=== PATIENT | female | born 1950 | race Caucasian/White ===

== ENCOUNTER 2022-10-11 20:13 | Inpatient (IN) | payer MEDICARE, OTHER ==
[~2022-10-11] VITALS: Ht 165.1 cm; Wt 58.7 kg
[~2022-10-11 20:13] MED LIST: AMLODIPINE PO
[2022-10-11] MEDS ORDERED: MELATONIN 3 MG TABLET PO PRN (20:15)
[2022-10-11] MEDS ORDERED: diphenhydrAMINE 25 MG TABLET PO PRN (20:15)
[2022-10-11] MEDS ORDERED: BISACODYL 10 MG SUPPOSITORY PR PRN (20:15)
[2022-10-11] MEDS ORDERED: diphenhydrAMINE INJ 50 MG/ML VIAL IVP PRN (20:15)
[2022-10-11] MEDS ORDERED: polyethylene glycoL POWDER 17 GM (MIRALAX) PACK PO PRN (20:15)
[2022-10-11] MEDS ORDERED: CALCIUM CARBONATE 500 MG CHEW TABLET PO PRN (20:15)
[2022-10-11] MEDS ORDERED: ANTACID SUSPENSION 30 ML UDC PO PRN ×2 (20:15→20:30)
[2022-10-11] MEDS ORDERED: oxyCODONE IMMEDIATE RELEASE 5 MG TABLET PO PRN (20:15)
[2022-10-11] MEDS ORDERED: morphine INJ 4 MG/ML 1 ML (VIAL/SYRINGE) IV PRN (20:15)
[2022-10-11] MEDS ORDERED: ONDANSETRON 4 MG (ZOFRAN) ORAL DISSOLVE TAB PO PRN (20:15)
[2022-10-11] MEDS ORDERED: NS IV SCH (20:15)
[2022-10-11] MEDS ORDERED: NICARDIPINE IV SCH (20:15)
[2022-10-11] MEDS ORDERED: MILK OF MAGNESIA 400 MG/5 ML 30 ML UDC PO PRN (20:15)
[2022-10-11] MEDS ORDERED: LACTULOSE SYRUP 10GM/15ML 30ML UDC PO PRN (20:15)
[2022-10-11] MEDS ORDERED: ACETAMINOPHEN 325 MG TABLET PO PRN (20:15)
[2022-10-11] MEDS ORDERED: ONDANSETRON 4 MG/2 ML (SDV) Z0FRAN IV PRN ×2 (20:15→20:30)
[2022-10-11] MEDS ORDERED: NS IV 500 ML 500 ML IV PRN ×2 (20:15→22:00)
[2022-10-11] MEDS ORDERED: D5 1/2 NS 1,000 ML IV 1,000 ML IV PRN (20:30)
[2022-10-11] MEDS ORDERED: ONDANSETRON 4 MG (ZOFRAN) ORAL DISSOLVE TAB SL PRN (20:30)
[2022-10-11] MEDS ORDERED: LORazepam 1 MG TABLET PO PRN (20:30)
[2022-10-11] MEDS ORDERED: SENNA W/DOCUSATE (SENOKOT S) TABLET PO PRN (20:30)
[2022-10-11] MEDS ORDERED: 1/2 NS IV SOLUTION 1000 ML 1,000 ML IV PRN (20:30)
--- NOTE | 2022-10-11 20:40 | History & Physical ---
History of Present Illness HPI/Chief Complaint CC: Catastrophic CVA with right sided weakness HPI: This is a 72yoWF with no PCP who has a h/o current smoking, alcohol excessive use and HTN on no home meds who presented to the [facility] ICU from [facility] ER after she was transported from [facility] after her daughter called due to unable to ambulate out of a chair. Her last well time was 24+ hours ago and patient has expressive aphasia and dysarthria and unable to communicate along with fl accidity of her right side. had accepted the patient since CT angiogram cannot be performed at [facility] critical access hospital but no flights were available and EMS could not transport out of the [facility] so she was transported to [facility] on my service for stat CT angiogram with perfusion. If a large thrombus is identified we will attempt to secure a flight out of [place] since no one near the region could fly during this time due to weather. Cardene drip will be initiated and goal of SBP is 200 due to initial SBP was 278. stroke center did provide recs. If she can swallow we will initiate ASA and Plavix. I assessed the patient in [facility] ER and placed admit orders for [facility] and updated nursing supervisor grinding. Source: family Exam Limitations: clinical condition Date Seen 10/11/22 Time Seen by a Provider: 20:00 Attending Physician PCP Admitting Physician: Ariana Rubin DO Attending Physician: Ariana Rubin DO Referring Physician Date of Admission Home Medications & Allergies Home Medications Reviewed patient Home Medication Reconciliation performed by pharmacy medication reconciliations blow mold technician and/or nursing. Patients Allergies have been reviewed. Allergies Allergies Coded Allergies No Known Drug Allergies (Unverified09/27/11) Past Vvyyiks-Dztxgh-Efosha Hx Past Med/Social Hx: Reviewed Nursing Past Med/Soc Hx, Reviewed and Corrections made Patient Social History Marrital Status: single Employed/Student: retired Alcohol Use: Regular Use Smoking Status: Current Everyday Smoker Past Medical History Cardiac: Hypertension Review of Systems Constitutional: see HPI Psychiatric/Neurological: Weakness (right sided) Physical Exam Physical Exam Vital Signs Capillary Refill : Height, Weight, BMI Height: '" Weight: lbs. oz. kg; BMI Method: General Appearance: Anxious, Chronically ill, Mild Distress (tearful), Thin Respiratory: Lungs Clear, Normal Breath Sounds, No Accessory Muscle Use, No Respiratory Distress Cardiovascular: Regular Rate, Rhythm, No Edema, No Gallop, No JVD, No Murmur, Normal Peripheral Pulses Neurologic/Psychiatric: Alert, Aphasia, Disoriented, Facial Droop (right sided), Motor Weakness (right sided flaccidity) Results Results/Procedures Labs Patient resulted labs reviewed. Assessment/Plan Admission Diagnosis Assessment: Catastrophic CVA with right sided flaccidity Dysarthria and expressive aphasia HTN emergency placed on Cardene drip Smoker Alcohol excess user placed on CIWA Plan: CT angiogram with perfusion of brain and CT angiogram of neck in case there is a large thrombus then will attempt to secure a med flight to who had accepted her since [facility] did not have CT angiogram of the brain capabilities Carotid USG PT OT ST for expressive aphasia Swallow test for aspiration CIWA Vitamin supplementation to prevent Wernicke's encephalopathy and Karsokoff's psychosis Lovenox for DVT PPx ECHO Cardiology consult ASA and Plavix Admission Status: Inpatient Order (span 2 midnights) Reason for Inpatient Admission: CVA ARIANA RUBIN DO Oct 11, 2022 20:40
--- NOTE | 2022-10-11 21:48 | Tele-ICU Consult ---
Progress Note 72 yo F admitted from OSH for acute CVA, awaiting transfer to [facility] delayed due to weather. Brought in by daughter for aphasia, R hemiparesis. LKW > 24 hrs, no TNK rec'd PMH Alcohol dependence, HTN Awake, alert on video, on RA not in distress Nicardipine gtt with goal BP already in place per primary MD (150-180) Also seizure ppx, CIWA HR 122, SpO2 96 on RA Awaiting imaging, CT Angio to evaluate need for emergent thrombectomy (ordered per Dr. Rubin) Diagnosis: Acute CVA A total of _12 _ minutes of critical care time was devoted to this patient, including reviewing this patient's available data, including medical history, events of note and test results. This was required to treat and/or prevent further deterioration of critical care conditions ( as above ). Service provided to a patient admitted to ICU bed via interactive E-CARE system with real-time audio and video telecommunications from [facility]- ICU hub located in [place], [place] MARGI PABON MD Oct 11, 2022 21:48
[2022-10-11] MEDS: NS IV 1000 ML 1,000 ML IV SCH (22:03)
[2022-10-11] MEDS: DOCUSATE SODIUM 100 MG CAPSULE PO SCH (22:14)
[2022-10-11] MEDS: SENNOSIDES 8.6 MG (SENOKOT) TAB PO SCH (22:14)
[2022-10-11 22:26] LABS: CHOLESTEROL 230 MG/DL (< 200); HDL CHOLESTEROL 75 MG/DL (40-60); TRIGLYCERIDES 111 MG/DL (<150); VLDL CHOLESTEROL 22 MG/DL (5-40)
[2022-10-11 22:41] LABS: CREATININE SERUM 0.73 MG/DL (0.60-1.30)
[2022-10-11 23:09] VITALS: BP 178/83
[2022-10-11] MEDS ORDERED: RT-Ipratropium/Albuterol NEB 3 ML VIAL INH PRN (23:30)
[2022-10-12] MEDS: ENOXAPARIN 40 MG/0.4 ML SYRINGE SC SCH ×2 (02:06→21:03)
[2022-10-12 04:35] LABS: BASOPHILS % (AUTO) 0 % (0-10); EOSINOPHILS % (AUTO) 0 % (0-10); HEMATOCRIT 40 % (35-52); HEMOGLOBIN 14.1 g/dL (11.5-16.0); LYMPHOCYTES # (AUTO) 2.2 10^3/uL (1.0-4.0); LYMPHOCYTES % (AUTO) 22 % (12-44); MEAN CORPUSCULAR HEMOGLOBIN 31 pg (25-34); MEAN CORPUSCULAR HGB CONC 35 g/dL (32-36); MEAN CORPUSCULAR VOLUME 88 fL (80-99); MEAN PLATELET VOLUME 9.7 fL (9.0-12.2); MONOCYTES # (AUTO) 0.7 10^3/uL (0.0-1.0); MONOCYTES % (AUTO) 7 % (0-12); NEUTROPHILS # (AUTO) 7.1 10^3/uL (1.8-7.8); NEUTROPHILS % (AUTO) 70 % (42-75); PLATELET COUNT 332 10^3/uL (130-400); WHITE BLOOD COUNT 10.1 10^3/uL (4.3-11.0)
[2022-10-12 05:21] LABS: ALBUMIN 4.1 GM/DL (3.2-4.5); POTASSIUM 3.3 MMOL/L (3.6-5.0)
[2022-10-12 05:22] LABS: CALCIUM 9.2 MG/DL (8.5-10.1)
[2022-10-12 05:24] LABS: TOTAL PROTEIN 6.9 GM/DL (6.4-8.2)
[2022-10-12 05:27] LABS: CREATININE SERUM 0.7 MG/DL (0.60-1.30); PHOSPHORUS 2.9 MG/DL (2.3-4.7)
[2022-10-12 05:30] LABS: MAGNESIUM 1.9 MG/DL (1.6-2.4)
[2022-10-12] MEDS ORDERED: POTASSIUM CL 10MEQ/50ML IVPB 50 ML IV SCH (06:00)
[2022-10-12] MEDS ORDERED: POTASSIUM CHLORIDE 20 MEQ TABLET PO SCH (06:00)
[2022-10-12] MEDS ORDERED: MAGNESIUM 1 GM/100 ML IVPB 100 ML IV SCH (06:00)
[2022-10-12] MEDS: POTASSIUM CL 10MEQ/50ML IVPB 50 ML IV SCH (06:20)
[2022-10-12] MEDS: MAGNESIUM 1 GM/100 ML IVPB 100 ML IV SCH (06:20)
[2022-10-12] MEDS: POTASSIUM CHLORIDE 20 MEQ TABLET PO SCH (06:20)
--- NOTE | 2022-10-12 06:37 | Progress Note ---
Subjective Date Seen by a Provider: Oct 12, 2022 Time Seen by a Provider: 11:00 Subjective/Events-last exam Patient remained stable through the night CT angiogram did not show any thrombus that could be extracted at [facility] CT angiogram of the neck and carotid ultrasound confirmed complete occlusion of the left internal and external carotid artery causing a catastrophic stroke in the left parietal region from MCA Expressive aphasia continues No dysphagia reported so she is stable to take her aspirin and Plavix Echo ordered Cardiology consult Updated patient and family in depth regarding all the results Spoke with [facility] vascular surgeon Dr. Thompson Who agreed there was no option for carotid endarterectomy since that could cause a hemorrhagic transition of the stroke Moved around pretty well with PT and stood up Review of Systems General: Fatigue, Malaise Neurological: Weakness, Incoordination Objective Exam Last Set of Vital Signs Vital Signs Date Time Temp Pulse Resp B/P (MAP) Pulse Ox O2 Delivery O2 Flow Rate FiO2 10/12/22 06:00 93 15 170/81 (110) 96 Room Air 10/12/22 01:55 36.9 10/11/22 23:09 21 Capillary Refill : I&O Intake and Output 10/12/22 00:00 Intake Total 0 ml Output Total 550 ml Balance -550 ml Intake Oral 0 ml Output Urine Total 550 ml Daily Weight Change Unsure General: Alert, Oriented X3, Cooperative, No Acute Distress Lungs: Clear to Auscultation, Normal Air Movement Heart: Regular Rate, Normal S1, Normal S2, No Murmurs Neuro: Other (right sided weakness) Psych/Mental Status: Mental Status NL Results Lab Laboratory Tests 10/11/22 21:23: Glucometer 128H 10/11/22 21:49: Blood Urea Nitrogen 8, Creatinine 0.73, Estimat Glomerular Filtration Rate 88, BUN/Creatinine Ratio 11, Triglycerides Level 111, Cholesterol Level 230H, LDL Cholesterol Direct 141H, VLDL Cholesterol 22, HDL Cholesterol 75H 10/12/22 04:12: Blood Urea Nitrogen 7, Creatinine 0.70, Estimat Glomerular Filtration Rate 92, BUN/Creatinine Ratio 10, White Blood Count 10.1, Red Blood Count 4.57, Hemoglobin 14.1, Hematocrit 40, Mean Corpuscular Volume 88, Mean Corpuscular Hemoglobin 31, Mean Corpuscular Hemoglobin Concent 35, Red Cell Distribution Width 12.4, Platelet Count 332, Mean Platelet Volume 9.7, Immature Granulocyte % (Auto) 0, Neutrophils (%) (Auto) 70, Lymphocytes (%) (Auto) 22, Monocytes (%) (Auto) 7, Eosinophils (%) (Auto) 0, Basophils (%) (Auto) 0, Neutrophils # (Auto) 7.1, Lymphocytes # (Auto) 2.2, Monocytes # (Auto) 0.7, Eosinophils # (Auto) 0.0, Basophils # (Auto) 0.0, Immature Granulocyte # (Auto) 0.0, Sodium Level 137, Potassium Level 3.3L, Chloride Level 105, Carbon Dioxide Level 19L, Anion Gap 13, Glucose Level 116H, Calcium Level 9.2, Corrected Calcium 9.1, Phosphorus Level 2.9, Magnesium Level 1.9, Total Bilirubin 1.0, Aspartate Amino Transf (AST/SGOT) 19, Alanine Aminotransferase (ALT/SGPT) 18, Alkaline Phosphatase 62, Total Protein 6.9, Albumin 4.1 Assessment/Plan Assessment/Plan Assess & Plan/Chief Complaint Assessment: Catastrophic CVA with right sided flaccidity-CT angiogram matches carotid ultrasound revealing left carotid internal and external complete occlusion causing catastrophic ischemic infarct of the left parietal and MCA region no surgical option available per vascular surgery at [facility] Dysarthria and expressive aphasia HTN emergency placed on Cardene drip Smoker Alcohol excess user placed on CIWA Plan: ARU Friday PT OT ST for expressive aphasia Swallow test for aspiration looked ok CIWA Vitamin supplementation to prevent Wernicke's encephalopathy and Karsokoff's psychosis Lovenox for DVT PPx ECHO Cardiology consult ASA and Plavix JM CALLEJAS DO Oct 12, 2022 06:37
--- NOTE | 2022-10-12 07:49 | Diagnostic Imaging Report ---
PROCEDURE: CT head without r/o stroke. TECHNIQUE: Multiple contiguous axial images were obtained through the brain without the use of intravenous contrast. Auto Exposure Controls were utilized during the CT exam to meet ALARA standards for radiation dose reduction. INDICATION: Stroke. COMPARISON: Imaging from this same date. FINDINGS: Mild atrophy. No intracranial hemorrhage. Focal hypodensity is noted within the left basal ganglia, consistent with chronic lacunar infarction; however, focal hypodensity is noted within the left parietal lobe which involves the cortex and underlying white matter. There is associated enlargement and edema noted at this location. No significant midline shift, obstructive hydrocephalus, or extra-axial fluid collection. The bilateral ocular lenses are absent. Otherwise, the orbits are unremarkable. The paranasal sinuses are clear. The calvarium and extracalvarial soft tissues are unremarkable IMPRESSION: Findings consistent with an acute to subacute infarction within the distribution of the left middle cerebral artery, particularly involving the left parietal lobe. Agree with preliminary interpretation. Dictated by: Dictated on workstation # [id number]
--- NOTE | 2022-10-12 07:51 | Diagnostic Imaging Report ---
PROCEDURE: CT angiography of the head and CT angiography of the neck with and without contrast. TECHNIQUE: Contiguous noncontrast images were obtained from the skull base through the vertex. After intravenous contrast administration, helical CT angiography of the neck was performed. Source data was reformatted into 3D MIP projections. Delayed post contrast acquisition was also obtained. Auto Exposure Controls were utilized during the CT exam to meet ALARA standards for radiation dose reduction. INDICATION: CVA. FINDINGS: There is prominence of the ventricles and sulci. There is mild chronic microvascular ischemic disease. There is no hydrocephalus. There is no midline shift. There is no mass, hemorrhage, or extra-axial fluid collection. The distal internal carotid arteries and basilar artery are patent. There is some atherosclerotic calcification of the proximal intracranial ICAs. There are no proximal intracranial branch occlusions, vascular malformations, or aneurysms. The calvarium is intact. The sinuses and mastoid air cells are clear. The right common carotid artery is unremarkable. There is no occlusions, stenosis, or dissection. The right internal carotid artery is also unremarkable. The extracranial segment is patent with no occlusion, stenosis, or dissection. The right external carotid artery is widely patent. The right vertebral artery is unremarkable without occlusion, stenosis, or dissection. There is occlusion of the left common carotid artery proximally. There is significant atherosclerosis about the left carotid bifurcation. There is reconstitution of the left internal carotid artery just distal to the bifurcation and significant calcifications. The nasopharyngeal, oropharyngeal, and hypopharyngeal tissues are symmetric without mass effect. The parotid and submandibular glands are normal in appearance. There are several low-density lesions in the thyroid. There is no pathologically enlarged adenopathy or mass in the neck. The prevertebral soft tissues are within normal limits. There are moderate degenerative changes in the cervical spine. IMPRESSION: Unremarkable CTA head. There are no proximal intracranial branch occlusions, vascular malformation, or aneurysms. Occlusion of the left common carotid artery which appears to be secondary to marked atherosclerotic calcification of the bifurcation. There is reconstitution of the proximal left internal carotid artery via collaterals from the external carotid artery. Otherwise, unremarkable CTA neck. Dictated by: Dictated on workstation # [id number]
--- NOTE | 2022-10-12 07:55 | Diagnostic Imaging Report ---
INDICATION: Stroke. COMPARISON: Imaging from this same date. TECHNIQUE: CT perfusion examination was performed before and after the administration of intravenous contrast dated 10/12/2022. FINDINGS: The examination is incomplete. The patient experienced coughing and emesis during the examination and was terminated early. Additionally, the cerebral blood flow and cerebral blood volume color overlays were unable to be calculated by the software. Acute to subacute infarction within the left parietal lobe is again noted. IMPRESSION: Incomplete examination; therefore, I am unable to evaluate for penumbra. Acute to subacute infarction within the left parietal lobe is again noted though better demonstrated on concurrent CTs from this same date. See the separately dictated CT and CTA of the head and neck for further findings. Dictated by: Dictated on workstation # [id number]
[2022-10-12] MEDS ORDERED: POTASSIUM CHLORIDE 20 MEQ TABLET PO ONE ×2 (08:00→11:00)
--- NOTE | 2022-10-12 08:38 | Tele-ICU Progress Note ---
Subjective Date Seen by a Provider: Oct 12, 2022 Time Seen by a Provider: 08:38 Subjective/Events-last exam (Tele-ICU Physician , Progress Note ) Service provided via interactive audio and video telecommunications E-CARE s alfonso to a patient admitted to ICU bed in [facility]. Patient is seen today due to persistent need of ICU care Available chart/ vitals / labs / Images reviewed Video assessment done using teleICU camera, rest of exam as per RN She is a 72-year-old female with a history of current smoking alcohol abuse hypertension on no home meds presented to a [facility] ICU from [facility] ER due to acute stroke. In the ER she was found to have a expressive aphasia, dysarthria and a flaccidity of her right side. CT angiogram of the head and neck revealed no acute abnormalities in the head but on the left side she has a common carotid occlusion with reconstitution of the proximal left internal carotid artery via collaterals from external carotid artery. The [facility] was consulted and accepted for transfer. But due to bad weather she could not be transferred. Today ultrasonogram of the carotids were done and showed complete occlusion of common carotid artery on the left side. Apparently vascular surgeon felt there is no need for acute intervention. She has a.'s of hypertension initially she was on a Cardene drip and now off the Cardene drip. Her systolic blood pressure on and off for about the 190s. I feel that her permissible systolic hypertension at this time probably around 8180 mmHg. Impression 1. Acute left CVA with right hemiparesis and aphasia. 2. Left common carotid artery complete occlusion 3. Tobacco abuse 4. Alcohol abuse history 5. Uncontrolled hypertension due to noncompliance. Recommendations 1. We will keep her systolic blood pressure less than 180 2. Aspirin. 3. Physical therapy, Occupational Therapy and speech therapy. 4. Tobacco cessation strongly advised 5. Alcohol abuse disorder. It will be counseled once she is somewhat improved. 6. We will give thiamine and folic acid. 7. Subcutaneous Lovenox for DVT prophylaxis starting from 10/13/2022. 8. Keep LDL less than 70 9. Hemoglobin A1c goal less than 6.0. Coordination of care with primary care physician and bedside consultants. I am remotely monitoring this patient from Tele icu station in [place]. I am unable to do the bedside exam, and history/physical and pertinent information is taken from other notes in the computer and bedside staff. Certain portions of this document may have been dictated utilizing voice recognition technology such as [employer]ivid[employer]ortex[employer]. Inherent to this technology, typographical and grammatical errors may exist. As much as I am diligent to identify and correct to these mistakes, some errors may remain in the document. Critical care time devoted to this patient today is approximately is--25 minutes Sepsis Event Evaluation Height, Weight, BMI Height: '" Weight: lbs. oz. kg; 20.76 BMI Method: Exam Exam Patient acknowledged, consented, and participated in this virtual visit which was conducted using real time audio/video Vital Signs Date Time Temp Pulse Resp B/P (MAP) Pulse Ox O2 Delivery O2 Flow Rate FiO2 10/12/22 08:20 94 Room Air 10/12/22 08:00 36.2 10/12/22 07:00 98 10/12/22 06:00 93 15 170/81 (110) 96 Room Air 10/12/22 05:00 87 18 142/88 (106) 93 Room Air 10/12/22 04:00 97 15 125/65 (85) 94 Room Air 10/12/22 03:46 Room Air 10/12/22 03:00 98 23 129/64 (85) 91 Room Air 10/12/22 02:00 103 18 148/63 (91) 91 Room Air 10/12/22 01:55 36.9 10/12/22 01:00 105 10/12/22 01:00 107 18 157/65 (95) 91 Room Air 10/12/22 00:00 110 20 151/66 (94) 94 Room Air 10/11/22 23:47 Room Air 10/11/22 23:46 Room Air 10/11/22 23:09 113 93 21 10/11/22 23:00 111 14 156/69 (98) 93 Room Air 10/11/22 22:44 93 Room Air 10/11/22 22:30 112 19 144/68 (93) 93 Room Air 10/11/22 22:09 109 178/83 10/11/22 22:00 109 14 178/83 (114) 95 Room Air 10/11/22 21:45 109 19 181/95 (123) 95 Room Air 10/11/22 21:34 113 10/11/22 21:30 117 27 201/95 (130) 95 Room Air 10/11/22 21:15 117 27 196/103 (134) 95 Room Air 10/11/22 21:00 Room Air I & O 10/12/22 07:00 Intake Total 30 ml Output Total 1750 ml Balance -1720 ml Height & Weight Height: '" Weight: lbs. oz. kg; 20.76 BMI Method: General Appearance: Anxious, Chronically ill, Mild Distress (tearful), Thin Respiratory: Lungs Clear, Normal Breath Sounds, No Accessory Muscle Use, No Respiratory Distress Cardiovascular: Regular Rate, Rhythm, No Edema, No Gallop, No JVD, No Murmur, Normal Peripheral Pulses Neurologic/Psychiatric: Alert, Aphasia, Disoriented, Facial Droop (right sided), Motor Weakness (right sided flaccidity) Results Lab Laboratory Tests 10/11/22 21:49 10/12/22 04:12 Assessment/Plan Assessment/Plan as above Critical Care: Critically Ill Patient Time spent with patient (mins): 25 KYLAH MONTOYA MD Oct 12, 2022 08:38
[2022-10-12] MEDS: ASPIRIN 325 MG TABLET PO SCH (08:51)
[2022-10-12] MEDS: CLOPIDOGREL 75 MG TABLET PO SCH (08:51)
[2022-10-12] MEDS ORDERED: ASPIRIN 300 MG SUPPOSITORY PR SCH (09:00)
[2022-10-12] MEDS: DOCUSATE SODIUM 100 MG CAPSULE PO SCH ×2 (09:04→21:01)
[2022-10-12] MEDS: SENNOSIDES 8.6 MG (SENOKOT) TAB PO SCH ×2 (09:04→21:01)
--- NOTE | 2022-10-12 09:32 | Diagnostic Imaging Report ---
INDICATION: Dyspnea. COMPARISON: None. DISCUSSION: Single portable upright view of the chest was obtained. Lungs are hyperinflated. Normal heart size. No consolidation, pleural fluid, or pneumothorax. No osseous abnormality. IMPRESSION: 1. Negative chest. Dictated by: Dictated on workstation # [id number]
--- NOTE | 2022-10-12 09:33 | Diagnostic Imaging Report ---
INDICATION: Right hip pain. COMPARISON: None. DISCUSSION: Two views of the right hip were obtained. No fracture or dislocation. No significant degenerative disease. Atherosclerotic plaques noted throughout the adjacent vessels. The bladder is decompressed by a Orozco catheter. Contrast is noted within the bladder. IMPRESSION: Negative right hip. Dictated by: Dictated on workstation # [id number]
--- NOTE | 2022-10-12 09:34 | Diagnostic Imaging Report ---
INDICATION: Right knee pain. COMPARISON: None. DISCUSSION: Two views of the right knee were obtained. Mild anterior soft tissue swelling. No effusion. No fracture or dislocation. No significant degenerative disease. Alignment is anatomic. IMPRESSION: Mild anterior right knee soft tissue swelling. No fracture. Dictated by: Dictated on workstation # [id number]
[2022-10-12] MEDS: THIAMINE INJECTION 100 MG, FOLIC ACID INJECTION 1 MG, MAGNESIUM SULFATE 2 GM, MULTIVITA... IV SCH ×5 (09:38)
--- NOTE | 2022-10-12 10:32 | Diagnostic Imaging Report ---
PROCEDURE: US carotid duplex bilateral. TECHNIQUE: Multiple Real-time grayscale images were obtained over the carotid arteries in various projections, bilaterally. Additional spectral analysis and color Doppler duplex images were also obtained. INDICATION: CVA. FINDINGS: Parameters based on the consensus panel [employer] and Doppler ultrasound criteria published January 2003, Radiology, Volume 229. There are no focally elevated velocities in the right common or internal carotid artery. The ICA/CCA ratio is 1.19. There is antegrade flow in both vertebral arteries. The left common carotid artery, internal carotid artery, and external carotid artery are occluded. IMPRESSION: Complete occlusion of the left carotid system including both the internal and external carotid arteries. Mild plaque in the right carotid system; however, spectral analysis shows no evidence of a hemodynamically significant stenosis. There is antegrade flow in both vertebral arteries. DOPPLER (peak systolic velocity M/S Right Left CCA 1.09 OCCLUDED ICA Proximal 1.30 OCCLUDED ICA Mid 1.17 OCCLUDED ICA Distal 1.18 OCCLUDED RATIO 1.19 OCCLUDED ECA 3.24 OCCLUDED VERT .98 .60 Dictated by: Dictated on workstation # [id number]
[2022-10-12] MEDS: NS IV 1000 ML 1,000 ML IV SCH (10:41)
--- NOTE | 2022-10-12 11:27 | Physical Therapy Evaluation ---
PT Evaluation-General Medical Diagnosis Admission Date Oct 11, 2022 at 21:08 Medical Diagnosis: CVA Onset Date: Oct 11, 2022 Therapy Diagnosis Therapy Diagnosis: decreased mobility, R hemiparesis Precautions Precautions/Isolations: Aspiration, Seizure, Fall Prevention, Standard Precautions, Pressure Ulcer Referral Physician: Caryn Reason for Referral: Evaluation/Treatment Medical History Pertinent Medical History: HTN Additional Medical History current smoker, excessive alcohol use Current History Presented to [facility] [place] [facility] with [place], family reports patient found at home post fall. Reviewed History: Yes Social History Home: Single Level Current Living Status: Alone Prior Prior Level of Function SCALE: Activities may be completed with or without assistive devices. 3-Majmyqhkyt-fylgogz completes the activity by him/herself with no assistance from a helper. 5-Set-up or Clean-up Assistance-helper sets up or cleans up; patient completes activity. [place] assists only prior to or following the activity. 4-Supervision or Touching Assistance-helper provides verbal cues and/or touching/steadying and/or contact guard assistance as patient completes activity. Assistance may be provided throughout the activity or intermittently. 3-Partial/Moderate Assistance-helper does LESS THAN HALF the effort. [place] lifts, holds or supports trunk or limbs, but provides less than half the effort. 2-Substantial/Maximal Assistance-helper does MORE THAN HALF the effort. [place] lifts or holds trunk or limbs and provides more than half the effort. 9-Capgbjhuv-wvpyua does ALL the effort. Patient does none of the effort to complete the activity. Or, the assistance of 2 or more helpers is required for the patient to complete the activity. If activity was not attempted, code reason: 7-Patient Refused. 9-Not Applicable-not attempted and the patient did not perform the activity before the current illness, exacerbation or injury. 10-Not Attempted due to Environmental Limitations-(lack of equipment, weather restraints, etc.). 88-Not Attempted due to Medical Conditions or Safety Concerns. Bed Mobility: 6 Transfers (B,C,W/C): 6 Gait: 6 Stairs: 6 Indoor Mobility (Ambulation): Independent PT Evaluation-Current Subjective Pt. in bed, denies pain. Agrees to stand at edge of bed but declines sitting up in a chair. Objective Patient Orientation: Person ROM/Strength ROM Upper Extremities L UE WNL, decreased R UE ROM Lower Extremities (B) LE is WNL Strength Upper Extremities L UE is WNL, n/a R UE Strength Lower Extremities L LE is 5/5, R LE grossly 3+/5 Integumentary/Posture Integumentary bruising noted at R knee Bowel Incontinence: No Bladder Incontinence: Orozco Cath Posture upright Neuromuscular (Tone, Coordination, Reflexes) diminished Sensory Vision: Functional Hearing: Functional Sensation Right Upper Extremit: Impaired Sensation Left Upper Extremity: Intact Sensation Right Lower Extremit: Impaired Sensation Left Lower Extremity: Intact Transfers Sit to Lying (QC): 4 Lying to Sitting/Side of Bed(Q: 3 Sit to Stand (QC): 4 Gait Does the Patient Walk?: Yes Anticipated Mode of Locomotion: Walk Balance Sitting Static: Good Sitting Dynamic: Fair Standing Static: Poor Standing Dynamic: Poor Assessment/Needs Pt. is a 72 y.o. female with CVA and R hemiparesis who presents with decreased strength and mobility. Pt. was min-mod A with all transfers but had poor standing balance and quickly fatigued which increased her lean to the R. Pt. would benefit from skilled PT to improve mobility and strength for possible return home. Pt. would likely be a good candidate for ARU. 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 Assisted Goals PT Assisted Goals Time Frame: Oct 23, 2022 Sit to Lying (QC): 6 Lying-Sitting on Side/Bed(QC): 6 Sit to Stand (QC): 6 Chair/Una-um-Rpkua Xfer(QC): 4 Does the Patient Walk: Yes Walk 10 feet (QC): 4 Walk 50ft with 2 Turns (QC): 4 PT Plan Problem List Problem List: Activity Tolerance, Functional Strength, Safety, Balance, Gait, Transfer, Bed Mobility, ROM Treatment/Plan Treatment Plan: Continue Plan of Care Treatment Plan: Bed Mobility, Concurrent Therapy, Education, Functional Activity Shira, Functional Strength, Gait, Safety, Therapeutic Exercise, Transfers Treatment Duration: Oct 23, 2022 Frequency: 6 times per week Estimated Hrs Per Day: .25 hour per day Patient and/or Family Agrees t: Yes Time Time In: 1030 Time Out: 1042 DATE: Oct 12, 2022 Total Billed Treatment Time: 12 Total Billed Treatment 1, BRISSA BROWN PT Oct 12, 2022 11:26
[2022-10-12] MEDS: hydrALAZINE INJECTION 20 MG/ML VIAL IV PRN ×2 (16:04→21:10)
--- NOTE | 2022-10-12 17:30 | Consultation-Cardiology ---
HPI-Cardiology Cardiology Consultation: Date of Consultation 10/12/22 Date of Admission Attending Physician Melvi,Local Physician Admitting Physician Admitting Physician: Ariana Rubin DO Attending Physician: Ariana Rubin DO Consulting Physician Sang RILEY MD HPI: Time Seen by a Provider: 15:00 Chief Complaint: Acute stroke This is a 72-year-old lady who presented with acute stroke. She could not be transferred to due to bad weather. Still having residual deficits. On aspirin and Plavix. Review of Systems-Cardiology Review of Systems Respiratory: no symptoms reported Cardiovascular: no symptoms reported Psychiatric/Neurological: weakness OPX-Nayhvr-Fmiqri Hx Patient Social History Marrital Status: single Employed/Student: retired Smoking Status: Current Everyday Smoker Alcohol Use?: Yes Tobacco type used: Cigarettes Past Medical History PMH As described under Assessment. Allergies and Home Medications Allergies Coded Allergies: No Known Drug Allergies (Unverified , 09/27/11) Patient Home Medication List Home Medication List Reviewed: Yes [Amlodipine] , 1 TAB PO DAILY, (Reported) Entered as Reported by: MONTANA SHEPHERD on 09/27/11 0840 Exam Vital Signs Vital Signs Date Time Temp Pulse Resp B/P (MAP) Pulse Ox O2 Delivery O2 Flow Rate FiO2 10/12/22 15:56 36.8 10/12/22 15:56 93 Room Air 10/12/22 15:00 92 16 180/94 (122) 10/11/22 23:09 21 Physical Exam Constitutional: No respiratory distress. Chest: Clear to auscultation bilaterally. CVS: Regular rate and rhythm. Neurology: Residual deficits. Labs Laboratory Tests Test 10/11/22 21:23 10/11/22 21:49 10/12/22 04:12 Range/Units Glucometer 128 H 70-110 MG/DL Blood Urea Nitrogen 8 7 7-18 MG/DL Creatinine 0.73 0.70 0.60-1.30 MG/DL Estimat Glomerular Filtration Rate 88 92 BUN/Creatinine Ratio 11 10 Triglycerides Level 111 <150 MG/DL Cholesterol Level 230 H < 200 MG/DL LDL Cholesterol Direct 141 H 1-129 MG/DL VLDL Cholesterol 22 5-40 MG/DL HDL Cholesterol 75 H 40-60 MG/DL White Blood Count 10.1 4.3-11.0 10^3/uL Red Blood Count 4.57 3.80-5.11 10^6/uL Hemoglobin 14.1 11.5-16.0 g/dL Hematocrit 40 35-52 % Mean Corpuscular Volume 88 80-99 fL Mean Corpuscular Hemoglobin 31 25-34 pg Mean Corpuscular Hemoglobin Concent 35 32-36 g/dL Red Cell Distribution Width 12.4 10.0-14.5 % Platelet Count 332 130-400 10^3/uL Mean Platelet Volume 9.7 9.0-12.2 fL Immature Granulocyte % (Auto) 0 % Neutrophils (%) (Auto) 70 42-75 % Lymphocytes (%) (Auto) 22 12-44 % Monocytes (%) (Auto) 7 0-12 % Eosinophils (%) (Auto) 0 0-10 % Basophils (%) (Auto) 0 0-10 % Neutrophils # (Auto) 7.1 1.8-7.8 10^3/uL Lymphocytes # (Auto) 2.2 1.0-4.0 10^3/uL Monocytes # (Auto) 0.7 0.0-1.0 10^3/uL Eosinophils # (Auto) 0.0 0.0-0.3 10^3/uL Basophils # (Auto) 0.0 0.0-0.1 10^3/uL Immature Granulocyte # (Auto) 0.0 0.0-0.1 10^3/uL Sodium Level 137 135-145 MMOL/L Potassium Level 3.3 L 3.6-5.0 MMOL/L Chloride Level 105 98-107 MMOL/L Carbon Dioxide Level 19 L 21-32 MMOL/L Anion Gap 13 5-14 MMOL/L Glucose Level 116 H 70-105 MG/DL Calcium Level 9.2 8.5-10.1 MG/DL Corrected Calcium 9.1 8.5-10.1 MG/DL Phosphorus Level 2.9 2.3-4.7 MG/DL Magnesium Level 1.9 1.6-2.4 MG/DL Total Bilirubin 1.0 0.1-1.0 MG/DL Aspartate Amino Transf (AST/SGOT) 19 5-34 U/L Alanine Aminotransferase (ALT/SGPT) 18 0-55 U/L Alkaline Phosphatase 62 40-136 U/L Total Protein 6.9 6.4-8.2 GM/DL Albumin 4.1 3.2-4.5 GM/DL ECG Impression ECG Initial ECG Rhythm: Normal Sinus A/P-Cardiology Assessment/Admission Diagnosis Acute stroke due to carotid occlusion Hypertension, Active Plan Defer treatment of acute stroke to the primary team. Patient is already on aspirin and Plavix. Echocardiogram showed normal LV function with no intracardiac shunting. Very unlikely that there is a cardiac etiology for the acute stroke. Sang RILEY MD Oct 12, 2022 17:30
[2022-10-13] MEDS: NS IV 1000 ML 1,000 ML IV SCH (03:20)
[2022-10-13] MEDS: hydrALAZINE INJECTION 20 MG/ML VIAL IV PRN ×3 (04:56→19:45)
[2022-10-13 05:05] LABS: BASOPHILS % (AUTO) 0 % (0-10); EOSINOPHILS % (AUTO) 0 % (0-10); HEMATOCRIT 39 % (35-52); HEMOGLOBIN 13.4 g/dL (11.5-16.0); LYMPHOCYTES # (AUTO) 3.3 10^3/uL (1.0-4.0); LYMPHOCYTES % (AUTO) 33 % (12-44); MEAN CORPUSCULAR HEMOGLOBIN 31 pg (25-34); MEAN CORPUSCULAR HGB CONC 35 g/dL (32-36); MEAN CORPUSCULAR VOLUME 89 fL (80-99); MEAN PLATELET VOLUME 9.6 fL (9.0-12.2); MONOCYTES # (AUTO) 0.7 10^3/uL (0.0-1.0); MONOCYTES % (AUTO) 7 % (0-12); NEUTROPHILS % (AUTO) 60 % (42-75); PLATELET COUNT 292 10^3/uL (130-400); WHITE BLOOD COUNT 10.1 10^3/uL (4.3-11.0)
[2022-10-13 05:14] LABS: ALBUMIN 3.8 GM/DL (3.2-4.5)
[2022-10-13 05:16] LABS: CALCIUM 8.9 MG/DL (8.5-10.1)
[2022-10-13 05:17] LABS: TOTAL PROTEIN 6.6 GM/DL (6.4-8.2)
[2022-10-13 05:19] LABS: BILIRUBIN,TOTAL 1.1 MG/DL (0.1-1.0)
[2022-10-13 05:20] LABS: PHOSPHORUS 2.9 MG/DL (2.3-4.7)
[2022-10-13 05:21] LABS: CREATININE SERUM 0.72 MG/DL (0.60-1.30)
[2022-10-13 05:24] LABS: MAGNESIUM 2.3 MG/DL (1.6-2.4)
[2022-10-13] MEDS: POTASSIUM CL 10MEQ/50ML IVPB 50 ML IV SCH (05:25)
[2022-10-13] MEDS: MAGNESIUM 1 GM/100 ML IVPB 100 ML IV SCH (05:25)
[2022-10-13] MEDS: POTASSIUM CHLORIDE 20 MEQ TABLET PO SCH (05:26)
--- NOTE | 2022-10-13 07:21 | Diagnostic Imaging Report ---
INDICATION: Dyspnea, hospitalized patient. TECHNIQUE: Single view chest at 5:04 AM. CORRELATION STUDY: 10/12/2022. FINDINGS: Heart size is stable with prominence of the mediastinum and a tortuous course of the thoracic aorta. Aortic arch has mild calcification. Vasculature is mildly prominent. Mildly prominent interstitial markings suggesting mild edema. No infiltrate. IMPRESSION: Mild edema. No infiltrate. Dictated by: Dictated on workstation # [id number]
--- NOTE | 2022-10-13 07:58 | Progress Note ---
Subjective Date Seen by a Provider: Oct 13, 2022 Time Seen by a Provider: 11:00 Subjective/Events-last exam Patient doing well Blood pressure is labile Tolerating Plavix and aspirin family at bedside Inpt rehab Review of Systems General: Fatigue, Malaise Objective Exam Last Set of Vital Signs Vital Signs Date Time Temp Pulse Resp B/P (MAP) Pulse Ox O2 Delivery O2 Flow Rate FiO2 10/13/22 07:00 99 10/13/22 07:00 19 155/69 (93) 97 Room Air 10/13/22 04:05 37.2 10/11/22 23:09 21 Capillary Refill : I&O Intake and Output 10/12/22 23:59 Intake Total 2145.2 ml Output Total 2150 ml Balance -4.8 ml Intake Oral 1130 ml IV Total 1015.2 ml Output Urine Total 2150 ml General: Alert, Oriented X3, Cooperative, No Acute Distress Lungs: Clear to Auscultation, Normal Air Movement Heart: Regular Rate, Normal S1, Normal S2, No Murmurs Neuro: Other (Right-sided placidity) Psych/Mental Status: Mental Status NL, Mood NL Results Lab Laboratory Tests 10/13/22 04:48: White Blood Count 10.1, Red Blood Count 4.35, Hemoglobin 13.4, Hematocrit 39, Mean Corpuscular Volume 89, Mean Corpuscular Hemoglobin 31, Mean Corpuscular Hemoglobin Concent 35, Red Cell Distribution Width 12.9, Platelet Count 292, Mean Platelet Volume 9.6, Immature Granulocyte % (Auto) 0, Neutrophils (%) (Auto) 60, Lymphocytes (%) (Auto) 33, Monocytes (%) (Auto) 7, Eosinophils (%) (Auto) 0, Basophils (%) (Auto) 0, Neutrophils # (Auto) 6.0, Lymphocytes # (Auto) 3.3, Monocytes # (Auto) 0.7, Eosinophils # (Auto) 0.0, Basophils # (Auto) 0.0, Immature Granulocyte # (Auto) 0.0, Sodium Level 134L, Potassium Level 4.0, Chloride Level 105, Carbon Dioxide Level 19L, Anion Gap 10, Blood Urea Nitrogen 10, Creatinine 0.72, Estimat Glomerular Filtration Rate 89, BUN/Creatinine Ratio 14, Glucose Level 114H, Calcium Level 8.9, Corrected Calcium 9.1, Phosphorus Level 2.9, Magnesium Level 2.3, Total Bilirubin 1.1H, Aspartate Amino Transf (AST/SGOT) 19, Alanine Aminotransferase (ALT/SGPT) 15, Alkaline Phosphatase 60, Total Protein 6.6, Albumin 3.8 Assessment/Plan Assessment/Plan Assess & Plan/Chief Complaint Assessment: Catastrophic CVA with right sided flaccidity-CT angiogram matches carotid ultrasound revealing left carotid internal and external complete occlusion causing catastrophic ischemic infarct of the left parietal and MCA region no surgical option available per vascular surgery at [place] Dysarthria and expressive aphasia HTN emergency placed on Cardene drip now on Hydralazine IV Smoker Alcohol excess user placed on CIWA Plan: ARU Friday PT OT ST for expressive aphasia Swallow test for aspiration looked ok CIWA Vitamin supplementation to prevent Wernicke's encephalopathy and Karsokoff's psychosis Lovenox for DVT PPx ECHO Cardiology consult ASA and Plavix JM CALLEJAS DO Oct 13, 2022 07:58
[2022-10-13] MEDS: CLOPIDOGREL 75 MG TABLET PO SCH (08:15)
[2022-10-13] MEDS: SENNOSIDES 8.6 MG (SENOKOT) TAB PO SCH ×2 (08:15→19:57)
[2022-10-13] MEDS: DOCUSATE SODIUM 100 MG CAPSULE PO SCH ×2 (08:15→19:57)
[2022-10-13] MEDS: ASPIRIN 325 MG TABLET PO SCH (08:15)
--- NOTE | 2022-10-13 08:21 | Tele-ICU Progress Note ---
Progress Note video rounds completed 72 y/o female with a hx of tobacco and ETOH abuse and uncontrolled HTN admitted with a left CVA manifested wth dysarthria, expressive aphasia and right sided weakness. W/U revealed left carotid occlusion with intracranial reconsitution via collaterals Was origibally supposed to be transferred to [facility] to weather conditions. Now has stabilized BP controlled on cardene drip. PE: sitting up in chair , comfortable, Pulse: 106 NSR BP: 135/47 Pulse Ox 96% IMP: right CVA with eft carotid occlusion HTN, on cardene drip PLAN: stroke rehab BP control Time spent in review: 15 minutes I am remotely monitoring this patient from Tele icu station in [place]. I am unable to do the bedside exam, and history/physical and pertinent information is taken from other notes in the computer and bedside staff. Focused Exam Height, Weight, BMI Height: '" Weight: lbs. oz. kg; 20.65 BMI Method: Labs Laboratory Tests 10/13/22 04:48 Results Results/Procedures Lab Laboratory Tests 10/11/22 21:49 10/12/22 04:12 10/13/22 04:48 Results Labs Labs Laboratory Tests 10/13/22 04:48: White Blood Count 10.1, Red Blood Count 4.35, Hemoglobin 13.4, Hematocrit 39, Mean Corpuscular Volume 89, Mean Corpuscular Hemoglobin 31, Mean Corpuscular Hemoglobin Concent 35, Red Cell Distribution Width 12.9, Platelet Count 292, Mean Platelet Volume 9.6, Immature Granulocyte % (Auto) 0, Neutrophils (%) (Auto) 60, Lymphocytes (%) (Auto) 33, Monocytes (%) (Auto) 7, Eosinophils (%) (Auto) 0, Basophils (%) (Auto) 0, Neutrophils # (Auto) 6.0, Lymphocytes # (Auto) 3.3, Monocytes # (Auto) 0.7, Eosinophils # (Auto) 0.0, Basophils # (Auto) 0.0, I mmature Granulocyte # (Auto) 0.0, Sodium Level 134L, Potassium Level 4.0, Chlor stuart Level 105, Carbon Dioxide Level 19L, Anion Gap 10, Blood Urea Nitrogen 10, Creatinine 0.72, Estimat Glomerular Filtration Rate 89, BUN/Creatinine Ratio 14, Glucose Level 114H, Calcium Level 8.9, Corrected Calcium 9.1, Phosphorus Level 2.9, Magnesium Level 2.3, Total Bilirubin 1.1H, Aspartate Amino Transf (AST/SGOT) 19, Alanine Aminotransferase (ALT/SGPT) 15, Alkaline Phosphatase 60, Total Protein 6.6, Albumin 3.8 ABHAY WADDELL MD Oct 13, 2022 08:21
[2022-10-13] MEDS: THIAMINE INJECTION 100 MG, FOLIC ACID INJECTION 1 MG, MAGNESIUM SULFATE 2 GM, MULTIVITA... IV SCH ×5 (09:31)
--- NOTE | 2022-10-13 14:23 | Cardiology Progress Note ---
Cardiology SOAP Progress Note Subjective: No significant cardiac complaints. Objective: I&O/Vital Signs 10/13/22 10/13/22 10/13/22 10/13/22 03:00 04:00 04:00 04:05 Temp 37.2 Pulse 76 97 B/P (MAP) 137/63 (87) 173/85 (114) Pulse Ox 95 96 95 O2 Delivery Room Air Room Air Room Air 10/13/22 10/13/22 10/13/22 10/13/22 05:00 06:00 06:00 07:00 Pulse 84 82 82 92 Resp 19 B/P (MAP) 163/74 (103) 146/67 (88) 146/67 (93) 155/69 (93) Pulse Ox 96 95 95 97 O2 Delivery Room Air Room Air Room Air 10/13/22 10/13/22 10/13/22 10/13/22 07:00 08:00 08:14 08:47 Temp 35.9 Pulse 99 104 Resp B/P (MAP) 135/47 (80) Pulse Ox 95 96 O2 Delivery Room Air Room Air 10/13/22 10/13/22 10/13/22 10/13/22 09:00 10:00 11:00 11:20 Pulse 100 89 108 Resp 21 27 B/P (MAP) 182/84 (99) 190/94 (138) 173/80 (115) Pulse Ox 96 94 92 96 O2 Delivery Room Air Room Air Room Air Room Air 10/13/22 10/13/22 10/13/22 12:00 12:29 13:43 Temp 37.2 Pulse 98 105 96 Resp 18 B/P (MAP) 183/118 (141) 165/74 (104) Pulse Ox 94 96 O2 Delivery Room Air Room Air 10/13/22 00:00 Intake Total 1665.2 ml Output Total 650 ml Balance 1015.2 ml Constitutional: AAO x 3 Respiratory: lungs clear to auscultation Cardiovascular: regular rate-rhythm, S1 and S2; No diastolic murmur, No systolic murmur Gastrointestional: soft Extremities: No pedal edema Neurologic/Psychiatric: alert, normal mood/affect, oriented x 3, facial droop, motor weakness Skin: normal color Results/Procedures: Labs Laboratory Tests 10/13/22 04:48: White Blood Count 10.1, Red Blood Count 4.35, Hemoglobin 13.4, Hematocrit 39, Mean Corpuscular Volume 89, Mean Corpuscular Hemoglobin 31, Mean Corpuscular Hemoglobin Concent 35, Red Cell Distribution Width 12.9, Platelet Count 292, Mean Platelet Volume 9.6, Immature Granulocyte % (Auto) 0, Neutrophils (%) (Auto) 60, Lymphocytes (%) (Auto) 33, Monocytes (%) (Auto) 7, Eosinophils (%) (Auto) 0, Basophils (%) (Auto) 0, Neutrophils # (Auto) 6.0, Lymphocytes # (Auto) 3.3, Monocytes # (Auto) 0.7, Eosinophils # (Auto) 0.0, Basophils # (Auto) 0.0, Immature Granulocyte # (Auto) 0.0, Sodium Level 134L, Potassium Level 4.0, Chloride Level 105, Carbon Dioxide Level 19L, Anion Gap 10, Blood Urea Nitrogen 10, Creatinine 0.72, Estimat Glomerular Filtration Rate 89, BUN/Creatinine Ratio 14, Glucose Level 114H, Calcium Level 8.9, Corrected Calcium 9.1, Phosphorus Level 2.9, Magnesium Level 2.3, Total Bilirubin 1.1H, Aspartate Amino Transf (AST/SGOT) 19, Alanine Aminotransferase (ALT/SGPT) 15, Alkaline Phosphatase 60, Total Protein 6.6, Albumin 3.8 Microbiology 10/12/22 MRSA Screen - Final, Complete MRSA not isolated A/P: Assessment/Dx: Acute stroke due to carotid occlusion Hypertension, Active Plan: Defer treatment of acute stroke to the primary team. Patient is already on aspirin and Plavix. Echocardiogram showed normal LV function with no intracardiac shunting. Very unlikely that there is a cardiac etiology for the acute stroke. Acute inpatient rehab with Dr. Rubin. Sang RILEY MD Oct 13, 2022 14:23
[2022-10-13] MEDS: ENOXAPARIN 40 MG/0.4 ML SYRINGE SC SCH (19:45)
[2022-10-13 20:00] VITALS: BP 215/95
[2022-10-13 20:44] VITALS: BP 150/67
[2022-10-13 20:50] VITALS: BP 150/67
[2022-10-13 23:16] VITALS: BP 186/79
[2022-10-14 03:14] VITALS: BP 191/93
[2022-10-14] MEDS: hydrALAZINE INJECTION 20 MG/ML VIAL IV PRN (03:24)
[2022-10-14 03:59] VITALS: BP 153/69
[2022-10-14 04:57] LABS: BASOPHILS % (AUTO) 0 % (0-10); EOSINOPHILS # (AUTO) 0.1 10^3/uL (0.0-0.3); EOSINOPHILS % (AUTO) 1 % (0-10); HEMATOCRIT 38 % (35-52); HEMOGLOBIN 13.4 g/dL (11.5-16.0); LYMPHOCYTES # (AUTO) 2.5 10^3/uL (1.0-4.0); LYMPHOCYTES % (AUTO) 29 % (12-44); MEAN CORPUSCULAR HEMOGLOBIN 31 pg (25-34); MEAN CORPUSCULAR HGB CONC 35 g/dL (32-36); MEAN CORPUSCULAR VOLUME 88 fL (80-99); MEAN PLATELET VOLUME 9.5 fL (9.0-12.2); MONOCYTES # (AUTO) 0.7 10^3/uL (0.0-1.0); MONOCYTES % (AUTO) 8 % (0-12); NEUTROPHILS # (AUTO) 5.3 10^3/uL (1.8-7.8); NEUTROPHILS % (AUTO) 61 % (42-75); PLATELET COUNT 286 10^3/uL (130-400); WHITE BLOOD COUNT 8.6 10^3/uL (4.3-11.0)
[2022-10-14 05:09] LABS: ALBUMIN 3.7 GM/DL (3.2-4.5)
[2022-10-14 05:10] LABS: POTASSIUM 3.6 MMOL/L (3.6-5.0)
[2022-10-14 05:11] LABS: CALCIUM 8.8 MG/DL (8.5-10.1)
[2022-10-14 05:12] LABS: TOTAL PROTEIN 6.5 GM/DL (6.4-8.2)
[2022-10-14 05:14] LABS: BILIRUBIN,TOTAL 1.2 MG/DL (0.1-1.0)
[2022-10-14 05:16] LABS: CREATININE SERUM 0.67 MG/DL (0.60-1.30)
[2022-10-14 05:18] LABS: MAGNESIUM 1.9 MG/DL (1.6-2.4)
[2022-10-14] MEDS ORDERED: THERAPEUTIC MULTIVITAMIN W/MINERALS TABLET PO SCH (07:00)
[2022-10-14] MEDS ORDERED: THIAMINE 100 MG (VITAMIN B-1) TAB PO SCH (07:00)
[2022-10-14 07:30] VITALS: BP 165/72
[2022-10-14] MEDS ORDERED: FOLIC ACID 1 MG TAB PO SCH (09:00)
[2022-10-14] MEDS: ASPIRIN 325 MG TABLET PO SCH (09:01)
[2022-10-14] MEDS: DOCUSATE SODIUM 100 MG CAPSULE PO SCH (09:04)
[2022-10-14] MEDS: CLOPIDOGREL 75 MG TABLET PO SCH (09:04)
[2022-10-14] MEDS: SENNOSIDES 8.6 MG (SENOKOT) TAB PO SCH (09:04)
--- NOTE | 2022-10-14 09:27 | Cardiology Progress Note ---
Subjective Date Seen by Provider: Oct 14, 2022 Time Seen by Provider: 08:15 Subjective/Events-last exam Patient sitting up in bed, continues to have right sided weakness and some dysphagia Objective-Cardiology Exam Last Set of Vital Signs Vital Signs 10/11/22 10/14/22 23:09 07:30 Temp 36.8 Pulse 95 Resp 18 B/P (MAP) 165/72 (103) Pulse Ox 95 O2 Delivery Room Air FiO2 21 I&O Intake and Output 10/14/22 00:00 Intake Total 2710 ml Output Total 1980 ml Balance 730 ml Intake Oral 1060 ml IV Total 1650 ml Output Urine Total 1980 ml General: Alert, Oriented X3, Cooperative, No Acute Distress Neck: Other (Right carotid bruit) Lungs: Clear to Auscultation, Normal Air Movement Heart: Regular Rate, Normal S1, Normal S2, No Murmurs Abdomen: Normal Bowel Sounds, No Tenderness, No Hepatosplenomegaly Skin: No Rashes, No Breakdown Neuro: Other (Right-sided placidity) Psych/Mental Status: Mental Status NL, Mood NL Results Lab Laboratory Tests 10/14/22 04:47 A/P-Cardiology Admission Diagnosis Acute CVA Left ICA occlusion HTN HLP Assessment/Plan Acute stroke due to left carotid occlusion, right sided weakness and aphasia. Maintained on ASA and Plavix. Planning for inpatient rehab Carotid artery stenosis, carotid duplex done 10/12/22 showing complete occlusion of the left carotid system including both the internal and external carotid arteries. The right carotid artery appeared to have some plaques with mild disease, nonobstructive disease. Hypertension, continue to monitor blood pressure. Hyperlipidemia, started on Lipitor 80 mg daily Continue to monitor Supervisory-Addendum Brief Supervisory Addendum Participated in pt care: history, MDM, physical Personally performed: exam, history, MDM Care discussed with: FELICE Results interpretation: Verified all documentation Notes: Patient was seen and evaluated with John, examination performed, management plan was discussed, agree with the current scribed note, I made few changes to the note using Italic font Patient was seen at bedside, sitting comfortably Having slurred speech and right hemiplegia Conservative management, aspirin and Plavix, Lipitor 80 Starting rehab. Continue to monitor JOHN OATES Oct 14, 2022 09:27 JOSE ANGEL CLEMONS MD Oct 14, 2022 10:44
--- NOTE | 2022-10-14 09:33 | Occupational Therapy Eval ---
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 Presents this date w/ dysarthia and expressive asphasia. Decreased sensation distal to proximal LUE/LLE, impaired proprioception, no AROM to hand, elbow. Trace movement to R shoulder Reviewed History: Yes Social History Home: Single Level Current Living Status: Alone Entry Into Home: Stairs Without Railing Steps Into Home: 3 Steps Inside Home: 0 ADL-Prior Level of Function SCALE: Activities may be completed with or without assistive devices. 9-Zidwumaces-mnizzhc completes the activity by him/herself with no assistance from a helper. 5-Set-up or Clean-up Assistance-helper sets up or cleans up; patient completes activity. [place] assists only prior to or following the activity. 4-Supervision or Touching Assistance-helper provides verbal cues and/or touching/steadying and/or contact guard assistance as patient completes activity. Assistance may be provided throughout the activity or intermittently. 3-Partial/Moderate Assistance-helper does LESS THAN HALF the effort. [place] lifts, holds or supports trunk or limbs, but provides less than half the effort. 2-Substantial/Maximal Assistance-helper does MORE THAN HALF the effort. [place] lifts or holds trunk or limbs and provides more than half the effort. 0-Jyjcqsxom-zqyyso does ALL the effort. Patient does none of the effort to comp lete the activity. Or, the assistance of 2 or more helpers is required for the patient to complete the activity. If activity was not attempted, code reason: 7-Patient Refused. 9-Not Applicable-not attempted and the patient did not perform the activity before the current illness, exacerbation or injury. 10-Not Attempted due to Environmental Limitations-(lack of equipment, weather restraints, etc.). 88-Not Attempted due to Medical Conditions or Safety Concerns. ADL PLOF Comments Performed Independent ADLS at home, completes medical management and finances w/o assistance. Self Care: Independent Functional Cognition: Independent DME/Equipment: Shower Hose Enrollment Management Vice President, Tub/Shower Drive Self: Yes OT Current Status Subjective Anxious and tearful, agreeable to OT, daughter is present. Pain Numeric Pain Scale: 0-No Pain Mental Status/Objective Patient Orientation: Person, Place ([facility]), Time (diffficulty w/ expression and points to white board), Situation Current Glasses/Contacts: Yes Hearing Aids: No Dentures/Partials: No Hand Dominance: Right Upper Extremity ROM Flaccid RUE, LUE WNL Upper Extremity Coordination LUE WNL, Upper Extremity Sensation Distal sensation deficits progressing from proximal to distal. Upper Extremity Strength LUE WFL, Trace Right shoulder Edema: Right hand, w/ odor ADL-Treatment Eating (QC): 5 Oral Hygiene (QC): 4 Shower/Bathe Self (QC): 88 Upper Body Dressing (QC): 3 Lower Body Dressing (QC): 1 (2 person assit, one for stand and one to manage clothing) On/Off Footwear (QC): 4 Toileting Hygiene (QC): 1 BSC placed in room, performs transfer from bed to recliner one person max assist w/ gait belt. Pillow placed under RUE for positioning. Education for RUE limb alert, hygiene and sensation Education OT Patient Education: Correct positioning, Home exercise program, Instructions to caregiver, Modified ADL techniques, Progress toward Goal/Update tx plan, Purpose of tx/functional activities, Reviewed precautions, Rehab process, Safety issues, Transfer techniques, Use of adapted equipment Teaching Recipient: Patient, Family Teaching Methods: Demonstration, Discussion Response to Teaching: Verbalize Understanding, Return Demonstration, Reinforcement Needed OT Manager Business Information Goals Manager Business Information Goals Eating (QC): 6 Oral Hygiene (QC): 6 Toileting Hygiene (QC): 3 Shower/Bathe Self (QC): 3 Upper Body Dressing (QC): 5 Lower Body Dressing (QC): 3 On/Off Footwear (QC): 6 1=Demonstrate adherence to instructed precautions during ADL tasks. 2=Patient will verbalize/demonstrate understanding of assistive devices/modifications for ADL. 3=Patient will improve strength/tolerance for activity to enable patient to perform ADL's. OT Education/Plan Problem List/Assessment Assessment: Decreased Activ Tolerance, Decreased UE Strength, Dependent Transfers, Impaired Coordination, Impaired Funct Balance, Impaired Self-Care Skills, Restricted Funct UE ROM Discharge Recommendations Plan/Recommendations: Continue POC Therapy Discharge Recommendati: Post Acute OT Treatment Plan/Plan of Care Treatment,Training & Education: Yes Patient would benefit from OT for education, treatment and training to promote independence in ADL's, mobility, safety and/or upper extremity function for ADL's. Plan of Care: ADL Retraining, Concurrent Therapy, Functional Mobility, Group Exercise/Act as Ind, UE Funct Exercise/Act, UE Neuromus Re-Ed/Coord Treatment Duration: Oct 18, 2022 Frequency: 3 times per week (3-5 times per week) Rehab Potential: Good Time Start Time: 09:00 Stop Time: 09:38 DATE: Oct 14, 2022 Total Time Billed (hr/min): 38 Billed Treatment Time EVH, ADL 2 38 min YOUNG JIN OT Oct 14, 2022 09:33
--- NOTE | 2022-10-14 10:03 | Diagnostic Imaging Report ---
INDICATION: Dyspnea. Comparison is made with prior exam of 10/13/2022. FINDINGS: The heart size, mediastinal configuration, and pulmonary vascularity are within normal limits. There is no pleural effusion, pneumothorax, or pneumonia. The osseous structures are unremarkable. IMPRESSION: No acute cardiopulmonary abnormality. Dictated by: Dictated on workstation # [id number]
[2022-10-14] MEDS ORDERED: CLOP75TA28 PO (11:05)
[2022-10-14] MEDS ORDERED: FOLI1TAB33 PO (11:05)
[2022-10-14] MEDS ORDERED: ASPI-1238 PO (11:05)
[2022-10-14] MEDS ORDERED: ATOR80TA76 PO (11:05)
[2022-10-14] MEDS ORDERED: MULT-1137 PO (11:05)
[2022-10-14] MEDS ORDERED: ENOX40DI8 SC (11:05)
[2022-10-14] MEDS ORDERED: THIA100T80 PO (11:05)
--- NOTE | 2022-10-14 11:06 | Discharge Summary ---
Diagnosis/Chief Complaint Date of Admission Oct 11, 2022 at 21:08 Date of Discharge Discharge Date: Oct 14, 2022 Discharge Diagnosis Assessment: Catastrophic CVA with right sided flaccidity-CT angiogram matches carotid ultrasound revealing left carotid internal and external complete occlusion causing catastrophic ischemic infarct of the left parietal and MCA region no surgical option available per vascular surgery at [place] Dysarthria and expressive aphasia HTN emergency placed on Cardene drip now on Hydralazine IV Smoker Alcohol excess user placed on CIWA Plan: ARU Friday PT OT ST for expressive aphasia Swallow test for aspiration looked ok CIWA Vitamin supplementation to prevent Wernicke's encephalopathy and Karsokoff's psychosis Lovenox for DVT PPx ECHO Cardiology consult ASA and Plavix Discharge Summary Discharge Physical Examination Allergies: Coded Allergies: No Known Drug Allergies (Unverified , 10/14/22) Vitals & I&Os Vital Signs Date Time Temp Pulse Resp B/P (MAP) Pulse Ox O2 Delivery O2 Flow Rate FiO2 10/14/22 12:40 99 10/14/22 11:20 37.1 18 180/79 (112) 95 Room Air 10/11/22 23:09 21 General Appearance: Alert, Oriented X3 Respiratory: Clear to Auscultation Psych/Mental Status: Mental Status NL Hospital Course Was the Problem List Reviewed?: Yes 72-year-old female with no PCP and has a history of current smoking, alcohol excessive use and HTN on no home meds presented to [facility] from [facility] after being transported from [facility] [place] after daughter called due to patient was unable to ambulate out of a chair. Her last known well time was 36 hours[address] patient for [address] angiogram but was unable to be transported, so patient was sent to [facility] for stat CT angiogram with perfusion. Patient had expressive aphasia & dysarthria and was unable to communicate along with flaccidity of her right side. SBP was found to be 278 and a cardene drip was initiated with a goal of SBP 200. CT did not show any evidence of a thrombus that could be extracted at . CT angiogram of the neck & carotid ultrasound confirmed occlusion of the left internal & external carotid artery causing a catastrophic stroke in the left parietal region from MCA. [place] vascular surgery concluded that carotid endarterectomy was not an option. Patient was admitted 10/11/22 with catastrophic CVA with right sided flaccidity. During her hospital stay, HTN emergency was treated with cardene drip and then switched to IV hydralazine. Patient was treated with ASA & Plavix, vitamin supplementation to prevent Wernickes-Korsakoff syndrome, lovenox for DVT prophylaxis, and atorvastatin for hyperlipidemia. Patient recovered well and SBP was under goal of 200; however, patient was still having weakness, dysarthria, and expressive aphasia and will be discharged on 10/14/22 to acute rehabilitation unit for PT, OT, and ST. Labs (last 24 hrs) Laboratory Tests 10/11/22 21:23: Glucometer 128H 10/11/22 21:49: Blood Urea Nitrogen 8, Creatinine 0.73, Estimat Glomerular Filtration Rate 88, BUN/Creatinine Ratio 11, Triglycerides Level 111, Cholesterol Level 230H, LDL Cholesterol Direct 141H, VLDL Cholesterol 22, HDL Cholesterol 75H 10/12/22 04:12: Blood Urea Nitrogen 7, Creatinine 0.70, Estimat Glomerular Filtration Rate 92, BUN/Creatinine Ratio 10, White Blood Count 10.1, Red Blood Count 4.57, Hemoglobin 14.1, Hematocrit 40, Mean Corpuscular Volume 88, Mean Corpuscular Hemoglobin 31, Mean Corpuscular Hemoglobin Concent 35, Red Cell Distribution Width 12.4, Platelet Count 332, Mean Platelet Volume 9.7, Immature Granulocyte % (Auto) 0, Neutrophils (%) (Auto) 70, Lymphocytes (%) (Auto) 22, Monocytes (%) (Auto) 7, Eosinophils (%) (Auto) 0, Basophils (%) (Auto) 0, Neutrophils # (Auto) 7.1, Lymphocytes # (Auto) 2.2, Monocytes # (Auto) 0.7, Eosinophils # (Auto) 0.0, Basophils # (Auto) 0.0, Immature Granulocyte # (Auto) 0.0, Sodium Level 137, Potassium Level 3.3L, Chloride Level 105, Carbon Dioxide Level 19L, Anion Gap 13, Glucose Level 116H, Calcium Level 9.2, Corrected Calcium 9.1, Phosphorus Level 2.9, Magnesium Level 1.9, Total Bilirubin 1.0, Aspartate Amino Transf (AST/SGOT) 19, Alanine Aminotransferase (ALT/SGPT) 18, Alkaline Phosphatase 62, Total Protein 6.9, Albumin 4.1 10/13/22 04:48: Blood Urea Nitrogen 10, Creatinine 0.72, Estimat Glomerular Filtration Rate 89, BUN/Creatinine Ratio 14, White Blood Count 10.1, Red Blood Count 4.35, Hemoglobin 13.4, Hematocrit 39, Mean Corpuscular Volume 89, Mean Corpuscular Hemoglobin 31, Mean Corpuscular Hemoglobin Concent 35, Red Cell Distribution Width 12.9, Platelet Count 292, Mean Platelet Volume 9.6, Immature Granulocyte % (Auto) 0, Neutrophils (%) (Auto) 60, Lymphocytes (%) (Auto) 33, Monocytes (%) (Auto) 7, Eosinophils (%) (Auto) 0, Basophils (%) (Auto) 0, Neutrophils # (Auto) 6.0, Lymphocytes # (Auto) 3.3, Monocytes # (Auto) 0.7, Eosinophils # (Auto) 0.0, Basophils # (Auto) 0.0, Immature Granulocyte # (Auto) 0.0, Sodium Level 134L, Potassium Level 4.0, Chloride Level 105, Carbon Dioxide Level 19L, Anion Gap 10, Glucose Level 114H, Calcium Level 8.9, Corrected Calcium 9.1, Phosphorus Level 2.9, Magnesium Level 2.3, Total Bilirubin 1.1H, Aspartate Amino Transf (AST/SGOT) 19, Alanine Aminotransferase (ALT/SGPT) 15, Alkaline Phosphatase 60, Total Protein 6.6, Albumin 3.8 10/14/22 04:47: White Blood Count 8.6, Red Blood Count 4.31, Hemoglobin 13.4, Hematocrit 38, Mean Corpuscular Volume 88, Mean Corpuscular Hemoglobin 31, Mean Corpuscular Hemoglobin Concent 35, Red Cell Distribution Width 12.7, Platelet Count 286, Mean Platelet Volume 9.5, Immature Granulocyte % (Auto) 0, Neutrophils (%) (Auto) 61, Lymphocytes (%) (Auto) 29, Monocytes (%) (Auto) 8, Eosinophils (%) (Auto) 1, Basophils (%) (Auto) 0, Neutrophils # (Auto) 5.3, Lymphocytes # (Auto) 2.5, Monocytes # (Auto) 0.7, Eosinophils # (Auto) 0.1, Basophils # (Auto) 0.0, Immature Granulocyte # (Auto) 0.0, Sodium Level 132L, Potassium Level 3.6, Chloride Level 103, Carbon Dioxide Level 18L, Anion Gap 11, Blood Urea Nitrogen 11, Creatinine 0.67, Estimat Glomerular Filtration Rate 93, BUN/Creatinine Ratio 16, Glucose Level 106H, Calcium Level 8.8, Corrected Calcium 9.0, Magnesium Level 1.9, Total Bilirubin 1.2H, Aspartate Amino Transf (AST/SGOT) 21, Alanine Aminotransferase (ALT/SGPT) 16, Alkaline Phosphatase 59, Total Protein 6.5, Albumin 3.7 Microbiology 10/12/22 MRSA Screen - Final, Complete MRSA not isolated Pending Labs Microbiology Date/Time Source Procedure Growth Status 10/12/22 00:15 Nasal MRSA Screen - Final MRSA not isolated Complete Laboratory Tests 10/11/22 21:23: Glucometer 128 10/11/22 21:49: Blood Urea Nitrogen 8, Creatinine 0.73, Estimat Glomerular Filtration Rate 88, BUN/Creatinine Ratio 11, Triglycerides Level 111, Cholesterol Level 230, LDL Cholesterol Direct 141, VLDL Cholesterol 22, HDL Cholesterol 75 10/12/22 04:12: Blood Urea Nitrogen 7, Creatinine 0.70, Estimat Glomerular Filtration Rate 92, BUN/Creatinine Ratio 10, White Blood Count 10.1, Red Blood Count 4.57, Hemoglobin 14.1, Hematocrit 40, Mean Corpuscular Volume 88, Mean Corpuscular Hemoglobin 31, Mean Corpuscular Hemoglobin Concent 35, Red Cell Distribution Width 12.4, Platelet Count 332, Mean Platelet Volume 9.7, Immature Granulocyte % (Auto) 0, Neutrophils (%) (Auto) 70, Lymphocytes (%) (Auto) 22, Monocytes (%) (Auto) 7, Eosinophils (%) (Auto) 0, Basophils (%) (Auto) 0, Neutrophils # (Auto) 7.1, Lymphocytes # (Auto) 2.2, Monocytes # (Auto) 0.7, Eosinophils # (Auto) 0.0, Basophils # (Auto) 0.0, Immature Granulocyte # (Auto) 0.0, Sodium Level 137, Potassium Level 3.3, Chloride Level 105, Carbon Dioxide Level 19, Anion Gap 13, Glucose Level 116, Calcium Level 9.2, Corrected Calcium 9.1, Phosphorus Level 2.9, Magnesium Level 1.9, Total Bilirubin 1.0, Aspartate Amino Transf (AST/SGOT) 19, Alanine Aminotransferase (ALT/SGPT) 18, Alkaline Phosphatase 62, Total Protein 6.9, Albumin 4.1 10/13/22 04:48: Blood Urea Nitrogen 10, Creatinine 0.72, Estimat Glomerular Filtration Rate 89, BUN/Creatinine Ratio 14, White Blood Count 10.1, Red Blood Count 4.35, Hemoglobin 13.4, Hematocrit 39, Mean Corpuscular Volume 89, Mean Corpuscular Hemoglobin 31, Mean Corpuscular Hemoglobin Concent 35, Red Cell Distribution Width 12.9, Platelet Count 292, Mean Platelet Volume 9.6, Immature Granulocyte % (Auto) 0, Neutrophils (%) (Auto) 60, Lymphocytes (%) (Auto) 33, Monocytes (%) (Auto) 7, Eosinophils (%) (Auto) 0, Basophils (%) (Auto) 0, Neutrophils # (Auto) 6.0, Lymphocytes # (Auto) 3.3, Monocytes # (Auto) 0.7, Eosinophils # (Auto) 0.0, Basophils # (Auto) 0.0, Immature Granulocyte # (Auto) 0.0, Sodium Level 134, Potassium Level 4.0, Chloride Level 105, Carbon Dioxide Level 19, Anion Gap 10, Glucose Level 114, Calcium Level 8.9, Corrected Calcium 9.1, Phosphorus Level 2.9, Magnesium Level 2.3, Total Bilirubin 1.1, Aspartate Amino Transf (AST/SGOT) 19, Alanine Aminotransferase (ALT/SGPT) 15, Alkaline Phosphatase 60, Total Protein 6.6, Albumin 3.8 10/14/22 04:47: White Blood Count 8.6, Red Blood Count 4.31, Hemoglobin 13.4, Hematocrit 38, Mean Corpuscular Volume 88, Mean Corpuscular Hemoglobin 31, Mean Corpuscular Hemoglobin Concent 35, Red Cell Distribution Width 12.7, Platelet Count 286, Mean Platelet Volume 9.5, Immature Granulocyte % (Auto) 0, Neutrophils (%) (Auto) 61, Lymphocytes (%) (Auto) 29, Monocytes (%) (Auto) 8, Eosinophils (%) (Auto) 1, Basophils (%) (Auto) 0, Neutrophils # (Auto) 5.3, Lymphocytes # (Auto) 2.5, Monocytes # (Auto) 0.7, Eosinophils # (Auto) 0.1, Basophils # (Auto) 0.0, Immature Granulocyte # (Auto) 0.0, Sodium Level 132, Potassium Level 3.6, Chloride Level 103, Carbon Dioxide Level 18, Anion Gap 11, Blood Urea Nitrogen 11, Creatinine 0.67, Estimat Glomerular Filtration Rate 93, BUN/Creatinine Ratio 16, Glucose Level 106, Calcium Level 8.8, Corrected Calcium 9.0, Magnesium Level 1.9, Total Bilirubin 1.2, Aspartate Amino Transf (AST/SGOT) 21, Alanine Aminotransferase (ALT/SGPT) 16, Alkaline Phosphatase 59, Total Protein 6.5, Albumin 3.7 Discharge Home Medications: Active Scripts Active Aspirin EC (Aspirin) 81 Mg Tablet.dr 81 Mg PO DAILY Tab-A-Gilles Multivit with Iron (Multivitamin/Iron/Folic Acid) 18 Mg Iron-400 Mcg Tablet 1 Ea PO DAILY@0700 Vitamin B-1 (Thiamine HCl) 100 Mg Tablet 100 Mg PO DAILY@0700 Folic Acid 1 Mg Tablet 1 Mg PO DAILY Atorvastatin Calcium 80 Mg Tablet 80 Mg PO DAILY Clopidogrel (Clopidogrel Bisulfate) 75 Mg Tablet 75 Mg PO DAILY Enoxaparin Sodium 40 Mg/0.4 Ml Syringe 40 Mg SC Q24H Instructions to patient/family Please see electronic discharge instructions given to patient. JM CALLEJAS DO Oct 14, 2022 11:06
[2022-10-14 11:20] VITALS: BP 180/79
--- NOTE | 2022-10-14 11:31 | Progress Note ---
FEDERICA CLEMENT 10/14/22 1131: Progress Note 72-year-old female with no PCP and has a history of current smoking, alcohol excessive use and HTN on no home meds presented to [facility] from [facility] after being transported from [facility] after daughter called due to patient was unable to ambulate out of a chair. Her last known well time was 36 hours[address] accepted patient for [address] angiogram but was unable to be transported, so patient was sent to [facility] for stat CT angiogram with perfusion. Patient had expressive aphasia & dysarthria and was unable to communicate along with flaccidity of her right side. SBP was found to be 278 and a cardene drip was initiated with a goal of SBP 200. CT did not show any evidence of a thrombus that could be extracted at . CT angiogram of the neck & carotid ultrasound confirmed occlusion of the left internal & external carotid artery causing a catastrophic stroke in the left parietal region from MCA. [place] vascular surgery concluded that carotid endarterectomy was not an option. Patient was admitted 10/11/22 with catastrophic CVA with right sided flaccidity. During her hospital stay, HTN emergency was treated with cardene drip and then switched to IV hydralazine. Patient was treated with ASA & Plavix, vitamin supplementation to prevent Wernickes-Korsakoff syndrome, lovenox for DVT prophylaxis, and atorvastatin for hyperlipidemia. Patient recovered well and SBP was under goal of 200; however, patient was still having weakness, dysarthria, and expressive aphasia and will be discharged on 10/14/22 to acute rehabilitation unit for PT, OT, and ST. ARIANA RUBIN DO 10/14/224: Supervisory-Addendum Brief Verification & Attestation Participated in pt care: history, MDM, physical Personally performed: exam, history, MDM, supervision of care Care discussed with: Medical Student Procedures: n/a Results interpretation: Verified all documentation Verification and Attestation of Medical Student E/M Service A medical student performed and documented this service in my presence. I reviewed and verified all information documented by the medical student and made modifications to such information, when appropriate. I personally performed the physical exam and medical decision making. Ariana Rubin, Oct 14, 2022,21:14 FEDERICA CLEMENT Oct 14, 2022 11:31 ARIANA RUBIN DO Oct 14, 2022 21:14
--- NOTE | 2022-10-14 11:50 | ST Cognitive Linguistic Eval ---
Speech Evaluation-General Medical Diagnosis CVA Onset Date: Oct 11, 2022 Therapy Diagnosis Therapy Diagnosis: Expressive Aphasia, Apraxia of Speech, Dysarthria Precautions Precautions: Fall, Pressure Ulcer, Aspiration Precautions/Isolations: Aspiration, Fall Prevention, Standard Precautions, Pressure Ulcer Referral Referring Physician: Dr. Rubin Reason for Referral: Evaluation/Treatment Medical History Pertinent Medical History: HTN Current History Head CT: 10/12/22: IMPRESSION: Findings consistent with an acute to subacute infarction within the distribution of the left middle cerebral artery, particularly involving the left parietal lobe. Reviewed History: Yes Social History Current Living Status: Alone Speech PLF-Current Status Prior Level of Function Prior to the patient's stroke, the patient was living at home, alone, independently in [place], [place]. The patient reported she completed all ADL's independently (cleaning, meal preparation, larundry) and was driving. The patient's house has three to four stairs to enter, without a railing. The patient has two adult daughters were live in the area and are able to provide support. Subjective The patient was seated upright in her recliner, awake and alert, upon entrance to her room by the clinician. The patient has two adult daughters present at bedside, who remain for the evaluation. The patient greeted the clinician appropriately and was agreeable to participation in the cognitive linguistic assessment. Language Eval: Auditory Comprehends Simple Yes/No Ques: Functional Indent/Objects Multiple Ricardo: Functional Ident/Pics in Multiple Ricardo: Functional Follows 1-Step Commands: Functional Follows General Conversations: Functional Language Eval: Verbal Language Completes Spontaneous Greeting: Functional Produces Auto, Serial Info: Functional Imitates Simple Words/Phrases: Moderate Word Finding: Moderate Requests Basic Needs: Mild (Through verbal and nonverbal communication.) States Basic Personal Info: Mild Expresses Complex Ideas: Moderate Language Evaluation: Reading Comprehends Single Nouns: Functional Comprehends Multiple Sentences: Functional Cognitive Patient Orientation The patient is independently oriented to situation, location, month and year. Objective Cognitive Domain Attention: WNL The clinician will focus on improvement of speech and language skills. Following improvement, a complete evaluation of cognition will occur with increased accuracy. Objective Oral Motor/Speech Production The patient presents with a right facial droop. Reduced right labial retraction, protrusion and strength are noted. Lingual protrusion deviates slightly to the r ight. Minimal loss of secretions from the anterior right labial side noted, with the patient independently wiping secretions from the mid-chin region. The patient displayed reduced articulatory precision, a decreased rate of speech and slight hyponasality consistent with dysarthria (mild to moderate). Additionally, apraxia of speech was appreciated as the patient displayed oral g roping for specific phonemes. Impression The patient presents with expressive aphasia (moderate), dysarthria (mild to moderate) and apraxia of speech (moderate). Perseveration and paraphasia were present throughout the patient's expressive communication attempts. The patient is able to communicate her wants and needs to staff efficiently through short phrases and nonverbal communication. The patient's dominant hand was impacted with the stroke and therefore politely deferred writing tasks. The patient stated she feels her vision changed "a little" and remained able to read short phrases and sentences aloud. The patient would benefit from skilled speech pathology services in attempts to improve expressive communication and return to increased independence and function in the least restrictive environment. Speech Short Term Goals Short Term Goals Short Term Goals 1. The patient will display 90% accuracy with oral motor exercises, independen tly. 2. The patient will display 80% accuracy with word finding exercises with mild clinician verbal and visual cueing. Time Frame-STG: Two Weeks. Speech Fluorescent Lighting Model Maker Goals Jail Goals 1. The patient will display an improvement in function speech and language skills for safe discharge to the least restrictive environment. Time Frame: Four Weeks. Speech-Plan Treatment Plan Speech Therapy Treatment Plan: Continue Plan of Care Treatment Duration: Oct 25, 2022 Frequency: 5 times per week Estimated Hrs Per Day: .5 hour per day Rehab Potential: Fair Pt/Family Agrees to Plan: Yes Safety Risks/Education Teaching Recipient: Patient, Family (Two adult daughters present at bedside.) Teaching Methods: Demonstration, Handout, Discussion Response to Teaching: Verbalize Understanding, Return Demonstration Education Topics Provided: Results, Recommendations, Plan of Care, Home Exercises, Education re: Speech and Language, S/s of Suspected Aspiration. Time Speech Therapy Time In: 09:09 Speech Therapy Time Out: 09:58 DATE: Oct 14, 2022 Total Billed Time: 49 Billed Treatment Time 1, NICO SPARKS [facility] Oct 14, 2022 11:50
== END 2022-10-14 14:01 | DRG 65 ==
LOC: ICU 21:08 → 4TH 10-13 13:25
PROVIDERS: ADMIT Internal Medicine; ATTEND Internal Medicine
DX: I63.232 Cerebral infarction due to unspecified occlusion or stenosis of left carotid arteries (principal); G81.01 Flaccid hemiplegia affecting right dominant side; I16.1 Hypertensive emergency; R47.01 Aphasia; R47.1 Dysarthria and anarthria; E78.5 Hyperlipidemia, unspecified; I10 Essential (primary) hypertension; F17.210 Nicotine dependence, cigarettes, uncomplicated; F10.20 Alcohol dependence, uncomplicated; R29.709 NIHSS score 9; R29.715 NIHSS score 15
CPT/HCPCS: 0042T; 36415; 70450; 70496; 70498; 71045; 73502; 73560; 80053; 80061; 82565; 82947; 83735; 84100; 84520; 85025; 87081; 93306; 93880; 94664; 94760

== ENCOUNTER 2022-10-14 12:22 | Inpatient (IN) | payer MEDICARE, OTHER ==
[~2022-10-14] VITALS: Ht 162.6 cm; Wt 55.3 kg
[~2022-10-14 12:22] MED LIST changes: +ASPI-1238 PO; +ATOR80TA76 PO; +CLOP75TA28 PO; +ENOX40DI8 SC; +FOLI1TAB33 PO; +MULT-1137 PO; +THIA100T80 PO
[2022-10-14 13:30] VITALS: BP 140/63
--- NOTE | 2022-10-14 13:48 | PM&R Post Admission Assessment ---
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 Her last known well time was [address] patient for [address] angiogram but was unable to be transported, so patient was sent to [facility] for stat CT angiogram with perfusion. Patient had expressive aphasia & dysarthria and was unable to communicate along with flaccidity of her right side. SBP was found to be 278 and a cardene drip was initiated with a goal of SBP 200. CT did not show any evidence of a thrombus that could be extracted at . CT angiogram of the neck & carotid ultrasound confirmed occlusion of the left internal & external carotid artery causing a catastrophic stroke in the le ft parietal region from MCA. [facility] concluded that carotid endarterectomy was not an option. Patient was admitted 10/11/22 with catastrophic CVA with right sided flaccidity. During her hospital stay, HTN emergency was treated with cardene drip and then switched to IV hydralazine. Patient was treated with ASA & Plavix, vitamin supplementation to prevent Wernickes-Korsakoff syndrome, lovenox for DVT prophylaxis, and atorvastatin for hyperlipidemia. Patient recovered well and SBP was under goal of 200; however, patient was still having weakness, dysarthria, and expressive aphasia and will be discharged on 10/14/22 to acute rehabilitation unit for PT, OT, and ST. Past Uulixoq-Bgwywt-Hvpwal Hx Past Med/Social Hx: Reviewed Nursing Past Med/Soc Hx, Reviewed and Corrections made Patient Social History Marrital Status: single Employed/Student: retired Alcohol Use: Regular Use Smoking Status: Current Everyday Smoker Past Medical History Cardiac: Hypertension Neurological: Stroke PM&R Allergy/Meds/Data Review Allergies Coded Allergies: No Known Drug Allergies (Unverified , 10/14/22) Home Medications Scheduled Aspirin (Aspirin EC), 81 MG PO DAILY Atorvastatin Calcium (Atorvastatin Calcium), 80 MG PO DAILY Clopidogrel Bisulfate (Clopidogrel), 75 MG PO DAILY Enoxaparin Sodium (Enoxaparin Sodium), 40 MG SC Q24H Folic Acid (Folic Acid), 1 MG PO DAILY Multivitamin/Iron/Folic Acid (Tab-A-Gilles Multivit with Iron), 1 EA PO DAILY@0700 Thiamine HCl (Vitamin B-1), 100 MG PO DAILY@0700 Current Medications Current Medications Reviewed Review of Systems Constitutional: see HPI, malaise, weakness EENTM: no symptoms reported Respiratory: no symptoms reported Cardiovascular: no symptoms reported Gastrointestinal: no symptoms reported Genitourinary: other (retention) Musculoskeletal: back pain, joint pain Skin: no symptoms reported Psychiatric/Neurological: Anxiety, Depressed, Numbness, Weakness (right side) All Other Systems Reviewed Negative Unless Noted: Yes Physical Exam Physical Exam Vital Signs Capillary Refill : Height, Weight, BMI Height: '" Weight: lbs. oz. kg; 21.53 BMI Method: General Appearance: No Apparent Distress, WD/WN, Anxious, Chronically ill, Thin Eyes: Bilateral Eye Normal Inspection, Bilateral Eye PERRL HEENT: PERRL/EOMI, Normal ENT Inspection, Pharynx Normal Neck: Full Range of Motion, Normal Inspection, Non Tender, Supple, Carotid Bruit Respiratory: Chest Non Tender, Lungs Clear, Normal Breath Sounds, No Accessory Muscle Use, No Respiratory Distress Cardiovascular: Regular Rate, Rhythm, No Edema, No Gallop, No JVD, No Murmur, Normal Peripheral Pulses Gastrointestinal: Normal Bowel Sounds, No Organomegaly, No Pulsatile Mass, Non Tender, Soft Back: Normal Inspection, No CVA Tenderness, No Vertebral Tenderness Extremity: Normal Capillary Refill, Normal Inspection, Normal Range of Motion, Non Tender, No Calf Tenderness, No Pedal Edema Neurologic/Psychiatric: Alert, Oriented x3, Abnormal grape crusher II-XII, Abnormal Gait, Aphasia, Depressed Affect, Facial Droop (right), Motor Weakness (right sided 0/5) Skin: Normal Color, Warm/Dry Lymphatic: No Adenopathy PM&R Medical Assessment & Plan REHAB/MEDICAL ASSESSMENT AND PLAN: REHAB IMPAIRMENT GROUP: CVA ETIOLOGIC DIAGNOSIS: Infarct left parietal from complete occlusion left ECA/ICA The comorbidities that impact the patients function and/or functional outcome by: right sided flaccidity, alcohol withdrawal risk, smoker, HTN REHAB PLAN: The patient is being admitted to our comprehensive inpatient rehabilitation facility and can tolerate the intensity of service consisting of at least: 180 minutes of therapy a day, 5 out of 7 days a week Rehab treatment will consist of: PT OT will focus on regaining ability to ambulate and regain independence in ADL's in order to return home to live independently The patient/family has a good understanding of our discharge process and will benefit from an interdisciplinary inpatient rehabilitation program. The patient has potential to make improvement and is in need of at least two of the following multidisciplinary therapies including but not limited to physical, occupational, speech, and prosthetics and orthotics. Additionally the patient will need services from respiratory, nutritional services, wound care, psychology, etc. (Customize this to each patient). Given the patients complex condition and risk of further medical complications, rehabilitation services cannot be safely or effectively provided at a lower level of care such as a custodial facility. BARRIERS TO DISCHARGE: Severe disability due to right sided flaccidity ESTIMATED LOS: 21 days DISPOSITION: Home RELEVANT CHANGES SINCE PREADMISSION SCREENING: I have compared the patients medical and functional status at the time of the preadmission screening and there are: no changes PROGNOSIS: Fair REHABILITATION GOALS: 1. PT OT will focus on regaining ability to ambulate and regain independence in ADL's in order to return home to live independently All the above goals were reviewed with the patient and he/she is in agreement. By signing this document, I acknowledge that I have personally performed a full physical examination on this patient within 24 hours of admission to this inpatient rehabilitation facility and have determined the patient to be able to tolerate the above course of treatment at an intensive level for a reasonable period of time. I will be completing a detailed individualized Plan of Care for this patient by day #4 of the patients stay based upon the Preadmission Screen, the Post-Admission Evaluation, and the therapy evaluations. Admission Dx/Comorbidities: (1) CVA (cerebral vascular accident) ICD Codes: I63.9 - Cerebral infarction, unspecified Assessment/Plan Assessment and Plan Assess & Plan/Chief Complaint Assessment: Catastrophic CVA with right sided flaccidity-CT angiogram matches carotid ultrasound revealing left carotid internal and external complete occlusion causing catastrophic ischemic infarct of the left parietal and MCA region no surgical option available per vascular surgery at [place] Dysarthria and expressive aphasia HTN emergency placed on Cardene drip now on Hydralazine IV Smoker Alcohol excess user placed on CIWA Urinary retention requiring replacement of valencia catheter 10/14/22 Plan: PT OT ST for expressive aphasia CIWA Vitamin supplementation to prevent Wernicke's encephalopathy and Karsokoff's psychosis Lovenox for DVT PPx Cardiology consult ASA and Plavix JM CALLEJAS DO Oct 14, 2022 13:48
[2022-10-14] MEDS ORDERED: diphenhydrAMINE 25 MG TABLET PO PRN ×2 (14:00→18:30)
[2022-10-14] MEDS ORDERED: ONDANSETRON 4 MG ORAL DISSOLVE TABLET PO PRN ×2 (14:00→18:30)
[2022-10-14] MEDS ORDERED: ALPRAZolam 0.25 MG TABLET PO PRN (14:00)
[2022-10-14] MEDS ORDERED: Sodium Phosphate/Sodium Biphosphate ADULT enema PR PRN (14:00)
[2022-10-14] MEDS ORDERED: LOPERAMIDE 2 MG CAPSULE PO PRN (14:00)
[2022-10-14] MEDS ORDERED: BISACODYL 10 MG SUPPOSITORY PR PRN ×2 (14:00→18:30)
[2022-10-14] MEDS ORDERED: MELATONIN 3 MG TABLET PO PRN ×2 (14:00→18:30)
[2022-10-14] MEDS ORDERED: CALCIUM CARBONATE 500 MG CHEW TABLET PO PRN ×2 (14:00→18:30)
[2022-10-14] MEDS ORDERED: DOCUSATE SODIUM 100 MG CAPSULE PO PRN (14:00)
[2022-10-14] MEDS ORDERED: guaiFENesin/CODEINE 10ML UDC PO PRN (14:00)
[2022-10-14] MEDS ORDERED: LACTULOSE SYRUP 10GM/15ML 30ML UDC PO PRN ×2 (14:00→18:30)
--- NOTE | 2022-10-14 14:37 | Speech Therapy Progress Note ---
Therapy Progress Note The clinician was contacted by ARU at 1422 regarding clarification of diet orders for the patient. This clinician has not completed a clinical bedside swallowing evaluation as the acute care RN completed the RN Dysphagia Screening and "passed" the patient at the time of admission for a regular consistency diet with thin liquids. The clinician completed a speech and language evaluation with the patient on this date during her acute stay. Throughout the acute evaluation, the patient and the patient's family members (two adult daughters) denied the presence of s/s of suspected aspiration with P.O. intake. Additionally, the patient's current RN (acute) reported the patient consumed all medication without difficulty. As the patient "passed" the RN Dysphagia Screen and difficulties were not reported to this clinician, a formal evaluation was not warranted. The ARU RN reports anterior loss of secretions from the right labial side and asked if an evaluation will be completed by speech language pathology. If concerns are present regarding the oropharyngeal swallow and patient safety, a formal clinical bedside swallowing evaluation is appropriate and will be completed on the subsequent treatment date. The RN stated she will monitor the patient for concerns and difficulties. If s/s of suspected aspiration are observed, the patient should be made N.P.O. pending full evaluation by speech pathology. Additionally, an order for a swallowing evaluation should be in place. MARITZA MELVIN Oct 14, 2022 14:37
--- NOTE | 2022-10-14 15:34 | Occupational Therapy Eval ---
OT Evaluation-General/PLF Medical Diagnosis Admission Date Oct 14, 2022 at 13:30 Medical Diagnosis: CVA with right sided weakness Onset Date: Oct 11, 2022 Therapy Diagnosis Therapy Diagnosis: Decreased ADL skills Precautions Precautions/Isolations: Fall Prevention, Standard Precautions Referral Physician: Dr. Rubin Referral Reason: Activity Tolerance, Self Care, Evaluation/Treatment, Strengthening/ROM Medical History Pertinent Medical History: HTN Reviewed History: Yes Social History Home: Single Level Current Living Status: Alone Entry Into Home: Level Entry ADL-Prior Level of Function SCALE: Activities may be completed with or without assistive devices. 6-Ssqbpjpbqp-trpnqqt completes the activity by him/herself with no assistance from a helper. 5-Set-up or Clean-up Assistance-helper sets up or cleans up; patient completes activity. Kodak assists only prior to or following the activity. 4-Supervision or Touching Assistance-helper provides verbal cues and/or touching/steadying and/or contact guard assistance as patient completes activity. Assistance may be provided throughout the activity or intermittently. 3-Partial/Moderate Assistance-helper does LESS THAN HALF the effort. Kodak lifts, holds or supports trunk or limbs, but provides less than half the effort. 2-Substantial/Maximal Assistance-helper does MORE THAN HALF the effort. Kodak lifts or holds trunk or limbs and provides more than half the effort. 9-Sgesjdsuk-akvpba does ALL the effort. Patient does none of the effort to complete the activity. Or, the assistance of 2 or more helpers is required for the patient to complete the activity. If activity was not attempted, code reason: 7-Patient Refused. 9-Not Applicable-not attempted and the patient did not perform the activity before the current illness, exacerbation or injury. 10-Not Attempted due to Environmental Limitations-(lack of equipment, weather restraints, etc.). 88-Not Attempted due to Medical Conditions or Safety Concerns. ADL PLOF Comments Per chart pt was independent prior to this CVA. Self Care: Independent Functional Cognition: Independent DME/Equipment Comments Pt. is unable to indicate what equipment or set up she has at home. Drive Self: Yes (Pt. states, "yeah" and nods.) OT Current Status Subjective Pt. does not report pain. She demonstrates expressive and receptive aphasia. She has difficulty following cues and understanding what OT is asking of her. Mental Status/Objective Patient Orientation: Unable to Assess Current Hand Dominance: Right Upper Extremity ROM No active movement in right UE. Upper Extremity Sensation Pt.is unable to state, but seems to demonstrate diminished sensation in right UE. Pt. demonstrates no active movement in right UE. She is flaccid. Unable to indicate what sensory she has in right UE. Unable to follow cues to indicate fully to OT. ADL-Treatment Eating (QC): 3 (Cues and assist for motor planning. Swallow intact.) Oral Hygiene (QC): 3 Shower/Bathe Self (QC): 1 (Pt. requires assistance to balance EOB with CGA during sponge bath. She is able to wash chest and top of right arm. She requires full assist to wash left arm, under each UE, and esme area with one person to cleanse and one person to assist pt. in stance.) Upper Body Dressing (QC): 3 (Mod assist to doff/don UE clothing.) Lower Body Dressing (QC): 1 (Mod assist to thread bilateral LE into brief legs, and max assist of one person to stand and another to don brief over hips.) On/Off Footwear (QC): 2 (Min tactile cues to assist pt. with balance on EOB. Pt. is able to doff slipper socks with cues to stay upright. Max assist to don them while seated EOB.) Toileting Hygiene (QC): 1 (Max assist to stand while another person doffs/dons brief over hips and cleanses esme area.) Other Treatments Pt. is seen for co-treatment with PT due to pt's fatigue and need for skilled level of care. Pt. demonstrates global aphasia and has difficulty understanding what is being asked of her and difficulty conveying what she needs. PT focused on mobility, transfers, and LE strengthening tasks while OT assesses ADL skills and UE mobility. Pt. is able to move right LE but does require both verbal and tactile cues. No active movement is noted in right UE. OT does educate pt. on importance of keeping UE positioned. Pt. will state, "yeah" a lot, but it is not fully known if she understands. OT placed 4 items in front of her and pt. was unable to point to the one OT would ask her to point to. When handed a hairbrush she did brush her hair, and when handed a crayon and paper she did scribble. Pt. attempts transfers both stand pivot, (max assist), and with walker (max x 2). She stands in parallel bars with mod/max assist and max cues to not lean to right side. Took several steps with PT assisting with weight shift, and OT moving right UE and assisting with right LE when taking small steps. Pt. demonstrates right sided neglect and has to be cued to that side. OT does encourage crossing midline tasks as well as bilateral UE coordination activities. Completed balloon bat activity with hands threaded and max assist as well as reaching across self with left UE in multiple planes to grasp at cones. At end of session, pt. transfers back to bed with stand pivot and max assist. Max x 2 for sit-supine and bed mobility. All needs met in room. Education OT Patient Education: Correct positioning, Modified ADL techniques, Progress toward Goal/Update tx plan, Purpose of tx/functional activities, Reviewed precautions, Rehab process, Transfer techniques Teaching Recipient: Patient Teaching Methods: Demonstration, Discussion Response to Teaching: Reinforcement Needed BIMS CAM BIMS Expression of Ideas and Wants: Difficulty Understanding Verbal Content: Rarely/Never Understands (Severly aphasic) Brief Interview/Mental Status: Yes IRF TANA BIMS: IRF TANA BIMS Response (Comments) Value Repitition of Three Words None 0 Recalls Socks No, Could Not Recall 0 Recalls Blue No, Could Not Recall 0 Recalls Bed No, Could Not Recall 0 Year Missed by 5 Yrs/No Answer 0 Month Missed by 1 Mo/No Answer 0 Day Incorrect or No Answer 0 Total 0 Patient Normally Able to Recal: None of the above Should Staff Asses. Mental St.: No Notes: Pt. demonstrates global aphasia, making communication and understanding very difficult. Pt. would benefit from speech therapy. Memory/Recall Ability: None of Above Recalled CAM Mental Status Change/Baseline: 1 Inattention: 2 Disorganized thinkin Altered level of consciousness: 0 OT Short Term Goals Short Term Goals Time Frame: Oct 28, 2022 Eatin Oral hygiene: 4 Toileting hygiene: 3 Shower/bathe self: 3 Upper body dressin Lower body dressin Putting on/taking off footwear: 3 OT Senior Copywriter Goals Senior Copywriter Goals Time Frame: Nov 11, 2022 Eating (QC): 5 (Set up) Oral Hygiene (QC): 5 (Set up) Toileting Hygiene (QC): 4 (CGA/supervision) Shower/Bathe Self (QC): 4 (CGA/supervision) Upper Body Dressing (QC): 5 (Set up) Lower Body Dressing (QC): 4 (CGA/supervision) On/Off Footwear (QC): 4 (CGA/supervision) Additional Goals: 1-Demonstrate ADL Tasks, 2-Verbalize Understanding, 3-ImproveStrength/Shira 1=Demonstrate adherence to instructed precautions during ADL tasks. 2=Patient will verbalize/demonstrate understanding of assistive devices/modifications for ADL. 3=Patient will improve strength/tolerance for activity to enable patient to perform ADL's. OT Education/Plan Problem List/Assessment Assessment: Decreased Activ Tolerance, Decreased UE Strength, Dependent Transfers, Impaired Bed Mobility, Impaired Cognition, Impaired Coordination, Impaired Funct Balance, Impaired I ADL's, Impaired Self-Care Skills, Restricted Funct UE ROM, Visual-Perceptual Deficit Discharge Recommendations Plan/Recommendations: Continue POC Therapy Discharge Recommendati: Post Acute OT Treatment Plan/Plan of Care Treatment,Training & Education: Yes Patient would benefit from OT for education, treatment and training to promote independence in ADL's, mobility, safety and/or upper extremity function for ADL's. Plan of Care: ADL Retraining, Caregiver Training, Functional Mobility, Group Exercise/Act as Ind, UE Funct Exercise/Act Treatment Duration: Nov 11, 2022 Frequency: At least 5 of 7 days/Wk (IRF) Estimated Hrs Per Day: 1.5 hours per day Agreement: Yes Rehab Potential: Fair Time Start Time: 13:45 Stop Time: 15:25 DATE: Oct 14, 2022 Total Time Billed (hr/min): 90 Billed Treatment Time 4525-8567 OT eval 1, EVH x 10minutes [id number] PT eval, no charge [id number] ADL x 35minutes, FA x 45minutes- Co-treatment with PT. Please see above note for designated roles. EDDIE GARCIA OT Oct 14, 2022 15:34
--- NOTE | 2022-10-14 16:06 | Physical Therapy Evaluation ---
PT Evaluation-General Medical Diagnosis Admission Date Oct 14, 2022 at 13:30 Medical Diagnosis: CVA Onset Date: Oct 11, 2022 Therapy Diagnosis Therapy Diagnosis: R sided weakness, decreased functional mobility, decreased balance Precautions Precautions/Isolations: Fall Prevention, Standard Precautions Weight Bear Status Right Lower Extremity: Right Full Weight Bearing Left Lower Extremity: Left Full Weight Bearing Referral Physician: Caryn Reason for Referral: Evaluation/Treatment Medical History Pertinent Medical History: HTN Additional Medical History HTN, current smoker, excessive alcohol use Current History 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 4-Drqhjsfoqr-pauzjih completes the activity by him/herself with no assistance from a helper. 5-Set-up or Clean-up Assistance-helper sets up or cleans up; patient completes activity. [place] assists only prior to or following the activity. 4-Supervision or Touching Assistance-helper provides verbal cues and/or touching/steadying and/or contact guard assistance as patient completes activity. Assistance may be provided throughout the activity or intermittently. 3-Partial/Moderate Assistance-helper does LESS THAN HALF the effort. [place] lifts, holds or supports trunk or limbs, but provides less than half the effort. 2-Substantial/Maximal Assistance-helper does MORE THAN HALF the effort. [place] lifts or holds trunk or limbs and provides more than half the effort. 3-Eazzcuxlf-acmoww does ALL the effort. Patient does none of the effort to complete the activity. Or, the assistance of 2 or more helpers is required for the patient to complete the activity. If activity was not attempted, code reason: 7-Patient Refused. 9-Not Applicable-not attempted and the patient did not perform the activity before the current illness, exacerbation or injury. 10-Not Attempted due to Environmental Limitations-(lack of equipment, weather restraints, etc.). 88-Not Attempted due to Medical Conditions or Safety Concerns. Bed Mobility: 6 Transfers (B,C,W/C): 6 Gait: 6 Stairs: 6 Wheelchair Mobility: 9 Indoor Mobility (Ambulation): Independent Stairs: Independent Prior Devices Use: None Per chart, pt was Ind with no AD prior to CVA PT Evaluation-Current Subjective Pt is agreeable to PT Pain Location: No Pain Reported Section J - Health Conditions 1. Rarely or not at all 2. Occasionally 3. Frequently 4. Almost constantly 8. Unable to answer Pain Effect on Sleep: 1 Pain Interference with Therapy: 1 Pain Interference w/Day-to-Day: 1 Pt/Family Goals Improve as much as possible Objective Patient Orientation: [place] Attachments: IV ROM/Strength ROM Upper Extremities See OT eval ROM Lower Extremities WFL Strength Upper Extremities See OT eval Strength Lower Extremities L LE MMT = 3+/5 grossly R LE MMT = 3-/5 grossly (as much as could be tested with pts inability to follow directions) Integumentary/Posture Integumentary See nurses note Bowel Incontinence: Yes Bladder Incontinence: Yes Sensory Vision: Wears Glasses Hearing: Functional Hand Dominance: Right Sensation Right Upper Extremit: Intact Sensation Left Upper Extremity: Intact Sensation Right Lower Extremit: Intact Sensation Left Lower Extremity: Intact Transfers Roll Left & Right (QC): 3 (Mod A) Sit to Lying (QC): 3 (Mod A) Lying to Sitting/Side of Bed(Q: 3 (Mod A) Sit to Stand (QC): 2 (Mod/Max A ) Chair/Mmx-se-Vusbp Xfer(QC): 2 (Mod/Max A ) Toilet Transfer (QC): 88 (balance ) Car Transfer (QC): 88 (balance ) Gait Does the Patient Walk?: Yes Mode of Locomotion: Both Anticipated Mode of Locomotion: Both Walk 10 feet (QC): 88 (balance (pt did take a few steps in the // bars with Mod A/Max A x 2 ) Walk 50 ft with 2 Turns(QC): 88 (balance (pt did take a few steps in the // bars with Mod A/Max A x 2 ) Walk 150 ft (QC): 88 (balance (pt did take a few steps in the // bars with Mod A/Max A x 2 ) Walking 10ft/uneven surface-QC: 88 (balance (pt did take a few steps in the // bars with Mod A/Max A x 2 ) Gait Assistive Device: Parallel Bars Wheelchair Training Does the Pt Use a Wheelchair?: Yes Wheel 50 ft with 2 turns (QC): 1 (Pt unable to comprehend using the w/c ) Wheel 150 ft (QC): 1 (Pt unable to comprehend using the w/c ) Type of Wheelchair: Manual Stairs 1 Step (curb) (QC): 88 (balance ) 4 Steps (QC): 88 (balance ) 12 Steps (QC): 88 (balance ) Balance Sitting Static: Fair Sitting Dynamic: Poor Standing Static: Poor Standing Dynamic: Poor Picking up an Object (QC): 88 (balance ) Special Test Comments KU standing balance scale = 1/5 (goal = 2/5) Treatment Co-tx with OT ([id number]), skills of 2 clinicians required to decrease fall risk, increase mobility and safety awareness and work on functional mobility. PT focusing on bed mobility, transfers, standing, ambulation, and safety a wareness with positioning body while OT focusing on ADLs, R UE placement during mobility and safety awareness. Pt completed bed mobility with Min/Mod A. Pt sat EOB with CGA/Min A for ~ 10 min to take a sponge bath. Pt transferred from bed to [facility] with Mod/Max A. Pt completed several seated tasks to work on UE/LE movement and coordination. Pt completed a sit to stand transfer in the // bars with Mod A. Pt stood in the // bars for ~ 5 min with Min A x 2. Pt was able to take 3 steps in the // bars with Min/Mod A x 2. Pt transferred back to bed from [facility] with Mod/Max A. Pt dependent for scooting up in bed. Pt left lying in bed with call light in reach, all needs met, and family present. Assessment/Needs Pt gave good effort, but has severe deficits in R UE/LE, as well as comprehension Rehab Potential: Fair Post Rehab Potential-Barriers: R sided weakness; cognition Equipment Needs TBD PT Manager Servicing Goals Nursing Home Goals PT Manager Servicing Goals Time Frame: Nov 04, 2022 Roll Left to Right (QC): 4 (SBA for bed mobility ) Sit to Lying (QC): 4 (SBA for bed mobility ) Lying-Sitting on Side/Bed(QC): 4 (SBA for bed mobility ) Sit to Stand (QC): 3 (Min A for transfers ) Chair/Lxt-rv-Ymteb Xfer(QC): 3 (Min A for transfers ) Toilet/Commode Transfer (QC): 3 (Min A for transfers ) Car Transfer (QC): 3 (Min A for transfers ) Does the Patient Walk: Yes Walk 10 feet (QC): 3 (Min A for short distances ) Walk 10ft-Uneven Surface(QC): 88 (Balance ) Walk 50ft with 2 Turns (QC): 88 (Balance ) Walk 150 ft (QC): 88 (Balance ) Does the Pt use WC or Scooter?: Yes Wheel 50 feet with 2 turns (QC: 3 (Min A for w/c mobility ) Type: Manual Wheel 150 feet: 3 (Min A for w/c mobility ) Type: Manual 1 Step (curb) (QC): 88 (Balance ) 4 Steps (QC): 88 (Balance ) 12 Steps (QC): 88 (Balance ) Picking up an Object (QC): 88 (Balance ) KU standing balance goal = 2/5 PT Plan Problem List Problem List: Activity Tolerance, Functional Strength, Safety, Balance, Gait, Transfer, Bed Mobility, ROM Treatment/Plan Treatment Plan: Continue Plan of Care Treatment Plan: Bed Mobility, Concurrent Therapy, Education, Functional Activity Shira, Functional Strength, Group Therapy, Gait, Safety, Therapeutic Exercise, Transfers Treatment Duration: Nov 04, 2022 Frequency: At least 5 of 7 days/Wk (IRF) Estimated Hrs Per Day: 2 hours per day Patient and/or Family Agrees t: Yes Safety Risks/Education Patient Education: Gait Training, Transfer Techniques, Correct Positioning, W/C Management, Safety Issues Teaching Recipient: Patient Teaching Methods: Demonstration, Discussion Response to Teaching: Unable to Return Demonstration, Unable to Comprehend, Reinforcement Needed Discharge Recommendations Therapy Discharge Recommendati: 24 Hour Supervision, Home & Family Discharge Status/Home Program Cont per POC Barriers to Progress R sided weakness, cognition Target Placement Home vs SNF Time Time In: 1355 Time Out: 1525 DATE: Oct 14, 2022 Total Billed Treatment Time: 90 Total Billed Treatment 90 min total from [id number]; PT eval from [id number] for 10 min; co-tx for 80 min from [id number] EVH (10 min) 1 visit co-tx (80 min) FA x 5 KANDI PRADO PT Oct 14, 2022 16:06
[2022-10-14 17:25] VITALS: BP 186/89
[2022-10-14] MEDS ORDERED: MILK OF MAGNESIA 400 MG/5 ML 30 ML UDC PO PRN (18:30)
[2022-10-14] MEDS ORDERED: ACETAMINOPHEN 325 MG TABLET PO PRN (18:30)
[2022-10-14] MEDS ORDERED: oxyCODONE IMMEDIATE RELEASE 5 MG TABLET PO PRN (18:30)
[2022-10-14] MEDS ORDERED: diphenhydrAMINE INJ 50 MG/ML VIAL IVP PRN (18:30)
[2022-10-14] MEDS ORDERED: ONDANSETRON INJECTION 4 MG/2 ML (SDV) IV PRN (18:30)
[2022-10-14] MEDS ORDERED: morphine INJ 4 MG/ML 1 ML (VIAL/SYRINGE) IV PRN (18:30)
[2022-10-14] MEDS ORDERED: ANTACID SUSPENSION 30 ML UDC PO PRN (18:30)
[2022-10-14] MEDS ORDERED: 1/2 NS IV SOLUTION 1000 ML 1,000 ML IV PRN (18:30)
[2022-10-14] MEDS ORDERED: SENNA W/DOCUSATE TABLET PO PRN (18:30)
[2022-10-14] MEDS ORDERED: RT-Ipratropium/Albuterol NEB 3 ML VIAL INH PRN (18:30)
[2022-10-14] MEDS ORDERED: D5 1/2 NS 1,000 ML IV 1,000 ML IV PRN (18:30)
[2022-10-14 20:02] VITALS: BP 194/74
[2022-10-14] MEDS: hydrALAZINE INJECTION 20 MG/ML VIAL IV PRN (20:40)
[2022-10-14] MEDS: ENOXAPARIN 40 MG/0.4 ML SYRINGE SC SCH (20:40)
[2022-10-14] MEDS ORDERED: SENNA W/DOCUSATE TABLET PO SCH (21:00)
[2022-10-14] MEDS ORDERED: DOCUSATE SODIUM 100 MG CAPSULE PO SCH (21:00)
[2022-10-14] MEDS: DOCUSATE SODIUM 100 MG CAPSULE PO SCH (21:40)
[2022-10-14] MEDS: SENNOSIDES 8.6 MG TABLET PO SCH (21:40)
[2022-10-15 00:33] VITALS: BP 149/74
[2022-10-15 05:20] LABS: BASOPHILS % (AUTO) 0 % (0-10); EOSINOPHILS % (AUTO) 1 % (0-10); HEMATOCRIT 35 % (35-52); HEMOGLOBIN 12.4 g/dL (11.5-16.0); LYMPHOCYTES # (AUTO) 2.4 10^3/uL (1.0-4.0); LYMPHOCYTES % (AUTO) 30 % (12-44); MEAN CORPUSCULAR HEMOGLOBIN 31 pg (25-34); MEAN CORPUSCULAR HGB CONC 35 g/dL (32-36); MEAN CORPUSCULAR VOLUME 88 fL (80-99); MEAN PLATELET VOLUME 9.5 fL (9.0-12.2); MONOCYTES # (AUTO) 0.6 10^3/uL (0.0-1.0); MONOCYTES % (AUTO) 8 % (0-12); NEUTROPHILS # (AUTO) 4.8 10^3/uL (1.8-7.8); NEUTROPHILS % (AUTO) 61 % (42-75); PLATELET COUNT 278 10^3/uL (130-400); WHITE BLOOD COUNT 7.8 10^3/uL (4.3-11.0)
[2022-10-15 05:29] LABS: ALBUMIN 3.6 GM/DL (3.2-4.5); POTASSIUM 3.4 MMOL/L (3.6-5.0)
[2022-10-15 05:30] LABS: CALCIUM 8.8 MG/DL (8.5-10.1)
[2022-10-15 05:32] LABS: TOTAL PROTEIN 6.2 GM/DL (6.4-8.2)
[2022-10-15 05:33] LABS: BILIRUBIN,TOTAL 0.9 MG/DL (0.1-1.0)
[2022-10-15 05:35] LABS: CREATININE SERUM 0.7 MG/DL (0.60-1.30)
[2022-10-15] MEDS: THERAPEUTIC MULTIVITAMIN W/MINERALS TABLET PO SCH (06:43)
[2022-10-15] MEDS: THIAMINE 100 MG (VITAMIN B-1) TAB PO SCH (06:43)
[2022-10-15 07:04] VITALS: BP 137/63
--- NOTE | 2022-10-15 07:30 | Occupational Ther Daily Note ---
OT Current Status-Daily Note Subjective Pt alert, lying in bed. Pt is aphasic and has difficulty with making wants and needs known. Utilizing multiple ways of answering questions to make sure pt is understood. Pt agrees to therapy. OT/PT co-treat ([id number]), skills of 2 clinicians required to decrease fall risk, increase mobility/transfers and placement of B UE/LE during all mobility. PT focusing on transfers, standing, sitting balance and ambulation while OT focusing on ADLs, functional mobility, sitting balance and positioning R UE during all mobility tasks. OT able to see pt 45 min more over the 60 min in treatment plan during session Mental Status/Objective Patient Orientation: Person, Place, Time, Situation Attachments: [place] Catheter, IV ADL-Treatment Mod A for supine to EOB. Mod A for sitting EOB. Max A for SPT toward R side. Pt is following verbal directions 80% of the time during session, ~5-10 sec processing time to complete requested task. Pt uses fingers to bring food to mouth after set up (cutting food into bite size pieces, opening packages/containers). Assist to thread B feet into pant legs then assist x2 in standing to hike pants over hips. Max A for UBD. Set up and SBA for oral care sitting at sink. Therapy Code Descriptions/Definitions Functional [place] Measure: 0=Not Assessed/NA 4=Minimal Assistance 1=Total Assistance 5=Supervision or Setup 2=Maximal Assistance 6=Modified [place] 3=Moderate Assistance 7=Complete IndependenceSCALE: Activities may be completed with or without assistive devices. 3-Ceiuttrmet-qtsouop completes the activity by him/herself with no assistance from a helper. 5-Set-up or Clean-up Assistance-helper sets up or cleans up; patient completes activity. [place] assists only prior to or following the activity. 4-Supervision or Touching Assistance-helper provides verbal cues and/or touching/steadying and/or contact guard assistance as patient completes activity. Assistance may be provided throughout the activity or intermittently. 3-Partial/Moderate Assistance-helper does LESS THAN HALF the effort. [place] lifts, holds or supports trunk or limbs, but provides less than half the effort. 2-Substantial/Maximal Assistance-helper does MORE THAN HALF the effort. [place] lifts or holds trunk or limbs and provides more than half the effort. 3-Jlutrpboc-jrdiky does ALL the effort. Patient does none of the effort to complete the activity. Or, the assistance of 2 or more helpers is required for the patient to complete the activity. If activity was not attempted, code reason: 7-Patient Refused. 9-Not Applicable-not attempted and the patient did not perform the activity before the current illness, exacerbation or injury. 10-Not Attempted due to Environmental Limitations-(lack of equipment, weather restraints, etc.). 88-Not Attempted due to Medical Conditions or Safety Concerns. Eating (QC): 4 Oral Hygiene (QC): 4 Upper Body Dressing (QC): 2 Lower Body Dressing (QC): 1 Other Treatment Pt transported via w/c to therapy gym. Max A for SPT w/c<-->therapy mat. COLLAZO positions R UE for wt bearing during dynamic balance in sitting tasks to increase core strength and body awareness. Pt stood in //bars multiple times ~ 2 min each with assistance for R knee and hip positioning for optimal stance then assist from OTAS for R UE placement on //bar for wt bearing. See PT notes for pt progress on standing and ambulation. After therapy, pt sitting in recliner with call light/phone in reach. All needs met in room. Family present in room. OT Short Term Goals Short Term Goals Time Frame: Oct 28, 2022 Eatin Oral hygiene: 4 Toileting hygiene: 3 Shower/bathe self: 3 Upper body dressin Lower body dressin Putting on/taking off footwear: 3 OT Decision Analyst Goals Decision Analyst Goals Time Frame: Nov 11, 2022 Disorganized thinkin Altered level of consciousness: 0 Eating (QC): 5 (Set up) Oral Hygiene (QC): 5 (Set up) Toileting Hygiene (QC): 4 (CGA/supervision) Shower/Bathe Self (QC): 4 (CGA/supervision) Upper Body Dressing (QC): 5 (Set up) Lower Body Dressing (QC): 4 (CGA/supervision) On/Off Footwear (QC): 4 (CGA/supervision) Additional Goals: 1-Demonstrate ADL Tasks, 2-Verbalize Understanding, 3- ImproveStrength/Shira 1=Demonstrate adherence to instructed precautions during ADL tasks. 2=Patient will verbalize/demonstrate understanding of assistive devices/modifications for ADL. 3=Patient will improve strength/tolerance for activity to enable patient to perform ADL's. OT Education/Plan Problem List/Assessment Assessment: Decreased Activ Tolerance, Decreased Safety Aware, Decreased UE Strength, Dependent Transfers, Impaired Bed Mobility, Impaired Cognition, Impaired Coordination, Impaired Funct Balance, Impaired I ADL's, Impaired Self- Care Skills, Restricted Funct UE ROM Discharge Recommendations Plan/Recommendations: Continue POC Treatment Plan/Plan of Care Patient would benefit from OT for education, treatment and training to promote independence in ADL's, mobility, safety and/or upper extremity function for ADL's. Plan of Care: ADL Retraining, Caregiver Training, Functional Mobility, Group Exercise/Act as Ind, UE Funct Exercise/Act Treatment Duration: Nov 11, 2022 Frequency: At least 5 of 7 days/Wk (IRF) Estimated Hrs Per Day: 1.5 hours per day Agreement: Yes Rehab Potential: Fair Time Start Time: 07:15 Stop Time: 09:00 DATE: Oct 15, 2022 Total Time Billed (hr/min): 105 Billed Treatment Time 1 visit-ADL 5 (75 min) NM 2 (30 min) co-treat with PT ([id number]), individual [id number] ERICA RICE Oct 15, 2022 07:30
[2022-10-15] MEDS: SENNOSIDES 8.6 MG TABLET PO SCH ×2 (07:58→19:57)
[2022-10-15] MEDS: CLOPIDOGREL 75 MG TABLET PO SCH (07:58)
[2022-10-15] MEDS: DOCUSATE SODIUM 100 MG CAPSULE PO SCH ×2 (07:58→19:56)
[2022-10-15] MEDS: ASPIRIN 325 MG TABLET PO SCH (07:59)
[2022-10-15] MEDS: FOLIC ACID 1 MG TAB PO SCH (07:59)
--- NOTE | 2022-10-15 08:13 | Cardiology Progress Note ---
Subjective Date Seen by Provider: Oct 15, 2022 Time Seen by Provider: 08:10 Subjective/Events-last exam Patient is sitting up in wheelchair, denies any chest pain Objective-Cardiology Exam Last Set of Vital Signs Vital Signs 10/15/22 10/15/22 10/15/22 10/15/22 07:04 07:06 07:31 09:31 Temp 36.6 Pulse 95 Resp 16 B/P (MAP) 137/63 (87) Pulse Ox 96 O2 Delivery Room Air I&O Intake and Output 10/15/22 00:00 Intake Total 200 ml Balance 200 ml Intake Oral 200 ml Bladder Scan Volume Amount 245 ml 218 ml Daily Weight Change No General: Alert, Oriented X3, Cooperative HEENT: Atraumatic, PERRLA Lungs: Clear to Auscultation, Normal Air Movement Heart: Regular Rate Abdomen: Normal Bowel Sounds, Soft Extremities: No Edema Skin: No Rashes, No Significant Lesion Neuro: Other (right sided weakness, expressive aphasia) Psych/Mental Status: Mental Status NL, Mood NL Results Lab Laboratory Tests 10/15/22 05:10 A/P-Cardiology Admission Diagnosis CVA Carotid artery stenosis HTN HLP Assessment/Plan Acute stroke due to left carotid occlusion, right sided weakness and aphasia. Maintained on ASA and Plavix. Continue with PT/OT Carotid artery stenosis, carotid duplex done 10/12/22 showing complete occlusion of the left carotid system including both the internal and external carotid arteries. The right carotid artery appeared to have some plaques with mild disease, nono bstructive disease. Hypertension, continue to monitor blood pressure. Hyperlipidemia, started on Lipitor 80 mg daily Continue to monitor Supervisory-Addendum Brief Supervisory Addendum Participated in pt care: history, MDM, physical Personally performed: exam, history, MDM Care discussed with: FELICE Results interpretation: Verified all documentation Notes: Patient was seen and evaluated with John, examination performed, management plan was discussed, agree with the current scribed note, I made few changes to the note using Italic font Patient was seen at bedside sitting in a wheelchair Still having aphasia and right hemiplegia Continue to monitor blood pressure, continue on Lipitor 80 mg No changes are recommended JOHN OATES Oct 15, 2022 08:13 JOSE ANGEL CLEMONS MD Oct 15, 2022 11:51
--- NOTE | 2022-10-15 09:18 | Physical Therapy Daily Note ---
PT Daily Note-Current Subjective Pt is agreeable to PT. No c/o pain. Co-tx with OT ([id number]), skills of 2 clinicians required to decrease fall risk, increase mobility and safety awareness and work on functional mobility. PT focusing on transfers, standing, ambulation, B LE placement, balance, and safety awareness with positioning body while OT focusing on ADLs, R UE placement during mobility, seated balance/core strength, and safety awareness. Pain Numeric Pain Scale: 0-No Pain Location: No Pain Reported Section J - Health Conditions 1. Rarely or not at all 2. Occasionally 3. Frequently 4. Almost constantly 8. Unable to answer Pain Effect on Sleep: 1 Pain Interference with Therapy: 1 Pain Interference w/Day-to-Day: 1 Mental Status Attachments: [place] Catheter, IV Transfers SCALE: Activities may be completed with or without assistive devices. 7-Bzsqwgmvjm-wbjqcgn completes the activity by him/herself with no assistance from a helper. 5-Set-up or Clean-up Assistance-helper sets up or cleans up; patient completes activity. [place] assists only prior to or following the activity. 4-Supervision or Touching Assistance-helper provides verbal cues and/or touching/steadying and/or contact guard assistance as patient completes activity. Assistance may be provided throughout the activity or intermittently. 3-Partial/Moderate Assistance-helper does LESS THAN HALF the effort. [place] lifts, holds or supports trunk or limbs, but provides less than half the effort. 2-Substantial/Maximal Assistance-helper does MORE THAN HALF the effort. [place] lifts or holds trunk or limbs and provides more than half the effort. 5-Msysejdgr-lwdflr does ALL the effort. Patient does none of the effort to complete the activity. Or, the assistance of 2 or more helpers is required for the patient to complete the activity. If activity was not attempted, code reason: 7-Patient Refused. 9-Not Applicable-not attempted and the patient did not perform the activity before the current illness, exacerbation or injury. 10-Not Attempted due to Environmental Limitations-(lack of equipment, weather restraints, etc.). 88-Not Attempted due to Medical Conditions or Safety Concerns. Sit to Stand (QC): 1 Chair/Kvx-oo-Uwval Xfer(QC): 1 Weight Bearing Right Lower Extremity: Right Full Weight Bearing Left Lower Extremity: Left Full Weight Bearing Gait Training Does the Patient Walk?: Yes Distance: 3 steps Walk 10 feet (QC): 88 Gait Assistive Device: Parallel Bars Wheelchair Training Does the Pt Use a Wheelchair?: Yes Wheel 50 ft with 2 turns (QC): 1 Wheel 150 ft (QC): 1 Type of Wheelchair: Manual Treatments Co-tx with OT ([id number]), skills of 2 clinicians required to decrease fall risk, increase mobility and safety awareness and work on functional mobility. PT focusing on transfers, standing, ambulation, B LE placement, balance, and safety awareness with positioning body while OT focusing on ADLs, R UE placement during mobility, seated balance/core strength, and safety awareness. Pt complete d stand pivot and sit to stand transfers with Mod A x 2 for improved safety (dependence). Pt wheeled to the rehab gym. Stand pivot transfer from w/c to mat table with Max A x 1 and Min A x 1 for safety. Pt completed seated dynamic balance activities with L UE and LE with [place] support from the back, as well as R UE support and proper positioning. Pt transferred back to w/c with Max A x 1 and Min A x 1 for safety. Pt stood 3x in the // bars with Min/Mod A x 2. Pt stood for ~ 2-3 min with each stand with Min A x 2-3. PT working on R TKE, hips and posture. WESLY working on proper alignment and safety, and WESLY student working on WB through R UE. Pt transferred back to recliner with Max A x 1 and Min A x 1 for safety. Pt sitting in the recliner at the end of treatment session with call light in reach, all needs met, and family present. Assessment Current Status: Fair Progress Pt tolerated PT well with good effort PT [facility] Goals Fermenter Operator Goals PT [facility] Goals Time Frame: Nov 04, 2022 Roll Left & Right (QC): 4 (SBA for bed mobility ) Sit to Lying (QC): 4 (SBA for bed mobility ) Lying-Sitting on Side/Bed(QC): 4 (SBA for bed mobility ) Sit to Stand (QC): 3 (Min A for transfers ) Chair/Wdl-sq-Ohgux Xfer(QC): 3 (Min A for transfers ) Toilet Transfer (QC): 3 (Min A for transfers ) Car Transfer (QC): 3 (Min A for transfers ) Does the Patient Walk: Yes Walk 10 feet (QC): 3 (Min A for short distances ) Walk 50ft with 2 Turns (QC): 88 (Balance ) Walk 150 ft (QC): 88 (Balance ) Walking 10ft on Uneven Surface: 88 (Balance ) 1 Step (curb) (QC): 88 (Balance ) 4 Steps (QC): 88 (Balance ) 12 Steps (QC): 88 (Balance ) Picking up an Object (QC): 88 (Balance ) Does the Pt use WC or Scooter?: Yes Wheel 50 feet with 2 turns (QC: 3 (Min A for w/c mobility ) Type: Manual Wheel 150 feet: 3 (Min A for w/c mobility ) Type: Manual PT Plan Problem List Problem List: Activity Tolerance, Functional Strength, Safety, Balance, Gait, Transfer, Bed Mobility, ROM Treatment/Plan Treatment Plan: Continue Plan of Care Treatment Plan: Bed Mobility, Concurrent Therapy, Education, Functional Activity Shira, Functional Strength, Group Therapy, Gait, Safety, Therapeutic Exercise, Transfers Treatment Duration: Nov 04, 2022 Frequency: At least 5 of 7 days/Wk (IRF) Estimated Hrs Per Day: 2 hours per day Patient and/or Family Agrees t: Yes Safety Risks/Education Patient Education: Gait Training, Transfer Techniques, Correct Positioning, W/C Management, Safety Issues Teaching Recipient: Patient Teaching Methods: Demonstration, Discussion Response to Teaching: Reinforcement Needed Discharge Recommendations Therapy Discharge Recommendati: 24 Hour Supervision, Home & Family Discharge Status/Home Program Cont per POC Barriers to Progress R sided weakness; cognition Target Placement Home vs SNF Time Time In: 800 Time Out: 900 DATE: Oct 15, 2022 Total Billed Treatment Time: 60 Total Billed Treatment 60 min total from 1671-2735; co-tx for 60 min from 9551-0174 1 visit FA x 4 KANDI PRADO PT Oct 15, 2022 09:18
--- NOTE | 2022-10-15 11:17 | Speech Therapy Progress Note ---
Therapy Progress Note Speech language pathology completed the speech, language, and cognitive (ARU) assessment on this date (929 to 0). The same clinician completed the speech, language and cognitive assessment (908 to 957) the day prior while the patient was admitted on the acute unit. The patient displays large declines in her language abilities on this date in comparison to 24 hours prior. The clinician felt the decline may be secondary to fatigue as the patient recently completed 1+ hour of skilled physical and occupational therapy. Unfortunately, the patient's family stated the patient's language decline occurred the day prior, following the clinician's acute evaluation and before admission to the ARU. Per patient's daughter, "She just stopped talking." Throughout the acute evaluation, the patient participated in conversation with the clinician, stating personal information including family members' names (children, grandchildren), location of grandchildren, specifics regarding her home, hobbies (casino), etc. The patient accurately completed confrontational naming of familiar items with paraphasia and perseveration present. The patient completed simple yes and no questions with 100% accuracy and followed simple commands with 100% accuracy, independently. On this date, the patient displays unreliable yes and no responses which are nonverbal (if provided). The patient responds to "no questions" with brow furrowing and facial expressions. The patient frequently responds inaccurately to simple yes and no questions. Simple commands are completed with direct modeling, only. The patient is unable to state her name, independently. Yesterday, the patient presented with moderate expressive aphasia, dysarthria, and apraxia of speech. On this date, the patient presents with SEVERE expressive aphasia, a new onset of moderate RECEPTIVE aphasia, continued dysarthria, and declining apraxia of speech. The decline in language ability was concerning for the clinician and the treating RN was immediately notified. Please refer to this clinician's assessment for additional details and final report. MARITZA MELVIN Oct 15, 2022 11:17
--- NOTE | 2022-10-15 11:28 | ST Cognitive Linguistic Eval ---
Speech Evaluation-General Medical Diagnosis CVA Onset Date: Oct 11, 2022 Therapy Diagnosis Therapy Diagnosis: Expressive/Receptive Aphasia, Apraxia of Speech, Dysarthria Precautions Precautions: Fall, Pressure Ulcer, Aspiration Precautions/Isolations: Aspiration, Fall Prevention, Standard Precautions, Pressure Ulcer Referral Referring Physician: Dr. Rubin Reason for Referral: Evaluation/Treatment Medical History Pertinent Medical History: HTN Reviewed History: Yes Social History Current Living Status: Alone Speech PLF-Current Status Prior Level of Function Prior to the patient's stroke, the patient lived independently in [place], [place]. The patient's home has three to four steps and she has two adult daughters who are present in the area. Please refer to the clinician's progress note on this date to outline level of function during acute evaluation 24 hours prior to today's ARU evaluation. Subjective The patient was seated upright in her recliner, awake and alert, upon entrance to her room by the clinician. The patient made eye contact with the clinician following a verbal greeting by the clinician, however, no verbalizations were elicited by the patient. The patient has five family members present in her room (which included her two daughters). The patient was agreeable to participation in the cognitive linguistic evaluation. The patient's daughters shared concerns with the clinician regarding the patient's language decline over the previous 24 hours. The clinician shared all concerns with the treating RN at the initiation of the evaluation, throughout the evaluation, and following the evaluation. Please refer to the clinician's progress note on this date for information regarding decline and concerns. Language Eval: Auditory Comprehends Simple Yes/No Ques: Severe Indent/Objects Multiple Ricardo: Moderate Follows 1-Step Commands: Moderate Follows General Conversations: Severe Language Eval: Verbal Language Completes Spontaneous Greeting: Severe Produces Auto, Serial Info: Severe Imitates Simple Words/Phrases: Severe Word Finding: Severe Requests Basic Needs: Severe States Basic Personal Info: Severe Expresses Complex Ideas: Severe Cognitive Patient Orientation The patient was able to identify her name through simple yes and no responses and with maximum clinician verbal and visual cueing. At the close of the treatment session, the patient could verbally state her name when requested. Objective Cognitive Domain Cognitive evaluation is not appropriate at this time due to the large language impairments present which may negatively impact the patient's cognitive results. The clinician will complete a full cognitive evaluation following improvement of the patient's language skills. Objective Oral Motor/Speech Production The patient displays a right facial droop, with decreased right labial retraction, protrusion, and strength. Lingual protrusion deviates slightly to the right. Laryngeal elevation was visually present upon the swallow. Intermittent anterior loss of secretions were present from the right labial side (increased in comparison to the day prior). The patient demonstrated imprecise articulation, reduced rate of speech, and hypernasality consistent with dysarthria. Additionally, oral groping was present during attempts to produce specific phonemes which leads the clinician to suspect the presence of apraxia of speech. Impression The patient displays SEVERE expressive aphasia, MODERATE receptive aphasia (new on this date), MODERATE dysarthria, and MODERATE apraxia of speech. The patient would benefit from skilled speech pathology services to target the above areas of impairment. The patient has "passed" two RN Dysphagia Screenings at this time (one one the acute floor and one on the ARU floor). The patient, the patient's family, and the treating RN do not report specific swallowing difficulties. The clinician provided the patient thin liquid via straw throughout the cognitive linguistic evaluation and s/s of suspected aspiration were not displayed. S/s of suspected aspiration were discussed with the patient and the patient's family members. If s/s of suspected aspiration occur, the patient, patient's family members and RN were encouraged to contact for formal clinical bedside swallowing evaluation. Speech Short Term Goals Short Term Goals Short Term Goals 1. The patient will complete oral motor exercises with 75% accuracy and moderate clinician verbal and visual cueing. 2. The patient will communicate yes and no response (simple) with 50% accuracy and moderate clinician verbal and visual cueing. Time Frame-STG: Ten Days. Speech Chcf Goals Chcf Goals 1. The patient will demonstrate improved functional communication for increased safety with discharge to the least restrictive environment. Time Frame: Four Weeks. Speech-Plan Treatment Plan Speech Therapy Treatment Plan: Continue Plan of Care Treatment Duration: Nov 01, 2022 Frequency: Modified Program (IRF) Estimated Hrs Per Day: .5 hour per day Rehab Potential: Fair Pt/Family Agrees to Plan: Yes Safety Risks/Education Teaching Recipient: Patient, Family (Multiple family members present.) Teaching Methods: Discussion Response to Teaching: Verbalize Understanding Education Topics Provided: Results, Recommendations, Plan of Care Time Speech Therapy Time In: 09:30 Speech Therapy Time Out: 10:30 DATE: Oct 15, 2022 Total Billed Time: 60 Billed Treatment Time 1, SPSNDARIANNA, MARITZA FORBES Oct 15, 2022 11:28
[2022-10-15] MEDS ORDERED: POTASSIUM CHLORIDE 10 MEQ TABLET PO NR (12:30)
[2022-10-15] MEDS: LORazepam 1 MG TABLET PO PRN (18:46)
[2022-10-15 19:49] VITALS: BP 128/75
--- NOTE | 2022-10-15 20:02 | PM&R Progress Note ---
Subjective HPI/CC On Admission Date Seen by Provider: Oct 15, 2022 Time Seen by Provider: 11:00 Subjective/Events-last exam 10/15/2022: Patient having more difficulty speaking and now almost completely aphasic Maintained on Plavix and aspirin Appreciate cardiology Tried to encourage and reassure the patient Patient becomes tearful Review of Systems General: Fatigue, Malaise Neurological: Weakness, Incoordination, Change in speech Objective Exam Vital Signs Vital Signs Date Time Temp Pulse Resp B/P (MAP) Pulse Ox O2 Delivery O2 Flow Rate FiO2 10/16/22 01:00 83 10/15/22 20:10 Room Air 10/15/22 19:49 36.4 16 128/75 (92) 90 Capillary Refill : General Appearance: No Apparent Distress, WD/WN, Anxious, Chronically ill, Thin HEENT: PERRL/EOMI, Normal ENT Inspection, Pharynx Normal Neck: Full Range of Motion, Normal Inspection, Non Tender, Supple, Carotid Bruit Respiratory: Chest Non Tender, Lungs Clear, Normal Breath Sounds, No Accessory Muscle Use, No Respiratory Distress Cardiovascular: Regular Rate, Rhythm, No Edema, No Gallop, No JVD, No Murmur, Normal Peripheral Pulses Gastrointestinal: Normal Bowel Sounds, No Organomegaly, No Pulsatile Mass, Non Tender, Soft Back: Normal Inspection, No CVA Tenderness, No Vertebral Tenderness Extremity: Normal Capillary Refill, Normal Inspection, Normal Range of Motion, Non Tender, No Calf Tenderness, No Pedal Edema Neurologic/Psychiatric: Alert, Oriented x3, Abnormal sensor technician II-XII, Abnormal Gait, Aphasia, Depressed Affect, Facial Droop (right), Motor Weakness (right sided 0/5) Skin: Normal Color, Warm/Dry Lymphatic: No Adenopathy Results/Procedures Lab Patient resulted labs reviewed. FIM Transfers Therapy Code Descriptions/Definitions Functional [place] Measure: 0=Not Assessed/NA 4=Minimal Assistance 1=Total Assistance 5=Supervision or Setup 2=Maximal Assistance 6=Modified [place] 3=Moderate Assistance 7=Complete IndependenceSCALE: Activities may be completed with or without assistive devices. 0-Qjdrlgcxrs-tulfiua completes the activity by him/herself with no assistance from a helper. 5-Set-up or Clean-up Assistance-helper sets up or cleans up; patient completes activity. Jackson assists only prior to or following the activity. 4-Supervision or Touching Assistance-helper provides verbal cues and/or touching/steadying and/or contact guard assistance as patient completes activity. Assistance may be provided throughout the activity or intermittently. 3-Partial/Moderate Assistance-helper does LESS THAN HALF the effort. Jackson lifts, holds or supports trunk or limbs, but provides less than half the effort. 2-Substantial/Maximal Assistance-helper does MORE THAN HALF the effort. Jackson lifts or holds trunk or limbs and provides more than half the effort. 4-Eoacdxlqz-vnkuen does ALL the effort. Patient does none of the effort to compl ete the activity. Or, the assistance of 2 or more helpers is required for the patient to complete the activity. If activity was not attempted, code reason: 7-Patient Refused. 9-Not Applicable-not attempted and the patient did not perform the activity before the current illness, exacerbation or injury. 10-Not Attempted due to Environmental Limitations-(lack of equipment, weather restraints, etc.). 88-Not Attempted due to Medical Conditions or Safety Concerns. Roll Left to Right (QC): 3 (Mod A) Sit to Lying (QC): 3 (Mod A) Sit to Stand (QC): 1 Chair/Zam-xu-Ehlhu Xfer(QC): 1 Car Transfer (QC): 88 (balance ) Gait Training Does the Patient Walk?: Yes Distance: 3 steps Walk 10 feet (QC): 88 Walk 50 ft with 2 Turns(QC): 88 (balance (pt did take a few steps in the // bars with Mod A/Max A x 2 ) Walk 150 ft (QC): 88 (balance (pt did take a few steps in the // bars with Mod A/Max A x 2 ) Walking 10ft/uneven surface-QC: 88 (balance (pt did take a few steps in the // bars with Mod A/Max A x 2 ) Gait Assistive Device: Parallel Bars Wheelchair Training Does the Pt Use a Wheelchair?: Yes Wheel 50 ft with 2 turns (QC): 1 Wheel 150 ft (QC): 1 Type of Wheelchair: Manual Stair Training 1 Step (curb) (QC): 88 (balance ) 4 Steps (QC): 88 (balance ) 12 Steps (QC): 88 (balance ) Balance Picking up an Object (QC): 88 (balance ) ADL-Treatment Eating (QC): 4 Oral Hygiene (QC): 4 Shower/Bathe Self (QC): 1 (Pt. requires assistance to balance EOB with CGA during sponge bath. She is able to wash chest and top of right arm. She requires full assist to wash left arm, under each UE, and esme area with one pe rson to cleanse and one person to assist pt. in stance.) Upper Body Dressing (QC): 2 Lower Body Dressing (QC): 1 On/Off Footwear (QC): 2 (Min tactile cues to assist pt. with balance on EOB. Pt. is able to doff slipper socks with cues to stay upright. Max assist to don them while seated EOB.) Toileting Hygiene (QC): 1 (Max assist to stand while another person doffs/dons brief over hips and cleanses esme area.) Assessment/Plan Assessment and Plan Assess & Plan/Chief Complaint Assessment: Catastrophic CVA with right sided flaccidity-CT angiogram matches carotid ultrasound revealing left carotid internal and external complete occlusion causing catastrophic ischemic infarct of the left parietal and MCA region no surgical option available per vascular surgery at [facility] Dysarthria and expressive aphasia HTN emergency placed on Cardene drip now on Hydralazine IV Smoker Alcohol excess user placed on CIWA Urinary retention requiring replacement of valencia catheter 10/14/22 Plan: PT OT ST for expressive aphasia CIWA Vitamin supplementation to prevent Wernicke's encephalopathy and Karsokoff's psychosis Lovenox for DVT PPx Cardiology consult ASA and Plavix 10/15/2022: Continue supportive care (1) CVA (cerebral vascular accident) JM CALLEJAS DO Oct 15, 2022 20:01
--- NOTE | 2022-10-15 20:02 | Individualized Plan of Care ---
Individualized Plan of Care Rehab Nursing IPOC Order Admission Date Oct 14, 2022 at 13:30 Current Orders Orders Admission Arrival Bed Request (10/14/22 13:33) Admission Order(Inpt,Obs,Sdc) (10/14/22 13:46) Vital Signs: Per Unit Policy ( 08,16,00 (10/14/22 13:46) Martín Novak 09,21 (10/14/22 13:46) Sequential Compression Device [id number] (10/14/22 13:46) Automobile Dealer-Inpt Rehab Con (10/14/22 13:46) Rehab Nursing Orders-Ipoc (10/14/22 13:46) Physical Therapy Rehab Orders (10/14/22 13:46) Occupational Therapy Rehab Ord (10/14/22 13:46) Speech Therapy Rehab Orders (10/14/22 13:46) Cbc With Automated Diff (10/15/22 06:00) Comprehensive Metabolic Panel (10/15/22 06:00) Precautions (Aru) (10/14/22 13:46) Weekly Weight WEEK (10/14/22 13:46) Rehab-Intensity Of Therapy (10/14/22 13:46) Initiate Admission Nursing Pro .admission (10/14/22 13:46) Alprazolam Tablet (Alprazolam Tablet) (10/14/22 14:00) Calcium Carbonate Chew Tablet (Calcium C (10/14/22 14:00) Diphenhydramine Tablet (Diphenhydramine (10/14/22 14:00) Docusate Sodium Capsule (Docusate Sodium (10/14/22 21:00) Docusate Sodium Capsule (Docusate Sodium (10/14/22 14:00) Bisacodyl Suppository (Bisacodyl Supposi (10/14/22 14:00) Lactulose Oral Solution (Enulose Oral So (10/14/22 14:00) Na Phos/Na Biphos Adult Enema (Na Phos/N (10/14/22 14:00) Guaifenesin/Codeine Syrup (Guaifenesin/C (10/14/22 14:00) Loperamide Capsule (Loperamide Capsule) (10/14/22 14:00) Melatonin Tablet (Melatonin Tablet) (10/14/22 14:00) Polyethylene Glycol Powder Pkt (Miralax (10/14/22 21:00) Ondansetron Oral Dissolve Tab (Zofran (10/14/22 14:00) Senna S Tablet (Senokot S Tablet) (10/14/22 21:00) Acetaminophen Tablet (Acetaminophen Ta (10/14/22 14:00) Initiate Admission Nursing Pro .admission (10/14/22 13:46) Patient Visit (10/14/22 ) Pt Eval High Complexity (10/14/22 ) Patient Visit (10/14/22 ) Functional Activities, Ea 15 (10/14/22 ) General/Regular (10/14/22 Dinner) Code/Resuscitation (10/14/22 18:17) Accucheck Prn (10/14/22 18:17) Alcohol Fhvbnjckek-Kuax-Wx Dinesh Q1H (10/14/22 18:17) Initiate Admission Nursing Pro .admission (10/14/22 18:17) Nursing Communication (Order) (10/14/22 18:17) Martín Novak (10/14/22 18:17) Telemetry (10/14/22 18:17) 1/2 Ns Iv Solution 1000 Ml (1/2 Ns Iv So (10/14/22 18:30) Aspirin Tablet (Aspirin Tablet) (10/15/22 09:00) Lorazepam Tablet (Lorazepam Tablet) (10/14/22 18:30) Atorvastatin Tablet (Atorvastatin Tablet (10/15/22 09:00) Diphenhydramine Injection (Diphenhydram (10/14/22 18:30) Diphenhydramine Tablet (Diphenhydramine (10/14/22 18:30) Docusate Sodium Capsule (Docusate Sodium (10/14/22 21:00) D5 1/2 Ns 1,000 Ml Iv (Dextrose 5%/0.45% (10/14/22 18:30) Bisacodyl Suppository (Bisacodyl Supposi (10/14/22 18:30) Lactulose Oral Solution (Enulose Oral So (10/14/22 18:30) Folic Acid Tablet (Folic Acid Tablet) (10/15/22 09:00) Ipratropium/Albuterol Inh Soln (Ipratrop (10/14/22 18:30) Lorazepam Injection (Lorazepam Injection (10/14/22 18:30) Enoxaparin Injection (Enoxaparin Injecti (10/14/22 20:00) Antacid Suspension (Mylanta Suspension (10/14/22 18:30) Melatonin Tablet (Melatonin Tablet) (10/14/22 18:30) Magnesium Hydroxide Oral Susp (Mom Oral (10/14/22 18:30) Polyethylene Glycol Powder Pkt (Miralax (10/14/22 18:30) Morphine Injection (Morphine Injection (10/14/22 18:30) Clopidogrel Tablet (Clopidogrel Tablet) (10/15/22 09:00) Sennosides Tablet (Senokot Tablet) (10/14/22 21:00) Senna S Tablet (Senokot S Tablet) (10/14/22 18:30) Therapeutic Multivitamin Tab (Vitamins, (10/15/22 07:00) Thiamine Tablet (Vitamin B-1 Tablet) (10/15/22 07:00) Calcium Carbonate Chew Tablet (Calcium C (10/14/22 18:30) Acetaminophen Tablet (Acetaminophen Ta (10/14/22 18:30) Ondansetron Injection (Zofran Injectio (10/14/22 18:30) Ondansetron Oral Dissolve Tab (Zofran (10/14/22 18:30) Hydralazine Injection (Hydralazine Injec (10/14/22 18:30) Oxycodone Immediate Rel Tablet (Oxycodon (10/14/22 18:30) Incentive Spirometry Initial (10/14/22 18:17) Mat Initiate Protocol (10/14/22 18:17) Telemetry Nursing Assessment ( (10/14/22 18:17) Svn Small Volume Nebulizer (10/14/22 18:17) Incentive Spirometry (Nursing) Q2H (10/14/22 18:17) Catheter(Urinary) Insert & Ass 03,15 (10/14/22 19:49) Patient Visit (10/15/22 ) Functional Activities, Ea 15 (10/15/22 ) Patient Visit (10/15/22 ) Speech Sound Lang Comp (10/15/22 ) Treat. Speech/Lang/Voice (8/15/23 ) Consult Cardiology (10/15/22 12:06) Potassium Chloride (Tablet) (Potassium C (10/15/22 12:30) Potassium Chloride (Tablet) (Potassium C (10/16/22 07:00) Rehab Nursing Orders: Ongoing Assess. of Cognitive Status, Ongoing Assess. of Function Status, Bladder Management, Bladder Scan, Bladder Training, Bowel Management, Bowel Training, Disease Management & Educaiton, DVT Prophylaxis, Fall Prevention, Fluid/Electrolyte/Nutrition Mgmt, Infection Prevention, Medication Management & Education, Management of Risks & Complications, Management of Skin Intergrity, Nutrition Management, Pain Management, Patient/Family Support, Safety Management Intensity of Therapy to be met Patient to be seen: Min.3h per day/5 of 7d PT IPOC Problem List: Activity Tolerance, Functional Strength, Safety, Balance, Gait, Transfer, Bed Mobility, ROM Treatment Plan: Continue Plan of Care Bed Mobility, Concurrent Therapy, Education, Functional Activity Shira, Functio nal Strength, Group Therapy, Gait, Safety, Therapeutic Exercise, Transfers Treatment Duration: Nov 04, 2022 Frequency: At least 5 of 7 days/Wk (IRF) Estimated Hrs Per Day: 2 hours per day OT IPOC Problems: Decreased Activ Tolerance, Decreased Safety Aware, Decreased UE Strength, Dependent Transfers, Impaired Bed Mobility, Impaired Cognition, Impaired Coordination, Impaired Funct Balance, Impaired I ADL's, Impaired Self- Care Skills, Restricted Funct UE ROM OT Treatment, Training and Edu: Yes Plan of Care: ADL Retraining, Caregiver Training, Functional Mobility, Group Exercise/Act as Ind, UE Funct Exercise/Act Treatment Duration: Nov 11, 2022 Frequency: At least 5 of 7 days/Wk (IRF) Estimated Hrs Per Day: 1.[address] IPOC Speech Therapy Treatment Plan: Continue Plan of Care Treatment Duration: Nov 01, 2022 Frequency: Modified Program (IRF) Estimated Hrs Per Day: .5 hour per day Automobile Dealer/Case Mgmt Automobile Dealer/Case Managemen: Discharge Planning Dietitian/Boom Conveyor Operator Dietitian/Boom Conveyor Operator to monitor nutritional status and make changes and/or recommendations as needed and work with speech pathology on dietary upgrades as the occur. Physician IPOC Medical Issues being managed closely and that require the 24 hour availability of a physician: Catastrophic CVA will require close monitoring by physician due to high risk for extension of stroke and we will closely monitor blood pressure and gradually decrease to recommended blood pressure level following catastrophic stroke Medical Issues: Bowel/Bladder Function, DVT Prophylaxis, Falls Precautions, Fluid/Electrolyte/Nutrition Balance, Infection Protection, Pain Management Brief Synthesis of Preadmission Screen, Post-Admission Evaluation, and Therapy Evaluations: PT and OT will focus on regaining function with use of assistive devices and speech therapy will help with communication due to expressive aphasia and dysarthria in order to help regain independence in ADLs and ambulation Medical Prognosis: Fair Anticipated Length of Stay: 21 days JM CALLEJAS DO Oct 15, 2022 20:02
[2022-10-15] MEDS: ENOXAPARIN 40 MG/0.4 ML SYRINGE SC SCH (20:48)
[2022-10-16] MEDS: LORazepam 1 MG TABLET PO PRN (02:40)
[2022-10-16] MEDS: POTASSIUM CHLORIDE 10 MEQ TABLET PO SCH (07:33)
[2022-10-16] MEDS: THIAMINE 100 MG (VITAMIN B-1) TAB PO SCH (07:33)
[2022-10-16] MEDS: THERAPEUTIC MULTIVITAMIN W/MINERALS TABLET PO SCH (07:33)
[2022-10-16 08:00] VITALS: BP 161/70
--- NOTE | 2022-10-16 08:16 | PM&R Progress Note ---
Subjective HPI/CC On Admission Date Seen by Provider: Oct 16, 2022 Time Seen by Provider: 12:00 Subjective/Events-last exam 10/16/2022: Patient about the same Started Wellbutrin to help smoking cessation and depression Nicotine patch will also be placed No major problems 10/15/2022: Patient having more difficulty speaking and now almost completely aphasic Maintained on Plavix and aspirin Appreciate cardiology Tried to encourage and reassure the patient Patient becomes tearful Review of Systems General: Fatigue, Malaise Objective Exam Vital Signs Vital Signs Date Time Temp Pulse Resp B/P (MAP) Pulse Ox O2 Delivery O2 Flow Rate FiO2 10/16/22 12:54 89 10/16/22 09:00 96 Room Air 10/16/22 08:00 36.2 18 161/70 (100) Capillary Refill : General Appearance: No Apparent Distress, WD/WN, Anxious, Chronically ill, Thin HEENT: PERRL/EOMI, Normal ENT Inspection, Pharynx Normal Neck: Full Range of Motion, Normal Inspection, Non Tender, Supple, Carotid Bruit Respiratory: Chest Non Tender, Lungs Clear, Normal Breath Sounds, No Accessory Muscle Use, No Respiratory Distress Cardiovascular: Regular Rate, Rhythm, No Edema, No Gallop, No JVD, No Murmur, Normal Peripheral Pulses Gastrointestinal: Normal Bowel Sounds, No Organomegaly, No Pulsatile Mass, Non Tender, Soft Back: Normal Inspection, No CVA Tenderness, No Vertebral Tenderness Extremity: Normal Capillary Refill, Normal Inspection, Normal Range of Motion, Non Tender, No Calf Tenderness, No Pedal Edema Neurologic/Psychiatric: Alert, Oriented x3, Abnormal core shaper sides II-XII, Abnormal Gait, Aphasia, Depressed Affect, Facial Droop (right), Motor Weakness (right sided 0/5) Skin: Normal Color, Warm/Dry Lymphatic: No Adenopathy Results/Procedures Lab Patient resulted labs reviewed. FIM Transfers Therapy Code Descriptions/Definitions Functional [place] Measure: 0=Not Assessed/NA 4=Minimal Assistance 1=Total Assistance 5=Supervision or Setup 2=Maximal Assistance 6=Modified [place] 3=Moderate Assistance 7=Complete IndependenceSCALE: Activities may be completed with or without assistive devices. 2-Scupnsundl-vvulqrk completes the activity by him/herself with no assistance from a helper. 5-Set-up or Clean-up Assistance-helper sets up or cleans up; patient completes activity. Stanton assists only prior to or following the activity. 4-Supervision or Touching Assistance-helper provides verbal cues and/or touching/steadying and/or contact guard assistance as patient completes activity. Assistance may be provided throughout the activity or intermittently. 3-Partial/Moderate Assistance-helper does LESS THAN HALF the effort. Stanton lifts, holds or supports trunk or limbs, but provides less than half the effort. 2-Substantial/Maximal Assistance-helper does MORE THAN HALF the effort. Stanton lifts or holds trunk or limbs and provides more than half the effort. 5-Ndlqsujoq-gvhaux does ALL the effort. Patient does none of the effort to complete the activity. Or, the assistance of 2 or more helpers is required for the patient to complete the activity. If activity was not attempted, code reason: 7-Patient Refused. 9-Not Applicable-not attempted and the patient did not perform the activity before the current illness, exacerbation or injury. 10-Not Attempted due to Environmental Limitations-(lack of equipment, weather restraints, etc.). 88-Not Attempted due to Medical Conditions or Safety Concerns. Roll Left to Right (QC): 3 (Mod A) Sit to Lying (QC): 3 (Mod A) Sit to Stand (QC): 1 Chair/Uvq-ct-Gxrhd Xfer(QC): 1 Car Transfer (QC): 88 (balance ) Gait Training Does the Patient Walk?: Yes Distance: 3 steps Walk 10 feet (QC): 88 Walk 50 ft with 2 Turns(QC): 88 (balance (pt did take a few steps in the // bars with Mod A/Max A x 2 ) Walk 150 ft (QC): 88 (balance (pt did take a few steps in the // bars with Mod A/Max A x 2 ) Walking 10ft/uneven surface-QC: 88 (balance (pt did take a few steps in the // bars with Mod A/Max A x 2 ) Gait Assistive Device: Parallel Bars Wheelchair Training Does the Pt Use a Wheelchair?: Yes Wheel 50 ft with 2 turns (QC): 1 Wheel 150 ft (QC): 1 Type of Wheelchair: Manual Stair Training 1 Step (curb) (QC): 88 (balance ) 4 Steps (QC): 88 (balance ) 12 Steps (QC): 88 (balance ) Balance Picking up an Object (QC): 88 (balance ) ADL-Treatment Eating (QC): 4 Oral Hygiene (QC): 4 Shower/Bathe Self (QC): 1 (Pt. requires assistance to balance EOB with CGA during sponge bath. She is able to wash chest and top of right arm. She requires full assist to wash left arm, under each UE, and esme area with one person to cleanse and one person to assist pt. in stance.) Upper Body Dressing (QC): 2 Lower Body Dressing (QC): 1 On/Off Footwear (QC): 2 (Min tactile cues to assist pt. with balance on EOB. Pt. is able to doff slipper socks with cues to stay upright. Max assist to don them while seated EOB.) Toileting Hygiene (QC): 1 (Max assist to stand while another person doffs/dons brief over hips and cleanses esme area.) Assessment/Plan Assessment and Plan Assess & Plan/Chief Complaint Assessment: Catastrophic CVA with right sided flaccidity-CT angiogram matches carotid ultrasound revealing left carotid internal and external complete occlusion causing catastrophic ischemic infarct of the left parietal and MCA region no surgical option available per vascular surgery at [facility] Dysarthria and expressive aphasia HTN emergency placed on Cardene drip now on Hydralazine IV Smoker Alcohol excess user placed on CIWA Urinary retention requiring replacement of valencia catheter 10/14/22 Plan: PT OT ST for expressive aphasia CIWA Vitamin supplementation to prevent Wernicke's encephalopathy and Karsokoff's psychosis Lovenox for DVT PPx Cardiology consult ASA and Plavix 10/15/2022: Continue supportive care 10/16/2022: Monitor closely (1) CVA (cerebral vascular accident) JM CALLEJAS DO Oct 16, 2022 08:16
[2022-10-16] MEDS: DOCUSATE SODIUM 100 MG CAPSULE PO SCH ×2 (08:27→19:39)
[2022-10-16] MEDS: ASPIRIN 325 MG TABLET PO SCH (08:27)
[2022-10-16] MEDS: CLOPIDOGREL 75 MG TABLET PO SCH (08:27)
[2022-10-16] MEDS: FOLIC ACID 1 MG TAB PO SCH (08:27)
[2022-10-16] MEDS: SENNOSIDES 8.6 MG TABLET PO SCH ×2 (08:28→19:39)
--- NOTE | 2022-10-16 09:05 | Occupational Ther Daily Note ---
OT Current Status-Daily Note Subjective Pt alert, lying in bed. Pt agrees to therapy. No c/o pain, pt has expressive aphasia though has progressed with accuracy for yes/no questions. Mental Status/Objective Patient Orientation: Person, Non-Verbal/Aphasic, Situation ADL-Treatment Pt agrees to shower. Mod A for supine to EOB. Pt able to sit EOB with SBA though is not able to right self when loses balance toward R side. Max A for SPT. Set up for meal then placed utensil in hand and pt began to use to spear food and bring to mouth. Pt did need one assist to position fork to spear food then able to complete by self. Max A to transfer in/out of shower. Pt sat on BSC and only 1 LOB toward R side during shower. Pt able to cleanse all areas except L UE and buttocks though required verbal cues to move from one area to another then assist to dry lower legs/feet and buttocks. Max A to don/doff shirt. Pt requires assist x2 to hike pants over hips. Max A for footwear. SBA for oral care to monitor sequencing, initiate and set up. After therapy, pt sitting in recliner with call light/phone in reach. All needs met in room. Therapy Code Descriptions/Definitions Functional [place] Measure: 0=Not Assessed/NA 4=Minimal Assistance 1=Total Assistance 5=Supervision or Setup 2=Maximal Assistance 6=Modified [place] 3=Moderate Assistance 7=Complete IndependenceSCALE: Activities may be completed with or without assistive devices. 1-Ydtufuvbiv-rogsavb completes the activity by him/herself with no assistance from a helper. 5-Set-up or Clean-up Assistance-helper sets up or cleans up; patient completes activity. Angelica assists only prior to or following the activity. 4-Supervision or Touching Assistance-helper provides verbal cues and/or touching/steadying and/or contact guard assistance as patient completes activity. Assistance may be provided throughout the activity or intermittently. 3-Partial/Moderate Assistance-helper does LESS THAN HALF the effort. Angelica lifts, holds or supports trunk or limbs, but provides less than half the effort. 2-Substantial/Maximal Assistance-helper does MORE THAN HALF the effort. Angelica lifts or holds trunk or limbs and provides more than half the effort. 2-Yqibgciws-yfwrpi does ALL the effort. Patient does none of the effort to complete the activity. Or, the assistance of 2 or more helpers is required for the patient to complete the activity. If activity was not attempted, code reason: 7-Patient Refused. 9-Not Applicable-not attempted and the patient did not perform the activity before the current illness, exacerbation or injury. 10-Not Attempted due to Environmental Limitations-(lack of equipment, weather restraints, etc.). 88-Not Attempted due to Medical Conditions or Safety Concerns. Eating (QC): 4 Oral Hygiene (QC): 4 Shower/Bathe Self (QC): 3 (Sitting 100% of the time) Upper Body Dressing (QC): 2 Lower Body Dressing (QC): 1 On/Off Footwear: 2 Pt is progressing with sitting balance, able to bend over to touch feet without LOB. R UE flaccid. Education OT Patient Education: Modified ADL techniques Teaching Recipient: Patient Teaching Methods: Demonstration, Discussion Response to Teaching: Reinforcement Needed OT Short Term Goals Short Term Goals Time Frame: Oct 28, 2022 Eatin Oral hygiene: 4 Toileting hygiene: 3 Shower/bathe self: 3 Upper body dressin Lower body dressin Putting on/taking off footwear: 3 OT Corporate Consultant Goals Intermediate Goals Time Frame: Nov 11, 2022 Disorganized thinkin Altered level of consciousness: 0 Eating (QC): 5 (Set up) Oral Hygiene (QC): 5 (Set up) Toileting Hygiene (QC): 4 (CGA/supervision) Shower/Bathe Self (QC): 4 (CGA/supervision) Upper Body Dressing (QC): 5 (Set up) Lower Body Dressing (QC): 4 (CGA/supervision) On/Off Footwear (QC): 4 (CGA/supervision) Additional Goals: 1-Demonstrate ADL Tasks, 2-Verbalize Understanding, 3- ImproveStrength/Shira 1=Demonstrate adherence to instructed precautions during ADL tasks. 2=Patient will verbalize/demonstrate understanding of assistive devices/modifications for ADL. 3=Patient will improve strength/tolerance for activity to enable patient to perform ADL's. OT Education/Plan Problem List/Assessment Assessment: Decreased Activ Tolerance, Decreased Safety Aware, Decreased UE Strength, Impaired Bed Mobility, Impaired Cognition, Impaired Coordination, Impaired Funct Balance, Impaired I ADL's, Impaired Self-Care Skills, Restricted Funct UE ROM Discharge Recommendations Plan/Recommendations: Continue POC Treatment Plan/Plan of Care Patient would benefit from OT for education, treatment and training to promote independence in ADL's, mobility, safety and/or upper extremity function for ADL's. Plan of Care: ADL Retraining, Caregiver Training, Functional Mobility, Group Exercise/Act as Ind, UE Funct Exercise/Act Treatment Duration: Nov 11, 2022 Frequency: At least 5 of 7 days/Wk (IRF) Estimated Hrs Per Day: 1.5 hours per day Agreement: Yes Rehab Potential: Fair Time Start Time: 07:00 Stop Time: 08:30 DATE: Oct 16, 2022 Total Time Billed (hr/min): 90 Billed Treatment Time 1 visit-ADL 6 (90 min) ERICA RICE Oct 16, 2022 09:05
--- NOTE | 2022-10-16 10:13 | Cardiology Progress Note ---
Subjective Date Seen by Provider: Oct 16, 2022 Time Seen by Provider: 10:12 Subjective/Events-last exam Patient sitting up in chair, no new complaint. Appears to have flat affect. Objective-Cardiology Exam Last Set of Vital Signs Vital Signs 10/16/22 10/16/22 10/16/22 08:00 09:00 12:54 Temp 36.2 Pulse 89 Resp 18 B/P (MAP) 161/70 (100) Pulse Ox 96 O2 Delivery Room Air I&O Intake and Output 10/16/22 00:00 Intake Total 250 ml Output Total 675 ml Balance -425 ml Intake Oral 250 ml Output Urine Total 675 ml General: Alert, Oriented X3, Cooperative HEENT: Atraumatic, PERRLA Lungs: Clear to Auscultation, Normal Air Movement Heart: Regular Rate Abdomen: Normal Bowel Sounds, Soft Extremities: No Edema Skin: No Rashes, No Significant Lesion Neuro: Other (right sided weakness, expressive aphasia) Psych/Mental Status: Mental Status NL, Mood NL A/P-Cardiology Admission Diagnosis CVA Carotid artery stenosis HTN HLP Assessment/Plan Acute stroke due to left carotid occlusion, right sided weakness and aphasia. Maintained on ASA and Plavix. Continue with PT/OT Carotid artery stenosis, carotid duplex done 10/12/22 showing complete occlusion of the left carotid system including both the internal and external carotid arteries. The right carotid artery appeared to have some plaques with mild disease, nonobstructive disease. Hypertension, continue to monitor blood pressure. Hyperlipidemia, started on Lipitor 80 mg daily Continue to monitor Depression, flat affect, consider use of antidepressant. Will defer to medical services. Patient was seen and evaluated with Taryn, examination performed, management plan was discussed, agree with the current scribed note, I made few changes to the note using Italic font Patient was seen at bedside, having worsening slightly in her slurred speech No new complain Blood pressure is monitored No arrhythmia, tolerating Lipitor Continue on aspirin and Plavix. Supervisory-Addendum Brief Supervisory Addendum Participated in pt care: history, MDM, physical Personally performed: exam, history, MDM Care discussed with: FELICE Results interpretation: Verified all documentation TARYN OATES Oct 16, 2022 10:13 JOSE ANGEL CLEMONS MD Oct 16, 2022 16:19
--- NOTE | 2022-10-16 10:40 | Speech Therapy Daily Note ---
Speech Daily Progress Note Subjective Date Seen by Provider: Oct 16, 2022 Time Seen by Provider: 09:30 The patient was seated upright in her recliner, awake and alert, upon entrance to her room by the clinician. The patient made eye contact with the clinician when the clinician offered a verbal greeting, no verbalization from the patient was achieved. The patient was agreeable to participation in the skilled speech and language treatment session. The patient's daughter is at bedside and remained throughout therapy. Objective - Oral Motor Exercises: Oral motor exercises were introduced on this date with a handout, direct modeling, and maximum verbal cueing. 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 In attempts to improve accuracy, the clinician introduced a mirror. The patient immediately became tearful with visualization of her facial expressions and the mirror was removed. The mirror may be re-attempted in the future for increased visual cueing. - Bilabial Words: Bilabial, single syllable words (p and b) were introduced on this date. The patient displayed fair accuracy with immediate repetition of the words following direct modeling from the clinician. - Confrontational Naming: The patient displayed 0% accuracy with confrontational naming on this date. Accuracy was not increased with maximum clinician verbal cueing including function of item, phrase completion, of initial phoneme. Assessment Assessment Current Status: Poor Progress Treatment Plan Continue Plan of Care Speech Short Term Goals Short Term Goals Short Term Goals 1. The patient will complete oral motor exercises with 75% accuracy and moderate clinician verbal and visual cueing. 2. The patient will communicate yes and no response (simple) with 50% accuracy and moderate clinician verbal and visual cueing. Time Frame-STG: Ten Days. Speech [facility] Goals [facility] Goals 1. The patient will demonstrate improved functional communication for increased safety with discharge to the least restrictive environment. Time Frame: Four Weeks. Speech-Plan Treatment Plan Speech Therapy Treatment Plan: Continue Plan of Care Treatment Duration: Nov 01, 2022 Frequency: Modified Program (IRF) Estimated Hrs Per Day: .5 hour per day Rehab Potential: Fair Pt/Family Agrees to Plan: Yes Safety Risks/Education Teaching Recipient: Patient, Family (Daughter.) Teaching Methods: Demonstration, Handout, Discussion Response to Teaching: Return Demonstration, Reinforcement Needed Education Topics Provided: Oral Motor Exercises, Bilabial Exercises Time Speech Therapy Time In: 09:30 Speech Therapy Time Out: 10:15 DATE: Oct 16, 2022 Total Billed Time: 45 Billed Treatment Time 1, MARITZA FORBES Oct 16, 2022 10:40
--- NOTE | 2022-10-16 13:44 | Physical Therapy Daily Note ---
PT Daily Note-Current Subjective Pt is agreeable to PT Pain Location: No Pain Reported Section J - Health Conditions 1. Rarely or not at all 2. Occasionally 3. Frequently 4. Almost constantly 8. Unable to answer Pain Effect on Sleep: 1 Pain Interference with Therapy: 1 Pain Interference w/Day-to-Day: 1 Transfers SCALE: Activities may be completed with or without assistive devices. 7-Uzcbzbisea-grovgrd completes the activity by him/herself with no assistance from a helper. 5-Set-up or Clean-up Assistance-helper sets up or cleans up; patient completes activity. Novelty assists only prior to or following the activity. 4-Supervision or Touching Assistance-helper provides verbal cues and/or touching/steadying and/or contact guard assistance as patient completes activity. Assistance may be provided throughout the activity or intermittently. 3-Partial/Moderate Assistance-helper does LESS THAN HALF the effort. Novelty lifts, holds or supports trunk or limbs, but provides less than half the effort. 2-Substantial/Maximal Assistance-helper does MORE THAN HALF the effort. Novelty lifts or holds trunk or limbs and provides more than half the effort. 0-Ruquwhdqe-eswyua does ALL the effort. Patient does none of the effort to complete the activity. Or, the assistance of 2 or more helpers is required for the patient to complete the activity. If activity was not attempted, code reason: 7-Patient Refused. 9-Not Applicable-not attempted and the patient did not perform the activity before the current illness, exacerbation or injury. 10-Not Attempted due to Environmental Limitations-(lack of equipment, weather restraints, etc.). 88-Not Attempted due to Medical Conditions or Safety Concerns. Sit to Stand (QC): 1 Chair/Rxo-em-Oavzy Xfer(QC): 1 Toilet Transfer (QC): 1 Weight Bearing Right Lower Extremity: Right Full Weight Bearing Left Lower Extremity: Left Full Weight Bearing Gait Training Does the Patient Walk?: No and Walking Goal NOT indicated Wheelchair Training Does the Pt Use a Wheelchair?: Yes Wheel 50 ft with 2 turns (QC): 1 Wheel 150 ft (QC): 1 Type of Wheelchair: Manual Treatments Pt completed seated B LE Ther Ex 10x2 reps (PROM on R LE). Pt transferred from recliner <> w/c with Max A x 1 (stand-pivot transfer). Pt completed seated dynamic balance tasks with L UE and L LE. Pt stood x 2 in the // bars with Max A x 1 and Min A x 1. Pt stood for ~ 2 min with each stand with Mod A, as pt leans to the R. Pt is dep with w/c mobility. Pt was emotional several times throughout treatment session. Pt sitting up in the recliner upon completion of PT with call light in reach, all needs met, and daughter present. Pt pt will require a w/c with cushion and drop arms upon d/c. The pt has a severe mobility limitation that significantly impairs her ability to complete functional mobility or ADLs. Pts mobility limitations can not be helped with a walker or cane. Pt has enough room in the home to utilize the w/c. Pt can safely use the w/c with help from a caregiver/family member. Assessment Current Status: Fair Progress Pt tolerated PT well with good effort PT Chancellor Goals Chancellor Goals PT Snf Goals Time Frame: Nov 04, 2022 Roll Left & Right (QC): 4 (SBA for bed mobility ) Sit to Lying (QC): 4 (SBA for bed mobility ) Lying-Sitting on Side/Bed(QC): 4 (SBA for bed mobility ) Sit to Stand (QC): 3 (Min A for transfers ) Chair/Yky-kw-Fwraf Xfer(QC): 3 (Min A for transfers ) Toilet Transfer (QC): 3 (Min A for transfers ) Car Transfer (QC): 3 (Min A for transfers ) Does the Patient Walk: Yes Walk 10 feet (QC): 3 (Min A for short distances ) Walk 50ft with 2 Turns (QC): 88 (Balance ) Walk 150 ft (QC): 88 (Balance ) Walking 10ft on Uneven Surface: 88 (Balance ) 1 Step (curb) (QC): 88 (Balance ) 4 Steps (QC): 88 (Balance ) 12 Steps (QC): 88 (Balance ) Picking up an Object (QC): 88 (Balance ) Does the Pt use WC or Scooter?: Yes Wheel 50 feet with 2 turns (QC: 3 (Min A for w/c mobility ) Type: Manual Wheel 150 feet: 3 (Min A for w/c mobility ) Type: Manual PT Plan Problem List Problem List: Activity Tolerance, Functional Strength, Safety, Balance, Gait, Transfer, Bed Mobility, ROM Treatment/Plan Treatment Plan: Continue Plan of Care Treatment Plan: Bed Mobility, Concurrent Therapy, Education, Functional Activity Shira, Functional Strength, Group Therapy, Gait, Safety, Therapeutic Exercise, Transfers Treatment Duration: Nov 04, 2022 Frequency: At least 5 of 7 days/Wk (IRF) Estimated Hrs Per Day: 2 hours per day Patient and/or Family Agrees t: Yes Safety Risks/Education Patient Education: Transfer Techniques, Correct Positioning, W/C Management, Safety Issues Teaching Recipient: Patient, Family Teaching Methods: Demonstration, Discussion Response to Teaching: Reinforcement Needed Discharge Recommendations Therapy Discharge Recommendati: Home & Family Equpiment Recommendations-D/C: 3 in 1 Commode, Wheelchair Cushion, Front Wheeled Walker, Lift Chair, Wheelchair Ramp, Railings, Shower Chair, Manual Wheelchair Discharge Status/Home Program Cont per POC Barriers to Progress R sided weakness Target Placement Home with family assistance Time Time In: 830 Time Out: 930 DATE: Oct 16, 2022 Total Billed Treatment Time: 60 Total Billed Treatment 60 min 1 visit EX x 2 FA x 2 KANDI PRADO PT Oct 16, 2022 13:43
[2022-10-16] MEDS: NICOTINE 21 MG PATCH TD SCH (14:00)
[2022-10-16] MEDS: buPROPion SR 150 MG TABLET PO SCH ×2 (14:00→20:03)
[2022-10-16 20:00] VITALS: BP 195/84
[2022-10-16] MEDS: hydrALAZINE INJECTION 20 MG/ML VIAL IV PRN (20:00)
[2022-10-16] MEDS: ENOXAPARIN 40 MG/0.4 ML SYRINGE SC SCH (20:02)
[2022-10-16 20:27] VITALS: BP 134/63
--- NOTE | 2022-10-17 05:19 | PM&R Progress Note ---
Subjective HPI/CC On Admission Date Seen by Provider: Oct 17, 2022 Time Seen by Provider: 12:00 Subjective/Events-last exam 10/17/2022: About the same No falls Valencia catheter remains No pain reported 10/16/2022: Patient about the same Started Wellbutrin to help smoking cessation and depression Nicotine patch will also be placed No major problems 10/15/2022: Patient having more difficulty speaking and now almost completely aphasic Maintained on Plavix and aspirin Appreciate cardiology Tried to encourage and reassure the patient Patient becomes tearful Review of Systems General: Fatigue, Malaise Neurological: Weakness, Incoordination, Change in speech Objective Exam Vital Signs Vital Signs Date Time Temp Pulse Resp B/P (MAP) Pulse Ox O2 Delivery O2 Flow Rate FiO2 10/17/22 21:07 Room Air 10/17/22 19:51 36.4 79 18 177/79 (111) 94 Capillary Refill : General Appearance: No Apparent Distress, WD/WN, Anxious, Chronically ill, Thin HEENT: PERRL/EOMI, Normal ENT Inspection, Pharynx Normal Neck: Full Range of Motion, Normal Inspection, Non Tender, Supple, Carotid Bruit Respiratory: Chest Non Tender, Lungs Clear, Normal Breath Sounds, No Accessory Muscle Use, No Respiratory Distress Cardiovascular: Regular Rate, Rhythm, No Edema, No Gallop, No JVD, No Murmur, Normal Peripheral Pulses Gastrointestinal: Normal Bowel Sounds, No Organomegaly, No Pulsatile Mass, Non Tender, Soft Back: Normal Inspection, No CVA Tenderness, No Vertebral Tenderness Extremity: Normal Capillary Refill, Normal Inspection, Normal Range of Motion, Non Tender, No Calf Tenderness, No Pedal Edema Neurologic/Psychiatric: Alert, Oriented x3, Abnormal certified physical therapist assistant II-XII, Abnormal Gait, Aphasia, Depressed Affect, Facial Droop (right), Motor Weakness (right sided 0/5) Skin: Normal Color, Warm/Dry Lymphatic: No Adenopathy Results/Procedures Lab Patient resulted labs reviewed. FIM Transfers Therapy Code Descriptions/Definitions Functional [place] Measure: 0=Not Assessed/NA 4=Minimal Assistance 1=Total Assistance 5=Supervision or Setup 2=Maximal Assistance 6=Modified [place] 3=Moderate Assistance 7=Complete IndependenceSCALE: Activities may be completed with or without assistive devices. 0-Jkpimgxxni-eycwvma completes the activity by him/herself with no assistance from a helper. 5-Set-up or Clean-up Assistance-helper sets up or cleans up; patient completes activity. [place] assists only prior to or following the activity. 4-Supervision or Touching Assistance-helper provides verbal cues and/or touching/steadying and/or contact guard assistance as patient completes activity. Assistance may be provided throughout the activity or intermittently. 3-Partial/Moderate Assistance-helper does LESS THAN HALF the effort. [place] lifts, holds or supports trunk or limbs, but provides less than half the effort. 2-Substantial/Maximal Assistance-helper does MORE THAN HALF the effort. [place] lifts or holds trunk or limbs and provides more than half the effort. 4-Thnjzldye-iyjsmr does ALL the effort. Patient does none of the effort to complete the activity. Or, the assistance of 2 or more helpers is required for the patient to complete the activity. If activity was not attempted, code reason: 7-Patient Refused. 9-Not Applicable-not attempted and the patient did not perform the activity before the current illness, exacerbation or injury. 10-Not Attempted due to Environmental Limitations-(lack of equipment, weather restraints, etc.). 88-Not Attempted due to Medical Conditions or Safety Concerns. Roll Left to Right (QC): 3 (Mod A) Sit to Lying (QC): 3 (Mod A) Sit to Stand (QC): 1 Chair/Qfl-cz-Mfojh Xfer(QC): 1 Car Transfer (QC): 88 (balance ) Gait Training Does the Patient Walk?: No and Walking Goal NOT indicated Distance: 3 steps Walk 10 feet (QC): 88 Walk 50 ft with 2 Turns(QC): 88 (balance (pt did take a few steps in the // bars with Mod A/Max A x 2 ) Walk 150 ft (QC): 88 (balance (pt did take a few steps in the // bars with Mod A/Max A x 2 ) Walking 10ft/uneven surface-QC: 88 (balance (pt did take a few steps in the // bars with Mod A/Max A x 2 ) Gait Assistive Device: Parallel Bars Wheelchair Training Does the Pt Use a Wheelchair?: Yes Wheel 50 ft with 2 turns (QC): 1 Wheel 150 ft (QC): 1 Type of Wheelchair: Manual Stair Training 1 Step (curb) (QC): 88 (balance ) 4 Steps (QC): 88 (balance ) 12 Steps (QC): 88 (balance ) Balance Picking up an Object (QC): 88 (balance ) ADL-Treatment Eating (QC): 4 Oral Hygiene (QC): 4 Shower/Bathe Self (QC): 3 (Sitting 100% of the time) Upper Body Dressing (QC): 2 Lower Body Dressing (QC): 1 On/Off Footwear (QC): 2 Toileting Hygiene (QC): 1 (Max assist to stand while another person doffs/dons brief over hips and cleanses esme area.) Assessment/Plan Assessment and Plan Assess & Plan/Chief Complaint Assessment: Catastrophic CVA with right sided flaccidity-CT angiogram matches carotid ultrasound revealing left carotid internal and external complete occlusion causing catastrophic ischemic infarct of the left parietal and MCA region no surgical option available per vascular surgery at [facility] Dysarthria and expressive aphasia HTN emergency placed on Cardene drip now on Hydralazine IV Smoker Alcohol excess user placed on CIWA Urinary retention requiring replacement of valencia catheter 10/14/22 Plan: PT OT ST for expressive aphasia CIWA Vitamin supplementation to prevent Wernicke's encephalopathy and Karsokoff's psychosis Lovenox for DVT PPx Cardiology consult ASA and Plavix 10/15/2022: Continue supportive care 10/16/2022: Monitor closely 10/17/2022: Monitor closely Losartan (1) CVA (cerebral vascular accident) JM CALLEJAS DO Oct 17, 2022 05:19
[2022-10-17] MEDS: THIAMINE 100 MG (VITAMIN B-1) TAB PO SCH (06:03)
[2022-10-17] MEDS: THERAPEUTIC MULTIVITAMIN W/MINERALS TABLET PO SCH (06:03)
[2022-10-17] MEDS: POTASSIUM CHLORIDE 10 MEQ TABLET PO SCH (06:04)
--- NOTE | 2022-10-17 07:29 | Occupational Ther Daily Note ---
OT Current Status-Daily Note Subjective Pt alert, lying in bed. Pt agrees to therapy. Pt is aphasic though increasing in awareness and accuracy in answering questions. No c/o pain, head gesture to answer. Mental Status/Objective Patient Orientation: Person, Non-Verbal/Aphasic Attachments: IV ADL-Treatment Min to Mod A for supine to EOB with HOB raised. Pt requires assistance to position R UE/LE with bed mobility and sitting EOB. Pt unable to right self in sitting when LOB toward R side. Max A for SPT from EOB to recliner. Set up for eating then supervision for safety. Max A for UBD. Dependent for toileting and LBD. Max A for footwear. Therapy Code Descriptions/Definitions Functional [place] Measure: 0=Not Assessed/NA 4=Minimal Assistance 1=Total Assistance 5=Supervision or Setup 2=Maximal Assistance 6=Modified [place] 3=Moderate Assistance 7=Complete IndependenceSCALE: Activities may be completed with or without assistive devices. 5-Nkbgdltlrw-hrftffc completes the activity by him/herself with no assistance from a helper. 5-Set-up or Clean-up Assistance-helper sets up or cleans up; patient completes activity. [place] assists only prior to or following the activity. 4-Supervision or Touching Assistance-helper provides verbal cues and/or touching/steadying and/or contact guard assistance as patient completes activity. Assistance may be provided throughout the activity or intermittently. 3-Partial/Moderate Assistance-helper does LESS THAN HALF the effort. [place] lifts, holds or supports trunk or limbs, but provides less than half the effort. 2-Substantial/Maximal Assistance-helper does MORE THAN HALF the effort. [place] lifts or holds trunk or limbs and provides more than half the effort. 8-Xoobrchbt-dkeoaf does ALL the effort. Patient does none of the effort to complete the activity. Or, the assistance of 2 or more helpers is required for the patient to complete the activity. If activity was not attempted, code reason: 7-Patient Refused. 9-Not Applicable-not attempted and the patient did not perform the activity before the current illness, exacerbation or injury. 10-Not Attempted due to Environmental Limitations-(lack of equipment, weather restraints, etc.). 88-Not Attempted due to Medical Conditions or Safety Concerns. Eating (QC): 4 Upper Body Dressing (QC): 2 Lower Body Dressing (QC): 1 On/Off Footwear: 1 Toileting Hygiene (QC): 1 Toilet Transfer (QC): 1 Other Treatment Co-tx with OT ([id number]), skills of 2 clinicians required to decrease fall risk, increase mobility and safety awareness and work on functional mobility. PT focusing on transfers, standing, ambulation, B LE placement, balance, and safety awareness with positioning body, while OT focusing on ADLs, R UE placement during mobility, seated balance/core strength, and safety awareness. Pt completed w/c mobility 50ft x 2 with Min A for turns. Pt completed 4 sit to stands at and in the // bars with Mod/Max A. Pt ambulated 4-5 steps in the // bars with Mod A x 3 (R UE, R LE, and hips). Pt stood for 2 bouts on the outside of the // bars working on reaching with the L UE with Mod/Max A for balance. After therapy, pt left in care of PT. All needs met. OT Short Term Goals Short Term Goals Time Frame: Oct 28, 2022 Eatin Oral hygiene: 4 Toileting hygiene: 3 Shower/bathe self: 3 Upper body dressin Lower body dressin Putting on/taking off footwear: 3 OT Snf Goals Snf Goals Time Frame: Nov 11, 2022 Disorganized thinkin Altered level of consciousness: 0 Eating (QC): 5 (Set up) Oral Hygiene (QC): 5 (Set up) Toileting Hygiene (QC): 4 (CGA/supervision) Shower/Bathe Self (QC): 4 (CGA/supervision) Upper Body Dressing (QC): 5 (Set up) Lower Body Dressing (QC): 4 (CGA/supervision) On/Off Footwear (QC): 4 (CGA/supervision) Additional Goals: 1-Demonstrate ADL Tasks, 2-Verbalize Understanding, 3- ImproveStrength/Shira 1=Demonstrate adherence to instructed precautions during ADL tasks. 2=Patient will verbalize/demonstrate understanding of assistive device s/modifications for ADL. 3=Patient will improve strength/tolerance for activity to enable patient to perform ADL's. OT Education/Plan Problem List/Assessment Assessment: Decreased Activ Tolerance, Decreased Safety Aware, Decreased UE Strength, Dependent Transfers, Impaired Bed Mobility, Impaired Coordination, Impaired Funct Balance, Impaired Self-Care Skills, Restricted Funct UE ROM Discharge Recommendations Plan/Recommendations: Continue POC Treatment Plan/Plan of Care Patient would benefit from OT for education, treatment and training to promote independence in ADL's, mobility, safety and/or upper extremity function for ADL's. Plan of Care: ADL Retraining, Caregiver Training, Functional Mobility, Group Exercise/Act as Ind, UE Funct Exercise/Act Treatment Duration: Nov 11, 2022 Frequency: At least 5 of 7 days/Wk (IRF) Estimated Hrs Per Day: 1.5 hours per day Agreement: Yes Rehab Potential: Fair Time Start Time: 07:15 Stop Time: 08:30 DATE: Oct 17, 2022 Total Time Billed (hr/min): 75 Billed Treatment Time 1 visit-ADL 3 (45 min) NM 2 (30 min) co-treat with PT [id number], individual [id number] ERICA RICE Oct 17, 2022 07:29
[2022-10-17 08:00] VITALS: BP 172/74
--- NOTE | 2022-10-17 08:21 | Cardiology Progress Note ---
Subjective Date Seen by Provider: Oct 17, 2022 Time Seen by Provider: 08:20 Subjective/Events-last exam Patient was seen at bedside, sitting comfortably. No new complaint. Review of Systems General: No Chills, No Night Sweats, No Fatigue, No Malaise, No Appetite, No Other HEENT: No Head Aches, No Visual Changes, No Eye Pain, No Ear Pain, No Dysphasia, No Sinus Congestion, No Post Nasal Drip, No Sore Throat, No Other Pulmonary: No Dyspnea, No Cough, No Pleuritic Chest Pain, No Other Cardiovascular: No: Chest Pain, Palpitations, Orthopnea, Paroxysmal Noc. Dyspnea, Edema, Lt Headedness, Other Objective-Cardiology Exam Last Set of Vital Signs Vital Signs 10/16/22 10/16/22 10/16/22 10/17/22 20:00 20:27 20:51 07:11 Temp 36.6 Pulse 82 Resp 18 B/P (MAP) 134/63 (86) Pulse Ox 96 O2 Delivery Room Air I&O Intake and Output 10/17/22 00:00 Intake Total 700 ml Output Total 650 ml Balance 50 ml Intake Oral 700 ml Output Urine Total 650 ml # Bowel Movements 4 General: Alert, Oriented X3, Cooperative HEENT: Atraumatic, PERRLA Lungs: Clear to Auscultation, Normal Air Movement Heart: Regular Rate Abdomen: Normal Bowel Sounds, Soft Extremities: No Edema Skin: No Rashes, No Significant Lesion Neuro: Other (right sided weakness, expressive aphasia) Psych/Mental Status: Mental Status NL, Mood NL A/P-Cardiology Admission Diagnosis CVA Carotid artery stenosis HTN HLP Assessment/Plan Acute stroke due to left carotid occlusion, right sided weakness and aphasia. Maintained on ASA and Plavix. Continue with PT/OT Patient was deemed inoperable by [place] surgery, currently managed by primary care team Carotid artery stenosis, carotid duplex done 10/12/22 showing complete occlusion of the left carotid system including both the internal and external carotid arteries. The right carotid artery appeared to have some plaques with mild disease, nonobstructive disease. Hypertension, having episodes of elevated blood pressure I will discontinue hydralazine and started losartan 50 mg daily and monitor tolerance and response Hyperlipidemia, started on Lipitor 80 mg daily Continue to monitor Depression, flat affect, consider use of antidepressant. Will defer to medical services. JOSE ANGEL CLEMONS MD Oct 17, 2022 08:21
[2022-10-17] MEDS: SENNOSIDES 8.6 MG TABLET PO SCH ×2 (08:41→19:30)
[2022-10-17] MEDS: DOCUSATE SODIUM 100 MG CAPSULE PO SCH ×2 (08:41→19:29)
[2022-10-17] MEDS: NICOTINE 21 MG PATCH TD SCH (09:16)
[2022-10-17] MEDS: LOSARTAN 50 MG TABLET PO SCH (09:17)
[2022-10-17] MEDS: ASPIRIN 325 MG TABLET PO SCH (09:17)
[2022-10-17] MEDS: CLOPIDOGREL 75 MG TABLET PO SCH (09:17)
[2022-10-17] MEDS: NICOTINE PATCH REMOVAL TP SCH (09:17)
[2022-10-17] MEDS: FOLIC ACID 1 MG TAB PO SCH (09:17)
[2022-10-17] MEDS: buPROPion SR 150 MG TABLET PO SCH ×2 (09:17→20:11)
--- NOTE | 2022-10-17 10:24 | Physical Therapy Daily Note ---
PT Daily Note-Current Subjective Pt sitting up in the w/c in her room, with OT, upon arrival. Pt is agreeable to PT. No c/o pain. Co-tx with OT ([id number]), skills of 2 clinicians required to decrease fall risk, increase mobility and safety awareness and work on functional mobility. PT focusing on transfers, standing, ambulation, B LE p lacement, balance, and safety awareness with positioning body, while OT focusing on ADLs, R UE placement during mobility, seated balance/core strength, and safety awareness. Pain Numeric Pain Scale: 0-No Pain Location: No Pain Reported Section J - Health Conditions 1. Rarely or not at all 2. Occasionally 3. Frequently 4. Almost constantly 8. Unable to answer Pain Effect on Sleep: 1 Pain Interference with Therapy: 1 Pain Interference w/Day-to-Day: 1 Mental Status Attachments: [place]roz[place] Catheter, IV Transfers SCALE: Activities may be completed with or without assistive devices. 6-Hvoqlxersp-fudrikr completes the activity by him/herself with no assistance from a helper. 5-Set-up or Clean-up Assistance-helper sets up or cleans up; patient completes activity. [place] assists only prior to or following the activity. 4-Supervision or Touching Assistance-helper provides verbal cues and/or touching/steadying and/or contact guard assistance as patient completes activity. Assistance may be provided throughout the activity or intermittently. 3-Partial/Moderate Assistance-helper does LESS THAN HALF the effort. [place] lifts, holds or supports trunk or limbs, but provides less than half the effort. 2-Substantial/Maximal Assistance-helper does MORE THAN HALF the effort. [place] lifts or holds trunk or limbs and provides more than half the effort. 4-Oqnwrekpy-zwuheh does ALL the effort. Patient does none of the effort to complete the activity. Or, the assistance of 2 or more helpers is required for the patient to complete the activity. If activity was not attempted, code reason: 7-Patient Refused. 9-Not Applicable-not attempted and the patient did not perform the activity before the current illness, exacerbation or injury. 10-Not Attempted due to Environmental Limitations-(lack of equipment, weather restraints, etc.). 88-Not Attempted due to Medical Conditions or Safety Concerns. Sit to Stand (QC): 2 Chair/Fhm-pj-Pdlru Xfer(QC): 2 Weight Bearing Right Lower Extremity: Right Full Weight Bearing Left Lower Extremity: Left Full Weight Bearing Gait Training Does the Patient Walk?: Yes Distance: 5ft Walk 10 feet (QC): 88 Walk 50 ft with 2 Turns(QC): 88 Walk 150 ft (QC): 88 Walking 10ft/uneven surface-QC: 88 Gait Persons Needed: 3 Gait Assistive Device: Parallel Bars Wheelchair Training Does the Pt Use a Wheelchair?: Yes Wheel 50 ft with 2 turns (QC): 3 Wheel 150 ft (QC): 88 Type of Wheelchair: Manual Treatments Co-tx with OT ([id number]), skills of 2 clinicians required to decrease fall risk, increase mobility and safety awareness and work on functional mobility. PT focusing on transfers, standing, ambulation, B LE placement, balance, and safety awareness with positioning body, while OT focusing on ADLs, R UE placement during mobility, seated balance/core strength, and safety awareness. Pt completed w/c mobility 50ft x 2 with Min A for turns. Pt completed 4 sit to stands at and in the // bars with Mod/Max A. Pt ambulated 4-5 steps in the // bars with Mod A x 3 (R UE, R LE, and hips). Pt stood for 2 bouts on the outside of the // bars working on reaching with the L UE with Mod/Max A for balance. Pt completed L LE Ther Ex x 15 reps each with the red Tband. PROM completed on the R LE x 15 reps. Pt completed dynamic seated exercises to improve core strength and overall balance (balloon toss and cone stacking). Pt completed seated ball kicks with the L LE. Mod/Max A for stand pivot transfer from w/c to recliner. Pt was sitting up in the recline upon completion of PT with call light in reach, all needs met, and daughter present. Assessment Current Status: Fair Progress Pt tolerated PT well with good effort PT Cook Helper Meat Goals Cook Helper Meat Goals PT Senior Care Goals Time Frame: Nov 04, 2022 Roll Left & Right (QC): 4 (SBA for bed mobility ) Sit to Lying (QC): 4 (SBA for bed mobility ) Lying-Sitting on Side/Bed(QC): 4 (SBA for bed mobility ) Sit to Stand (QC): 3 (Min A for transfers ) Chair/Sck-wx-Whdce Xfer(QC): 3 (Min A for transfers ) Toilet Transfer (QC): 3 (Min A for transfers ) Car Transfer (QC): 3 (Min A for transfers ) Does the Patient Walk: Yes Walk 10 feet (QC): 3 (Min A for short distances ) Walk 50ft with 2 Turns (QC): 88 (Balance ) Walk 150 ft (QC): 88 (Balance ) Walking 10ft on Uneven Surface: 88 (Balance ) 1 Step (curb) (QC): 88 (Balance ) 4 Steps (QC): 88 (Balance ) 12 Steps (QC): 88 (Balance ) Picking up an Object (QC): 88 (Balance ) Does the Pt use WC or Scooter?: Yes Wheel 50 feet with 2 turns (QC: 3 (Min A for w/c mobility ) Type: Manual Wheel 150 feet: 3 (Min A for w/c mobility ) Type: Manual PT Plan Problem List Problem List: Activity Tolerance, Functional Strength, Safety, Balance, Gait, Transfer, Bed Mobility, ROM Treatment/Plan Treatment Plan: Continue Plan of Care Treatment Plan: Bed Mobility, Concurrent Therapy, Education, Functional Activity Shira, Functional Strength, Group Therapy, Gait, Safety, Therapeutic Exercise, Transfers Treatment Duration: Nov 04, 2022 Frequency: At least 5 of 7 days/Wk (IRF) Estimated Hrs Per Day: 2 hours per day Patient and/or Family Agrees t: Yes Safety Risks/Education Patient Education: Gait Training, Transfer Techniques, Correct Positioning, W/C Management, Safety Issues Teaching Recipient: Patient Teaching Methods: Demonstration, Discussion Response to Teaching: Reinforcement Needed Discharge Recommendations Therapy Discharge Recommendati: Home & Family Equpiment Recommendations-D/C: Wheelchair Cushion, Front Wheeled Walker, Lift Chair, Wheelchair Ramp, Railings, Shower Chair, Manual Wheelchair Discharge Status/Home Program Cont per POC Barriers to Progress R sided weakness Target Placement Home with family assistance Time Time In: 800 Time Out: 915 DATE: Oct 17, 2022 Total Billed Treatment Time: 75 Total Billed Treatment 75 min total from [id number]; 30 min co-tx from [id number] 1 visit GT x 1 EX x 1 FA x 3 KANDI PRADO PT Oct 17, 2022 10:24
--- NOTE | 2022-10-17 14:42 | Speech Therapy Daily Note ---
Speech Daily Progress Note Subjective Date Seen by Provider: Oct 17, 2022 Time Seen by Provider: 09:30 The patient was seated upright in her recliner, awake and alert, upon entrance to her room by the clinician. The patient does return the clinician's verbal greeting with "hi" on this date and appears with increased alertness. The patient was agreeable to participation in the skilled speech and language treatment. The patient's daughter is present at bedside for the treatment session. Objective - Confrontational Naming: The patient was unable to provide names for any familiar object on this date (bed, chair, cup). The clinician is attempting functional items to improve functional communication with staff and family members. Additionally, the patient was encouraged to point to the items such as, point to the bed if the patient wants to return to bed. Providing function of the item or phrase completion were not effective at improving naming. Initial phoneme cueing was fairly effective at improving naming. On this date, bed and chair were practiced. Perseveration was present at one point, therefore, switching to a different therapeutic exercise was attempted to clear perseve ration (which was beneficial). The patient is able to repeat the word following a clinician model. Repetition occurred five times once the accurate word was located. - A communication board was trials on this date. Unfortunately, the communication board did not display high accuracy regardless of direct clinician modeling. Continued attempts at the nonverbal form of communication will continue. - Oral motor exercises were reviewed. Initially, high accuracy was present however with continued practice, signs of apraxia were present as inconsistent errors were displayed. Response time is decreasing and reliability of yes and no answers are improving (yet remain inconsistent). Steady, slow improvement with language is being displayed and discussed with the patient and family members. The patient does continue to display intermittent tears and emotional responses. Assessment Assessment Current Status: Fair Progress Treatment Plan Continue Plan of Care Speech Short Term Goals Short Term Goals Short Term Goals 1. The patient will complete oral motor exercises with 75% accuracy and moderate clinician verbal and visual cueing. 2. The patient will communicate yes and no response (simple) with 50% accuracy and moderate clinician verbal and visual cueing. Time Frame-STG: Ten Days. Speech Custodial Goals [place] Goals 1. The patient will demonstrate improved functional communication for increased safety with discharge to the least restrictive environment. Time Frame: Four Weeks. Speech-Plan Treatment Plan Speech Therapy Treatment Plan: Continue Plan of Care Treatment Duration: Nov 01, 2022 Frequency: Modified Program (IRF) Estimated Hrs Per Day: .5 hour per day Rehab Potential: Fair Pt/Family Agrees to Plan: Yes Safety Risks/Education Teaching Recipient: Patient, Family (Daughter.) Teaching Methods: Demonstration, Discussion Response to Teaching: Verbalize Understanding, Return Demonstration Education Topics Provided: Education re: Expressive Language, Plan of Care Discussions, Goal Discussions, Confrontational Naming Exercises Time Speech Therapy Time In: 09:30 Speech Therapy Time Out: 10:00 DATE: Oct 17, 2022 Total Billed Time: 30 Billed Treatment Time [address] [facility] [facility] Oct 17, 2022 14:42
[2022-10-17 19:51] VITALS: BP 177/79
[2022-10-17] MEDS: ENOXAPARIN 40 MG/0.4 ML SYRINGE SC SCH (20:11)
--- NOTE | 2022-10-18 05:25 | PM&R Progress Note ---
Subjective HPI/CC On Admission Date Seen by Provider: Oct 18, 2022 Time Seen by Provider: 12:00 Subjective/Events-last exam 10/18/2022: Doing well Able to lift her right leg Able to read out loud without much dysarthria Sister at bedside 10/17/2022: About the same No falls Valencia catheter remains No pain reported 10/16/2022: Patient about the same Started Wellbutrin to help smoking cessation and depression Nicotine patch will also be placed No major problems 10/15/2022: Patient having more difficulty speaking and now almost completely aphasic Maintained on Plavix and aspirin Appreciate cardiology Tried to encourage and reassure the patient Patient becomes tearful Review of Systems General: Fatigue, Malaise Neurological: Weakness, Incoordination, Change in speech Objective Exam Vital Signs Vital Signs Date Time Temp Pulse Resp B/P (MAP) Pulse Ox O2 Delivery O2 Flow Rate FiO2 10/19/22 01:00 81 10/18/22 20:47 Room Air 10/18/22 20:06 36.5 16 160/73 (102) 98 10/18/22 08:43 0.00 Capillary Refill : General Appearance: No Apparent Distress, WD/WN, Anxious, Chronically ill, Thin HEENT: PERRL/EOMI, Normal ENT Inspection, Pharynx Normal Neck: Full Range of Motion, Normal Inspection, Non Tender, Supple, Carotid Bruit Respiratory: Chest Non Tender, Lungs Clear, Normal Breath Sounds, No Accessory Muscle Use, No Respiratory Distress Cardiovascular: Regular Rate, Rhythm, No Edema, No Gallop, No JVD, No Murmur, Normal Peripheral Pulses Gastrointestinal: Normal Bowel Sounds, No Organomegaly, No Pulsatile Mass, Non Tender, Soft Back: Normal Inspection, No CVA Tenderness, No Vertebral Tenderness Extremity: Normal Capillary Refill, Normal Inspection, Normal Range of Motion, Non Tender, No Calf Tenderness, No Pedal Edema Neurologic/Psychiatric: Alert, Oriented x3, Abnormal field technical assistant II-XII, Abnormal Gait, Aphasia, Depressed Affect, Facial Droop (right), Motor Weakness (right sided 0/5) Skin: Normal Color, Warm/Dry Lymphatic: No Adenopathy Results/Procedures Lab Patient resulted labs reviewed. FIM Transfers Therapy Code Descriptions/Definitions Functional [place] Measure: 0=Not Assessed/NA 4=Minimal Assistance 1=Total Assistance 5=Supervision or Setup 2=Maximal Assistance 6=Modified [place] 3=Moderate Assistance 7=Complete IndependenceSCALE: Activities may be completed with or without assistive devices. 6-Vjsrtysggf-dqeoxga completes the activity by him/herself with no assistance from a helper. 5-Set-up or Clean-up Assistance-helper sets up or cleans up; patient completes activity. [place] assists only prior to or following the activity. 4-Supervision or Touching Assistance-helper provides verbal cues and/or touching/steadying and/or contact guard assistance as patient completes activity. Assistance may be provided throughout the activity or intermittently. 3-Partial/Moderate Assistance-helper does LESS THAN HALF the effort. [place] lifts, holds or supports trunk or limbs, but provides less than half the effort. 2-Substantial/Maximal Assistance-helper does MORE THAN HALF the effort. [place] lifts or holds trunk or limbs and provides more than half the effort. 3-Dsnnhsulz-xydokl does ALL the effort. Patient does none of the effort to complete the activity. Or, the assistance of 2 or more helpers is required for the patient to complete the activity. If activity was not attempted, code reason: 7-Patient Refused. 9-Not Applicable-not attempted and the patient did not perform the activity before the current illness, exacerbation or injury. 10-Not Attempted due to Environmental Limitations-(lack of equipment, weather restraints, etc.). 88-Not Attempted due to Medical Conditions or Safety Concerns. Roll Left to Right (QC): 3 (Mod A) Sit to Lying (QC): 3 (Mod A) Sit to Stand (QC): 2 Chair/Wsy-fa-Tgeoq Xfer(QC): 2 Car Transfer (QC): 88 (balance ) Gait Training Does the Patient Walk?: Yes Distance: 5ft Walk 10 feet (QC): 88 Walk 50 ft with 2 Turns(QC): 88 Walk 150 ft (QC): 88 Walking 10ft/uneven surface-QC: 88 Gait Persons Needed: 3 Gait Assistive Device: Parallel Bars Wheelchair Training Does the Pt Use a Wheelchair?: Yes Wheel 50 ft with 2 turns (QC): 3 Wheel 150 ft (QC): 88 Type of Wheelchair: Manual Stair Training 1 Step (curb) (QC): 88 (balance ) 4 Steps (QC): 88 (balance ) 12 Steps (QC): 88 (balance ) Balance Picking up an Object (QC): 88 (balance ) ADL-Treatment Eating (QC): 4 Oral Hygiene (QC): 4 Shower/Bathe Self (QC): 3 (Sitting 100% of the time) Upper Body Dressing (QC): 2 Lower Body Dressing (QC): 1 On/Off Footwear (QC): 1 Toileting Hygiene (QC): 1 Toilet Transfer (QC): 1 Assessment/Plan Assessment and Plan Assess & Plan/Chief Complaint Assessment: Catastrophic CVA with right sided flaccidity-CT angiogram matches carotid ultrasound revealing left carotid internal and external complete occlusion causing catastrophic ischemic infarct of the left parietal and MCA region no surgical option available per vascular surgery at [facility] Dysarthria and expressive aphasia HTN emergency placed on Cardene drip now on Hydralazine IV Smoker Alcohol excess user placed on CIWA Urinary retention requiring replacement of valencia catheter 10/14/22 Plan: PT OT ST for expressive aphasia CIWA Vitamin supplementation to prevent Wernicke's encephalopathy and Karsokoff's psychosis Lovenox for DVT PPx Cardiology consult ASA and Plavix 10/15/2022: Continue supportive care 10/16/2022: Monitor closely 10/17/2022: Monitor closely Losartan 10/18/2022: Monitor closely (1) CVA (cerebral vascular accident) JM CALLEJAS DO Oct 18, 2022 05:25
[2022-10-18] MEDS: POTASSIUM CHLORIDE 10 MEQ TABLET PO SCH (06:23)
[2022-10-18] MEDS: THERAPEUTIC MULTIVITAMIN W/MINERALS TABLET PO SCH (06:23)
[2022-10-18] MEDS: THIAMINE 100 MG (VITAMIN B-1) TAB PO SCH (06:23)
--- NOTE | 2022-10-18 07:22 | Occupational Ther Daily Note ---
OT Current Status-Daily Note Subjective Pt alert, lying in bed. Pt agrees to therapy. Pt has expressive aphasia, but is making likes and dislikes known. Mental Status/Objective Patient Orientation: Person, Non-Verbal/Aphasic Attachments: IV ADL-Treatment Mod A for supine to EOB. Sitting EOB with SBA no LOB with static sit. With assist x2, COLLAZO on one side/nrsg on other, pt able to transfer with min A while COLLAZO helped advance R foot. Pt then positioned in recliner for comfort, awaiting breakfast. After session, pt sitting in recliner with call light/phone in reach. Nrsg present in room. All needs met. Therapy Code Descriptions/Definitions Functional [place] Measure: 0=Not Assessed/NA 4=Minimal Assistance 1=Total Assistance 5=Supervision or Setup 2=Maximal Assistance 6=Modified [place] 3=Moderate Assistance 7=Complete IndependenceSCALE: Activities may be completed with or without assistive devices. 5-Ixehgoepud-coymrsp completes the activity by him/herself with no assistance from a helper. 5-Set-up or Clean-up Assistance-helper sets up or cleans up; patient completes activity. [place] assists only prior to or following the activity. 4-Supervision or Touching Assistance-helper provides verbal cues and/or touching/steadying and/or contact guard assistance as patient completes activity . Assistance may be provided throughout the activity or intermittently. 3-Partial/Moderate Assistance-helper does LESS THAN HALF the effort. [place] lifts, holds or supports trunk or limbs, but provides less than half the effort. 2-Substantial/Maximal Assistance-helper does MORE THAN HALF the effort. [place] lifts or holds trunk or limbs and provides more than half the effort. 9-Onibtjbko-rqzvxa does ALL the effort. Patient does none of the effort to complete the activity. Or, the assistance of 2 or more helpers is required for the patient to complete the activity. If activity was not attempted, code reason: 7-Patient Refused. 9-Not Applicable-not attempted and the patient did not perform the activity before the current illness, exacerbation or injury. 10-Not Attempted due to Environmental Limitations-(lack of equipment, weather restraints, etc.). 88-Not Attempted due to Medical Conditions or Safety Concerns. OT Short Term Goals Short Term Goals Time Frame: Oct 28, 2022 Eatin Oral hygiene: 4 Toileting hygiene: 3 Shower/bathe self: 3 Upper body dressin Lower body dressin Putting on/taking off footwear: 3 OT Paleontology Teacher Goals Jail Goals Time Frame: Nov 11, 2022 Disorganized thinkin Altered level of consciousness: 0 Eating (QC): 5 (Set up) Oral Hygiene (QC): 5 (Set up) Toileting Hygiene (QC): 4 (CGA/supervision) Shower/Bathe Self (QC): 4 (CGA/supervision) Upper Body Dressing (QC): 5 (Set up) Lower Body Dressing (QC): 4 (CGA/supervision) On/Off Footwear (QC): 4 (CGA/supervision) Additional Goals: 1-Demonstrate ADL Tasks, 2-Verbalize Understanding, 3- ImproveStrength/Shira 1=Demonstrate adherence to instructed precautions during ADL tasks. 2=Patient will verbalize/demonstrate understanding of assistive devices/modifications for ADL. 3=Patient will improve strength/tolerance for activity to enable patient to perform ADL's. OT Education/Plan Problem List/Assessment Assessment: Decreased Safety Aware, Decreased UE Strength, Dependent Transfers, Impaired Bed Mobility, Impaired Coordination, Impaired Funct Balance, Impaired Self-Care Skills, Restricted Funct UE ROM Discharge Recommendations Plan/Recommendations: Continue POC Treatment Plan/Plan of Care Patient would benefit from OT for education, treatment and training to promote independence in ADL's, mobility, safety and/or upper extremity function for ADL's. Plan of Care: ADL Retraining, Caregiver Training, Functional Mobility, Group Exercise/Act as Ind, UE Funct Exercise/Act Treatment Duration: Nov 11, 2022 Frequency: At least 5 of 7 days/Wk (IRF) Estimated Hrs Per Day: 1.5 hours per day Agreement: Yes Rehab Potential: Fair Time Start Time: 06:20 Stop Time: 06:30 DATE: Oct 18, 2022 Total Time Billed (hr/min): 15 Billed Treatment Time 1 visit-FA 1 (15 min) ERICA RICE Oct 18, 2022 07:22
[2022-10-18 08:00] VITALS: BP 137/62
[2022-10-18] MEDS: FOLIC ACID 1 MG TAB PO SCH (08:00)
[2022-10-18] MEDS: ASPIRIN 325 MG TABLET PO SCH (08:00)
[2022-10-18] MEDS: CLOPIDOGREL 75 MG TABLET PO SCH (08:00)
[2022-10-18] MEDS: buPROPion SR 150 MG TABLET PO SCH ×2 (08:00→20:08)
[2022-10-18] MEDS: LOSARTAN 50 MG TABLET PO SCH (08:00)
[2022-10-18] MEDS: SENNOSIDES 8.6 MG TABLET PO SCH ×2 (08:02→20:08)
[2022-10-18] MEDS: DOCUSATE SODIUM 100 MG CAPSULE PO SCH ×2 (08:02→20:08)
[2022-10-18] MEDS: NICOTINE 21 MG PATCH TD SCH (08:02)
[2022-10-18] MEDS: NICOTINE PATCH REMOVAL TP SCH (08:03)
--- NOTE | 2022-10-18 09:47 | Cardiology Progress Note ---
Subjective Date Seen by Provider: Oct 18, 2022 Time Seen by Provider: 09:46 Subjective/Events-last exam Patient was seen at bedside sitting comfortably, still having slurred speech. Review of Systems General: No Chills, No Night Sweats, No Fatigue, No Malaise, No Appetite, No Other HEENT: No Head Aches, No Visual Changes, No Eye Pain, No Ear Pain, No Dysphasia, No Sinus Congestion, No Post Nasal Drip, No Sore Throat, No Other Pulmonary: No Dyspnea, No Cough, No Pleuritic Chest Pain, No Other Cardiovascular: No: Chest Pain, Palpitations, Orthopnea, Paroxysmal Noc. Dyspnea, Edema, Lt Headedness, Other Objective-Cardiology Exam Last Set of Vital Signs Vital Signs 10/18/22 10/18/22 10/18/22 08:00 08:43 09:35 Temp 36.0 Pulse 84 Resp 14 B/P (MAP) 137/62 (87) Pulse Ox 97 O2 Delivery Room Air O2 Flow Rate 0.00 I&O Intake and Output 10/18/22 00:00 Intake Total 790 ml Output Total 825 ml Balance -35 ml Intake Oral 790 ml Output Urine Total 825 ml # Bowel Movements 5 General: Alert, Oriented X3, Cooperative HEENT: Atraumatic, PERRLA Lungs: Clear to Auscultation, Normal Air Movement Heart: Regular Rate Abdomen: Normal Bowel Sounds, Soft Extremities: No Edema Skin: No Rashes, No Significant Lesion Neuro: Other (right sided weakness, expressive aphasia) Psych/Mental Status: Mental Status NL, Mood NL A/P-Cardiology Admission Diagnosis CVA Carotid artery stenosis HTN HLP Assessment/Plan Acute stroke due to left carotid occlusion, right sided weakness and aphasia. Maintained on ASA and Plavix. Continue with PT/OT Patient was deemed inoperable by [facility] surgery, currently managed by primary care team Carotid artery stenosis, carotid duplex done 10/12/22 showing complete occlusion of the left carotid system including both the internal and external carotid arteries. The right carotid artery appeared to have some plaques with mild disease, nonobstructive disease. Hypertension, having episodes of elevated blood pressure Started on losartan 50 mg daily Continue to monitor blood pressure Hyperlipidemia, started on Lipitor 80 mg daily Continue to monitor Depression, flat affect, consider use of antidepressant. Will defer to medical services. JOSE ANGEL CLEMONS MD Oct 18, 2022 09:47
--- NOTE | 2022-10-18 13:22 | Speech Therapy Daily Note ---
Speech Daily Progress Note Subjective Date Seen by Provider: Oct 18, 2022 Time Seen by Provider: 09:30 The patient was seated upright in her recliner, awake and alert, upon entrance to her room by the clinician. The patient greeted the clinician with eye contact in response to the clinician's verbal greeting. The patient was agreeable to participation in the skilled speech and language treatment session. Objective - Confrontational Naming: The patient was unable to provide names for the familiar object on this date (bed, chair). The clinician is attempting functional items to improve functional communication with staff and family members. On this date, bed and chair were practiced. Perseveration was present at one point, therefore, switching to a different therapeutic exercise was attempted to clear perseveration (which was beneficial). The patient is able to repeat the word following a clinician model however with repetition paraphasic errors occur. To improve naming, the words were written on note cards. The patient is able to read the words from the note cards with increased ease. - Functional phrases were provided on note cards, as well. With the written phrase, the patient's articulatory accuracy improves. Paraphasic errors do remain present and the patient displays high awareness of the errors produced. - Oral motor exercises were reviewed and displayed with increased accuracy on this date. - Writing was attempted by the clinician with the patient's non-dominant hand. The patient was able to write her name, however, agraphia was present with single words. Response time is decreasing and reliability of yes and no answers are improving (yet remain inconsistent). Steady improvement with language is being displayed and discussed with the patient. The patient remains an excellent therapy obinna te. Note cards and oral motor exercises were provided to the patient. The patient was encouraged to complete the exercises throughout the evenings and over the weekend. At this time, the patient reports reduced compliance with recommended "home" exercises. Assessment Assessment Current Status: Good Progress Treatment Plan Continue Plan of Care Speech Short Term Goals Short Term Goals Short Term Goals 1. The patient will complete oral motor exercises with 75% accuracy and moderate clinician verbal and visual cueing. 2. The patient will communicate yes and no response (simple) with 50% accuracy and moderate clinician verbal and visual cueing. Time Frame-STG: Ten Days. Speech Retail Cashier Associate Goals Retail Cashier Associate Goals 1. The patient will demonstrate improved functional communication for increased safety with discharge to the least restrictive environment. Time Frame: Four Weeks. Speech-Plan Treatment Plan Speech Therapy Treatment Plan: Continue Plan of Care Treatment Duration: Nov 01, 2022 Frequency: Modified Program (IRF) Estimated Hrs Per Day: .5 hour per day Rehab Potential: Fair Safety Risks/Education Teaching Recipient: Patient Teaching Methods: Demonstration, Handout, Discussion Response to Teaching: Verbalize Understanding, Return Demonstration, Reinforcement Needed Education Topics Provided: Functional Phrases, Note Cards, Oral Motor Exercises Time Speech Therapy Time In: 09:30 Speech Therapy Time Out: 10:00 DATE: Oct 18, 2022 Total Billed Time: 60 Billed Treatment Time 1, TS 0930 to 1000 and 1010 to 1040 MARITZA MELVIN Oct 18, 2022 13:22
--- NOTE | 2022-10-18 14:38 | Physical Therapy Daily Note ---
PT Daily Note-Current Subjective Pt sitting up in the w/c in her room, upon arrival. Pt is agreeable to PT. No c/o pain. Co-tx with OT ([id number]), skills of 2 clinicians required to decrease fall risk, increase mobility and safety awareness and work on functional mobility. PT focusing on w/c mobility and positioning, transfers, standing, and safety awareness with positioning body, while OT focusing on ADLs, R UE placement during mobility, seated balance/core strength, dressing, and safety awareness. Pain Numeric Pain Scale: 0-No Pain Location: No Pain Reported Section J - Health Conditions 1. Rarely or not at all 2. Occasionally 3. Frequently 4. Almost constantly 8. Unable to answer Pain Effect on Sleep: 1 Pain Interference with Therapy: 1 Pain Interference w/Day-to-Day: 1 Transfers SCALE: Activities may be completed with or without assistive devices. 1-Imapzpmrjy-sazkpaj completes the activity by him/herself with no assistance from a helper. 5-Set-up or Clean-up Assistance-helper sets up or cleans up; patient completes activity. [place] assists only prior to or following the activity. 4-Supervision or Touching Assistance-helper provides verbal cues and/or touching /steadying and/or contact guard assistance as patient completes activity. Assistance may be provided throughout the activity or intermittently. 3-Partial/Moderate Assistance-helper does LESS THAN HALF the effort. [place] lifts, holds or supports trunk or limbs, but provides less than half the effort. 2-Substantial/Maximal Assistance-helper does MORE THAN HALF the effort. [place] lifts or holds trunk or limbs and provides more than half the effort. 3-Zuithgrdc-lepeur does ALL the effort. Patient does none of the effort to complete the activity. Or, the assistance of 2 or more helpers is required for the patient to complete the activity. If activity was not attempted, code reason: 7-Patient Refused. 9-Not Applicable-not attempted and the patient did not perform the activity before the current illness, exacerbation or injury. 10-Not Attempted due to Environmental Limitations-(lack of equipment, weather restraints, etc.). 88-Not Attempted due to Medical Conditions or Safety Concerns. Weight Bearing Right Lower Extremity: Right Full Weight Bearing Left Lower Extremity: Left Full Weight Bearing Treatments Co-tx with OT ([id number]), skills of 2 clinicians required to decrease fall risk, increase mobility and safety awareness and work on functional mobility. PT focusing on w/c mobility and positioning, transfers, standing, and safety awareness with positioning body, while OT focusing on ADLs, R UE placement during mobility, seated balance/core strength, dressing, and safety awareness. Pt wheeled to bathroom and working on UB dressing. Another PT took over at this time. Pt left with PT and OT in the bathroom working on LB dressing. All needs met. Assessment Current Status: Fair Progress Pt is working with PT/OT PT Roofing Tile Sorter Goals Residential Goals PT Roofing Tile Sorter Goals Time Frame: Nov 04, 2022 Roll Left & Right (QC): 4 (SBA for bed mobility ) Sit to Lying (QC): 4 (SBA for bed mobility ) Lying-Sitting on Side/Bed(QC): 4 (SBA for bed mobility ) Sit to Stand (QC): 3 (Min A for transfers ) Chair/Lqo-zv-Utdhi Xfer(QC): 3 (Min A for transfers ) Toilet Transfer (QC): 3 (Min A for transfers ) Car Transfer (QC): 3 (Min A for transfers ) Does the Patient Walk: Yes Walk 10 feet (QC): 3 (Min A for short distances ) Walk 50ft with 2 Turns (QC): 88 (Balance ) Walk 150 ft (QC): 88 (Balance ) Walking 10ft on Uneven Surface: 88 (Balance ) 1 Step (curb) (QC): 88 (Balance ) 4 Steps (QC): 88 (Balance ) 12 Steps (QC): 88 (Balance ) Picking up an Object (QC): 88 (Balance ) Does the Pt use WC or Scooter?: Yes Wheel 50 feet with 2 turns (QC: 3 (Min A for w/c mobility ) Type: Manual Wheel 150 feet: 3 (Min A for w/c mobility ) Type: Manual PT Plan Problem List Problem List: Activity Tolerance, Functional Strength, Safety, Balance, Gait, Transfer, Bed Mobility, ROM Treatment/Plan Treatment Plan: Continue Plan of Care Treatment Plan: Bed Mobility, Concurrent Therapy, Education, Functional Activity Shira, Functional Strength, Group Therapy, Gait, Safety, Therapeutic Exercise, Transfers Treatment Duration: Nov 04, 2022 Frequency: At least 5 of 7 days/Wk (IRF) Estimated Hrs Per Day: 2 hours per day Patient and/or Family Agrees t: Yes Safety Risks/Education Patient Education: W/C Management, Safety Issues Teaching Recipient: Patient Teaching Methods: Demonstration, Discussion Response to Teaching: Reinforcement Needed Discharge Recommendations Therapy Discharge Recommendati: Home & Family Equpiment Recommendations-D/C: Wheelchair Cushion, Front Wheeled Walker, Lift Chair, Wheelchair Ramp, Railings, Shower Chair, Manual Wheelchair Discharge Status/Home Program Cont per POC Barriers to Progress R sided weakness Target Placement Home with family assistance Time Time In: 0 Time Out: 3 DATE: Oct 18, 2022 Total Billed Treatment Time: 13 Total Billed Treatment 13 min co-tx from [id number] 1 visit FA x 1 KANDI PRADO PT Oct 18, 2022 14:38
--- NOTE | 2022-10-18 14:53 | Occupational Ther Daily Note ---
OT Current Status-Daily Note Subjective Sitting in WC in hospital gown, with clothing laid out, family leaving for the day. Patient smiles and gestures readiness for therapy Pain Numeric Pain Scale: 0-No Pain Mental Status/Objective Patient Orientation: Person (nods when named and ID checked), Non- Verbal/Aphasic (global aphasia) Attachments: Valencia Catheter ADL-Treatment WC positioned at bathroom GB for use in standing, LE rests removed. Educaiton for WC brake function. Dressing sequence verablly educated and Max assist to thread RLE into pant leg w/ valencia cath. Min Assist for LLE. Patient education provided for supination and IR of LUE to manage waist band of pants on right rear. OT domed R sock d/t time constraint, UB dressing Moderate assit w/ tactile cues for left UE and stimulation for attentiveness. Demonstration for LUE to assit RUE to GB for stability and support when standing. MIn asssit transfer to/from Therapy Code Descriptions/Definitions Functional [place] Measure: 0=Not Assessed/NA 4=Minimal Assistance 1=Total Assistance 5=Supervision or Setup 2=Maximal Assistance 6=Modified [place] 3=Moderate Assistance 7=Complete IndependenceSCALE: Activities may be completed with or without assistive devices. 8-Rllmnlrzce-cemfvrr completes the activity by him/herself with no assistance from a helper. 5-Set-up or Clean-up Assistance-helper sets up or cleans up; patient completes activity. [place] assists only prior to or following the activity. 4-Supervision or Touching Assistance-helper provides verbal cues and/or touching/steadying and/or contact guard assistance as patient completes activity. Assistance may be provided throughout the activity or intermittently. 3-Partial/Moderate Assistance-helper does LESS THAN HALF the effort. [place] lifts, holds or supports trunk or limbs, but provides less than half the effort. 2-Substantial/Maximal Assistance-helper does MORE THAN HALF the effort. [place] lifts or holds trunk or limbs and provides more than half the effort. 8-Nwxovheol-reosvw does ALL the effort. Patient does none of the effort to complete the activity. Or, the assistance of 2 or more helpers is required for the patient to complete the activity. If activity was not attempted, code reason: 7-Patient Refused. 9-Not Applicable-not attempted and the patient did not perform the activity before the current illness, exacerbation or injury. 10-Not Attempted due to Environmental Limitations-(lack of equipment, weather restraints, etc.). 88-Not Attempted due to Medical Conditions or Safety Concerns. Upper Body Dressing (QC): 3 Lower Body Dressing (QC): 2 On/Off Footwear: 1 Other Treatment Co-tx with OT ([id number]), skills of 2 clinicians required to decrease fall risk, increase mobility and safety awareness and work on functional mobility. PT focusing on transfers, standing, ambulation, B LE placement, balance, and safety awareness with positioning body, while OT focusing on ADLs, R UE placement during mobility, seated balance/core strength with balloon toss, and safety awareness. Pt completed w/c mobility obstacle coarse 50ft x 2 with Min A for turns. Pt completed 4 sit to stands at and in the // bars with Mod/Max A. Pt ambulated 4-5 steps in the // bars with Mod A x 2 w/ mirror and NDT techniques(R UE, R LE, and hips). Pt stood for 2 bouts on the outside of the // bars working on reaching with the L UE with Mod/Max A for balance. After therapy, pt left in care of PT. All needs met Education OT Patient Education: Correct positioning, Exercise program, Modified ADL techniques, Progress toward Goal/Update tx plan, Purpose of tx/functional activities, Reviewed precautions, Rehab process, Safety issues, Transfer techniq ues, Use of adapted equipment, W/C management Teaching Recipient: Patient Teaching Methods: Demonstration, Discussion Response to Teaching: Reinforcement Needed OT Short Term Goals Short Term Goals Time Frame: Oct 28, 2022 Eatin Oral hygiene: 4 Toileting hygiene: 3 Shower/bathe self: 3 Upper body dressin Lower body dressin Putting on/taking off footwear: 3 OT Half-Way Goals Half-Way Goals Time Frame: Nov 11, 2022 Disorganized thinkin Altered level of consciousness: 0 Eating (QC): 5 (Set up) Oral Hygiene (QC): 5 (Set up) Toileting Hygiene (QC): 4 (CGA/supervision) Shower/Bathe Self (QC): 4 (CGA/supervision) Upper Body Dressing (QC): 5 (Set up) Lower Body Dressing (QC): 4 (CGA/supervision) On/Off Footwear (QC): 4 (CGA/supervision) Additional Goals: 1-Demonstrate ADL Tasks, 2-Verbalize Understanding, 3- ImproveStrength/Shira 1=Demonstrate adherence to instructed precautions during ADL tasks. 2=Patient will verbalize/demonstrate understanding of assistive devices/modifications for ADL. 3=Patient will improve strength/tolerance for activity to enable patient to perform ADL's. OT Education/Plan Problem List/Assessment Assessment: Decreased Activ Tolerance, Decreased Safety Aware, Decreased UE Strength, Impaired Cognition, Impaired Coordination, Impaired Funct Balance, Impaired Self-Care Skills, Restricted Funct UE ROM Discharge Recommendations Plan/Recommendations: Continue POC Treatment Plan/Plan of Care Treatment,Training & Education: Yes Patient would benefit from OT for education, treatment and training to promote independence in ADL's, mobility, safety and/or upper extremity function for ADL's. Plan of Care: ADL Retraining, Caregiver Training, Functional Mobility, Group Exercise/Act as Ind, UE Funct Exercise/Act Treatment Duration: Nov 11, 2022 Frequency: At least 5 of 7 days/Wk (IRF) Estimated Hrs Per Day: 1.5 hours per day Agreement: Yes Rehab Potential: Fair Time Start Time: 13:30 Stop Time: 14:30 DATE: Oct 18, 2022 Total Time Billed (hr/min): 60 Billed Treatment Time 1 ADL, NM 3 Co-tx with OT ([id number]) skills of 2 clinicians required to decrease fall risk, increase mobility and safety awareness and work on functional mobility. YOUNG JIN OT Oct 18, 2022 14:53
--- NOTE | 2022-10-18 16:08 | Physical Therapy Daily Note ---
PT Daily Note-Current Subjective Patient agreeable to co-tx session with OT/PT to maximize patient benefit through increased complexity of functional challenge and increased utilization of fine and gross motor movement to complete functional tasks. Pain Section J - Health Conditions 1. Rarely or not at all 2. Occasionally 3. Frequently 4. Almost constantly 8. Unable to answer Pain Effect on Sleep: 1 Pain Interference with Therapy: 1 Pain Interference w/Day-to-Day: 1 Transfers SCALE: Activities may be completed with or without assistive devices. 7-Byikafhofz-kaofqwx completes the activity by him/herself with no assistance from a helper. 5-Set-up or Clean-up Assistance-helper sets up or cleans up; patient completes activity. [place] assists only prior to or following the activity. 4-Supervision or Touching Assistance-helper provides verbal cues and/or to uching/steadying and/or contact guard assistance as patient completes activity. Assistance may be provided throughout the activity or intermittently. 3-Partial/Moderate Assistance-helper does LESS THAN HALF the effort. [place] lifts, holds or supports trunk or limbs, but provides less than half the effort. 2-Substantial/Maximal Assistance-helper does MORE THAN HALF the effort. [place] lifts or holds trunk or limbs and provides more than half the effort. 4-Yarrogtwq-yfrour does ALL the effort. Patient does none of the effort to complete the activity. Or, the assistance of 2 or more helpers is required for the patient to complete the activity. If activity was not attempted, code reason: 7-Patient Refused. 9-Not Applicable-not attempted and the patient did not perform the activity before the current illness, exacerbation or injury. 10-Not Attempted due to Environmental Limitations-(lack of equipment, weather restraints, etc.). 88-Not Attempted due to Medical Conditions or Safety Concerns. Weight Bearing Right Lower Extremity: Right Full Weight Bearing Left Lower Extremity: Left Full Weight Bearing Wheelchair Training Patient participated in w/c management functional practice min-modA with use of BLE, req assist to RLE for management. Patient RLE then supported with w/c plate followed by functional w/c mobility challenge with LUE and LLE navigating obstacle course. Performed with focus on improving independence with functional w/c management and environmental and positional awareness. Neuromuscular Patient perform static standing balance at grab bar railing x1 with OT/PT assist modAx2 withstanding external perturbations focusing on maintaining COG/ELEANOR with symmetrical WB Patient perform static standing balance at // bars with BUE support, progressed to lateral weight shifting L<>R focusing on improving reactive strategy, RLE propriceptive stimulation, and dynamic stability // bar training advanced with alternating and reciprocal BLE movements with focus on RLE coordination, control, and stability while promoting functional balance Patient participated in seated dynamic balance challenge, participating in balloon tapping activity, tapping balloon back and forth with OT while being guarded by PT. Patient participated in seated NMC functional challenge with PT positioning balloon near RLE followed by patient generated mm force to kick balloon, progressing to moving target for improving NMC and function. Assessment Patient tolerated session well without adverse rxn, reports fatigue at end of session COTX performed with PT/OT PT Halfway Goals Senior Network Administrator Goals PT Halfway Goals Time Frame: Nov 04, 2022 Roll Left & Right (QC): 4 (SBA for bed mobility ) Sit to Lying (QC): 4 (SBA for bed mobility ) Lying-Sitting on Side/Bed(QC): 4 (SBA for bed mobility ) Sit to Stand (QC): 3 (Min A for transfers ) Chair/Esw-bh-Mkdyl Xfer(QC): 3 (Min A for transfers ) Toilet Transfer (QC): 3 (Min A for transfers ) Car Transfer (QC): 3 (Min A for transfers ) Does the Patient Walk: Yes Walk 10 feet (QC): 3 (Min A for short distances ) Walk 50ft with 2 Turns (QC): 88 (Balance ) Walk 150 ft (QC): 88 (Balance ) Walking 10ft on Uneven Surface: 88 (Balance ) 1 Step (curb) (QC): 88 (Balance ) 4 Steps (QC): 88 (Balance ) 12 Steps (QC): 88 (Balance ) Picking up an Object (QC): 88 (Balance ) Does the Pt use WC or Scooter?: Yes Wheel 50 feet with 2 turns (QC: 3 (Min A for w/c mobility ) Type: Manual Wheel 150 feet: 3 (Min A for w/c mobility ) Type: Manual PT Plan Treatment/Plan Treatment Plan: Continue Plan of Care Treatment Plan: Bed Mobility, Concurrent Therapy, Education, Functional Activity Shira, Functional Strength, Group Therapy, Gait, Safety, Therapeutic Exercise, Transfers Treatment Duration: Nov 04, 2022 Frequency: At least 5 of 7 days/Wk (IRF) Estimated Hrs Per Day: 2 hours per day Patient and/or Family Agrees t: Yes Time Time In: 1343 Time Out: 1430 DATE: Oct 18, 2022 Total Billed Treatment Time: 45 Total Billed Treatment 1 treatment Co-tx PT/OT 45 minutes 1 w/c management (15 mins) 2 NMR (32 mins) MILI JEFFERS PT Oct 18, 2022 16:08
[2022-10-18 20:06] VITALS: BP 160/73
[2022-10-18] MEDS: ENOXAPARIN 40 MG/0.4 ML SYRINGE SC SCH (20:08)
[2022-10-19] MEDS: THIAMINE 100 MG (VITAMIN B-1) TAB PO SCH (06:10)
[2022-10-19] MEDS: THERAPEUTIC MULTIVITAMIN W/MINERALS TABLET PO SCH (06:10)
[2022-10-19] MEDS: POTASSIUM CHLORIDE 10 MEQ TABLET PO SCH (06:10)
--- NOTE | 2022-10-19 07:05 | PM&R Progress Note ---
Subjective HPI/CC On Admission Date Seen by Provider: Oct 19, 2022 Time Seen by Provider: 11:30 Subjective/Events-last exam 10/19/2022: 2 person assist Stools normal Valencia cath in place Leans right No falls 10/18/2022: Doing well Able to lift her right leg Able to read out loud without much dysarthria Sister at bedside 10/17/2022: About the same No falls Valencia catheter remains No pain reported 10/16/2022: Patient about the same Started Wellbutrin to help smoking cessation and depression Nicotine patch will also be placed No major problems 10/15/2022: Patient having more difficulty speaking and now almost completely aphasic Maintained on Plavix and aspirin Appreciate cardiology Tried to encourage and reassure the patient Patient becomes tearful Review of Systems General: Fatigue, Malaise Objective Exam Vital Signs Vital Signs Date Time Temp Pulse Resp B/P (MAP) Pulse Ox O2 Delivery O2 Flow Rate FiO2 10/19/22 12:31 77 10/19/22 08:03 36.3 18 174/79 (110) 96 Room Air 10/18/22 08:43 0.00 Capillary Refill : General Appearance: No Apparent Distress, WD/WN, Anxious, Chronically ill, Thin HEENT: PERRL/EOMI, Normal ENT Inspection, Pharynx Normal Neck: Full Range of Motion, Normal Inspection, Non Tender, Supple, Carotid Bruit Respiratory: Chest Non Tender, Lungs Clear, Normal Breath Sounds, No Accessory Muscle Use, No Respiratory Distress Cardiovascular: Regular Rate, Rhythm, No Edema, No Gallop, No JVD, No Murmur, Normal Peripheral Pulses Gastrointestinal: Normal Bowel Sounds, No Organomegaly, No Pulsatile Mass, Non Tender, Soft Back: Normal Inspection, No CVA Tenderness, No Vertebral Tenderness Extremity: Normal Capillary Refill, Normal Inspection, Normal Range of Motion, Non Tender, No Calf Tenderness, No Pedal Edema Neurologic/Psychiatric: Alert, Oriented x3, Abnormal supervisory forester II-XII, Abnormal Gait, Aphasia, Depressed Affect, Facial Droop (right), Motor Weakness (right sided 0/5) Skin: Normal Color, Warm/Dry Lymphatic: No Adenopathy Results/Procedures Lab Patient resulted labs reviewed. FIM Transfers Therapy Code Descriptions/Definitions Functional [place] Measure: 0=Not Assessed/NA 4=Minimal Assistance 1=Total Assistance 5=Supervision or Setup 2=Maximal Assistance 6=Modified [place] 3=Moderate Assistance 7=Complete IndependenceSCALE: Activities may be completed with or without assistive devices. 8-Dknrjekggy-sxmwvmv completes the activity by him/herself with no assistance from a helper. 5-Set-up or Clean-up Assistance-helper sets up or cleans up; patient completes activity. [place] assists only prior to or following the activity. 4-Supervision or Touching Assistance-helper provides verbal cues and/or touching/steadying and/or contact guard assistance as patient completes activity. Assistance may be provided throughout the activity or intermittently. 3-Partial/Moderate Assistance-helper does LESS THAN HALF the effort. [place] lifts, holds or supports trunk or limbs, but provides less than half the effort. 2-Substantial/Maximal Assistance-helper does MORE THAN HALF the effort. [place] lifts or holds trunk or limbs and provides more than half the effort. 3-Wonydqaxt-cxuumb does ALL the effort. Patient does none of the effort to complete the activity. Or, the assistance of 2 or more helpers is required for the patient to complete the activity. If activity was not attempted, code reason: 7-Patient Refused. 9-Not Applicable-not attempted and the patient did not perform the activity before the current illness, exacerbation or injury. 10-Not Attempted due to Environmental Limitations-(lack of equipment, weather restraints, etc.). 88-Not Attempted due to Medical Conditions or Safety Concerns. Roll Left to Right (QC): 3 (Mod A) Sit to Lying (QC): 3 (Mod A) Sit to Stand (QC): 2 Chair/Kis-yy-Uecqv Xfer(QC): 2 Car Transfer (QC): 88 (balance ) Gait Training Does the Patient Walk?: Yes Distance: 5ft Walk 10 feet (QC): 88 Walk 50 ft with 2 Turns(QC): 88 Walk 150 ft (QC): 88 Walking 10ft/uneven surface-QC: 88 Gait Persons Needed: 3 Gait Assistive Device: Parallel Bars Wheelchair Training Does the Pt Use a Wheelchair?: Yes Wheel 50 ft with 2 turns (QC): 3 Wheel 150 ft (QC): 88 Type of Wheelchair: Manual Stair Training 1 Step (curb) (QC): 88 (balance ) 4 Steps (QC): 88 (balance ) 12 Steps (QC): 88 (balance ) Balance Picking up an Object (QC): 88 (balance ) ADL-Treatment Eating (QC): 4 Oral Hygiene (QC): 4 Shower/Bathe Self (QC): 3 (Sitting 100% of the time) Upper Body Dressing (QC): 3 Lower Body Dressing (QC): 2 On/Off Footwear (QC): 1 Toileting Hygiene (QC): 1 Toilet Transfer (QC): 1 Assessment/Plan Assessment and Plan Assess & Plan/Chief Complaint Assessment: Catastrophic CVA with right sided flaccidity-CT angiogram matches carotid ultrasound revealing left carotid internal and external complete occlusion causing catastrophic ischemic infarct of the left parietal and MCA region no surgical option available per vascular surgery at [place] Dysarthria and expressive aphasia HTN emergency placed on Cardene drip now on Hydralazine IV Smoker Alcohol excess user placed on CIWA Urinary retention requiring replacement of valencia catheter 10/14/22 Plan: PT OT ST for expressive aphasia CIWA Vitamin supplementation to prevent Wernicke's encephalopathy and Karsokoff's psychosis Lovenox for DVT PPx Cardiology consult ASA and Plavix 10/15/2022: Continue supportive care 10/16/2022: Monitor closely 10/17/2022: Monitor closely Losartan 10/18/2022: Monitor closely 10/19/2022: Improved Start Urecholine (1) CVA (cerebral vascular accident) JM CALLEJAS DO Oct 19, 2022 07:05
[2022-10-19 08:03] VITALS: BP 174/79
[2022-10-19] MEDS: NICOTINE 21 MG PATCH TD SCH (08:51)
[2022-10-19] MEDS: CLOPIDOGREL 75 MG TABLET PO SCH (08:55)
[2022-10-19] MEDS: ASPIRIN 325 MG TABLET PO SCH (08:55)
[2022-10-19] MEDS: buPROPion SR 150 MG TABLET PO SCH ×2 (08:55→20:50)
[2022-10-19] MEDS: LOSARTAN 50 MG TABLET PO SCH (08:55)
[2022-10-19] MEDS: FOLIC ACID 1 MG TAB PO SCH (08:55)
[2022-10-19] MEDS: NICOTINE PATCH REMOVAL TP SCH (11:18)
[2022-10-19] MEDS: SENNOSIDES 8.6 MG TABLET PO SCH ×2 (11:19→20:32)
[2022-10-19] MEDS: DOCUSATE SODIUM 100 MG CAPSULE PO SCH ×2 (11:19→20:32)
[2022-10-19] MEDS: BETHANECHOL 10 MG TABLET PO SCH ×2 (16:38→20:51)
[2022-10-19 20:38] VITALS: BP 197/85
[2022-10-19] MEDS: ENOXAPARIN 40 MG/0.4 ML SYRINGE SC SCH (20:50)
[2022-10-20] MEDS: POTASSIUM CHLORIDE 10 MEQ TABLET PO SCH (06:42)
[2022-10-20] MEDS: THERAPEUTIC MULTIVITAMIN W/MINERALS TABLET PO SCH (06:42)
[2022-10-20] MEDS: THIAMINE 100 MG (VITAMIN B-1) TAB PO SCH (06:42)
[2022-10-20] MEDS: BETHANECHOL 10 MG TABLET PO SCH ×4 (06:42→20:22)
--- NOTE | 2022-10-20 07:21 | PM&R Progress Note ---
Subjective HPI/CC On Admission Date Seen by Provider: Oct 20, 2022 Time Seen by Provider: 16:00 Subjective/Events-last exam 10/20/2022: BP elevated Flaccidity remains right sided Valencia cath in place, started Urecholine to see if we can regain emptying bladder capability BM 10/1910/19/2022: 2 person assist Stools normal Valencia cath in place Leans right No falls 10/18/2022: Doing well Able to lift her right leg Able to read out loud without much dysarthria Sister at bedside 10/17/2022: About the same No falls Valencia catheter remains No pain reported 10/16/2022: Patient about the same Started Wellbutrin to help smoking cessation and depression Nicotine patch will also be placed No major problems 10/15/2022: Patient having more difficulty speaking and now almost completely aphasic Maintained on Plavix and aspirin Appreciate cardiology Tried to encourage and reassure the patient Patient becomes tearful Review of Systems General: Fatigue, Malaise Objective Exam Vital Signs Vital Signs Date Time Temp Pulse Resp B/P (MAP) Pulse Ox O2 Delivery O2 Flow Rate FiO2 10/20/22 12:26 73 10/20/22 10:46 Room Air 0.00 10/20/22 07:48 36.2 22 188/79 (115) 92 Capillary Refill : General Appearance: No Apparent Distress, WD/WN, Anxious, Chronically ill, Thin HEENT: PERRL/EOMI, Normal ENT Inspection, Pharynx Normal Neck: Full Range of Motion, Normal Inspection, Non Tender, Supple, Carotid Bru it Respiratory: Chest Non Tender, Lungs Clear, Normal Breath Sounds, No Accessory Muscle Use, No Respiratory Distress Cardiovascular: Regular Rate, Rhythm, No Edema, No Gallop, No JVD, No Murmur, Normal Peripheral Pulses Gastrointestinal: Normal Bowel Sounds, No Organomegaly, No Pulsatile Mass, Non Tender, Soft Back: Normal Inspection, No CVA Tenderness, No Vertebral Tenderness Extremity: Normal Capillary Refill, Normal Inspection, Normal Range of Motion, Non Tender, No Calf Tenderness, No Pedal Edema Neurologic/Psychiatric: Alert, Oriented x3, Abnormal harbor boat pilot II-XII, Abnormal Gait, Aphasia, Depressed Affect, Facial Droop (right), Motor Weakness (right sided 0/5) Skin: Normal Color, Warm/Dry Lymphatic: No Adenopathy Results/Procedures Lab Patient resulted labs reviewed. FIM Transfers Therapy Code Descriptions/Definitions Functional [place] Measure: 0=Not Assessed/NA 4=Minimal Assistance 1=Total Assistance 5=Supervision or Setup 2=Maximal Assistance 6=Modified [place] 3=Moderate Assistance 7=Complete IndependenceSCALE: Activities may be completed with or without assistive devices. 2-Veewadzauy-ecbfipj completes the activity by him/herself with no assistance from a helper. 5-Set-up or Clean-up Assistance-helper sets up or cleans up; patient completes activity. [place] assists only prior to or following the activity. 4-Supervision or Touching Assistance-helper provides verbal cues and/or touching/steadying and/or contact guard assistance as patient completes activity. Assistance may be provided throughout the activity or intermittently. 3-Partial/Moderate Assistance-helper does LESS THAN HALF the effort. [place] lifts, holds or supports trunk or limbs, but provides less than half the effort. 2-Substantial/Maximal Assistance-helper does MORE THAN HALF the effort. [place] lifts or holds trunk or limbs and provides more than half the effort. 3-Fltyyyrdg-yudwne does ALL the effort. Patient does none of the effort to complete the activity. Or, the assistance of 2 or more helpers is required for the patient to complete the activity. If activity was not attempted, code reason: 7-Patient Refused. 9-Not Applicable-not attempted and the patient did not perform the activity bef ore the current illness, exacerbation or injury. 10-Not Attempted due to Environmental Limitations-(lack of equipment, weather r estraints, etc.). 88-Not Attempted due to Medical Conditions or Safety Concerns. Roll Left to Right (QC): 3 (Mod A) Sit to Lying (QC): 3 (Mod A) Sit to Stand (QC): 2 Chair/Jlj-md-Rexlv Xfer(QC): 2 Car Transfer (QC): 88 (balance ) Gait Training Does the Patient Walk?: Yes Distance: 5ft Walk 10 feet (QC): 88 Walk 50 ft with 2 Turns(QC): 88 Walk 150 ft (QC): 88 Walking 10ft/uneven surface-QC: 88 Gait Persons Needed: 3 Gait Assistive Device: Parallel Bars Wheelchair Training Does the Pt Use a Wheelchair?: Yes Wheel 50 ft with 2 turns (QC): 3 Wheel 150 ft (QC): 88 Type of Wheelchair: Manual Stair Training 1 Step (curb) (QC): 88 (balance ) 4 Steps (QC): 88 (balance ) 12 Steps (QC): 88 (balance ) Balance Picking up an Object (QC): 88 (balance ) ADL-Treatment Eating (QC): 4 Oral Hygiene (QC): 4 Shower/Bathe Self (QC): 3 (Sitting 100% of the time) Upper Body Dressing (QC): 3 Lower Body Dressing (QC): 2 On/Off Footwear (QC): 1 Toileting Hygiene (QC): 1 Toilet Transfer (QC): 1 Assessment/Plan Assessment and Plan Assess & Plan/Chief Complaint Assessment: Catastrophic CVA with right sided flaccidity-CT angiogram matches carotid ultrasound revealing left carotid internal and external complete occlusion causing catastrophic ischemic infarct of the left parietal and MCA region no surgical option available per vascular surgery at [place] Dysarthria and expressive aphasia HTN emergency placed on Cardene drip now on Hydralazine IV Smoker Alcohol excess user placed on CIWA Urinary retention requiring replacement of valencia catheter 10/14/22 Plan: PT OT ST for expressive aphasia CIWA Vitamin supplementation to prevent Wernicke's encephalopathy and Karsokoff's psychosis Lovenox for DVT PPx Cardiology consult ASA and Plavix 10/15/2022: Continue supportive care 10/16/2022: Monitor closely 10/17/2022: Monitor closely Losartan 10/18/2022: Monitor closely 10/19/2022: Improved Start Urecholine 10/20/2022: Trial of DC catheter this week again (1) CVA (cerebral vascular accident) JM CALLEJAS DO Oct 20, 2022 07:21
[2022-10-20 07:48] VITALS: BP 188/79
[2022-10-20] MEDS: NICOTINE 21 MG PATCH TD SCH (08:23)
[2022-10-20] MEDS: ASPIRIN 325 MG TABLET PO SCH (08:29)
[2022-10-20] MEDS: buPROPion SR 150 MG TABLET PO SCH ×2 (08:29→20:22)
[2022-10-20] MEDS: FOLIC ACID 1 MG TAB PO SCH (08:29)
[2022-10-20] MEDS: CLOPIDOGREL 75 MG TABLET PO SCH (08:29)
[2022-10-20] MEDS: LOSARTAN 50 MG TABLET PO SCH (08:29)
[2022-10-20] MEDS: NICOTINE PATCH REMOVAL TP SCH (09:49)
[2022-10-20] MEDS: SENNOSIDES 8.6 MG TABLET PO SCH ×2 (09:49→20:22)
[2022-10-20] MEDS: DOCUSATE SODIUM 100 MG CAPSULE PO SCH ×2 (09:49→20:22)
[2022-10-20] MEDS ORDERED: amLODIPine 5 MG TABLET PO ONE (15:15)
[2022-10-20 19:55] VITALS: BP 188/82
[2022-10-20] MEDS: ENOXAPARIN 40 MG/0.4 ML SYRINGE SC SCH (20:22)
--- NOTE | 2022-10-21 05:20 | PM&R Progress Note ---
Subjective HPI/CC On Admission Date Seen by Provider: Oct 21, 2022 Time Seen by Provider: 09:00 Subjective/Events-last exam 10/21/2022: Much improved status Slow recovery Aphasia slow to resolve In-dwelling catheter maintained Urecholine started several days ago and may DC catheter this week to see if she retains 10/20/2022: BP elevated Flaccidity remains right sided Valencia cath in place, started Urecholine to see if we can regain emptying bladder capability BM 10/1910/19/2022: 2 person assist Stools normal Valencia cath in place Leans right No falls 10/18/2022: Doing well Able to lift her right leg Able to read out loud without much dysarthria Sister at bedside 10/17/2022: About the same No falls Valencia catheter remains No pain reported 10/16/2022: Patient about the same Started Wellbutrin to help smoking cessation and depression Nicotine patch will also be placed No major problems 10/15/2022: Patient having more difficulty speaking and now almost completely aphasic Maintained on Plavix and aspirin Appreciate cardiology Tried to encourage and reassure the patient Patient becomes tearful Review of Systems General: Fatigue, Malaise Objective Exam Vital Signs Vital Signs Date Time Temp Pulse Resp B/P (MAP) Pulse Ox O2 Delivery O2 Flow Rate FiO2 10/22/22 01:00 76 10/21/22 20:41 36.4 16 166/74 (104) 93 Room Air 10/21/22 19:40 21 10/20/22 10:46 0.00 Capillary Refill : General Appearance: No Apparent Distress, WD/WN, Anxious, Chronically ill, Thin HEENT: PERRL/EOMI, Normal ENT Inspection, Pharynx Normal Neck: Full Range of Motion, Normal Inspection, Non Tender, Supple, Carotid Bruit Respiratory: Chest Non Tender, Lungs Clear, Normal Breath Sounds, No Accessory Muscle Use, No Respiratory Distress Cardiovascular: Regular Rate, Rhythm, No Edema, No Gallop, No JVD, No Murmur, Normal Peripheral Pulses Gastrointestinal: Normal Bowel Sounds, No Organomegaly, No Pulsatile Mass, Non Tender, Soft Back: Normal Inspection, No CVA Tenderness, No Vertebral Tenderness Extremity: Normal Capillary Refill, Normal Inspection, Normal Range of Motion, Non Tender, No Calf Tenderness, No Pedal Edema Neurologic/Psychiatric: Alert, Oriented x3, Abnormal dragger II-XII, Abnormal Gait, Aphasia, Depressed Affect, Facial Droop (right), Motor Weakness (right sided 0/5) Skin: Normal Color, Warm/Dry Lymphatic: No Adenopathy Results/Procedures Lab Laboratory Tests 10/21/22 05:52 Patient resulted labs reviewed. FIM Transfers Therapy Code Descriptions/Definitions Functional [place] Measure: 0=Not Assessed/NA 4=Minimal Assistance 1=Total Assistance 5=Supervision or Setup 2=Maximal Assistance 6=Modified [place] 3=Moderate Assistance 7=Complete IndependenceSCALE: Activities may be completed with or without assistive devices. 9-Rexoyvxaqf-xnezmvd completes the activity by him/herself with no assistance from a helper. 5-Set-up or Clean-up Assistance-helper sets up or cleans up; patient completes activity. [place] assists only prior to or following the activity. 4-Supervision or Touching Assistance-helper provides verbal cues and/or touching/steadying and/or contact guard assistance as patient completes activity. Assistance may be provided throughout the activity or intermittently. 3-Partial/Moderate Assistance-helper does LESS THAN HALF the effort. [place] lifts, holds or supports trunk or limbs, but provides less than half the effort. 2-Substantial/Maximal Assistance-helper does MORE THAN HALF the effort. [place] lifts or holds trunk or limbs and provides more than half the effort. 9-Kispglhcz-jltfmv does ALL the effort. Patient does none of the effort to complete the activity. Or, the assistance of 2 or more helpers is required for t he patient to complete the activity. If activity was not attempted, code reason: 7-Patient Refused. 9-Not Applicable-not attempted and the patient did not perform the activity before the current illness, exacerbation or injury. 10-Not Attempted due to Environmental Limitations-(lack of equipment, weather restraints, etc.). 88-Not Attempted due to Medical Conditions or Safety Concerns. Roll Left to Right (QC): 3 (Mod A) Sit to Lying (QC): 3 (Mod A) Sit to Stand (QC): 2 Chair/Ylu-rc-Ihwry Xfer(QC): 2 Car Transfer (QC): 88 (balance ) Gait Training Does the Patient Walk?: Yes Distance: 5ft Walk 10 feet (QC): 88 Walk 50 ft with 2 Turns(QC): 88 Walk 150 ft (QC): 88 Walking 10ft/uneven surface-QC: 88 Gait Persons Needed: 3 Gait Assistive Device: Parallel Bars Wheelchair Training Does the Pt Use a Wheelchair?: Yes Wheel 50 ft with 2 turns (QC): 3 Wheel 150 ft (QC): 88 Type of Wheelchair: Manual Stair Training 1 Step (curb) (QC): 88 (balance ) 4 Steps (QC): 88 (balance ) 12 Steps (QC): 88 (balance ) Balance Picking up an Object (QC): 88 (balance ) ADL-Treatment Eating (QC): 4 Oral Hygiene (QC): 4 Shower/Bathe Self (QC): 3 (Sitting 100% of the time) Upper Body Dressing (QC): 3 Lower Body Dressing (QC): 2 On/Off Footwear (QC): 1 Toileting Hygiene (QC): 1 Toilet Transfer (QC): 1 Assessment/Plan Assessment and Plan Assess & Plan/Chief Complaint Assessment: Catastrophic CVA with right sided flaccidity-CT angiogram matches carotid ultrasound revealing left carotid internal and external complete occlusion causing catastrophic ischemic infarct of the left parietal and MCA region no surgical option available per vascular surgery at [place] Dysarthria and expressive aphasia HTN emergency placed on Cardene drip now on Hydralazine IV Smoker Alcohol excess user placed on CIWA Urinary retention requiring replacement of valencia catheter 10/14/22 Plan: PT OT ST for expressive aphasia CIWA Vitamin supplementation to prevent Wernicke's encephalopathy and Karsokoff's psychosis Lovenox for DVT PPx Cardiology consult ASA and Plavix 10/15/2022: Continue supportive care 10/16/2022: Monitor closely 10/17/2022: Monitor closely Losartan 10/18/2022: Monitor closely 10/19/2022: Improved Start Urecholine 10/20/2022: Trial of DC catheter this week again 10/21/2022: Monitor closely Urecholine (1) CVA (cerebral vascular accident) JM CALLEJAS DO Oct 21, 2022 05:20
[2022-10-21] MEDS: THERAPEUTIC MULTIVITAMIN W/MINERALS TABLET PO SCH (06:06)
[2022-10-21] MEDS: POTASSIUM CHLORIDE 10 MEQ TABLET PO SCH (06:06)
[2022-10-21] MEDS: BETHANECHOL 10 MG TABLET PO SCH ×4 (06:06→20:13)
[2022-10-21] MEDS: THIAMINE 100 MG (VITAMIN B-1) TAB PO SCH (06:06)
[2022-10-21 06:13] LABS: BASOPHILS % (AUTO) 0 % (0-10); EOSINOPHILS # (AUTO) 0.2 10^3/uL (0.0-0.3); EOSINOPHILS % (AUTO) 2 % (0-10); HEMATOCRIT 36 % (35-52); HEMOGLOBIN 12.4 g/dL (11.5-16.0); LYMPHOCYTES # (AUTO) 1.5 10^3/uL (1.0-4.0); LYMPHOCYTES % (AUTO) 20 % (12-44); MEAN CORPUSCULAR HEMOGLOBIN 31 pg (25-34); MEAN CORPUSCULAR HGB CONC 35 g/dL (32-36); MEAN CORPUSCULAR VOLUME 90 fL (80-99); MEAN PLATELET VOLUME 9.9 fL (9.0-12.2); MONOCYTES # (AUTO) 0.7 10^3/uL (0.0-1.0); MONOCYTES % (AUTO) 10 % (0-12); NEUTROPHILS # (AUTO) 4.9 10^3/uL (1.8-7.8); NEUTROPHILS % (AUTO) 67 % (42-75); PLATELET COUNT 413 10^3/uL (130-400); WHITE BLOOD COUNT 7.3 10^3/uL (4.3-11.0)
[2022-10-21 06:37] LABS: ALBUMIN 3.7 GM/DL (3.2-4.5); BILIRUBIN,TOTAL 0.5 MG/DL (0.1-1.0); CALCIUM 8.8 MG/DL (8.5-10.1); CREATININE SERUM 0.72 MG/DL (0.60-1.30); POTASSIUM 4.2 MMOL/L (3.6-5.0); TOTAL PROTEIN 6.4 GM/DL (6.4-8.2)
[2022-10-21 07:44] VITALS: BP 163/72
[2022-10-21] MEDS: FOLIC ACID 1 MG TAB PO SCH (08:31)
[2022-10-21] MEDS: DOCUSATE SODIUM 100 MG CAPSULE PO SCH ×2 (08:31→20:14)
[2022-10-21] MEDS: SENNOSIDES 8.6 MG TABLET PO SCH ×2 (08:31→20:15)
[2022-10-21] MEDS: CLOPIDOGREL 75 MG TABLET PO SCH (08:31)
[2022-10-21] MEDS: buPROPion SR 150 MG TABLET PO SCH ×2 (08:31→20:14)
[2022-10-21] MEDS: amLODIPine 5 MG TABLET PO SCH (08:31)
[2022-10-21] MEDS: ASPIRIN 325 MG TABLET PO SCH (08:31)
[2022-10-21] MEDS: LOSARTAN 50 MG TABLET PO SCH (08:31)
[2022-10-21] MEDS: NICOTINE 21 MG PATCH TD SCH (09:03)
[2022-10-21] MEDS: NICOTINE PATCH REMOVAL TP SCH (09:05)
--- NOTE | 2022-10-21 09:58 | Speech Therapy Daily Note ---
Speech Daily Progress Note Subjective Date Seen by Provider: Oct 21, 2022 Time Seen by Provider: 08:00 The patient was seated upright in her recliner, awake and alert, upon entrance to her room by the clinician. The patient greeted the clinician appropriately and was agreeable to participation in the skilled speech and language treatment session. Objective The patient stated reduced compliance with home exercise program however has continued to display gains in comparison to the prior treatment session. The patient was encouraged to practice exercises throughout the evenings and weekends during periods of reduced speech pathology therapy. - Oral Motor Exercises: The patient displayed increased accuracy with oral motor exercises, displaying reduced oral groping for oral motor plans and postures. Five repetitions of each exercise were performed. - Yes/No: The patient continues to display increased accuracy with yes and no responses, using yes and no to identify her first name and specific ADL items on this date. - Confrontational Naming/Repetition: The patient was unable to independently identify known ADL items through verbalization. The patient completed repetition of items with 100% accuracy. The patient displayed improved with confrontational naming flash cards, completing repetition of single words with 100% accuracy. Assessment Assessment Current Status: Good Progress Treatment Plan Continue Plan of Care Speech Short Term Goals Short Term Goals Short Term Goals 1. The patient will complete oral motor exercises with 75% accuracy and moderate clinician verbal and visual cueing. 2. The patient will communicate yes and no response (simple) with 50% accuracy and moderate clinician verbal and visual cueing. Time Frame-STG: Ten Days. Speech Jail Goals [facility] Chief Goals 1. The patient will demonstrate improved functional communication for increased safety with discharge to the least restrictive environment. Time Frame: Four Weeks. Speech-Plan Treatment Plan Speech Therapy Treatment Plan: Continue Plan of Care Treatment Duration: Nov 01, 2022 Frequency: Modified Program (IRF) Estimated Hrs Per Day: .5 hour per day Rehab Potential: Fair Pt/Family Agrees to Plan: Yes Safety Risks/Education Teaching Recipient: Patient Teaching Methods: Demonstration, Handout, Discussion Response to Teaching: Return Demonstration, Reinforcement Needed Education Topics Provided: Oral Motor Exercises, Confrontational Naming Time Speech Therapy Time In: 08:00 Speech Therapy Time Out: 08:30 DATE: Oct 21, 2022 Total Billed Time: 30 Billed Treatment Time [address] [facility] [facility] Oct 21, 2022 09:58
--- NOTE | 2022-10-21 10:20 | Occupational Ther Daily Note ---
OT Current Status-Daily Note Subjective No pain reported. Appearance Pt. up in recliner. She is alert and smiles at OT. Indicates that she is okay to take a shower. Mental Status/Objective Patient Orientation: Person, Non-Verbal/Aphasic Attachments: IV, Telemetry ADL-Treatment Therapy Code Descriptions/Definitions Functional [place] Measure: 0=Not Assessed/NA 4=Minimal Assistance 1=Total Assistance 5=Supervision or Setup 2=Maximal Assistance 6=Modified [place] 3=Moderate Assistance 7=Complete IndependenceSCALE: Activities may be completed with or without assistive devices. 5-Xliutbxbyv-yrrvxbj completes the activity by him/herself with no assistance from a helper. 5-Set-up or Clean-up Assistance-helper sets up or cleans up; patient completes activity. [place] assists only prior to or following the activity. 4-Supervision or Touching Assistance-helper provides verbal cues and/or touching/steadying and/or contact guard assistance as patient completes activity. Assistance may be provided throughout the activity or intermittently. 3-Partial/Moderate Assistance-helper does LESS THAN HALF the effort. [place] lifts, holds or supports trunk or limbs, but provides less than half the effort. 2-Substantial/Maximal Assistance-helper does MORE THAN HALF the effort. [place] lifts or holds trunk or limbs and provides more than half the effort. 1-Tqxpmxecf-ilwuaw does ALL the effort. Patient does none of the effort to complete the activity. Or, the assistance of 2 or more helpers is required for the patient to complete the activity. If activity was not attempted, code reason: 7-Patient Refused. 9-Not Applicable-not attempted and the patient did not perform the activity before the current illness, exacerbation or injury. 10-Not Attempted due to Environmental Limitations-(lack of equipment, weather restraints, etc.). 88-Not Attempted due to Medical Conditions or Safety Concerns. Oral Hygiene (QC): 4 (Pt. brushes teeth at sink. Pt. requires SBA and constant cues. OT sets up toothbrush, cup, etc...Pt. is able to brush teeth but requires cues to spit and take a drink.) Shower/Bathe Self (QC): 2 (Pt. showers via shower chair. She is able to wash chest and part of right UE with max cues. Requires max assist to wash all other parts. ) Upper Body Dressing (QC): 2 (Pt. does initiate doffing and donning shirt. However, is unable to follow verbal cues to doff/don appropriately, and requires max assist overall.) Lower Body Dressing (QC): 1 (Pt. requires max assist to thread brief and pants over bilateral LE. Pt. requires assist of one person to stand, and another to don over hips.) On/Off Footwear: 2 (Pt. is able to hold out her legs, one at a time, including right one for OT to don/doff socks and shoes. Due to set up of the shower chair, she could not safely bend over and reach them herself.) Pt. seen for partial co-treatment with PT. Pt. up in chair when OT went to see her. Agrees to shower. Nursing assists OT with safe transfer to shower chair. Pt. able to stand with mod assist for stand pivot, with slight movement of left foot toward left side. OT assists pt. in shower, and then with dressing. Nursing comes back in to assist with pt. to wheelchair. Once pt. was in wheelchair she is encouraged to perform grooming activities at sink. After this OT takes pt. to therapy gym. Attempting facilitation and movement of right UE. Daughter present. OT performs gentle scapular glides as well as joint compression exercises. Performed gentle PROM to shoulder, elbow, and wrist. No active movement noted at this time. OT encourages pt. to engage in different mu scle groups, and she cannot. OT checked with nursing and it was okay to perform e-stim. Pt. tolerated e-stim to right forearm extensors x 8minutes at 5/6 laurent-amps. Noted good movement with muscle stimulation. After this OT attempted to complete facilitation with tapping. No active movement noted. At this time OT/PT completed co-treatment as pt. fatiguing. Stood in parallel bars and ambulated x 3 down to end. Pt. requires mod cues to scoot out and min assist to set up feet. Min/mod assist needed for sit-stand with belt on, with assist for weight bearing and UE facilitation while ambulating. PT. facilitated sit-stands, weight shifts, and foot progression. OT guided right hand on parallel bar with body cues throughout to engage core, glutes, and quads. Please see PT note for total distance and assist needed for ambulation. All needs met in gym with PT at end of OT session. Education OT Patient Education: Correct positioning, Modified ADL techniques, Progress toward Goal/Update tx plan, Purpose of tx/functional activities, Transfer techniques Teaching Recipient: Patient, Family Teaching Methods: Demonstration, Discussion Response to Teaching: Return Demonstration, Reinforcement Needed OT Short Term Goals Short Term Goals Time Frame: Oct 28, 2022 Eatin Oral hygiene: 4 Toileting hygiene: 3 Shower/bathe self: 3 Upper body dressin Lower body dressin Putting on/taking off footwear: 3 OT Snf Goals Snf Goals Time Frame: Nov 11, 2022 Disorganized thinkin Altered level of consciousness: 0 Eating (QC): 5 (Set up) Oral Hygiene (QC): 5 (Set up) Toileting Hygiene (QC): 4 (CGA/supervision) Shower/Bathe Self (QC): 4 (CGA/supervision) Upper Body Dressing (QC): 5 (Set up) Lower Body Dressing (QC): 4 (CGA/supervision) On/Off Footwear (QC): 4 (CGA/supervision) Additional Goals: 1-Demonstrate ADL Tasks, 2-Verbalize Understanding, 3- ImproveStrength/Shira 1=Demonstrate adherence to instructed precautions during ADL tasks. 2=Patient will verbalize/demonstrate understanding of assistive devices/modifications for ADL. 3=Patient will improve strength/tolerance for activity to enable patient to perform ADL's. OT Education/Plan Problem List/Assessment Assessment: Decreased Activ Tolerance, Decreased UE Strength, Dependent Transfers, Impaired Bed Mobility, Impaired Cognition, Impaired Coordination, Impaired Funct Balance, Impaired I ADL's, Impaired Self-Care Skills, Restricted Funct UE ROM Discharge Recommendations Plan/Recommendations: Continue POC Therapy Discharge Recommendati: Post Acute OT Treatment Plan/Plan of Care Treatment,Training & Education: Yes Patient would benefit from OT for education, treatment and training to promote independence in ADL's, mobility, safety and/or upper extremity function for ADL's. Plan of Care: ADL Retraining, Caregiver Training, Functional Mobility, Group Exercise/Act as Ind, UE Funct Exercise/Act Treatment Duration: Nov 11, 2022 Frequency: At least 5 of 7 days/Wk (IRF) Estimated Hrs Per Day: 1.5 hours per day Agreement: Yes Rehab Potential: Fair Time Start Time: 08:30 Stop Time: 10:00 DATE: Oct 21, 2022 Total Time Billed (hr/min): 90 Billed Treatment Time 9709-4947 1, ADL x 45minutes, NM x 15minutes OT only [id number] FA x 30minutes with PT co-treatment. Please see above note for designated roles. EDDIE GARCIA OT Oct 21, 2022 10:20
--- NOTE | 2022-10-21 12:00 | Physical Therapy Daily Note ---
PT Daily Note-Current Subjective Pt sitting up in the w/c in the gym with OT, upon arrival. Pt is agreeable to PT. No c/o pain. Co-tx with OT ([id number]), skills of 2 clinicians required to decrease fall risk, increase mobility and safety awareness and work on functional mobility. PT focusing on transfers, standing, walking, and safety awareness with positioning body, while OT focusing on R UE placement during mobility and safety awareness. Pain Numeric Pain Scale: 0-No Pain Location: No Pain Reported Section J - Health Conditions 1. Rarely or not at all 2. Occasionally 3. Frequently 4. Almost constantly 8. Unable to answer Pain Effect on Sleep: 1 Pain Interference with Therapy: 1 Pain Interference w/Day-to-Day: 1 Transfers SCALE: Activities may be completed with or without assistive devices. 6-Fwpahyrwyt-aszzvvq completes the activity by him/herself with no assistance from a helper. 5-Set-up or Clean-up Assistance-helper sets up or cleans up; patient completes activity. [place] assists only prior to or following the activity. 4-Supervision or Touching Assistance-helper provides verbal cues and/or touching/steadying and/or contact guard assistance as patient completes activity. Assistance may be provided throughout the activity or intermittently. 3-Partial/Moderate Assistance-helper does LESS THAN HALF the effort. [place] lifts, holds or supports trunk or limbs, but provides less than half the effort. 2-Substantial/Maximal Assistance-helper does MORE THAN HALF the effort. [place] lifts or holds trunk or limbs and provides more than half the effort. 1-Oncufauqb-cplfjm does ALL the effort. Patient does none of the effort to complete the activity. Or, the assistance of 2 or more helpers is required for the patient to complete the activity. If activity was not attempted, code reason: 7-Patient Refused. 9-Not Applicable-not attempted and the patient did not perform the activity before the current illness, exacerbation or injury. 10-Not Attempted due to Environmental Limitations-(lack of equipment, weather restraints, etc.). 88-Not Attempted due to Medical Conditions or Safety Concerns. Sit to Stand (QC): 3 Chair/Drp-qu-Vckbb Xfer(QC): 2 Weight Bearing Right Lower Extremity: Right Full Weight Bearing Left Lower Extremity: Left Full Weight Bearing Gait Training Does the Patient Walk?: Yes Distance: 5ft x 3 Walk 10 feet (QC): 88 Gait Assistive Device: Parallel Bars Wheelchair Training Does the Pt Use a Wheelchair?: Yes Wheel 50 ft with 2 turns (QC): 3 Wheel 150 ft (QC): 3 Type of Wheelchair: Manual Treatments Pt completed sit to stand transfers in the // bars with Min A (x3). Pt ambulated 5ft x 3 in the // bars with Min A x 2. Pt completed seated B LE Ther Ex x 15 reps each with the red Tband. Pt completed seated balloon toss with L UE. Pt completed seated ball kicks with the R LE. Pt completed w/c mobility x 150ft with Min A. Stand pivot transfer utilized to transfer pt from w/c to recliner with Mod A. Pt sitting up in the recliner upon completion of PT with call light in reach and all needs met. Assessment Current Status: Good Progress Pt tolerated PT well with good effort PT Skilled Nursing Goals Skilled Nursing Goals PT Skilled Nursing Goals Time Frame: Nov 04, 2022 Roll Left & Right (QC): 4 (SBA for bed mobility ) Sit to Lying (QC): 4 (SBA for bed mobility ) Lying-Sitting on Side/Bed(QC): 4 (SBA for bed mobility ) Sit to Stand (QC): 3 (Min A for transfers ) Chair/Teo-ow-Xuvag Xfer(QC): 3 (Min A for transfers ) Toilet Transfer (QC): 3 (Min A for transfers ) Car Transfer (QC): 3 (Min A for transfers ) Does the Patient Walk: Yes Walk 10 feet (QC): 3 (Min A for short distances ) Walk 50ft with 2 Turns (QC): 88 (Balance ) Walk 150 ft (QC): 88 (Balance ) Walking 10ft on Uneven Surface: 88 (Balance ) 1 Step (curb) (QC): 88 (Balance ) 4 Steps (QC): 88 (Balance ) 12 Steps (QC): 88 (Balance ) Picking up an Object (QC): 88 (Balance ) Does the Pt use WC or Scooter?: Yes Wheel 50 feet with 2 turns (QC: 3 (Min A for w/c mobility ) Type: Manual Wheel 150 feet: 3 (Min A for w/c mobility ) Type: Manual PT Plan Problem List Problem List: Activity Tolerance, Functional Strength, Safety, Balance, Gait, Transfer, Bed Mobility, ROM Treatment/Plan Treatment Plan: Continue Plan of Care Treatment Plan: Bed Mobility, Concurrent Therapy, Education, Functional Activity Shira, Functional Strength, Group Therapy, Gait, Safety, Therapeutic Exercise, Transfers Treatment Duration: Nov 04, 2022 Frequency: At least 5 of 7 days/Wk (IRF) Estimated Hrs Per Day: 2 hours per day Patient and/or Family Agrees t: Yes Safety Risks/Education Patient Education: Gait Training, Transfer Techniques, Correct Positioning, W/C Management, Safety Issues Teaching Recipient: Patient Teaching Methods: Demonstration, Discussion Response to Teaching: Verbalize Understanding, Return Demonstration, Reinforcement Needed Discharge Recommendations Therapy Discharge Recommendati: Home & Family Equpiment Recommendations-D/C: 3 in 1 Commode, Wheelchair Cushion, Front Wheeled Walker, Lift Chair, Wheelchair Ramp, Railings, Shower Chair, Manual Wheelchair Discharge Status/Home Program Cont per POC Barriers to Progress R sided weakness; balance Target Placement Home with family Time Time In: 930 Time Out: 1030 DATE: Oct 21, 2022 Total Billed Treatment Time: 60 Total Billed Treatment 60 min total from [id number]; co-tx for 30 min from [id number] 1 visit GT x 1 EX x 1 FA x 2 KANDI PRADO PT Oct 21, 2022 12:00
[2022-10-21 19:40] VITALS: BP 163/72
[2022-10-21] MEDS: ENOXAPARIN 40 MG/0.4 ML SYRINGE SC SCH (20:14)
[2022-10-21 20:41] VITALS: BP 166/74
[2022-10-22] MEDS: THIAMINE 100 MG (VITAMIN B-1) TAB PO SCH (06:34)
[2022-10-22] MEDS: POTASSIUM CHLORIDE 10 MEQ TABLET PO SCH (06:34)
[2022-10-22] MEDS: THERAPEUTIC MULTIVITAMIN W/MINERALS TABLET PO SCH (06:34)
[2022-10-22] MEDS: BETHANECHOL 10 MG TABLET PO SCH ×4 (06:34→20:38)
--- NOTE | 2022-10-22 07:47 | Occupational Ther Daily Note ---
OT Current Status-Daily Note Subjective Pt alert, sitting in recliner. Pt agrees to therapy. Pt has expressive aphasia, progressing with making wants and needs known. Co-treat with PT [phone] [id number], skills of 2 clinicians required for family training education on pt's progress and level of care needed with transfers, ambulation and ADLs. PT focusing on transfers, ambulation and w/c mobility while OT focusing on ADLs, positioning R UE during all mobility and assisting with R UE for wt bearing during ambulation. Mental Status/Objective Patient Orientation: Person, Place, Time, Situation Attachments: Orozco Catheter ADL-Treatment Min A for SPT. Assist x2 when completing tasks that manipulate lower body clothing, toileting and LBD. Assist x2 for toileting. Set up for eating, pt requires assist to open containers/packages then uses regular utensil with L hand to eat by self. Assist to open toothpaste then pt able to complete all other steps by self. Assist to thread R UE into shirt and over shldr then pt completed all other steps by self. Assist to thread L LE into pant legs and hike R side over hips(min A in standing), pt able to complete other steps with SBA. Assist to don R footwear and pt dons L footwear then assist to tie shoes. Therapy Code Descriptions/Definitions Functional [place] Measure: 0=Not Assessed/NA 4=Minimal Assistance 1=Total Assistance 5=Supervision or Setup 2=Maximal Assistance 6=Modified [place] 3=Moderate Assistance 7=Complete IndependenceSCALE: Activities may be completed with or without assistive devices. 9-Zrvstqpvhy-vebaelo completes the activity by him/herself with no assistance from a helper. 5-Set-up or Clean-up Assistance-helper sets up or cleans up; patient completes activity. [place] assists only prior to or following the activity. 4-Supervision or Touching Assistance-helper provides verbal cues and/or touching/steadying and/or contact guard assistance as patient completes activity. Assistance may be provided throughout the activity or intermittently. 3-Partial/Moderate Assistance-helper does LESS THAN HALF the effort. [place] lifts, holds or supports trunk or limbs, but provides less than half the effort. 2-Substantial/Maximal Assistance-helper does MORE THAN HALF the effort. [place] lifts or holds trunk or limbs and provides more than half the effort. 0-Kuazaeyxs-aaotln does ALL the effort. Patient does none of the effort to complete the activity. Or, the assistance of 2 or more helpers is required for the patient to complete the activity. If activity was not attempted, code reason: 7-Patient Refused. 9-Not Applicable-not attempted and the patient did not perform the activity before the current illness, exacerbation or injury. 10-Not Attempted due to Environmental Limitations-(lack of equipment, weather restraints, etc.). 88-Not Attempted due to Medical Conditions or Safety Concerns. Eating (QC): 5 Oral Hygiene (QC): 5 Upper Body Dressing (QC): 3 (mod A) Lower Body Dressing (QC): 1 (Assist x 2, 1st person to assist in standing and 2nd person assist for hiking pants over R hip.) On/Off Footwear: 2 Toileting Hygiene (QC): 1 Toilet Transfer (QC): 1 Other Treatment Pt's children here for family training. Discussed tub transfer bench and e-stim for home use if wanted. Min A to CGA for w/c mobility. Pt ambulated in //bars 4x's with assist from PT for R LE advance and wt shift while OT focusing R UE placement with ambulation for wt bearing and wt shifting. Pt left in care of PT. All needs met. Education OT Patient Education: Correct positioning, Modified ADL techniques Teaching Recipient: Family Teaching Methods: Demonstration, Discussion Response to Teaching: Verbalize Understanding, Return Demonstration, Rein forcement Needed OT Short Term Goals Short Term Goals Time Frame: Oct 28, 2022 Eatin Oral hygiene: 4 Toileting hygiene: 3 Shower/bathe self: 3 Upper body dressin Lower body dressin Putting on/taking off footwear: 3 OT Long-Term Goals [facility] Manager Goals Time Frame: Nov 11, 2022 Disorganized thinkin Altered level of consciousness: 0 Eating (QC): 5 (Set up) Oral Hygiene (QC): 5 (Set up) Toileting Hygiene (QC): 4 (CGA/supervision) Shower/Bathe Self (QC): 4 (CGA/supervision) Upper Body Dressing (QC): 5 (Set up) Lower Body Dressing (QC): 4 (CGA/supervision) On/Off Footwear (QC): 4 (CGA/supervision) Additional Goals: 1-Demonstrate ADL Tasks, 2-Verbalize Understanding, 3-I mproveStrength/Shira 1=Demonstrate adherence to instructed precautions during ADL tasks. 2=Patient will verbalize/demonstrate understanding of assistive devices/modifications for ADL. 3=Patient will improve strength/tolerance for activity to enable patient to perform ADL's. OT Education/Plan Discharge Recommendations Plan/Recommendations: Continue POC Treatment Plan/Plan of Care Patient would benefit from OT for education, treatment and training to promote independence in ADL's, mobility, safety and/or upper extremity function for ADL's. Plan of Care: ADL Retraining, Caregiver Training, Functional Mobility, Group Exercise/Act as Ind, UE Funct Exercise/Act Treatment Duration: Nov 11, 2022 Frequency: At least 5 of 7 days/Wk (IRF) Estimated Hrs Per Day: 1.5 hours per day Agreement: Yes Rehab Potential: Fair Time Start Time: 07:15 Stop Time: 08:30 DATE: Oct 22, 2022 Total Time Billed (hr/min): 75 Billed Treatment Time 1 visit-ADL 3 (45 min) FA 2 (30 min) co-treat with PT [id number], individual ([id number]) ERICA RICE Oct 22, 2022 07:47
[2022-10-22 08:00] VITALS: BP 158/82
[2022-10-22] MEDS: ASPIRIN 325 MG TABLET PO SCH (08:55)
[2022-10-22] MEDS: CLOPIDOGREL 75 MG TABLET PO SCH (08:55)
[2022-10-22] MEDS: NICOTINE 21 MG PATCH TD SCH (08:55)
[2022-10-22] MEDS: buPROPion SR 150 MG TABLET PO SCH ×2 (08:55→20:38)
[2022-10-22] MEDS: FOLIC ACID 1 MG TAB PO SCH (08:55)
[2022-10-22] MEDS: LOSARTAN 50 MG TABLET PO SCH (08:55)
[2022-10-22] MEDS: amLODIPine 5 MG TABLET PO SCH (08:55)
[2022-10-22] MEDS: DOCUSATE SODIUM 100 MG CAPSULE PO SCH ×2 (08:56→20:38)
[2022-10-22] MEDS: SENNOSIDES 8.6 MG TABLET PO SCH ×2 (08:56→20:39)
[2022-10-22] MEDS: NICOTINE PATCH REMOVAL TP SCH (08:56)
--- NOTE | 2022-10-22 09:12 | PM&R Progress Note ---
Subjective HPI/CC On Admission Date Seen by Provider: Oct 22, 2022 Time Seen by Provider: 09:00 Subjective/Events-last exam 10/22/2022: No major issues Family training today DC catheter tomorrow morning to see if she retains No pain reported 10/21/2022: Much improved status Slow recovery Aphasia slow to resolve In-dwelling catheter maintained Urecholine started several days ago and may DC catheter this week to see if she retains 10/20/2022: BP elevated Flaccidity remains right sided Valencia cath in place, started Urecholine to see if we can regain emptying bladder capability BM 10/1910/19/2022: 2 person assist Stools normal Valencia cath in place Leans right No falls 10/18/2022: Doing well Able to lift her right leg Able to read out loud without much dysarthria Sister at bedside 10/17/2022: About the same No falls Valencia catheter remains No pain reported 10/16/2022: Patient about the same Started Wellbutrin to help smoking cessation and depression Nicotine patch will also be placed No major problems 10/15/2022: Patient having more difficulty speaking and now almost completely aphasic Maintained on Plavix and aspirin Appreciate cardiology Tried to encourage and reassure the patient Patient becomes tearful Review of Systems General: Fatigue, Malaise Neurological: Weakness, Incoordination Objective Exam Vital Signs Vital Signs Date Time Temp Pulse Resp B/P (MAP) Pulse Ox O2 Delivery O2 Flow Rate FiO2 10/22/22 13:18 71 10/22/22 09:48 93 Room Air 10/22/22 08:00 36.5 14 158/82 (107) 10/21/22 19:40 21 10/20/22 10:46 0.00 Capillary Refill : General Appearance: No Apparent Distress, WD/WN, Anxious, Chronically ill, Thin HEENT: PERRL/EOMI, Normal ENT Inspection, Pharynx Normal Neck: Full Range of Motion, Normal Inspection, Non Tender, Supple, Carotid Bruit Respiratory: Chest Non Tender, Lungs Clear, Normal Breath Sounds, No Accessory Muscle Use, No Respiratory Distress Cardiovascular: Regular Rate, Rhythm, No Edema, No Gallop, No JVD, No Murmur, Normal Peripheral Pulses Gastrointestinal: Normal Bowel Sounds, No Organomegaly, No Pulsatile Mass, Non Tender, Soft Back: Normal Inspection, No CVA Tenderness, No Vertebral Tenderness Extremity: Normal Capillary Refill, Normal Inspection, Normal Range of Motion, Non Tender, No Calf Tenderness, No Pedal Edema Neurologic/Psychiatric: Alert, Oriented x3, Abnormal boat designer II-XII, Abnormal Gait, Aphasia, Depressed Affect, Facial Droop (right), Motor Weakness (right sided 0/5) Skin: Normal Color, Warm/Dry Lymphatic: No Adenopathy Results/Procedures Lab Patient resulted labs reviewed. FIM Transfers Therapy Code Descriptions/Definitions Functional [place] Measure: 0=Not Assessed/NA 4=Minimal Assistance 1=Total Assistance 5=Supervision or Setup 2=Maximal Assistance 6=Modified [place] 3=Moderate Assistance 7=Complete IndependenceSCALE: Activities may be completed with or without assistive devices. 6-Fwfyzzfhaf-xspbpjb completes the activity by him/herself with no assistance from a helper. 5-Set-up or Clean-up Assistance-helper sets up or cleans up; patient completes activity. [place] assists only prior to or following the activity. 4-Supervision or Touching Assistance-helper provides verbal cues and/or touching/steadying and/or contact guard assistance as patient completes activity. Assistance may be provided throughout the activity or intermittently. 3-Partial/Moderate Assistance-helper does LESS THAN HALF the effort. [place] lifts, holds or supports trunk or limbs, but provides less than half the effort. 2-Substantial/Maximal Assistance-helper does MORE THAN HALF the effort. [place] lifts or holds trunk or limbs and provides more than half the effort. 3-Wzmgqvprd-mzdito does ALL the effort. Patient does none of the effort to complete the activity. Or, the assistance of 2 or more helpers is required for the patient to complete the activity. If activity was not attempted, code reason: 7-Patient Refused. 9-Not Applicable-not attempted and the patient did not perform the activity before the current illness, exacerbation or injury. 10-Not Attempted due to Environmental Limitations-(lack of equipment, weather restraints, etc.). 88-Not Attempted due to Medical Conditions or Safety Concerns. Roll Left to Right (QC): 3 (Mod A) Sit to Lying (QC): 3 (Mod A) Sit to Stand (QC): 3 Chair/Smj-ej-Pwkxf Xfer(QC): 2 Car Transfer (QC): 88 (balance ) Gait Training Does the Patient Walk?: Yes Distance: 5ft x 3 Walk 10 feet (QC): 88 Walk 50 ft with 2 Turns(QC): 88 Walk 150 ft (QC): 88 Walking 10ft/uneven surface-QC: 88 Gait Persons Needed: 3 Gait Assistive Device: Parallel Bars Wheelchair Training Does the Pt Use a Wheelchair?: Yes Wheel 50 ft with 2 turns (QC): 3 Wheel 150 ft (QC): 3 Type of Wheelchair: Manual Stair Training 1 Step (curb) (QC): 88 (balance ) 4 Steps (QC): 88 (balance ) 12 Steps (QC): 88 (balance ) Balance Picking up an Object (QC): 88 (balance ) ADL-Treatment Eating (QC): 4 Oral Hygiene (QC): 4 (Pt. brushes teeth at sink. Pt. requires SBA and constant cues. OT sets up toothbrush, cup, etc...Pt. is able to brush teeth but requires cues to spit and take a drink.) Shower/Bathe Self (QC): 2 (Pt. showers via shower chair. She is able to wash chest and part of right UE with max cues. Requires max assist to wash all other parts. ) Upper Body Dressing (QC): 2 (Pt. does initiate doffing and donning shirt. However, is unable to follow verbal cues to doff/don appropriately, and requires max assist overall.) Lower Body Dressing (QC): 1 (Pt. requires max assist to thread brief and pants over bilateral LE. Pt. requires assist of one person to stand, and another to don over hips.) On/Off Footwear (QC): 2 (Pt. is able to hold out her legs, one at a time, including right one for OT to don/doff socks and shoes. Due to set up of the shower chair, she could not safely bend over and reach them herself.) Toileting Hygiene (QC): 1 Toilet Transfer (QC): 1 Assessment/Plan Assessment and Plan Assess & Plan/Chief Complaint Assessment: Catastrophic CVA with right sided flaccidity-CT angiogram matches carotid ultrasound revealing left carotid internal and external complete occlusion causing catastrophic ischemic infarct of the left parietal and MCA region no surgical option available per vascular surgery at [facility] Dysarthria and expressive aphasia HTN emergency placed on Cardene drip now on Hydralazine IV Smoker Alcohol excess user placed on CIWA Urinary retention requiring replacement of valencia catheter 10/14/22 Plan: PT OT ST for expressive aphasia CIWA Vitamin supplementation to prevent Wernicke's encephalopathy and Karsokoff's psychosis Lovenox for DVT PPx Cardiology consult ASA and Plavix 10/15/2022: Continue supportive care 10/16/2022: Monitor closely 10/17/2022: Monitor closely Losartan 10/18/2022: Monitor closely 10/19/2022: Improved Start Urecholine 10/20/2022: Trial of DC catheter this week again 10/21/2022: Monitor closely Urecholine 10/22/2022: DC catheter tomorrow (1) CVA (cerebral vascular accident) JM CALLEJAS DO Oct 22, 2022 09:12
--- NOTE | 2022-10-22 10:11 | Speech Therapy Daily Note ---
Speech Daily Progress Note Subjective Date Seen by Provider: Oct 22, 2022 Time Seen by Provider: 09:15 The patient was seated upright in her wheelchair, awake and alert, upon entrance to her room by the clinician. The patient has her two daughters present at bedside. The patient said, "hi," in response to the clinician verbal greeting and was agreeable to participation in the skilled speech pathology treatment session. Objective The patient's family was encouraged to bring music the patient enjoys, as music can serve as a tool to target and stimulate language growth. On this date, the patient sang the "ABC's" and "Happy Birthday" with the clinician with 100% accuracy. The patient began tearful as she was able to place together full phrases for the first time on this date through automatics and benny. The patient displayed increased accuracy with repetition of single words. Perseveration remains a barrier, as moving forward following periods of perseveration are intermittently difficult. The patient is practicing functional words, "bed, chair, cup, hi, yes, no, and Ariane." The patient was able to independently state her name on this date. This is the first time the patient has been able to complete this task. The patient continues to display daily progress and gains towards therapeutic goals. Assessment Assessment Current Status: Good Progress Treatment Plan Continue Plan of Care Speech Short Term Goals Short Term Goals Short Term Goals 1. The patient will complete oral motor exercises with 75% accuracy and moderate clinician verbal and visual cueing. 2. The patient will communicate yes and no response (simple) with 50% accuracy and moderate clinician verbal and visual cueing. Time Frame-STG: Ten Days. Speech Custodial Goals Post Acute Care Nurse Goals 1. The patient will demonstrate improved functional communication for increased safety with discharge to the least restrictive environment. Time Frame: Four Weeks. Speech-Plan Treatment Plan Speech Therapy Treatment Plan: Continue Plan of Care Treatment Duration: Nov 01, 2022 Frequency: Modified Program (IRF) Estimated Hrs Per Day: .5 hour per day Rehab Potential: Fair Safety Risks/Education Teaching Recipient: Patient, Family Teaching Methods: Demonstration, Handout, Discussion Response to Teaching: Return Demonstration, Reinforcement Needed Education Topics Provided: Oral Motor Exercises, Confrontational Naming, Plan of Care, Progress Time Speech Therapy Time In: 09:15 Speech Therapy Time Out: 09:52 DATE: Oct 22, 2022 Total Billed Time: 37 Billed Treatment Time 1, SLMARITZA LEONE Oct 22, 2022 10:11
--- NOTE | 2022-10-22 13:41 | Physical Therapy Daily Note ---
PT Daily Note-Current Subjective Pt sitting up in the w/c in her room with OT and family, upon arrival. Pt is agreeable to PT. No c/o pain. Co-tx with OT ([id number] for family training), skills of 2 clinicians required to decrease fall risk, increase mobility and safety awareness and work on functional mobility. PT focusing on w/c mobility, transfers, standing, walking, and safety awareness with positioning body, while OT focusing on R UE placement during mobility and safety awareness. Pain Numeric Pain Scale: 0-No Pain Location: No Pain Reported Section J - Health Conditions 1. Rarely or not at all 2. Occasionally 3. Frequently 4. Almost constantly 8. Unable to answer Pain Effect on Sleep: 1 Pain Interference with Therapy: 1 Pain Interference w/Day-to-Day: 1 Mental Status Attachments: Orozco Catheter, IV Transfers SCALE: Activities may be completed with or without assistive devices. 4-Ucqgndgsbw-szrxpod completes the activity by him/herself with no assistance from a helper. 5-Set-up or Clean-up Assistance-helper sets up or cleans up; patient completes activity. [place] assists only prior to or following the activity. 4-Supervision or Touching Assistance-helper provides verbal cues and/or touching/steadying and/or contact guard assistance as patient completes activity. Assistance may be provided throughout the activity or intermittently. 3-Partial/Moderate Assistance-helper does LESS THAN HALF the effort. [place] lifts, holds or supports trunk or limbs, but provides less than half the effort. 2-Substantial/Maximal Assistance-helper does MORE THAN HALF the effort. [place] lifts or holds trunk or limbs and provides more than half the effort. 6-Swxplyhxa-jjyioj does ALL the effort. Patient does none of the effort to complete the activity. Or, the assistance of 2 or more helpers is required for the patient to complete the activity. If activity was not attempted, code reason: 7-Patient Refused. 9-Not Applicable-not attempted and the patient did not perform the activity before the current illness, exacerbation or injury. 10-Not Attempted due to Environmental Limitations-(lack of equipment, weather restraints, etc.). 88-Not Attempted due to Medical Conditions or Safety Concerns. Sit to Stand (QC): 3 Weight Bearing Right Lower Extremity: Right Full Weight Bearing Left Lower Extremity: Left Full Weight Bearing Gait Training Does the Patient Walk?: Yes Distance: 5ft x 4 with Min A x 2 and w/c follow in the // bars Gait Assistive Device: Parallel Bars Wheelchair Training Does the Pt Use a Wheelchair?: Yes Wheel 50 ft with 2 turns (QC): 4 Wheel 150 ft (QC): 4 Type of Wheelchair: Manual Treatments Family training completed on this date. Pt completed sit to stand transfers x 4 in the // bars with Min A. Pt ambulated 5ft x 4 in the // bars with Min A x 2 and w/c follow. Pt completed w/c mobility 75ft and 150ft with SBA. Pt completed seated B LE Ther Ex x 15 reps each with the red Tband (AAROM on the R LE for some exercises). Pt completed seated balloon toss with the R UE. Pt completed reaching for and stacking cones with R UE. Pt was sitting up in her w/c upon completion of PT with call light in reach, all needs met, and family present. Assessment Current Status: Good Progress Pt tolerated PT well with good effort. Family denies any questions or concerns at end of treatment. PT Call Center Nurse Goals Call Center Nurse Goals PT [facility] Goals Time Frame: Nov 04, 2022 Roll Left & Right (QC): 4 (SBA for bed mobility ) Sit to Lying (QC): 4 (SBA for bed mobility ) Lying-Sitting on Side/Bed(QC): 4 (SBA for bed mobility ) Sit to Stand (QC): 3 (Min A for transfers ) Chair/Rpf-nu-Fspre Xfer(QC): 3 (Min A for transfers ) Toilet Transfer (QC): 3 (Min A for transfers ) Car Transfer (QC): 3 (Min A for transfers ) Does the Patient Walk: Yes Walk 10 feet (QC): 3 (Min A for short distances ) Walk 50ft with 2 Turns (QC): 88 (Balance ) Walk 150 ft (QC): 88 (Balance ) Walking 10ft on Uneven Surface: 88 (Balance ) 1 Step (curb) (QC): 88 (Balance ) 4 Steps (QC): 88 (Balance ) 12 Steps (QC): 88 (Balance ) Picking up an Object (QC): 88 (Balance ) Does the Pt use WC or Scooter?: Yes Wheel 50 feet with 2 turns (QC: 3 (Min A for w/c mobility ) Type: Manual Wheel 150 feet: 3 (Min A for w/c mobility ) Type: Manual PT Plan Problem List Problem List: Activity Tolerance, Functional Strength, Safety, Balance, Gait, Transfer, Bed Mobility, ROM Treatment/Plan Treatment Plan: Continue Plan of Care Treatment Plan: Bed Mobility, Concurrent Therapy, Education, Functional Activity Shira, Functional Strength, Group Therapy, Gait, Safety, Therapeutic Exercise, Transfers Treatment Duration: Nov 04, 2022 Frequency: At least 5 of 7 days/Wk (IRF) Estimated Hrs Per Day: 2 hours per day Patient and/or Family Agrees t: Yes Safety Risks/Education Patient Education: Gait Training, Transfer Techniques, Correct Positioning, W/C Management, Safety Issues Teaching Recipient: Patient, Family Teaching Methods: Demonstration, Discussion Response to Teaching: Verbalize Understanding, Return Demonstration, Reinforcem ent Needed Discharge Recommendations Therapy Discharge Recommendati: Home & Family Equpiment Recommendations-D/C: 3 in 1 Commode, Wheelchair Cushion, Front Wheeled Walker, Lift Chair, Wheelchair Ramp, Railings, Shower Chair, Manual Wheelchair Discharge Status/Home Program Cont per POC Barriers to Progress R sided weakness Target Placement Home with family Time Time In: 800 Time Out: 915 DATE: Oct 22, 2022 Total Billed Treatment Time: 75 Total Billed Treatment 75 min total from [id number]; co-tx and family training for 30 min from [id number] 1 visit GT x 1 EX x 1 FA X 3 KANDI PRADO PT Oct 22, 2022 13:40
[2022-10-22 20:12] VITALS: BP 169/72
[2022-10-22] MEDS: ENOXAPARIN 40 MG/0.4 ML SYRINGE SC SCH (20:38)
--- NOTE | 2022-10-23 04:58 | PM&R Progress Note ---
Subjective HPI/CC On Admission Date Seen by Provider: Oct 23, 2022 Time Seen by Provider: 12:00 Subjective/Events-last exam 10/23/2022: Patient doing well Discontinued catheter and when we were preparing for Valencia reinsertion she voided We will increase Urecholine In and out catheter will be required instead of indwelling Valencia now 10/22/2022: No major issues Family training today DC catheter tomorrow morning to see if she retains No pain reported 10/21/2022: Much improved status Slow recovery Aphasia slow to resolve In-dwelling catheter maintained Urecholine started several days ago and may DC catheter this week to see if she retains 10/20/2022: BP elevated Flaccidity remains right sided Valencia cath in place, started Urecholine to see if we can regain emptying bladder capability BM 10/1910/19/2022: 2 person assist Stools normal Valencia cath in place Leans right No falls 10/18/2022: Doing well Able to lift her right leg Able to read out loud without much dysarthria Sister at bedside 10/17/2022: About the same No falls Valencia catheter remains No pain reported 10/16/2022: Patient about the same Started Wellbutrin to help smoking cessation and depression Nicotine patch will also be placed No major problems 10/15/2022: Patient having more difficulty speaking and now almost completely aphasic Maintained on Plavix and aspirin Appreciate cardiology Tried to encourage and reassure the patient Patient becomes tearful Review of Systems General: Fatigue, Malaise Objective Exam Vital Signs Vital Signs Date Time Temp Pulse Resp B/P (MAP) Pulse Ox O2 Delivery O2 Flow Rate FiO2 10/23/22 13:00 82 10/23/22 09:47 95 Room Air 10/23/22 08:00 36.0 16 157/78 (104) 10/21/22 19:40 21 10/20/22 10:46 0.00 Capillary Refill : General Appearance: No Apparent Distress, WD/WN, Anxious, Chronically ill, Thin HEENT: PERRL/EOMI, Normal ENT Inspection, Pharynx Normal Neck: Full Range of Motion, Normal Inspection, Non Tender, Supple, Carotid Bruit Respiratory: Chest Non Tender, Lungs Clear, Normal Breath Sounds, No Accessory Muscle Use, No Respiratory Distress Cardiovascular: Regular Rate, Rhythm, No Edema, No Gallop, No JVD, No Murmur, Normal Peripheral Pulses Gastrointestinal: Normal Bowel Sounds, No Organomegaly, No Pulsatile Mass, Non Tender, Soft Back: Normal Inspection, No CVA Tenderness, No Vertebral Tenderness Extremity: Normal Capillary Refill, Normal Inspection, Normal Range of Motion, Non Tender, No Calf Tenderness, No Pedal Edema Neurologic/Psychiatric: Alert, Oriented x3, Abnormal clay dry press helper II-XII, Abnormal Gait, Aphasia, Depressed Affect, Facial Droop (right), Motor Weakness (right sided 0/5) Skin: Normal Color, Warm/Dry Lymphatic: No Adenopathy Results/Procedures Lab Patient resulted labs reviewed. FIM Transfers Therapy Code Descriptions/Definitions Functional [place] Measure: 0=Not Assessed/NA 4=Minimal Assistance 1=Total Assistance 5=Supervision or Setup 2=Maximal Assistance 6=Modified [place] 3=Moderate Assistance 7=Complete IndependenceSCALE: Activities may be completed with or without assistive devices. 2-Uxaohmgyzm-zhzlejf completes the activity by him/herself with no assistance from a helper. 5-Set-up or Clean-up Assistance-helper sets up or cleans up; patient completes activity. [place] assists only prior to or following the activity. 4-Supervision or Touching Assistance-helper provides verbal cues and/or touching/steadying and/or contact guard assistance as patient completes activity. Assistance may be provided throughout the activity or intermittently. 3-Partial/Moderate Assistance-helper does LESS THAN HALF the effort. [place] lifts, holds or supports trunk or limbs, but provides less than half the effort. 2-Substantial/Maximal Assistance-helper does MORE THAN HALF the effort. [place] lifts or holds trunk or limbs and provides more than half the effort. 6-Hjuvlkfxx-nnafom does ALL the effort. Patient does none of the effort to complete the activity. Or, the assistance of 2 or more helpers is required for the patient to complete the activity. If activity was not attempted, code reason: 7-Patient Refused. 9-Not Applicable-not attempted and the patient did not perform the activity before the current illness, exacerbation or injury. 10-Not Attempted due to Environmental Limitations-(lack of equipment, weather restraints, etc.). 88-Not Attempted due to Medical Conditions or Safety Concerns. Roll Left to Right (QC): 3 (Mod A) Sit to Lying (QC): 3 (Mod A) Sit to Stand (QC): 3 Chair/Leo-lc-Nniuh Xfer(QC): 2 Car Transfer (QC): 88 (balance ) Gait Training Does the Patient Walk?: Yes Distance: 5ft x 4 with Min A x 2 and w/c follow in the // bars Walk 10 feet (QC): 88 Walk 50 ft with 2 Turns(QC): 88 Walk 150 ft (QC): 88 Walking 10ft/uneven surface-QC: 88 Gait Persons Needed: 3 Gait Assistive Device: Parallel Bars Wheelchair Training Does the Pt Use a Wheelchair?: Yes Wheel 50 ft with 2 turns (QC): 4 Wheel 150 ft (QC): 4 Type of Wheelchair: Manual Stair Training 1 Step (curb) (QC): 88 (balance ) 4 Steps (QC): 88 (balance ) 12 Steps (QC): 88 (balance ) Balance Picking up an Object (QC): 88 (balance ) ADL-Treatment Eating (QC): 5 Oral Hygiene (QC): 5 Shower/Bathe Self (QC): 2 (Pt. showers via shower chair. She is able to wash chest and part of right UE with max cues. Requires max assist to wash all other parts. ) Upper Body Dressing (QC): 3 (mod A) Lower Body Dressing (QC): 1 (Assist x 2, 1st person to assist in standing and 2nd person assist for hiking pants over R hip.) On/Off Footwear (QC): 2 Toileting Hygiene (QC): 1 Toilet Transfer (QC): 1 Assessment/Plan Assessment and Plan Assess & Plan/Chief Complaint Assessment: Catastrophic CVA with right sided flaccidity-CT angiogram matches carotid ultrasound revealing left carotid internal and external complete occlusion causing catastrophic ischemic infarct of the left parietal and MCA region no surgical option available per vascular surgery at [facility] Dysarthria and expressive aphasia HTN emergency placed on Cardene drip now on Hydralazine IV Smoker Alcohol excess user placed on CIWA Urinary retention requiring replacement of valencia catheter 10/14/22 but DC 10/23 and was able to void so increasing Urecholine and adding in out cath Plan: PT OT ST for expressive aphasia CIWA Vitamin supplementation to prevent Wernicke's encephalopathy and Karsokoff's psychosis Lovenox for DVT PPx Cardiology consult ASA and Plavix 10/15/2022: Continue supportive care 10/16/2022: Monitor closely 10/17/2022: Monitor closely Losartan 10/18/2022: Monitor closely 10/19/2022: Improved Start Urecholine 10/20/2022: Trial of DC catheter this week again 10/21/2022: Monitor closely Urecholine 10/22/2022: DC catheter tomorrow 10/23/2022: Voiding is improved Increase Urecholine (1) CVA (cerebral vascular accident) JM CALLEJAS DO Oct 23, 2022 04:58
[2022-10-23] MEDS: POTASSIUM CHLORIDE 10 MEQ TABLET PO SCH (06:31)
[2022-10-23] MEDS: THIAMINE 100 MG (VITAMIN B-1) TAB PO SCH (06:31)
[2022-10-23] MEDS: BETHANECHOL 10 MG TABLET PO SCH ×3 (06:31→16:26)
[2022-10-23] MEDS: THERAPEUTIC MULTIVITAMIN W/MINERALS TABLET PO SCH (06:31)
--- NOTE | 2022-10-23 07:36 | Occupational Ther Daily Note ---
OT Current Status-Daily Note Subjective Pt alert sitting up in chair eating breakfast. Pt agrees to therapy. Pt no c/o to pain. Co-treat with PT [id number], skills of 2 clinicians required to decrease fall risk, positioning R side of body correctly during mobility and increasing mobility/strength for daily functional tasks. PT focusing on transfers, ambulation while OT focusing on ADLs, positioning R UE during mobility. Mental Status/Objective Patient Orientation: Person, Place, Time, Situation Attachments: Telemetry ADL-Treatment Pt agrees to shower. Using shower chair with cutout, pt is able to reach upper body, R UE, esme area/buttocks and upper legs then assist for all other areas. Assist x1 when completing tasks that manipulate lower body clothing, toileting and LBD. Assist x1 to manipulate clothing, pt able to cleanse self in sitting for toileting. Set up for eating, pt requires assist to open containers/packages then uses regular utensil with L hand to eat by self. Independent with oral care. Assist to thread R UE into shirt then pt completed all other steps by self. Assist to thread L toe into pant legs and hike R side over hips(min A in standing), pt able to complete other steps with SBA. Assist to don R footwear and pt dons L footwear then assist to tie shoes. Therapy Code Descriptions/Definitions Functional [place] Measure: 0=Not Assessed/NA 4=Minimal Assistance 1=Total Assistance 5=Supervision or Setup 2=Maximal Assistance 6=Modified [place] 3=Moderate Assistance 7=Complete IndependenceSCALE: Activities may be completed with or without assistive devices. 0-Bkpdirsqml-horvrio completes the activity by him/herself with no assistance from a helper. 5-Set-up or Clean-up Assistance-helper sets up or cleans up; patient completes activity. [place] assists only prior to or following the activity. 4-Supervision or Touching Assistance-helper provides verbal cues and/or touching/steadying and/or contact guard assistance as patient completes activity. Assistance may be provided throughout the activity or intermittently. 3-Partial/Moderate Assistance-helper does LESS THAN HALF the effort. [place] lifts, holds or supports trunk or limbs, but provides less than half the effort. 2-Substantial/Maximal Assistance-helper does MORE THAN HALF the effort. [place] lifts or holds trunk or limbs and provides more than half the effort. 3-Mmylcphgw-qvsbwt does ALL the effort. Patient does none of the effort to complete the activity. Or, the assistance of 2 or more helpers is required for the patient to complete the activity. If activity was not attempted, code reason: 7-Patient Refused. 9-Not Applicable-not attempted and the patient did not perform the activity befo re the current illness, exacerbation or injury. 10-Not Attempted due to Environmental Limitations-(lack of equipment, weather re straints, etc.). 88-Not Attempted due to Medical Conditions or Safety Concerns. Eating (QC): 5 (Pt utilizing utensils appropriately and opened packages. Pt asked OTAS to cut food into bite sized pieces. ) Oral Hygiene (QC): 6 Shower/Bathe Self (QC): 2 (Mod A) Upper Body Dressing (QC): 3 Lower Body Dressing (QC): 3 (mod A) On/Off Footwear: 2 Toileting Hygiene (QC): 2 (mod A) Toilet Transfer (QC): 3 (min A to mod A) Pt modified utensils by holding them upside down in L hand during eating to stab food onto fork. Pt initiating more conversation strategies than in previous sessions. Other Treatment Pt ambulated 5x's using //bars while COLLAZO assisted placing/positioning R UE for wt bearing during standing and ambulation. See PT notes for standing progress and assist. Pt left in care of PT. OT Short Term Goals Short Term Goals Time Frame: Oct 28, 2022 Eatin Oral hygiene: 4 Toileting hygiene: 3 Shower/bathe self: 3 Upper body dressin Lower body dressin Putting on/taking off footwear: 3 OT Shelter Goals Shelter Goals Time Frame: Nov 11, 2022 Disorganized thinkin Altered level of consciousness: 0 Eating (QC): 5 (Set up) Oral Hygiene (QC): 5 (Set up) Toileting Hygiene (QC): 4 (CGA/supervision) Shower/Bathe Self (QC): 4 (CGA/supervision) Upper Body Dressing (QC): 5 (Set up) Lower Body Dressing (QC): 4 (CGA/supervision) On/Off Footwear (QC): 4 (CGA/supervision) Additional Goals: 1-Demonstrate ADL Tasks, 2-Verbalize Understanding, 3- ImproveStrength/Shira 1=Demonstrate adherence to instructed precautions during ADL tasks. 2=Patient will verbalize/demonstrate understanding of assistive devices/modifications for ADL. 3=Patient will improve strength/tolerance for activity to enable patient to perform ADL's. OT Education/Plan Problem List/Assessment Assessment: Decreased Activ Tolerance, Decreased UE Strength, Impaired Coordination, Impaired Funct Balance, Impaired I ADL's, Impaired Self-Care Skills, Restricted Funct UE ROM Discharge Recommendations Plan/Recommendations: Continue POC Treatment Plan/Plan of Care Patient would benefit from OT for education, treatment and training to promote independence in ADL's, mobility, safety and/or upper extremity function for ADL's. Plan of Care: ADL Retraining, Caregiver Training, Functional Mobility, Group Exercise/Act as Ind, UE Funct Exercise/Act Treatment Duration: Nov 11, 2022 Frequency: At least 5 of 7 days/Wk (IRF) Estimated Hrs Per Day: 1.5 hours per day Agreement: Yes Rehab Potential: Fair Time Start Time: 07:15 Stop Time: 08:30 DATE: Oct 23, 2022 Total Time Billed (hr/min): 75 Billed Treatment Time 1 visit-ADL 4 (55 min) NM 1 (20 min) co-treat with PT [id number], Individual [id number] ERICA RICE Oct 23, 2022 07:36
[2022-10-23 08:00] VITALS: BP 157/78
[2022-10-23] MEDS: amLODIPine 5 MG TABLET PO SCH (08:59)
[2022-10-23] MEDS: CLOPIDOGREL 75 MG TABLET PO SCH (08:59)
[2022-10-23] MEDS: NICOTINE 21 MG PATCH TD SCH (08:59)
[2022-10-23] MEDS: FOLIC ACID 1 MG TAB PO SCH (08:59)
[2022-10-23] MEDS: LOSARTAN 50 MG TABLET PO SCH ×2 (08:59→20:34)
[2022-10-23] MEDS: buPROPion SR 150 MG TABLET PO SCH ×2 (08:59→20:34)
[2022-10-23] MEDS: ASPIRIN 325 MG TABLET PO SCH (08:59)
[2022-10-23] MEDS: NICOTINE PATCH REMOVAL TP SCH (08:59)
[2022-10-23] MEDS: SENNOSIDES 8.6 MG TABLET PO SCH ×2 (09:00→20:35)
[2022-10-23] MEDS: DOCUSATE SODIUM 100 MG CAPSULE PO SCH ×2 (09:00→20:35)
--- NOTE | 2022-10-23 10:30 | Speech Therapy Daily Note ---
Speech Daily Progress Note Subjective Date Seen by Provider: Oct 23, 2022 Time Seen by Provider: 09:30 The patient was seated upright in her recliner, awake and alert, upon entrance to her room by the clinician. The patient greeted the clinician with "hi" and was agreeable to participation in the speech and language treatment session. Objective The patient continues to demonstrate excellent gains each day. On this date, the patient independently greeted the clinician and the food chemist with a functional "hi." The patient was able to work through her lunch order with the food production machine operator without the assistance of the clinician. The patient utilized yes and no responses, single syllable words/repetition, and nonverbal gestures (thumbs up). The patient displayed increased accuracy with functional note cards on this date. Due to high accuracy, the addition of "I hurt" and "pain" were added to the note cards for increased functional communication. Paraphasia and apraxia errors continue to be present however the patient is consistently aware of errors and always attempts to self-correct. Assessment Assessment Current Status: Good Progress Treatment Plan Continue Plan of Care Speech Short Term Goals Short Term Goals Short Term Goals 1. The patient will complete oral motor exercises with 75% accuracy and moderate clinician verbal and visual cueing. 2. The patient will communicate yes and no response (simple) with 50% accuracy and moderate clinician verbal and visual cueing. Time Frame-STG: Ten Days. Speech Dietitian Assistant Goals Intermediate Goals 1. The patient will demonstrate improved functional communication for increased safety with discharge to the least restrictive environment. Time Frame: Four Weeks. Speech-Plan Treatment Plan Speech Therapy Treatment Plan: Continue Plan of Care Treatment Duration: Nov 01, 2022 Frequency: Modified Program (IRF) Estimated Hrs Per Day: .5 hour per day Rehab Potential: Fair Pt/Family Agrees to Plan: Yes Safety Risks/Education Teaching Recipient: Patient Teaching Methods: Demonstration, Handout, Discussion Response to Teaching: Return Demonstration, Reinforcement Needed Education Topics Provided: Confrontational Naming/Repetition Note Cards Time Speech Therapy Time In: 09:30 Speech Therapy Time Out: 10:00 DATE: Oct 23, 2022 Total Billed Time: 30 Billed Treatment Time [address] Oct 23, 2022 10:30
--- NOTE | 2022-10-23 11:44 | Physical Therapy Daily Note ---
PT Daily Note-Current Subjective Pt alert sitting up in w/c with LOCK TENDER upon arrival to pts room. Pt agrees to PT. No c/o of pain. Co-tx with OT ([id number]), skills of 2 clinicians required to decrease fall risk, positioning R side of body correctly during mobility and increasing mobility/strength for daily functional tasks. PT focusing on transfers and ambulation, while OT focusing on ADLs and positioning R UE during mobility. Pain Numeric Pain Scale: 0-No Pain Location: No Pain Reported Section J - Health Conditions 1. Rarely or not at all 2. Occasionally 3. Frequently 4. Almost constantly 8. Unable to answer Pain Effect on Sleep: 1 Pain Interference with Therapy: 1 Pain Interference w/Day-to-Day: 1 Mental Status Attachments: IV Transfers SCALE: Activities may be completed with or without assistive devices. 6-Itfvuavayo-rbizbtm completes the activity by him/herself with no assistance from a helper. 5-Set-up or Clean-up Assistance-helper sets up or cleans up; patient completes activity. [place] assists only prior to or following the activity. 4-Supervision or Touching Assistance-helper provides verbal cues and/or touching/steadying and/or contact guard assistance as patient completes activity. Assistance may be provided throughout the activity or intermittently. 3-Partial/Moderate Assistance-helper does LESS THAN HALF the effort. [place] lifts, holds or supports trunk or limbs, but provides less than half the effort. 2-Substantial/Maximal Assistance-helper does MORE THAN HALF the effort. [place] lifts or holds trunk or limbs and provides more than half the effort. 8-Avhizgfsm-nvspwz does ALL the effort. Patient does none of the effort to complete the activity. Or, the assistance of 2 or more helpers is required for the patient to complete the activity. If activity was not attempted, code reason: 7-Patient Refused. 9-Not Applicable-not attempted and the patient did not perform the activity before the current illness, exacerbation or injury. 10-Not Attempted due to Environmental Limitations-(lack of equipment, weather restraints, etc.). 88-Not Attempted due to Medical Conditions or Safety Concerns. Sit to Stand (QC): 4 Chair/Mnj-ey-Azgyu Xfer(QC): 3 Weight Bearing Right Lower Extremity: Right Full Weight Bearing Left Lower Extremity: Left Full Weight Bearing Gait Training Does the Patient Walk?: Yes Distance: 5ft x 5 Gait Assistive Device: Parallel Bars Wheelchair Training Does the Pt Use a Wheelchair?: Yes Wheel 50 ft with 2 turns (QC): 4 Wheel 150 ft (QC): 4 Type of Wheelchair: Manual Treatments Co-tx with OT ([id number]), skills of 2 clinicians required to decrease fall risk, positioning R side of body correctly during mobility and increasing mobility/strength for daily functional tasks. PT focusing on transfers and ambulation, while OT focusing on ADLs and positioning R UE during mobility. Pt wheeled to the rehab gym. Pt completed 5 sit to stand transfers in the // bars with CGA/SBA. Pt ambulated 5ft x 5 in the // bars with Min A x 2 for R UE and R LE. NMES was applied to R tibialis anterior muscle and R wrist ext muscles for 10 min each at 35Hz for 10:10 and 80mA on LE and 20mA on UE. Pt completed seated B LE Ther Ex x 15 reps each with the red Tband. Pt completed w/c mobility x 75ft with SBA. Pt completed stand pivot transfer from the w/c to the recliner with Min/Mod A. Pt sitting up in the recliner with call light in reach, all needs met, and RN present. Assessment Current Status: Good Progress Pt tolerated PT well with good effort PT Usp Goals Family Law Paralegal Goals PT Family Law Paralegal Goals Time Frame: Nov 04, 2022 Roll Left & Right (QC): 4 (SBA for bed mobility ) Sit to Lying (QC): 4 (SBA for bed mobility ) Lying-Sitting on Side/Bed(QC): 4 (SBA for bed mobility ) Sit to Stand (QC): 3 (Min A for transfers ) Chair/Sro-xl-Hbmqv Xfer(QC): 3 (Min A for transfers ) Toilet Transfer (QC): 3 (Min A for transfers ) Car Transfer (QC): 3 (Min A for transfers ) Does the Patient Walk: Yes Walk 10 feet (QC): 3 (Min A for short distances ) Walk 50ft with 2 Turns (QC): 88 (Balance ) Walk 150 ft (QC): 88 (Balance ) Walking 10ft on Uneven Surface: 88 (Balance ) 1 Step (curb) (QC): 88 (Balance ) 4 Steps (QC): 88 (Balance ) 12 Steps (QC): 88 (Balance ) Picking up an Object (QC): 88 (Balance ) Does the Pt use WC or Scooter?: Yes Wheel 50 feet with 2 turns (QC: 3 (Min A for w/c mobility ) Type: Manual Wheel 150 feet: 3 (Min A for w/c mobility ) Type: Manual PT Plan Problem List Problem List: Activity Tolerance, Functional Strength, Safety, Balance, Gait, Transfer, Bed Mobility, ROM Treatment/Plan Treatment Plan: Continue Plan of Care Treatment Plan: Bed Mobility, Concurrent Therapy, Education, Functional Activity Shira, Functional Strength, Group Therapy, Gait, Safety, Therapeutic Exercise, Transfers Treatment Duration: Nov 04, 2022 Frequency: At least 5 of 7 days/Wk (IRF) Estimated Hrs Per Day: 2 hours per day Patient and/or Family Agrees t: Yes Safety Risks/Education Patient Education: Gait Training, Transfer Techniques, Correct Positioning, W/C Management, Safety Issues Teaching Recipient: Patient Teaching Methods: Demonstration, Discussion Response to Teaching: Verbalize Understanding, Return Demonstration, Reinforcement Needed Discharge Recommendations Therapy Discharge Recommendati: Home & Family Equpiment Recommendations-D/C: Wheelchair Cushion, Front Wheeled Walker, Lift Chair, Wheelchair Ramp, Railings, Shower Chair, Manual Wheelchair Discharge Status/Home Program Cont per POC Barriers to Progress R sided weakness Target Placement Home with family assistance Time Time In: 800 Time Out: 915 DATE: Oct 23, 2022 Total Billed Treatment Time: 75 Total Billed Treatment 75 min total from [id number]; 30 min co-tx from [id number] 1 visit EX x 1 GT x 2 FA x 2 KANDI PRADO PT Oct 23, 2022 11:44
--- NOTE | 2022-10-23 13:25 | Cardiology Progress Note ---
Subjective Date Seen by Provider: Oct 23, 2022 Time Seen by Provider: 11:15 Subjective/Events-last exam Patient is sitting up in chair, denies any chest pain or dyspnea. Objective-Cardiology Exam Last Set of Vital Signs Vital Signs 10/20/22 10/21/22 10/23/22 10/23/22 10/23/22 10:46 19:40 08:00 09:47 13:00 Temp 36.0 Pulse 82 Resp 16 B/P (MAP) 157/78 (104) Pulse Ox 95 O2 Delivery Room Air O2 Flow Rate 0.00 FiO2 21 I&O Intake and Output 10/23/22 00:00 Intake Total 550 ml Output Total 1175 ml Balance -625 ml Intake Oral 550 ml Output Urine Total 1175 ml # Bowel Movements 1 General: Alert, Oriented X3, Cooperative HEENT: Atraumatic, PERRLA Lungs: Clear to Auscultation, Normal Air Movement Heart: Regular Rate Abdomen: Normal Bowel Sounds, Soft Extremities: No Edema Skin: No Rashes, No Significant Lesion Neuro: Other (right sided weakness, expressive aphasia) Psych/Mental Status: Mental Status NL, Mood NL A/P-Cardiology Admission Diagnosis CVA Carotid artery stenosis HTN HLP Assessment/Plan Acute stroke due to left carotid occlusion, right sided weakness and aphasia. Maintained on ASA and Plavix. Continue with PT/OT Patient was deemed inoperable by [place] surgery, currently managed by primary care team Carotid artery stenosis, carotid duplex done 10/12/22 showing complete occlusion of the left carotid system including both the internal and external carotid arteries. The right carotid artery appeared to have some plaques with mild disease, nonobstructive disease. Hypertension, having episodes of elevated blood pressure Started on losartan 50 mg daily I will increase losartan to 50mg BID Hyperlipidemia, started on Lipitor 80 mg daily Continue to monitor Depression, flat affect, consider use of antidepressant. Will defer to medical services. Supervisory-Addendum Brief Supervisory Addendum Participated in pt care: history, MDM, physical Personally performed: exam, history, MDM Care discussed with: FELICE Results interpretation: Verified all documentation Notes: Patient was seen and evaluated with John, examination performed, management plan was discussed, agree with the current scribed note, I made few changes to the note using Italic font Patient was seen at bedside sitting comfortably Blood pressure is becoming more elevated in the evening I will increase losartan to 50 mg twice daily Continue on amlodipine Continue to monitor blood pressure JOHN OATES Oct 23, 2022 13:25 JOSE ANGEL CLEMONS MD Oct 23, 2022 14:07
[2022-10-23 19:28] VITALS: BP 163/72
[2022-10-23] MEDS: ENOXAPARIN 40 MG/0.4 ML SYRINGE SC SCH (20:34)
[2022-10-23] MEDS: BETHANECHOL 25 MG TABLET PO SCH (20:34)
[2022-10-23] MEDS ORDERED: BETHANECHOL 10 MG TABLET PO SCH (21:00)
--- NOTE | 2022-10-24 04:57 | PM&R Progress Note ---
Subjective HPI/CC On Admission Date Seen by Provider: Oct 24, 2022 Time Seen by Provider: 12:00 Subjective/Events-last exam 10/24/2022: Patient doing really well Voiding now Increased Urecholine to 25 mg before meals and at bedtime 10/23/2022: Patient doing well Discontinued catheter and when we were preparing for Valencia reinsertion she voided We will increase Urecholine In and out catheter will be required instead of indwelling Valencia now 10/22/2022: No major issues Family training today DC catheter tomorrow morning to see if she retains No pain reported 10/21/2022: Much improved status Slow recovery Aphasia slow to resolve In-dwelling catheter maintained Urecholine started several days ago and may DC catheter this week to see if she retains 10/20/2022: BP elevated Flaccidity remains right sided Valencia cath in place, started Urecholine to see if we can regain emptying bladder capability BM 10/1910/19/2022: 2 person assist Stools normal Valencia cath in place Leans right No falls 10/18/2022: Doing well Able to lift her right leg Able to read out loud without much dysarthria Sister at bedside 10/17/2022: About the same No falls Valencia catheter remains No pain reported 10/16/2022: Patient about the same Started Wellbutrin to help smoking cessation and depression Nicotine patch will also be placed No major problems 10/15/2022: Patient having more difficulty speaking and now almost completely aphasic Maintained on Plavix and aspirin Appreciate cardiology Tried to encourage and reassure the patient Patient becomes tearful Review of Systems General: Fatigue, Malaise Neurological: Weakness, Incoordination Objective Exam Vital Signs Vital Signs Date Time Temp Pulse Resp B/P (MAP) Pulse Ox O2 Delivery O2 Flow Rate FiO2 10/24/22 20:41 Room Air 10/24/22 19:32 36.9 81 18 189/75 (113) 96 10/21/22 19:40 21 10/20/22 10:46 0.00 Capillary Refill : General Appearance: No Apparent Distress, WD/WN, Anxious, Chronically ill, Thin HEENT: PERRL/EOMI, Normal ENT Inspection, Pharynx Normal Neck: Full Range of Motion, Normal Inspection, Non Tender, Supple, Carotid Bruit Respiratory: Chest Non Tender, Lungs Clear, Normal Breath Sounds, No Accessory Muscle Use, No Respiratory Distress Cardiovascular: Regular Rate, Rhythm, No Edema, No Gallop, No JVD, No Murmur, Normal Peripheral Pulses Gastrointestinal: Normal Bowel Sounds, No Organomegaly, No Pulsatile Mass, Non Tender, Soft Back: Normal Inspection, No CVA Tenderness, No Vertebral Tenderness Extremity: Normal Capillary Refill, Normal Inspection, Normal Range of Motion, Non Tender, No Calf Tenderness, No Pedal Edema Neurologic/Psychiatric: Alert, Oriented x3, Abnormal inspector rag sorting II-XII, Abnormal Gait, Aphasia, Depressed Affect, Facial Droop (right), Motor Weakness (right sided 0/5) Skin: Normal Color, Warm/Dry Lymphatic: No Adenopathy Results/Procedures Lab Patient resulted labs reviewed. FIM Transfers Therapy Code Descriptions/Definitions Functional [place] Measure: 0=Not Assessed/NA 4=Minimal Assistance 1=Total Assistance 5=Supervision or Setup 2=Maximal Assistance 6=Modified [place] 3=Moderate Assistance 7=Complete IndependenceSCALE: Activities may be completed with or without assistive devices. 4-Jxryrpddeq-yvfwydk completes the activity by him/herself with no assistance from a helper. 5-Set-up or Clean-up Assistance-helper sets up or cleans up; patient completes activity. [place] assists only prior to or following the activity. 4-Supervision or Touching Assistance-helper provides verbal cues and/or touching/steadying and/or contact guard assistance as patient completes activity. Assistance may be provided throughout the activity or intermittently. 3-Partial/Moderate Assistance-helper does LESS THAN HALF the effort. [place] lifts, holds or supports trunk or limbs, but provides less than half the effort. 2-Substantial/Maximal Assistance-helper does MORE THAN HALF the effort. [place] lifts or holds trunk or limbs and provides more than half the effort. 5-Xmperkgft-iscjzm does ALL the effort. Patient does none of the effort to complete the activity. Or, the assistance of 2 or more helpers is required for the patient to complete the activity. If activity was not attempted, code reason: 7-Patient Refused. 9-Not Applicable-not attempted and the patient did not perform the activity before the current illness, exacerbation or injury. 10-Not Attempted due to Environmental Limitations-(lack of equipment, weather restraints, etc.). 88-Not Attempted due to Medical Conditions or Safety Concerns. Roll Left to Right (QC): 3 (Mod A) Sit to Lying (QC): 3 (Mod A) Sit to Stand (QC): 4 Chair/Nfb-xs-Tewcs Xfer(QC): 3 Car Transfer (QC): 88 (balance ) Gait Training Does the Patient Walk?: Yes Distance: 5ft x 5 Walk 10 feet (QC): 88 Walk 50 ft with 2 Turns(QC): 88 Walk 150 ft (QC): 88 Walking 10ft/uneven surface-QC: 88 Gait Persons Needed: 3 Gait Assistive Device: Parallel Bars Wheelchair Training Does the Pt Use a Wheelchair?: Yes Wheel 50 ft with 2 turns (QC): 4 Wheel 150 ft (QC): 4 Type of Wheelchair: Manual Stair Training 1 Step (curb) (QC): 88 (balance ) 4 Steps (QC): 88 (balance ) 12 Steps (QC): 88 (balance ) Balance Picking up an Object (QC): 88 (balance ) ADL-Treatment Eating (QC): 5 (Pt utilizing utensils appropriately and opened packages. Pt asked OTAS to cut food into bite sized pieces. ) Oral Hygiene (QC): 6 Shower/Bathe Self (QC): 2 (Mod A) Upper Body Dressing (QC): 3 Lower Body Dressing (QC): 3 (mod A) On/Off Footwear (QC): 2 Toileting Hygiene (QC): 2 (mod A) Toilet Transfer (QC): 3 (min A to mod A) Assessment/Plan Assessment and Plan Assess & Plan/Chief Complaint Assessment: Catastrophic CVA with right sided flaccidity-CT angiogram matches carotid ultrasound revealing left carotid internal and external complete occlusion causing catastrophic ischemic infarct of the left parietal and MCA region no surgical option available per vascular surgery at [facility] Dysarthria and expressive aphasia HTN emergency placed on Cardene drip now on Hydralazine IV Smoker Alcohol excess user placed on CIWA Urinary retention requiring replacement of valencia catheter 10/14/22 but DC 10/23 and was able to void so increasing Urecholine and adding in out cathBut now voiding without difficulty on 10/24/2022 Plan: PT OT ST for expressive aphasia CIWA Vitamin supplementation to prevent Wernicke's encephalopathy and Karsokoff's psychosis Lovenox for DVT PPx Cardiology consult ASA and Plavix 10/15/2022: Continue supportive care 10/16/2022: Monitor closely 10/17/2022: Monitor closely Losartan 10/18/2022: Monitor closely 10/19/2022: Improved Start Urecholine 10/20/2022: Trial of DC catheter this week again 10/21/2022: Monitor closely Urecholine 10/22/2022: DC catheter tomorrow 10/23/2022: Voiding is improved Increase Urecholine 10/24/2022: Successful discontinuation of catheter (1) CVA (cerebral vascular accident) JM CALLEJAS DO Oct 24, 2022 04:56
[2022-10-24] MEDS: THIAMINE 100 MG (VITAMIN B-1) TAB PO SCH (06:35)
[2022-10-24] MEDS: POTASSIUM CHLORIDE 10 MEQ TABLET PO SCH (06:36)
[2022-10-24] MEDS: BETHANECHOL 25 MG TABLET PO SCH ×4 (06:36→19:33)
[2022-10-24] MEDS: THERAPEUTIC MULTIVITAMIN W/MINERALS TABLET PO SCH (06:36)
[2022-10-24 07:45] VITALS: BP 159/70
--- NOTE | 2022-10-24 08:50 | Occupational Ther Daily Note ---
OT Current Status-Daily Note Subjective Pt alert, sitting in recliner when entering room. Pt agrees to therapy. No c/o of pain. OT/PT co treat (08:00-08:30), skills of 2 clinicians required to decrease fall risk, increase functional mobility, and dynamic standing balance. Pt focus on ambulation, dynamic standing balance, transfers, and overall stren gthening of the LEs. OT focus on ADLs, AROM of the UEs, overall strengthening of UEs, postural alignment in standing/sitting, and functional movement for continued independence with functional tasks. Mental Status/Objective Patient Orientation: Person, Place, Time, Situation ADL-Treatment Therapy Code Descriptions/Definitions Functional [place] Measure: 0=Not Assessed/NA 4=Minimal Assistance 1=Total Assistance 5=Supervision or Setup 2=Maximal Assistance 6=Modified Bee 3=Moderate Assistance 7=Complete IndependenceSCALE: Activities may be completed with or without assistive devices. 4-Jltoidkpwm-qshkhmx completes the activity by him/herself with no assistance from a helper. 5-Set-up or Clean-up Assistance-helper sets up or cleans up; patient completes activity. [place] assists only prior to or following the activity. 4-Supervision or Touching Assistance-helper provides verbal cues and/or touching/steadying and/or contact guard assistance as patient completes activity. Assistance may be provided throughout the activity or intermittently. 3-Partial/Moderate Assistance-helper does LESS THAN HALF the effort. [place] lifts, holds or supports trunk or limbs, but provides less than half the effort. 2-Substantial/Maximal Assistance-helper does MORE THAN HALF the effort. [place] lifts or holds trunk or limbs and provides more than half the effort. 7-Ffopzinju-mfqhdu does ALL the effort. Patient does none of the effort to complete the activity. Or, the assistance of 2 or more helpers is required for the patient to complete the activity. If activity was not attempted, code reason: 7-Patient Refused. 9-Not Applicable-not attempted and the patient did not perform the activity before the current illness, exacerbation or injury. 10-Not Attempted due to Environmental Limitations-(lack of equipment, weather restraints, etc.). 88-Not Attempted due to Medical Conditions or Safety Concerns. Eating (QC): 5 (Pt initiated opening containers but needed to ask for assist ance from OTAS to open containers fully. Utilized utensils properly.) Upper Body Dressing (QC): 3 (Pt required assistance from OTAS to doff shirt over head. Verbal cues and positioning of shirt, pt donned with SBA. ) Lower Body Dressing (QC): 3 (Pt able to thread lower body clothing over feet using figure 4 technique with SBA then min A in standing while pt hiked pants over hips.) Pt doffed socks by self, SBA for safety. Shoes modified to slip on shoes instead of tie shoes. Other Treatment Pt brushed hair utilizing L UE independently. Co-treat began with PT working on dynamic standing balance and ambulation on parallel bars. Pt working on weight bearing through the LEs, UEs, and postural alignment in standing for continued independence with functional tasks. Introduced platform FWW during ambulation with assist x2, see PT note for assistance level. Utilized mirror in front of pt in standing as a visual cue to aid in standing functional task. Ended session with pt in PT care. All needs met. Education OT Patient Education: Correct positioning, Modified ADL techniques, Use of adapted equipment Teaching Recipient: Patient Teaching Methods: Demonstration, Discussion Response to Teaching: Verbalize Understanding, Return Demonstration Educated pt on modified one-handed technique while donning socks, modified techniques in regard to donning shoes, and postural techniques when utilizing a FWW with platform on R UE. Pt demonstrated understanding of information. OT Short Term Goals Short Term Goals Time Frame: Oct 28, 2022 Eatin Oral hygiene: 4 Toileting hygiene: 3 Shower/bathe self: 3 Upper body dressin Lower body dressin Putting on/taking off footwear: 3 OT Breaker Tender Goals Half-Way Goals Time Frame: Nov 11, 2022 Disorganized thinkin Altered level of consciousness: 0 Eating (QC): 5 (Set up) Oral Hygiene (QC): 5 (Set up) Toileting Hygiene (QC): 4 (CGA/supervision) Shower/Bathe Self (QC): 4 (CGA/supervision) Upper Body Dressing (QC): 5 (Set up) Lower Body Dressing (QC): 4 (CGA/supervision) On/Off Footwear (QC): 4 (CGA/supervision) Additional Goals: 1-Demonstrate ADL Tasks, 2-Verbalize Understanding, 3- ImproveStrength/Shira 1=Demonstrate adherence to instructed precautions during ADL tasks. 2=Patient will verbalize/demonstrate understanding of assistive devices/jaiden fications for ADL. 3=Patient will improve strength/tolerance for activity to enable patient to perform ADL's. OT Education/Plan Problem List/Assessment Assessment: Decreased Activ Tolerance, Decreased Safety Aware, Decreased UE Strength, Impaired Coordination, Impaired Funct Balance, Impaired Self-Care Skills, Restricted Funct UE ROM Discharge Recommendations Plan/Recommendations: Continue POC Treatment Plan/Plan of Care Patient would benefit from OT for education, treatment and training to promote independence in ADL's, mobility, safety and/or upper extremity function for ADL's. Plan of Care: ADL Retraining, Caregiver Training, Functional Mobility, Group Exercise/Act as Ind, UE Funct Exercise/Act Treatment Duration: Nov 11, 2022 Frequency: At least 5 of 7 days/Wk (IRF) Estimated Hrs Per Day: 1.5 hours per day Agreement: Yes Rehab Potential: Fair Time Start Time: 07:15 Stop Time: 08:30 DATE: Oct 24, 2022 Total Time Billed (hr/min): 75 Billed Treatment Time 1 visit-ADL 2 (30 min) NM 3 (45 min) co-treat with PT [id number], individual [phone] ERICA RICE Oct 24, 2022 08:50
[2022-10-24] MEDS: ASPIRIN 325 MG TABLET PO SCH (09:19)
[2022-10-24] MEDS: FOLIC ACID 1 MG TAB PO SCH (09:19)
[2022-10-24] MEDS: buPROPion SR 150 MG TABLET PO SCH ×2 (09:19→19:34)
[2022-10-24] MEDS: NICOTINE 21 MG PATCH TD SCH (09:19)
[2022-10-24] MEDS: amLODIPine 5 MG TABLET PO SCH (09:19)
[2022-10-24] MEDS: CLOPIDOGREL 75 MG TABLET PO SCH (09:19)
[2022-10-24] MEDS: DOCUSATE SODIUM 100 MG CAPSULE PO SCH ×2 (09:20→19:14)
[2022-10-24] MEDS: LOSARTAN 50 MG TABLET PO SCH ×2 (09:20→19:34)
[2022-10-24] MEDS: SENNOSIDES 8.6 MG TABLET PO SCH ×2 (09:20→19:14)
[2022-10-24] MEDS: NICOTINE PATCH REMOVAL TP SCH (09:20)
--- NOTE | 2022-10-24 11:04 | Physical Therapy Daily Note ---
PT Daily Note-Current Subjective Pt was finishing up brushing her teeth with OT, upon arrival. Pt reports she is doing well and is agreeable to treatment. Denies pain. Co-tx with OT (08:00- 08:30), skills of 2 clinicians required to decrease fall risk, increase functional mobility, and dynamic standing balance. PT focusing on transfers, a mbulation, dynamic standing balance, and overall strengthening of the LEs. OT focusing on ADLs, AROM of the UEs, overall strengthening of UEs, postural alignment in standing/sitting, and functional movement for continued independence with functional tasks. Pain Numeric Pain Scale: 0-No Pain Location: No Pain Reported Section J - Health Conditions 1. Rarely or not at all 2. Occasionally 3. Frequently 4. Almost constantly 8. Unable to answer Pain Effect on Sleep: 1 Pain Interference with Therapy: 1 Pain Interference w/Day-to-Day: 1 Mental Status Attachments: IV Transfers SCALE: Activities may be completed with or without assistive devices. 2-Mztqaznqeo-xvlzdwz completes the activity by him/herself with no assistance from a helper. 5-Set-up or Clean-up Assistance-helper sets up or cleans up; patient completes activity. [place] assists only prior to or following the activity. 4-Supervision or Touching Assistance-helper provides verbal cues and/or touching/steadying and/or contact guard assistance as patient completes activity. Assistance may be provided throughout the activity or intermittently. 3-Partial/Moderate Assistance-helper does LESS THAN HALF the effort. [place] lift s, holds or supports trunk or limbs, but provides less than half the effort. 2-Substantial/Maximal Assistance-helper does MORE THAN HALF the effort. [place] lifts or holds trunk or limbs and provides more than half the effort. 3-Eeajgswkw-zjjrsm does ALL the effort. Patient does none of the effort to complete the activity. Or, the assistance of 2 or more helpers is required for the patient to complete the activity. If activity was not attempted, code reason: 7-Patient Refused. 9-Not Applicable-not attempted and the patient did not perform the activity before the current illness, exacerbation or injury. 10-Not Attempted due to Environmental Limitations-(lack of equipment, weather restraints, etc.). 88-Not Attempted due to Medical Conditions or Safety Concerns. Sit to Stand (QC): 3 Weight Bearing Right Lower Extremity: Right Full Weight Bearing Left Lower Extremity: Left Full Weight Bearing Gait Training Does the Patient Walk?: Yes Distance: 5ft Gait Assistive Device: Walker Platform Wheelchair Training Does the Pt Use a Wheelchair?: Yes Wheel 50 ft with 2 turns (QC): 4 Wheel 150 ft (QC): 4 Type of Wheelchair: Manual Treatments Working on dynamic standing balance and ambulation on parallel bars. Pt completed sit to stand transfers in the // bars x 2 with SBA/CGA. Pt ambulated 5ft x 2 in the // bars with Min A x 2 for R UE and LE. Introduced platform FWW during ambulation. Pt completed sit to stand transfers from the w/c with the FWW with Min A x 2. Pt ambulated ~5ft x 2 with the platform FWW and Max A/Mod A x 2. Utilized mirror in front of pt in standing as a visual cue to aid in standing functional task and proper alignment. NMES applied to R tibialis anterior muscle x 10 min with 10:10, 35Hz, and 70mA. NMES applied to R wrist flexors x 10 min with 10:10, 35Hz, and 20mA. Pt tolerated well and showed improved muscle activation with R UE and LE. Pt completed seated B LE Ther Ex x 15 reps each with the red Tband. Pt completed seated balloon toss and cone stacking to improve core strength and pts seated balance and safety. Pt completed w/c mobility x 175ft with SBA. Pt sitting up in the w/c upon completion of PT, with call light in reach and all needs met. Assessment Current Status: Good Progress Pt tolerated PT well with good effort PT Fdc Goals Fdc Goals PT Fdc Goals Time Frame: Nov 04, 2022 Roll Left & Right (QC): 4 (SBA for bed mobility ) Sit to Lying (QC): 4 (SBA for bed mobility ) Lying-Sitting on Side/Bed(QC): 4 (SBA for bed mobility ) Sit to Stand (QC): 3 (Min A for transfers ) Chair/Sbt-cc-Exwfm Xfer(QC): 3 (Min A for transfers ) Toilet Transfer (QC): 3 (Min A for transfers ) Car Transfer (QC): 3 (Min A for transfers ) Does the Patient Walk: Yes Walk 10 feet (QC): 3 (Min A for short distances ) Walk 50ft with 2 Turns (QC): 88 (Balance ) Walk 150 ft (QC): 88 (Balance ) Walking 10ft on Uneven Surface: 88 (Balance ) 1 Step (curb) (QC): 88 (Balance ) 4 Steps (QC): 88 (Balance ) 12 Steps (QC): 88 (Balance ) Picking up an Object (QC): 88 (Balance ) Does the Pt use WC or Scooter?: Yes Wheel 50 feet with 2 turns (QC: 3 (Min A for w/c mobility ) Type: Manual Wheel 150 feet: 3 (Min A for w/c mobility ) Type: Manual PT Plan Problem List Problem List: Activity Tolerance, Functional Strength, Safety, Balance, Gait, Transfer, Bed Mobility, ROM Treatment/Plan Treatment Plan: Continue Plan of Care Treatment Plan: Bed Mobility, Concurrent Therapy, Education, Functional Activity Shira, Functional Strength, Group Therapy, Gait, Safety, Therapeutic Exercise, Transfers Treatment Duration: Nov 04, 2022 Frequency: At least 5 of 7 days/Wk (IRF) Estimated Hrs Per Day: 2 hours per day Patient and/or Family Agrees t: Yes Safety Risks/Education Patient Education: Gait Training, Transfer Techniques, Correct Positioning, W/C Management, Safety Issues Teaching Recipient: Patient Teaching Methods: Demonstration, Discussion Response to Teaching: Verbalize Understanding, Return Demonstration, Reinforcement Needed Discharge Recommendations Therapy Discharge Recommendati: Home & Family Equpiment Recommendations-D/C: 3 in 1 Commode, Wheelchair Cushion, Front Wheeled Walker, Lift Chair, Wheelchair Ramp, Railings, Shower Chair, Manual Wheelchair Discharge Status/Home Program Cont per POC Barriers to Progress R sided weakness Target Placement Home with family Time Time In: 800 Time Out: 915 DATE: Oct 24, 2022 Total Billed Treatment Time: 75 Total Billed Treatment 75 min total from [id number]; Co-tx for 30 min from [id number] 1 visit FA x 1 GT x 2 EX x 2 KANDI PRADO PT Oct 24, 2022 11:04
--- NOTE | 2022-10-24 11:45 | Speech Therapy Daily Note ---
Speech Daily Progress Note Subjective Date Seen by Provider: Oct 24, 2022 Time Seen by Provider: 09:30 The patient was seated upright in her wheelchair, awake and alert, upon entrance to her room by the clinician. The patient greeted the clinician appropriately and was agreeable to participation in the skilled speech and language therapy session. Objective The patient continues to make daily progress and remains an excellent candidate for continued skilled speech pathology services. The patient independently greets the clinician upon entrance to her room on this date and did not display hesitation to her greeting or a paraphasic error. Confrontational Naming: The patient was able to complete confrontational naming of previously practiced items and new items, independently. Intermittent paraphasic errors were displayed with consistent self-awareness and correction of errors. This is the first day the patient has been able to complete confrontational naming without text or direct modeling. The patient is able to complete functional phrases on this date. The patient was able to state, "I am from [place]. I go to the [employer]. 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 Assessment Assessment Current Status: Good Progress Treatment Plan Continue Plan of Care Speech Short Term Goals Short Term Goals Short Term Goals 1. The patient will complete oral motor exercises with 75% accuracy and moderate clinician verbal and visual cueing. 2. The patient will communicate yes and no response (simple) with 50% accuracy and moderate clinician verbal and visual cueing. Time Frame-STG: Ten Days. Speech Correction Goals Correction Goals 1. The patient will demonstrate improved functional communication for increased safety with discharge to the least restrictive environment. Time Frame: Four Weeks. Speech-Plan Treatment Plan Speech Therapy Treatment Plan: Continue Plan of Care Treatment Duration: Nov 05, 2022 Frequency: Modified Program (IRF) Estimated Hrs Per Day: .5 hour per day Rehab Potential: Fair Safety Risks/Education Teaching Recipient: Patient Teaching Methods: Demonstration, Handout, Discussion Response to Teaching: Return Demonstration, Reinforcement Needed Education Topics Provided: Functional Phrases Time Speech Therapy Time In: 09:30 Speech Therapy Time Out: 10:00 DATE: Oct 24, 2022 Total Billed Time: 30 Billed Treatment Time NICO Her [facility]IZ[facility] ST Oct 24, 2022 11:44
[2022-10-24 19:32] VITALS: BP 189/75
[2022-10-24] MEDS: ENOXAPARIN 40 MG/0.4 ML SYRINGE SC SCH (19:34)
--- NOTE | 2022-10-25 05:25 | PM&R Progress Note ---
Subjective HPI/CC On Admission Date Seen by Provider: Oct 25, 2022 Time Seen by Provider: 13:00 Subjective/Events-last exam 10/25/2022: Patient doing better No falls No pain Voiding well 10/24/2022: Patient doing really well Voiding now Increased Urecholine to 25 mg before meals and at bedtime 10/23/2022: Patient doing well Discontinued catheter and when we were preparing for Valencia reinsertion she voided We will increase Urecholine In and out catheter will be required instead of indwelling Valencia now 10/22/2022: No major issues Family training today DC catheter tomorrow morning to see if she retains No pain reported 10/21/2022: Much improved status Slow recovery Aphasia slow to resolve In-dwelling catheter maintained Urecholine started several days ago and may DC catheter this week to see if she retains 10/20/2022: BP elevated Flaccidity remains right sided Valencia cath in place, started Urecholine to see if we can regain emptying bladder capability BM 10/1910/19/2022: 2 person assist Stools normal Valencia cath in place Leans right No falls 10/18/2022: Doing well Able to lift her right leg Able to read out loud without much dysarthria Sister at bedside 10/17/2022: About the same No falls Valencia catheter remains No pain reported 10/16/2022: Patient about the same Started Wellbutrin to help smoking cessation and depression Nicotine patch will also be placed No major problems 10/15/2022: Patient having more difficulty speaking and now almost completely aphasic Maintained on Plavix and aspirin Appreciate cardiology Tried to encourage and reassure the patient Patient becomes tearful Review of Systems General: Fatigue, Malaise Objective Exam Vital Signs Vital Signs Date Time Temp Pulse Resp B/P (MAP) Pulse Ox O2 Delivery O2 Flow Rate FiO2 10/25/22 09:00 Room Air 10/25/22 08:00 35.4 81 16 179/74 (109) 95 10/21/22 19:40 21 10/20/22 10:46 0.00 Capillary Refill : General Appearance: No Apparent Distress, WD/WN, Anxious, Chronically ill, Thin HEENT: PERRL/EOMI, Normal ENT Inspection, Pharynx Normal Neck: Full Range of Motion, Normal Inspection, Non Tender, Supple, Carotid Bruit Respiratory: Chest Non Tender, Lungs Clear, Normal Breath Sounds, No Accessory Muscle Use, No Respiratory Distress Cardiovascular: Regular Rate, Rhythm, No Edema, No Gallop, No JVD, No Murmur, Normal Peripheral Pulses Gastrointestinal: Normal Bowel Sounds, No Organomegaly, No Pulsatile Mass, Non Tender, Soft Back: Normal Inspection, No CVA Tenderness, No Vertebral Tenderness Extremity: Normal Capillary Refill, Normal Inspection, Normal Range of Motion, Non Tender, No Calf Tenderness, No Pedal Edema Neurologic/Psychiatric: Alert, Oriented x3, Abnormal shop service technician II-XII, Abnormal Gait, Aphasia, Depressed Affect, Facial Droop (right), Motor Weakness (right sided 0/5) Skin: Normal Color, Warm/Dry Lymphatic: No Adenopathy Results/Procedures Lab Patient resulted labs reviewed. FIM Transfers Therapy Code Descriptions/Definitions Functional [place] Measure: 0=Not Assessed/NA 4=Minimal Assistance 1=Total Assistance 5=Supervision or Setup 2=Maximal Assistance 6=Modified [place] 3=Moderate Assistance 7=Complete IndependenceSCALE: Activities may be completed with or without assistive devices. 0-Tvwknchlcp-umzmzih completes the activity by him/herself with no assistance from a helper. 5-Set-up or Clean-up Assistance-helper sets up or cleans up; patient completes activity. [place] assists only prior to or following the activity. 4-Supervision or Touching Assistance-helper provides verbal cues and/or touching/steadying and/or contact guard assistance as patient completes activity. Assistance may be provided throughout the activity or intermittently. 3-Partial/Moderate Assistance-helper does LESS THAN HALF the effort. [place] lifts, holds or supports trunk or limbs, but provides less than half the effort. 2-Substantial/Maximal Assistance-helper does MORE THAN HALF the effort. [place] lifts or holds trunk or limbs and provides more than half the effort. 3-Injjkvbfo-kaybgb does ALL the effort. Patient does none of the effort to complete the activity. Or, the assistance of 2 or more helpers is required for the patient to complete the activity. If activity was not attempted, code reason: 7-Patient Refused. 9-Not Applicable-not attempted and the patient did not perform the activity before the current illness, exacerbation or injury. 10-Not Attempted due to Environmental Limitations-(lack of equipment, weather restraints, etc.). 88-Not Attempted due to Medical Conditions or Safety Concerns. Roll Left to Right (QC): 3 (Mod A) Sit to Lying (QC): 3 (Mod A) Sit to Stand (QC): 3 Chair/Zgu-xb-Vkwpg Xfer(QC): 3 Car Transfer (QC): 88 (balance ) Gait Training Does the Patient Walk?: Yes Distance: 5ft Walk 10 feet (QC): 88 Walk 50 ft with 2 Turns(QC): 88 Walk 150 ft (QC): 88 Walking 10ft/uneven surface-QC: 88 Gait Persons Needed: 3 Gait Assistive Device: Walker Platform Wheelchair Training Does the Pt Use a Wheelchair?: Yes Wheel 50 ft with 2 turns (QC): 4 Wheel 150 ft (QC): 4 Type of Wheelchair: Manual Stair Training 1 Step (curb) (QC): 88 (balance ) 4 Steps (QC): 88 (balance ) 12 Steps (QC): 88 (balance ) Balance Picking up an Object (QC): 88 (balance ) ADL-Treatment Eating (QC): 5 (Pt initiated opening containers but needed to ask for assistance from OTAS to open containers fully. Utilized utensils properly.) Shower/Bathe Self (QC): 2 (Mod A) Upper Body Dressing (QC): 3 (Pt required assistance from OTAS to doff shirt over head. Verbal cues and positioning of shirt, pt donned with SBA. ) Lower Body Dressing (QC): 3 (Pt able to thread lower body clothing over feet using figure 4 technique with SBA then min A in standing while pt hiked pants over hips.) Toileting Hygiene (QC): 2 (mod A) Toilet Transfer (QC): 3 (min A to mod A) Assessment/Plan Assessment and Plan Assess & Plan/Chief Complaint Assessment: Catastrophic CVA with right sided flaccidity-CT angiogram matches carotid ultrasound revealing left carotid internal and external complete occlusion causing catastrophic ischemic infarct of the left parietal and MCA region no surgical option available per vascular surgery at [place] Dysarthria and expressive aphasia HTN emergency placed on Cardene drip now on Hydralazine IV Smoker Alcohol excess user placed on CIWA Urinary retention requiring replacement of valencia catheter 10/14/22 but DC 10/23 a nd was able to void so increasing Urecholine and adding in out cathBut now voiding without difficulty on 10/24/2022 Plan: PT OT ST for expressive aphasia CIWA Vitamin supplementation to prevent Wernicke's encephalopathy and Karsokoff's psychosis Lovenox for DVT PPx Cardiology consult ASA and Plavix 10/15/2022: Continue supportive care 10/16/2022: Monitor closely 10/17/2022: Monitor closely Losartan 10/18/2022: Monitor closely 10/19/2022: Improved Start Urecholine 10/20/2022: Trial of DC catheter this week again 10/21/2022: Monitor closely Urecholine 10/22/2022: DC catheter tomorrow 10/23/2022: Voiding is improved Increase Urecholine 10/24/2022: Successful discontinuation of catheter 10/25/2022: Supportive care Monitor voiding (1) CVA (cerebral vascular accident) JM CALLEJAS DO Oct 25, 2022 05:25
[2022-10-25] MEDS: POTASSIUM CHLORIDE 10 MEQ TABLET PO SCH (06:17)
[2022-10-25] MEDS: THERAPEUTIC MULTIVITAMIN W/MINERALS TABLET PO SCH (06:17)
[2022-10-25] MEDS: THIAMINE 100 MG (VITAMIN B-1) TAB PO SCH (06:17)
[2022-10-25] MEDS: BETHANECHOL 25 MG TABLET PO SCH ×4 (06:17→21:22)
[2022-10-25 08:00] VITALS: BP 179/74
[2022-10-25] MEDS: ASPIRIN 325 MG TABLET PO SCH (08:51)
[2022-10-25] MEDS: amLODIPine 10 MG TABLET PO SCH (08:51)
[2022-10-25] MEDS: CLOPIDOGREL 75 MG TABLET PO SCH (08:51)
[2022-10-25] MEDS: LOSARTAN 50 MG TABLET PO SCH ×2 (08:51→21:22)
[2022-10-25] MEDS: buPROPion SR 150 MG TABLET PO SCH ×2 (08:51→21:22)
[2022-10-25] MEDS: FOLIC ACID 1 MG TAB PO SCH (08:51)
[2022-10-25] MEDS: NICOTINE 21 MG PATCH TD SCH (08:52)
[2022-10-25] MEDS: NICOTINE PATCH REMOVAL TP SCH (08:52)
--- NOTE | 2022-10-25 09:05 | Occupational Ther Daily Note ---
OT Current Status-Daily Note Subjective Pt alert, sitting in recliner. Pt agrees to therapy and has no c/o of pain. CoTx with PT (08:00-0900), skills of 2 clinicians required to decrease fall risk, ambulation utilizing FWW with platform requiring x3 person assist, and postural alignment/strength in standing. PT focus on transfers, ambulation, LE str engthening, and increased activity tolerance for functional tasks. OT focus on ADLs, AAROM in B UEs, weight bearing, overall strengthening of UEs, and neuromuscular re-education. Mental Status/Objective Patient Orientation: Person, Non-Verbal/Aphasic (able to make needs and wants know 50%-75% of the time), Situation Attachments: Telemetry ADL-Treatment Therapy Code Descriptions/Definitions Functional [place] Measure: 0=Not Assessed/NA 4=Minimal Assistance 1=Total Assistance 5=Supervision or Setup 2=Maximal Assistance 6=Modified [place] 3=Moderate Assistance 7=Complete IndependenceSCALE: Activities may be completed with or without assistive devices. 2-Sndtbadvtc-bgqroin completes the activity by him/herself with no assistance from a helper. 5-Set-up or Clean-up Assistance-helper sets up or cleans up; patient completes activity. [place] assists only prior to or following the activity. 4-Supervision or Touching Assistance-helper provides verbal cues and/or t ouching/steadying and/or contact guard assistance as patient completes activity. Assistance may be provided throughout the activity or intermittently. 3-Partial/Moderate Assistance-helper does LESS THAN HALF the effort. [place] lifts, holds or supports trunk or limbs, but provides less than half the effort. 2-Substantial/Maximal Assistance-helper does MORE THAN HALF the effort. [place] lifts or holds trunk or limbs and provides more than half the effort. 9-Ypudvfppw-foqnlc does ALL the effort. Patient does none of the effort to complete the activity. Or, the assistance of 2 or more helpers is required for the patient to complete the activity. If activity was not attempted, code reason: 7-Patient Refused. 9-Not Applicable-not attempted and the patient did not perform the activity before the current illness, exacerbation or injury. 10-Not Attempted due to Environmental Limitations-(lack of equipment, weather restraints, etc.). 88-Not Attempted due to Medical Conditions or Safety Concerns. Oral Hygiene (QC): 6 (Independent sitting at sink.) Bathing Location: L Arm, R Arm, L Upper Leg, R Upper Leg, L Lower Leg (including foot), R Lower Leg (including foot), Chest, Abdomen, Buttocks, Perineal Area Shower/Bathe Self (QC): 4 (Pt able to wash all areas of the body with set up and SBA for safety. Sitting on BSC 100% of the time for shower.) Upper Body Dressing (QC): 4 (Pt able to don/doff shirt, SBA. Positioning shirt and verbal cues.) Lower Body Dressing (QC): 3 (Mod A. Pt displayed difficullty threading brief/pants through feet and needed assistance. Pt required to hike pants over hips. ) On/Off Footwear: 2 (Assist to don socks/pt doffed socks. Pt donned L shoe and asssit with R shoe.) Pt demonstrating shldr abd/add with internal/external rotation spontaneously during functional tasks. Other Treatment Pt propelled in w/c to gym with SBA. Pt working on ambulation in parallel bars with PT/OT. Pt working on weight bearing through R UE, postural alignment/strength, and dynamic standing balance for continued independence with functional tasks. Pt utilized FWW with platform on R UE during ambulation with x3 person assist POLISHER BALANCE SCREWHEAD, OTAS assisting on each side 3rd person assist with w/c. Mirror placed in front of pt as a visual cue due to leaning toward her R side to encourage postural alignment while in standing/ambulation. E-stim placed on pt R forearm in sitting position for neuromuscular re-education while PT worked on overall LE strengthening. After session, pt sitting recliner with call lig ht/phone in reach. All needs met. Education OT Patient Education: Correct positioning, Modified ADL techniques Teaching Recipient: Patient Teaching Methods: Demonstration, Discussion Response to Teaching: Verbalize Understanding, Return Demonstration Pt educated on modified techniques with LB dressing. Pt demonstrated understanding of skilled instruction. OT Short Term Goals Short Term Goals Time Frame: Oct 28, 2022 Eatin Oral hygiene: 4 Toileting hygiene: 3 Shower/bathe self: 3 Upper body dressin Lower body dressin Putting on/taking off footwear: 3 OT Flour Inspector Goals Flour Inspector Goals Time Frame: Nov 11, 2022 Disorganized thinkin Altered level of consciousness: 0 Eating (QC): 5 (Set up) Oral Hygiene (QC): 5 (Set up) Toileting Hygiene (QC): 4 (CGA/supervision) Shower/Bathe Self (QC): 4 (CGA/supervision) Upper Body Dressing (QC): 5 (Set up) Lower Body Dressing (QC): 4 (CGA/supervision) On/Off Footwear (QC): 4 (CGA/supervision) Additional Goals: 1-Demonstrate ADL Tasks, 2-Verbalize Understanding, 3- ImproveStrength/Shira 1=Demonstrate adherence to instructed precautions during ADL tasks. 2=Patient will verbalize/demonstrate understanding of assistive devices/modifications for ADL. 3=Patient will improve strength/tolerance for activity to enable patient to perform ADL's. OT Education/Plan Problem List/Assessment Assessment: Decreased Activ Tolerance, Decreased UE Strength, Dependent Transfers, Impaired Funct Balance, Impaired Self-Care Skills Discharge Recommendations Plan/Recommendations: Continue POC Treatment Plan/Plan of Care Patient would benefit from OT for education, treatment and training to promote independence in ADL's, mobility, safety and/or upper extremity function for ADL's. Plan of Care: ADL Retraining, Caregiver Training, Functional Mobility, Group Exercise/Act as Ind, UE Funct Exercise/Act Treatment Duration: Nov 11, 2022 Frequency: At least 5 of 7 days/Wk (IRF) Estimated Hrs Per Day: 1.5 hours per day Agreement: Yes Rehab Potential: Fair Time Start Time: 07:30 Stop Time: 09:00 DATE: Oct 25, 2022 Total Time Billed (hr/min): 90 Billed Treatment Time 1 visit- ADL 4 (60 min) NM 2 (30 min) co-treat with PT [id number], individual [phone] ERICA RICE Oct 25, 2022 09:05
--- NOTE | 2022-10-25 10:43 | Cardiology Progress Note ---
Subjective Date Seen by Provider: Oct 25, 2022 Time Seen by Provider: 10:42 Subjective/Events-last exam Patient was seen at bedside sitting comfortably, no new complaint. Objective-Cardiology Exam Last Set of Vital Signs Vital Signs 10/20/22 10/21/22 10/25/22 10:46 19:40 08:00 Temp 35.4 Pulse 81 Resp 16 B/P (MAP) 179/74 (109) Pulse Ox 95 O2 Delivery Room Air O2 Flow Rate 0.00 FiO2 21 I&O Intake and Output 10/25/22 00:00 Intake Total 1700 ml Output Total 1950 ml Balance -250 ml Intake Oral 1700 ml Output Urine Total 1950 ml # Bowel Movements 2 General: Alert, Oriented X3, Cooperative HEENT: Atraumatic, PERRLA Neck: Supple, No JVD, No Thyromegaly Lungs: Clear to Auscultation, Normal Air Movement Heart: Regular Rate Abdomen: Normal Bowel Sounds, Soft Extremities: No Edema Skin: No Rashes, No Significant Lesion Neuro: Other (right sided weakness, expressive aphasia) Psych/Mental Status: Mental Status NL, Mood NL A/P-Cardiology Admission Diagnosis CVA Carotid artery stenosis HTN HLP Assessment/Plan Acute stroke due to left carotid occlusion, right sided weakness and aphasia. Maintained on ASA and Plavix. Continue with PT/OT Patient was deemed inoperable by [place] surgery, currently managed by primary care team Carotid artery stenosis, carotid duplex done 10/12/22 showing complete occlusion of the left carotid system including both the internal and external carotid arteries. The right carotid artery appeared to have some plaques with mild disease, nonobstructive disease. Hypertension, having episodes of elevated blood pressure Still having difficulty achieving adequate blood pressure control Maintained on losartan 50 mg twice daily I will increase amlodipine to 10 mg daily and monitor tolerance Hyperlipidemia, started on Lipitor 80 mg daily Continue to monitor Depression, flat affect, consider use of antidepressant. Will defer to medical services. JOSE ANGEL CLEMONS MD Oct 25, 2022 10:43
--- NOTE | 2022-10-25 10:47 | Speech Therapy Daily Note ---
Speech Daily Progress Note Subjective Date Seen by Provider: Oct 25, 2022 Time Seen by Provider: 09:30 The patient was seated upright in her recliner, awake and alert, upon entrance to her room by the clinician. The patient greeted the clinician verbally, "Hi" and responded to the clinician's question with "I'm fine." The patient was agreeable to participation in the skilled speech and language treatment session on this date. Objective The patient completed all single word functional flash cards with 100% accuracy and one word-finding strategy of additional time. No direct modeling was provided on this date. The patient has met this goal. The patient displayed increased difficulty with functional phrases, requiring direct modeling and repetition for increased accuracy. Paraphasia remains present with verbalizations however the patient consistently corrects her errors and continues self-corrections until accuracy is met. The patient continues to display excellent gains through therapy daily. Assessment Assessment Current Status: Good Progress Treatment Plan Continue Plan of Care Speech Short Term Goals Short Term Goals Short Term Goals 1. The patient will complete oral motor exercises with 75% accuracy and moderate clinician verbal and visual cueing. 2. The patient will communicate yes and no response (simple) with 50% accuracy and moderate clinician verbal and visual cueing. Time Frame-STG: Ten Days. Speech Product Evangelist Goals Mcc Goals 1. The patient will demonstrate improved functional communication for increased safety with discharge to the least restrictive environment. Time Frame: Four Weeks. Speech-Plan Treatment Plan Speech Therapy Treatment Plan: Continue Plan of Care Treatment Duration: Nov 05, 2022 Frequency: Modified Program (IRF) Estimated Hrs Per Day: .5 hour per day Rehab Potential: Fair Pt/Family Agrees to Plan: Yes Safety Risks/Education Teaching Recipient: Patient Teaching Methods: Demonstration, Handout, Discussion Response to Teaching: Verbalize Understanding, Return Demonstration, Reinforcement Needed Education Topics Provided: Functional Phrases, Word-Finding Strategies Time Speech Therapy Time In: 09:30 Speech Therapy Time Out: 10:00 DATE: Oct 25, 2022 Total Billed Time: 30 Billed Treatment Time 1N[facility] ST Oct 25, 2022 10:47
--- NOTE | 2022-10-25 11:45 | Physical Therapy Progress Note ---
Therapy Progress Note Pt will require a w/c with cushion and drop arms upon d/c. The pt has a severe mobility limitation that significantly impairs her ability to complete functional mobility or ADLs. Pts mobility limitations can not be helped with a walker or cane. Pt has enough room in the home to utilize the w/c. Pt can safely use the w/c Pt will also require the w/c cushion to help with proper positioning in the w/c to improve posture and decrease skin breakdown. KANDI PRADO PT Oct 25, 2022 11:45
--- NOTE | 2022-10-25 12:38 | Physical Therapy Daily Note ---
PT Daily Note-Current Subjective Pt found seated in wheelchair /c OT present upon entry. Agreed to PT/OT treatment. PT/OT co-treat for safety due to strength and balance deficits. PT focus on LE strength and transfers. OT focus on UE strength and ADLs. Pt reports BLE soreness pre-treatment. Pain Section J - Health Conditions 1. Rarely or not at all 2. Occasionally 3. Frequently 4. Almost constantly 8. Unable to answer Pain Effect on Sleep: 1 Pain Interference with Therapy: 1 Pain Interference w/Day-to-Day: 1 Mental Status Patient Orientation: Person Transfers SCALE: Activities may be completed with or without assistive devices. 4-Uegkeswhsh-ojbqdjz completes the activity by him/herself with no assistance from a helper. 5-Set-up or Clean-up Assistance-helper sets up or cleans up; patient completes activity. [place] assists only prior to or following the activity. 4-Supervision or Touching Assistance-helper provides verbal cues and/or touching/steadying and/or contact guard assistance as patient completes activity. Assistance may be provided throughout the activity or intermittently. 3-Partial/Moderate Assistance-helper does LESS THAN HALF the effort. [place] lifts, holds or supports trunk or limbs, but provides less than half the effort. 2-Substantial/Maximal Assistance-helper does MORE THAN HALF the effort. [place] lifts or holds trunk or limbs and provides more than half the effort. 8-Cgdpnjuvc-aljyql does ALL the effort. Patient does none of the effort to complete the activity. Or, the assistance of 2 or more helpers is required for the patient to complete the activity. If activity was not attempted, code reason: 7-Patient Refused. 9-Not Applicable-not attempted and the patient did not perform the activity before the current illness, exacerbation or injury. 10-Not Attempted due to Environmental Limitations-(lack of equipment, weather restraints, etc.). 88-Not Attempted due to Medical Conditions or Safety Concerns. Sit to Stand (QC): 3 Chair/Dsq-nn-Orlmk Xfer(QC): 3 Pt MIN lifting assist /c sit to stand and wheelchair to chair transfer. Weight Bearing Right Lower Extremity: Right Full Weight Bearing Left Lower Extremity: Left Full Weight Bearing Gait Training Does the Patient Walk?: Yes Distance: 5 feet x 4, 15 feet x 2 Gait Assistive Device: Walker Platform Pt ambulated 5 feet x 2 at //, 5 feet x 2 then 15 feet x 2 /c use of platform walker. Treatments Seated Therapeutic Exercises (B) x 10 ea: - LAQs - Marching - Quad pushes on AirEx - Hip abd /c RTB - Hamstring curls /c RTB - Heel/toe raises Assessment Current Status: Good Progress Pt displays good tolerance to all therapeutic activities. Demonstrates very limited anterior tibialis activation on R side during gait training and heel/toe raise exercise. Pt ambulates up to 15 feet /c use of platform walker before requiring a seated rest break. Short seated rest breaks required to complete gait training. Performs sit to stand and wheelchair to chair transfer /c MIN assist. Continue to progress per POC. PT Halfway Goals Pull Up Hand Goals PT Halfway Goals Time Frame: Nov 04, 2022 Roll Left & Right (QC): 4 (SBA for bed mobility ) Sit to Lying (QC): 4 (SBA for bed mobility ) Lying-Sitting on Side/Bed(QC): 4 (SBA for bed mobility ) Sit to Stand (QC): 3 (Min A for transfers ) Chair/Umu-xp-Dukhs Xfer(QC): 3 (Min A for transfers ) Toilet Transfer (QC): 3 (Min A for transfers ) Car Transfer (QC): 3 (Min A for transfers ) Does the Patient Walk: Yes Walk 10 feet (QC): 3 (Min A for short distances ) Walk 50ft with 2 Turns (QC): 88 (Balance ) Walk 150 ft (QC): 88 (Balance ) Walking 10ft on Uneven Surface: 88 (Balance ) 1 Step (curb) (QC): 88 (Balance ) 4 Steps (QC): 88 (Balance ) 12 Steps (QC): 88 (Balance ) Picking up an Object (QC): 88 (Balance ) Does the Pt use WC or Scooter?: Yes Wheel 50 feet with 2 turns (QC: 3 (Min A for w/c mobility ) Type: Manual Wheel 150 feet: 3 (Min A for w/c mobility ) Type: Manual PT Plan Treatment/Plan Treatment Plan: Continue Plan of Care Treatment Plan: Bed Mobility, Concurrent Therapy, Education, Functional Activity Shira, Functional Strength, Group Therapy, Gait, Safety, Therapeutic Exercise, Transfers Treatment Duration: Nov 04, 2022 Frequency: At least 5 of 7 days/Wk (IRF) Estimated Hrs Per Day: 2 hours per day Patient and/or Family Agrees t: Yes Time Time In: 0800 Time Out: 0900 DATE: Oct 25, 2022 Total Billed Treatment Time: 60 Total Billed Treatment 1 visit GT x 2 FA x 1 EX x 1 OLMAN REZA PTA Oct 25, 2022 12:38
[2022-10-25] MEDS: SENNOSIDES 8.6 MG TABLET PO SCH ×2 (14:40→19:53)
[2022-10-25] MEDS: DOCUSATE SODIUM 100 MG CAPSULE PO SCH ×2 (14:40→19:52)
[2022-10-25 20:55] VITALS: BP 162/72
[2022-10-25] MEDS: ENOXAPARIN 40 MG/0.4 ML SYRINGE SC SCH (21:22)
--- NOTE | 2022-10-26 06:29 | PM&R Progress Note ---
Subjective HPI/CC On Admission Date Seen by Provider: Oct 26, 2022 Time Seen by Provider: 12:00 Subjective/Events-last exam 10/26/2022: Patient dramatically improving Urinary retention yesterday but none today If that continues we will need to check her for a UTI 10/25/2022: Patient doing better No falls No pain Voiding well 10/24/2022: Patient doing really well Voiding now Increased Urecholine to 25 mg before meals and at bedtime 10/23/2022: Patient doing well Discontinued catheter and when we were preparing for Valencia reinsertion she voided We will increase Urecholine In and out catheter will be required instead of indwelling Valencia now 10/22/2022: No major issues Family training today DC catheter tomorrow morning to see if she retains No pain reported 10/21/2022: Much improved status Slow recovery Aphasia slow to resolve In-dwelling catheter maintained Urecholine started several days ago and may DC catheter this week to see if she retains 10/20/2022: BP elevated Flaccidity remains right sided Valencia cath in place, started Urecholine to see if we can regain emptying bladder capability BM 10/1910/19/2022: 2 person assist Stools normal Valencia cath in place Leans right No falls 10/18/2022: Doing well Able to lift her right leg Able to read out loud without much dysarthria Sister at bedside 10/17/2022: About the same No falls Valencia catheter remains No pain reported 10/16/2022: Patient about the same Started Wellbutrin to help smoking cessation and depression Nicotine patch will also be placed No major problems 10/15/2022: Patient having more difficulty speaking and now almost completely aphasic Maintained on Plavix and aspirin Appreciate cardiology Tried to encourage and reassure the patient Patient becomes tearful Review of Systems General: Fatigue, Malaise Objective Exam Vital Signs Vital Signs Date Time Temp Pulse Resp B/P (MAP) Pulse Ox O2 Delivery O2 Flow Rate FiO2 10/26/22 09:59 Room Air 10/26/22 08:10 36.9 88 16 139/64 (89) 95 10/21/22 19:40 21 10/20/22 10:46 0.00 Capillary Refill : General Appearance: No Apparent Distress, WD/WN, Anxious, Chronically ill, Thin HEENT: PERRL/EOMI, Normal ENT Inspection, Pharynx Normal Neck: Full Range of Motion, Normal Inspection, Non Tender, Supple, Carotid Bruit Respiratory: Chest Non Tender, Lungs Clear, Normal Breath Sounds, No Accessory Muscle Use, No Respiratory Distress Cardiovascular: Regular Rate, Rhythm, No Edema, No Gallop, No JVD, No Murmur, Normal Peripheral Pulses Gastrointestinal: Normal Bowel Sounds, No Organomegaly, No Pulsatile Mass, Non Tender, Soft Back: Normal Inspection, No CVA Tenderness, No Vertebral Tenderness Extremity: Normal Capillary Refill, Normal Inspection, Normal Range of Motion, Non Tender, No Calf Tenderness, No Pedal Edema Neurologic/Psychiatric: Alert, Oriented x3, Abnormal senior analytic consultant II-XII, Abnormal Gait, Aphasia, Depressed Affect, Facial Droop (right), Motor Weakness (right sided 0/5) Skin: Normal Color, Warm/Dry Lymphatic: No Adenopathy Results/Procedures Lab Patient resulted labs reviewed. FIM Transfers Therapy Code Descriptions/Definitions Functional [place] Measure: 0=Not Assessed/NA 4=Minimal Assistance 1=Total Assistance 5=Supervision or Setup 2=Maximal Assistance 6=Modified [place] 3=Moderate Assistance 7=Complete IndependenceSCALE: Activities may be completed with or without assistive devices. 0-Kljrzufghi-cwqdhoz completes the activity by him/herself with no assistance from a helper. 5-Set-up or Clean-up Assistance-helper sets up or cleans up; patient completes activity. [place] assists only prior to or following the activity. 4-Supervision or Touching Assistance-helper provides verbal cues and/or touching/steadying and/or contact guard assistance as patient completes activity. Assistance may be provided throughout the activity or intermittently. 3-Partial/Moderate Assistance-helper does LESS THAN HALF the effort. [place] lifts, holds or supports trunk or limbs, but provides less than half the effort. 2-Substantial/Maximal Assistance-helper does MORE THAN HALF the effort. [place] lifts or holds trunk or limbs and provides more than half the effort. 4-Ybtvdrnlx-rcscbe does ALL the effort. Patient does none of the effort to complete the activity. Or, the assistance of 2 or more helpers is required for the patient to complete the activity. If activity was not attempted, code reason: 7-Patient Refused. 9-Not Applicable-not attempted and the patient did not perform the activity before the current illness, exacerbation or injury. 10-Not Attempted due to Environmental Limitations-(lack of equipment, weather restraints, etc.). 88-Not Attempted due to Medical Conditions or Safety Concerns. Roll Left to Right (QC): 3 (Mod A) Sit to Lying (QC): 3 (Mod A) Sit to Stand (QC): 3 Chair/Oap-is-Qcrle Xfer(QC): 3 Car Transfer (QC): 88 (balance ) Gait Training Does the Patient Walk?: Yes Distance: 5 feet x 4, 15 feet x 2 Walk 10 feet (QC): 88 Walk 50 ft with 2 Turns(QC): 88 Walk 150 ft (QC): 88 Walking 10ft/uneven surface-QC: 88 Gait Persons Needed: 3 Gait Assistive Device: Walker Platform Wheelchair Training Does the Pt Use a Wheelchair?: Yes Wheel 50 ft with 2 turns (QC): 4 Wheel 150 ft (QC): 4 Type of Wheelchair: Manual Stair Training 1 Step (curb) (QC): 88 (balance ) 4 Steps (QC): 88 (balance ) 12 Steps (QC): 88 (balance ) Balance Picking up an Object (QC): 88 (balance ) ADL-Treatment Eating (QC): 5 (Pt initiated opening containers but needed to ask for assistance from OTAS to open containers fully. Utilized utensils properly.) Oral Hygiene (QC): 6 (Independent sitting at sink.) Bathing Location: L Arm, R Arm, L Upper Leg, R Upper Leg, L Lower Leg (including foot), R Lower Leg (including foot), Chest, Abdomen, Buttocks, Perineal Area Shower/Bathe Self (QC): 4 (Pt able to wash all areas of the body with set up a nd SBA for safety. Sitting on BSC 100% of the time for shower.) Upper Body Dressing (QC): 4 (Pt able to don/doff shirt, SBA. Positioning shirt and verbal cues.) Lower Body Dressing (QC): 3 (Mod A. Pt displayed difficullty threading brief/pants through feet and needed assistance. Pt required to hike pants over hips. ) On/Off Footwear (QC): 2 (Assist to don socks/pt doffed socks. Pt donned L shoe and asssit with R shoe.) Toileting Hygiene (QC): 2 (mod A) Toilet Transfer (QC): 3 (min A to mod A) Assessment/Plan Assessment and Plan Assess & Plan/Chief Complaint Assessment: Catastrophic CVA with right sided flaccidity-CT angiogram matches carotid ultrasound revealing left carotid internal and external complete occlusion causing catastrophic ischemic infarct of the left parietal and MCA region no surgical option available per vascular surgery at [facility] Dysarthria and expressive aphasia HTN emergency placed on Cardene drip now on Hydralazine IV Smoker Alcohol excess user placed on CIWA Urinary retention requiring replacement of valencia catheter 10/14/22 but DC 10/23 and was able to void so increasing Urecholine and adding in out cathBut now voiding without difficulty on 10/24/2022 Plan: PT OT ST for expressive aphasia CIWA Vitamin supplementation to prevent Wernicke's encephalopathy and Karsokoff's psychosis Lovenox for DVT PPx Cardiology consult ASA and Plavix 10/15/2022: Continue supportive care 10/16/2022: Monitor closely 10/17/2022: Monitor closely Losartan 10/18/2022: Monitor closely 10/19/2022: Improved Start Urecholine 10/20/2022: Trial of DC catheter this week again 10/21/2022: Monitor closely Urecholine 10/22/2022: DC catheter tomorrow 10/23/2022: Voiding is improved Increase Urecholine 10/24/2022: Successful discontinuation of catheter 10/25/2022: Supportive care Monitor voiding 10/26/2022: Monitor urinary retention May need cath for UA specimen (1) CVA (cerebral vascular accident) JM CALLEJAS DO Oct 26, 2022 06:29
[2022-10-26] MEDS: THIAMINE 100 MG (VITAMIN B-1) TAB PO SCH (06:55)
[2022-10-26] MEDS: THERAPEUTIC MULTIVITAMIN W/MINERALS TABLET PO SCH (06:55)
[2022-10-26] MEDS: POTASSIUM CHLORIDE 10 MEQ TABLET PO SCH (06:55)
[2022-10-26] MEDS: BETHANECHOL 25 MG TABLET PO SCH ×4 (06:55→21:09)
[2022-10-26 08:10] VITALS: BP 139/64
[2022-10-26] MEDS: FOLIC ACID 1 MG TAB PO SCH (08:12)
[2022-10-26] MEDS: ASPIRIN 325 MG TABLET PO SCH (08:12)
[2022-10-26] MEDS: NICOTINE 21 MG PATCH TD SCH (08:12)
[2022-10-26] MEDS: LOSARTAN 50 MG TABLET PO SCH ×2 (08:12→21:09)
[2022-10-26] MEDS: amLODIPine 10 MG TABLET PO SCH (08:12)
[2022-10-26] MEDS: buPROPion SR 150 MG TABLET PO SCH ×2 (08:12→21:09)
[2022-10-26] MEDS: CLOPIDOGREL 75 MG TABLET PO SCH (08:12)
[2022-10-26] MEDS: SENNOSIDES 8.6 MG TABLET PO SCH ×2 (08:15→19:33)
[2022-10-26] MEDS: DOCUSATE SODIUM 100 MG CAPSULE PO SCH ×2 (08:15→19:33)
[2022-10-26] MEDS: NICOTINE PATCH REMOVAL TP SCH (08:15)
[2022-10-26 20:11] VITALS: BP 157/70
[2022-10-26] MEDS: ENOXAPARIN 40 MG/0.4 ML SYRINGE SC SCH (21:09)
--- NOTE | 2022-10-27 06:35 | PM&R Progress Note ---
Subjective HPI/CC On Admission Date Seen by Provider: Oct 27, 2022 Time Seen by Provider: 12:00 Subjective/Events-last exam 10/27/2022: Patient doing really well Denies any new issues No pain No falls 10/26/2022: Patient dramatically improving Urinary retention yesterday but none today If that continues we will need to check her for a UTI 10/25/2022: Patient doing better No falls No pain Voiding well 10/24/2022: Patient doing really well Voiding now Increased Urecholine to 25 mg before meals and at bedtime 10/23/2022: Patient doing well Discontinued catheter and when we were preparing for Valencia reinsertion she voided We will increase Urecholine In and out catheter will be required instead of indwelling Valencia now 10/22/2022: No major issues Family training today DC catheter tomorrow morning to see if she retains No pain reported 10/21/2022: Much improved status Slow recovery Aphasia slow to resolve In-dwelling catheter maintained Urecholine started several days ago and may DC catheter this week to see if she retains 10/20/2022: BP elevated Flaccidity remains right sided Valencia cath in place, started Urecholine to see if we can regain emptying bladder capability BM 10/1910/19/2022: 2 person assist Stools normal Valencia cath in place Leans right No falls 10/18/2022: Doing well Able to lift her right leg Able to read out loud without much dysarthria Sister at bedside 10/17/2022: About the same No falls Valencia catheter remains No pain reported 10/16/2022: Patient about the same Started Wellbutrin to help smoking cessation and depression Nicotine patch will also be placed No major problems 10/15/2022: Patient having more difficulty speaking and now almost completely aphasic Maintained on Plavix and aspirin Appreciate cardiology Tried to encourage and reassure the patient Patient becomes tearful Review of Systems General: Fatigue, Malaise Objective Exam Vital Signs Vital Signs Date Time Temp Pulse Resp B/P (MAP) Pulse Ox O2 Delivery O2 Flow Rate FiO2 10/27/22 09:00 Room Air 10/27/22 07:37 36.8 86 16 132/61 (84) 96 10/21/22 19:40 21 Capillary Refill : General Appearance: No Apparent Distress, WD/WN, Anxious, Chronically ill, Thin HEENT: PERRL/EOMI, Normal ENT Inspection, Pharynx Normal Neck: Full Range of Motion, Normal Inspection, Non Tender, Supple, Carotid Bruit Respiratory: Chest Non Tender, Lungs Clear, Normal Breath Sounds, No Accessory Muscle Use, No Respiratory Distress Cardiovascular: Regular Rate, Rhythm, No Edema, No Gallop, No JVD, No Murmur, N ormal Peripheral Pulses Gastrointestinal: Normal Bowel Sounds, No Organomegaly, No Pulsatile Mass, Non Tender, Soft Back: Normal Inspection, No CVA Tenderness, No Vertebral Tenderness Extremity: Normal Capillary Refill, Normal Inspection, Normal Range of Motion, Non Tender, No Calf Tenderness, No Pedal Edema Neurologic/Psychiatric: Alert, Oriented x3, Abnormal battery container tester aluminum II-XII, Abnormal Gait, Aphasia, Depressed Affect, Facial Droop (right), Motor Weakness (right sided 0/5) Skin: Normal Color, Warm/Dry Lymphatic: No Adenopathy Results/Procedures Lab Patient resulted labs reviewed. FIM Transfers Therapy Code Descriptions/Definitions Functional [place] Measure: 0=Not Assessed/NA 4=Minimal Assistance 1=Total Assistance 5=Supervision or Setup 2=Maximal Assistance 6=Modified [place] 3=Moderate Assistance 7=Complete IndependenceSCALE: Activities may be completed with or without assistive devices. 3-Xuvffcpjut-dslmfud completes the activity by him/herself with no assistance from a helper. 5-Set-up or Clean-up Assistance-helper sets up or cleans up; patient completes activity. [place] assists only prior to or following the activity. 4-Supervision or Touching Assistance-helper provides verbal cues and/or touching/steadying and/or contact guard assistance as patient completes activity. Assistance may be provided throughout the activity or intermittently. 3-Partial/Moderate Assistance-helper does LESS THAN HALF the effort. [place] lifts, holds or supports trunk or limbs, but provides less than half the effort. 2-Substantial/Maximal Assistance-helper does MORE THAN HALF the effort. [place] lifts or holds trunk or limbs and provides more than half the effort. 2-Dvjbpuqvc-ewurut does ALL the effort. Patient does none of the effort to complete the activity. Or, the assistance of 2 or more helpers is required for the patient to complete the activity. If activity was not attempted, code reason: 7-Patient Refused. 9-Not Applicable-not attempted and the patient did not perform the activity before the current illness, exacerbation or injury. 10-Not Attempted due to Environmental Limitations-(lack of equipment, weather restraints, etc.). 88-Not Attempted due to Medical Conditions or Safety Concerns. Roll Left to Right (QC): 3 (Mod A) Sit to Lying (QC): 3 (Mod A) Sit to Stand (QC): 3 Chair/Hxz-ci-Eamot Xfer(QC): 3 Car Transfer (QC): 88 (balance ) Gait Training Does the Patient Walk?: Yes Distance: 5 feet x 4, 15 feet x 2 Walk 10 feet (QC): 88 Walk 50 ft with 2 Turns(QC): 88 Walk 150 ft (QC): 88 Walking 10ft/uneven surface-QC: 88 Gait Persons Needed: 3 Gait Assistive Device: Walker Platform Wheelchair Training Does the Pt Use a Wheelchair?: Yes Wheel 50 ft with 2 turns (QC): 4 Wheel 150 ft (QC): 4 Type of Wheelchair: Manual Stair Training 1 Step (curb) (QC): 88 (balance ) 4 Steps (QC): 88 (balance ) 12 Steps (QC): 88 (balance ) Balance Picking up an Object (QC): 88 (balance ) ADL-Treatment Eating (QC): 5 (Pt initiated opening containers but needed to ask for assistance from OTAS to open containers fully. Utilized utensils properly.) Oral Hygiene (QC): 6 (Independent sitting at sink.) Bathing Location: L Arm, R Arm, L Upper Leg, R Upper Leg, L Lower Leg (including foot), R Lower Leg (including foot), Chest, Abdomen, Buttocks, Perineal Area Shower/Bathe Self (QC): 4 (Pt able to wash all areas of the body with set up and SBA for safety. Sitting on BSC 100% of the time for shower.) Upper Body Dressing (QC): 4 (Pt able to don/doff shirt, SBA. Positioning shirt and verbal cues.) Lower Body Dressing (QC): 3 (Mod A. Pt displayed difficullty threading brief/pants through feet and needed assistance. Pt required to hike pants over hips. ) On/Off Footwear (QC): 2 (Assist to don socks/pt doffed socks. Pt donned L shoe and asssit with R shoe.) Toileting Hygiene (QC): 2 (mod A) Toilet Transfer (QC): 3 (min A to mod A) Assessment/Plan Assessment and Plan Assess & Plan/Chief Complaint Assessment: Catastrophic CVA with right sided flaccidity-CT angiogram matches carotid ultrasound revealing left carotid internal and external complete occlusion causing catastrophic ischemic infarct of the left parietal and MCA region no surgical option available per vascular surgery at [place] Dysarthria and expressive aphasia HTN emergency placed on Cardene drip now on Hydralazine IV Smoker Alcohol excess user placed on CIWA Urinary retention requiring replacement of valencia catheter 10/14/22 but DC 10/23 and was able to void so increasing Urecholine and adding in out cathBut now voiding without difficulty on 10/24/2022 Plan: PT OT ST for expressive aphasia CIWA Vitamin supplementation to prevent Wernicke's encephalopathy and Karsokoff's psychosis Lovenox for DVT PPx Cardiology consult ASA and Plavix 10/15/2022: Continue supportive care 10/16/2022: Monitor closely 10/17/2022: Monitor closely Losartan 10/18/2022: Monitor closely 10/19/2022: Improved Start Urecholine 10/20/2022: Trial of DC catheter this week again 10/21/2022: Monitor closely Urecholine 10/22/2022: DC catheter tomorrow 10/23/2022: Voiding is improved Increase Urecholine 10/24/2022: Successful discontinuation of catheter 10/25/2022: Supportive care Monitor voiding 10/26/2022: Monitor urinary retention May need cath for UA specimen 10/27/2022: Supportive care Monitor closely (1) CVA (cerebral vascular accident) JM CALLEJAS DO Oct 27, 2022 06:35
[2022-10-27] MEDS: POTASSIUM CHLORIDE 10 MEQ TABLET PO SCH (06:47)
[2022-10-27] MEDS: BETHANECHOL 25 MG TABLET PO SCH ×4 (06:47→20:18)
[2022-10-27] MEDS: THIAMINE 100 MG (VITAMIN B-1) TAB PO SCH (06:47)
[2022-10-27] MEDS: THERAPEUTIC MULTIVITAMIN W/MINERALS TABLET PO SCH (06:47)
[2022-10-27 07:37] VITALS: BP 132/61
[2022-10-27] MEDS: ASPIRIN 325 MG TABLET PO SCH (07:40)
[2022-10-27] MEDS: buPROPion SR 150 MG TABLET PO SCH ×2 (07:40→20:18)
[2022-10-27] MEDS: CLOPIDOGREL 75 MG TABLET PO SCH (07:40)
[2022-10-27] MEDS: NICOTINE 21 MG PATCH TD SCH (07:40)
[2022-10-27] MEDS: FOLIC ACID 1 MG TAB PO SCH (07:40)
[2022-10-27] MEDS: LOSARTAN 50 MG TABLET PO SCH ×2 (07:40→20:18)
[2022-10-27] MEDS: amLODIPine 10 MG TABLET PO SCH (07:40)
[2022-10-27] MEDS: NICOTINE PATCH REMOVAL TP SCH (07:41)
[2022-10-27] MEDS: DOCUSATE SODIUM 100 MG CAPSULE PO SCH ×2 (07:41→20:19)
[2022-10-27] MEDS: SENNOSIDES 8.6 MG TABLET PO SCH ×2 (07:41→20:19)
[2022-10-27] MEDS: ACETAMINOPHEN 325 MG TABLET PO PRN (14:34)
[2022-10-27] MEDS: ENOXAPARIN 40 MG/0.4 ML SYRINGE SC SCH (20:18)
[2022-10-27 20:30] VITALS: BP 150/72
--- NOTE | 2022-10-28 05:27 | PM&R Progress Note ---
Subjective HPI/CC On Admission Date Seen by Provider: Oct 28, 2022 Time Seen by Provider: 10:30 Subjective/Events-last exam 10/28/2022: Patient doing a lot better Every day she is improved Voiding well No pain 10/27/2022: Patient doing really well Denies any new issues No pain No falls 10/26/2022: Patient dramatically improving Urinary retention yesterday but none today If that continues we will need to check her for a UTI 10/25/2022: Patient doing better No falls No pain Voiding well 10/24/2022: Patient doing really well Voiding now Increased Urecholine to 25 mg before meals and at bedtime 10/23/2022: Patient doing well Discontinued catheter and when we were preparing for Valencia reinsertion she void ed We will increase Urecholine In and out catheter will be required instead of indwelling Valencia now 10/22/2022: No major issues Family training today DC catheter tomorrow morning to see if she retains No pain reported 10/21/2022: Much improved status Slow recovery Aphasia slow to resolve In-dwelling catheter maintained Urecholine started several days ago and may DC catheter this week to see if she retains 10/20/2022: BP elevated Flaccidity remains right sided Valencia cath in place, started Urecholine to see if we can regain emptying bladder capability BM 10/1910/19/2022: 2 person assist Stools normal Valencia cath in place Leans right No falls 10/18/2022: Doing well Able to lift her right leg Able to read out loud without much dysarthria Sister at bedside 10/17/2022: About the same No falls Valencia catheter remains No pain reported 10/16/2022: Patient about the same Started Wellbutrin to help smoking cessation and depression Nicotine patch will also be placed No major problems 10/15/2022: Patient having more difficulty speaking and now almost completely aphasic Maintained on Plavix and aspirin Appreciate cardiology Tried to encourage and reassure the patient Patient becomes tearful Review of Systems General: Fatigue, Malaise Objective Exam Vital Signs Vital Signs Date Time Temp Pulse Resp B/P (MAP) Pulse Ox O2 Delivery O2 Flow Rate FiO2 10/28/22 08:16 Room Air 10/28/22 06:00 35.7 76 18 145/68 (93) 95 Capillary Refill : General Appearance: No Apparent Distress, WD/WN, Anxious, Chronically ill, Thin HEENT: PERRL/EOMI, Normal ENT Inspection, Pharynx Normal Neck: Full Range of Motion, Normal Inspection, Non Tender, Supple, Carotid Bruit Respiratory: Chest Non Tender, Lungs Clear, Normal Breath Sounds, No Accessory Muscle Use, No Respiratory Distress Cardiovascular: Regular Rate, Rhythm, No Edema, No Gallop, No JVD, No Murmur, Normal Peripheral Pulses Gastrointestinal: Normal Bowel Sounds, No Organomegaly, No Pulsatile Mass, Non Tender, Soft Back: Normal Inspection, No CVA Tenderness, No Vertebral Tenderness Extremity: Normal Capillary Refill, Normal Inspection, Normal Range of Motion, Non Tender, No Calf Tenderness, No Pedal Edema Neurologic/Psychiatric: Alert, Oriented x3, Abnormal hook puller II-XII, Abnormal Gait, Aphasia, Depressed Affect, Facial Droop (right), Motor Weakness (right sided 0/5) Skin: Normal Color, Warm/Dry Lymphatic: No Adenopathy Results/Procedures Lab Laboratory Tests 10/28/22 05:55 Patient resulted labs reviewed. FIM Transfers Therapy Code Descriptions/Definitions Functional [place] Measure: 0=Not Assessed/NA 4=Minimal Assistance 1=Total Assistance 5=Supervision or Setup 2=Maximal Assistance 6=Modified [place] 3=Moderate Assistance 7=Complete IndependenceSCALE: Activities may be completed with or without assistive devices. 4-Ebxturiqmw-ujvimyd completes the activity by him/herself with no assistance from a helper. 5-Set-up or Clean-up Assistance-helper sets up or cleans up; patient completes activity. [place] assists only prior to or following the activity. 4-Supervision or Touching Assistance-helper provides verbal cues and/or touching/steadying and/or contact guard assistance as patient completes activity. Assistance may be provided throughout the activity or intermittently. 3-Partial/Moderate Assistance-helper does LESS THAN HALF the effort. [place] lifts, holds or supports trunk or limbs, but provides less than half the effort. 2-Substantial/Maximal Assistance-helper does MORE THAN HALF the effort. [place] lifts or holds trunk or limbs and provides more than half the effort. 4-Ujfkzhcpr-uqsovf does ALL the effort. Patient does none of the effort to complete the activity. Or, the assistance of 2 or more helpers is required for the patient to complete the activity. If activity was not attempted, code reason: 7-Patient Refused. 9-Not Applicable-not attempted and the patient did not perform the activity before the current illness, exacerbation or injury. 10-Not Attempted due to Environmental Limitations-(lack of equipment, weather restraints, etc.). 88-Not Attempted due to Medical Conditions or Safety Concerns. Roll Left to Right (QC): 3 (Mod A) Sit to Lying (QC): 3 (Mod A) Sit to Stand (QC): 3 Chair/Jah-xr-Xamly Xfer(QC): 3 Car Transfer (QC): 88 (balance ) Gait Training Does the Patient Walk?: Yes Distance: 5 feet x 4, 15 feet x 2 Walk 10 feet (QC): 88 Walk 50 ft with 2 Turns(QC): 88 Walk 150 ft (QC): 88 Walking 10ft/uneven surface-QC: 88 Gait Persons Needed: 3 Gait Assistive Device: Walker Platform Wheelchair Training Does the Pt Use a Wheelchair?: Yes Wheel 50 ft with 2 turns (QC): 4 Wheel 150 ft (QC): 4 Type of Wheelchair: Manual Stair Training 1 Step (curb) (QC): 88 (balance ) 4 Steps (QC): 88 (balance ) 12 Steps (QC): 88 (balance ) Balance Picking up an Object (QC): 88 (balance ) ADL-Treatment Eating (QC): 5 (Pt initiated opening containers but needed to ask for assistance from OTAS to open containers fully. Utilized utensils properly.) Oral Hygiene (QC): 6 (Independent sitting at sink.) Bathing Location: L Arm, R Arm, L Upper Leg, R Upper Leg, L Lower Leg (including foot), R Lower Leg (including foot), Chest, Abdomen, Buttocks, Perineal Area Shower/Bathe Self (QC): 4 (Pt able to wash all areas of the body with set up and SBA for safety. Sitting on BSC 100% of the time for shower.) Upper Body Dressing (QC): 4 (Pt able to don/doff shirt, SBA. Positioning shirt and verbal cues.) Lower Body Dressing (QC): 3 (Mod A. Pt displayed difficullty threading brief/pants through feet and needed assistance. Pt required to hike pants over hips. ) On/Off Footwear (QC): 2 (Assist to don socks/pt doffed socks. Pt donned L shoe and asssit with R shoe.) Toileting Hygiene (QC): 2 (mod A) Toilet Transfer (QC): 3 (min A to mod A) Assessment/Plan Assessment and Plan Assess & Plan/Chief Complaint Assessment: Catastrophic CVA with right sided flaccidity-CT angiogram matches carotid ultrasound revealing left carotid internal and external complete occlusion causing catastrophic ischemic infarct of the left parietal and MCA region no surgical option available per vascular surgery at [place] Dysarthria and expressive aphasia HTN emergency placed on Cardene drip now on Hydralazine IV Smoker Alcohol excess user placed on CIWA Urinary retention requiring replacement of valencia catheter 10/14/22 but DC 10/23 and was able to void so increasing Urecholine and adding in out cathBut now voiding without difficulty on 10/24/2022 Plan: PT OT ST for expressive aphasia CIWA Vitamin supplementation to prevent Wernicke's encephalopathy and Karsokoff's psychosis Lovenox for DVT PPx Cardiology consult ASA and Plavix 10/15/2022: Continue supportive care 10/16/2022: Monitor closely 10/17/2022: Monitor closely Losartan 10/18/2022: Monitor closely 10/19/2022: Improved Start Urecholine 10/20/2022: Trial of DC catheter this week again 10/21/2022: Monitor closely Urecholine 10/22/2022: DC catheter tomorrow 10/23/2022: Voiding is improved Increase Urecholine 10/24/2022: Successful discontinuation of catheter 10/25/2022: Supportive care Monitor voiding 10/26/2022: Monitor urinary retention May need cath for UA specimen 10/27/2022: Supportive care Monitor closely 10/28/2022: Monitor closely Voiding well (1) CVA (cerebral vascular accident) JM CALLEJAS DO Oct 28, 2022 05:27
[2022-10-28 06:00] VITALS: BP 145/68
[2022-10-28 06:04] LABS: BASOPHILS # (AUTO) 0.1 10^3/uL (0.0-0.1); BASOPHILS % (AUTO) 1 % (0-10); EOSINOPHILS # (AUTO) 0.4 10^3/uL (0.0-0.3); EOSINOPHILS % (AUTO) 5 % (0-10); HEMATOCRIT 35 % (35-52); HEMOGLOBIN 12.3 g/dL (11.5-16.0); LYMPHOCYTES # (AUTO) 2.1 10^3/uL (1.0-4.0); LYMPHOCYTES % (AUTO) 27 % (12-44); MEAN CORPUSCULAR HEMOGLOBIN 31 pg (25-34); MEAN CORPUSCULAR HGB CONC 35 g/dL (32-36); MEAN CORPUSCULAR VOLUME 89 fL (80-99); MEAN PLATELET VOLUME 9.2 fL (9.0-12.2); MONOCYTES # (AUTO) 0.6 10^3/uL (0.0-1.0); MONOCYTES % (AUTO) 7 % (0-12); NEUTROPHILS # (AUTO) 4.6 10^3/uL (1.8-7.8); NEUTROPHILS % (AUTO) 59 % (42-75); PLATELET COUNT 502 10^3/uL (130-400); WHITE BLOOD COUNT 7.7 10^3/uL (4.3-11.0)
[2022-10-28 06:11] LABS: ALBUMIN 3.7 GM/DL (3.2-4.5)
[2022-10-28 06:12] LABS: POTASSIUM 4.3 MMOL/L (3.6-5.0)
[2022-10-28 06:13] LABS: CALCIUM 9.1 MG/DL (8.5-10.1)
[2022-10-28 06:14] LABS: TOTAL PROTEIN 6.4 GM/DL (6.4-8.2)
[2022-10-28 06:16] LABS: BILIRUBIN,TOTAL 0.4 MG/DL (0.1-1.0)
[2022-10-28 06:18] LABS: CREATININE SERUM 0.71 MG/DL (0.60-1.30)
[2022-10-28] MEDS: POTASSIUM CHLORIDE 10 MEQ TABLET PO SCH (06:25)
[2022-10-28] MEDS: BETHANECHOL 25 MG TABLET PO SCH ×4 (06:25→20:47)
[2022-10-28] MEDS: THERAPEUTIC MULTIVITAMIN W/MINERALS TABLET PO SCH (06:25)
[2022-10-28] MEDS: THIAMINE 100 MG (VITAMIN B-1) TAB PO SCH (06:26)
--- NOTE | 2022-10-28 07:36 | Occupational Ther Daily Note ---
OT Current Status-Daily Note Subjective Pt alert, sitting up in recliner. Pt agrees to therapy, c/o of pain in R foot. Pt stated that pain was a 4/10, nrsg notified. OT/PT CoTx ([id number]), skills of two clinicians required to decrease fall risk and increase functional mobility. PT focus on transfers, LE strengthening, and dynamic sitting balance. OT working on ADLs, weight bearing in B UE, PROM, and motor processing for functional tasks. Mental Status/Objective Patient Orientation: Non-Verbal/Aphasic, Eyes Open ADL-Treatment Therapy Code Descriptions/Definitions Functional [place] Measure: 0=Not Assessed/NA 4=Minimal Assistance 1=Total Assistance 5=Supervision or Setup 2=Maximal Assistance 6=Modified [place] 3=Moderate Assistance 7=Complete IndependenceSCALE: Activities may be completed with or without assistive devices. 7-Ouckwiebjb-kwheteq completes the activity by him/herself with no assistance from a helper. 5-Set-up or Clean-up Assistance-helper sets up or cleans up; patient completes activity. [place] assists only prior to or following the activity. 4-Supervision or Touching Assistance-helper provides verbal cues and/or touching/steadying and/or contact guard assistance as patient completes activity. Assistance may be provided throughout the activity or intermittently. 3-Partial/Moderate Assistance-helper does LESS THAN HALF the effort. [place] lifts, holds or supports trunk or limbs, but provides less than half the effort. 2-Substantial/Maximal Assistance-helper does MORE THAN HALF the effort. [place] lifts or holds trunk or limbs and provides more than half the effort. 8-Lurbkkzgp-smsdkw does ALL the effort. Patient does none of the effort to complete the activity. Or, the assistance of 2 or more helpers is required for the patient to complete the activity. If activity was not attempted, code reason: 7-Patient Refused. 9-Not Applicable-not attempted and the patient did not perform the activity before the current illness, exacerbation or injury. 10-Not Attempted due to Environmental Limitations-(lack of equipment, weather restraints, etc.). 88-Not Attempted due to Medical Conditions or Safety Concerns. Eating (QC): 5 (Set up to open drink, pt able to open all other packaging. ) Oral Hygiene (QC): 6 (Independently twisted toothpaste cap off. Completed all oral hygiene independently sitting in w/c in front of sink. ) Shower/Bathe Self (QC): 7 Upper Body Dressing (QC): 4 (Min A with donning shirt over head due to a tight fitting shirt. ) Lower Body Dressing (QC): 3 (Min A to balance when threading pants through feet then assist in stance while assistance given to hike pants over hips. ) Pt already had socks on then pt able to don L shoe, assist with R shoe. Other Treatment Pt transported to gym via w/c from room. Pt working on dynamic sitting balance on mat with PT/OT. Pt supine during PROM to decrease tone in R UE. Min A for supine <--> edge of mat. SBA for safety sitting edge of mat. Pt weight bearing on R UE while sitting on mat with Mod A prior to verbal/physical cues on positioning, then Min A. Pt working on SPT to both sides with Min A for stability. Multiple verbal cues with minimal wording due to motor planning deficits. Pt propelled w/c from gym to room. Ended session with pt sitting up in recliner with call light/phone in reach. All needs met in room. Education OT Patient Education: Correct positioning, Modified ADL techniques, Transfer techniques Teaching Recipient: Patient Teaching Methods: Demonstration, Discussion Response to Teaching: Return Demonstration, Reinforcement Needed Pt educated on positioning techniques during SPT and body positioning during weight bearing on R UE in sitting position. Pt demonstrated understanding when minimal words were used due to increased processing time/aphasia. Reinforcement needed in future sessions to work on transfer techniques. OT Short Term Goals Short Term Goals Time Frame: Oct 28, 2022 Eatin Oral hygiene: 4 Toileting hygiene: 3 Shower/bathe self: 3 Upper body dressin Lower body dressin Putting on/taking off footwear: 3 OT Long-Term Goals Laminating Press Operator Goals Time Frame: Nov 11, 2022 Disorganized thinkin Altered level of consciousness: 0 Eating (QC): 5 (Set up) Oral Hygiene (QC): 5 (Set up) Toileting Hygiene (QC): 4 (CGA/supervision) Shower/Bathe Self (QC): 4 (CGA/supervision) Upper Body Dressing (QC): 5 (Set up) Lower Body Dressing (QC): 4 (CGA/supervision) On/Off Footwear (QC): 4 (CGA/supervision) Additional Goals: 1-Demonstrate ADL Tasks, 2-Verbalize Understanding, 3- ImproveStrength/Shira 1=Demonstrate adherence to instructed precautions during ADL tasks. 2=Patient will verbalize/demonstrate understanding of assistive devices/modifications for ADL. 3=Patient will improve strength/tolerance for activity to enable patient to perform ADL's. OT Education/Plan Problem List/Assessment Assessment: Decreased Activ Tolerance, Decreased UE Strength, Impaired Coordination, Impaired Funct Balance, Impaired Self-Care Skills Discharge Recommendations Plan/Recommendations: Continue POC Treatment Plan/Plan of Care Patient would benefit from OT for education, treatment and training to promote independence in ADL's, mobility, safety and/or upper extremity function for ADL's. Plan of Care: ADL Retraining, Caregiver Training, Functional Mobility, Group Exercise/Act as Ind, UE Funct Exercise/Act Treatment Duration: Nov 11, 2022 Frequency: At least 5 of 7 days/Wk (IRF) Estimated Hrs Per Day: 1.5 hours per day Agreement: Yes Rehab Potential: Fair Time Start Time: 07:30 Stop Time: 09:00 DATE: Oct 28, 2022 Total Time Billed (hr/min): 90 Billed Treatment Time 1 visit-ADL 2 (30 min) NM 4 (60 min) co-treat with PT [id number], individual [id number] ERICA RICE Oct 28, 2022 07:36
[2022-10-28] MEDS: buPROPion SR 150 MG TABLET PO SCH ×2 (08:11→20:47)
[2022-10-28] MEDS: FOLIC ACID 1 MG TAB PO SCH (08:12)
[2022-10-28] MEDS: amLODIPine 10 MG TABLET PO SCH (08:12)
[2022-10-28] MEDS: NICOTINE PATCH REMOVAL TP SCH (08:12)
[2022-10-28] MEDS: CLOPIDOGREL 75 MG TABLET PO SCH (08:12)
[2022-10-28] MEDS: NICOTINE 21 MG PATCH TD SCH (08:12)
[2022-10-28] MEDS: ASPIRIN 325 MG TABLET PO SCH (08:12)
[2022-10-28] MEDS: LOSARTAN 50 MG TABLET PO SCH ×2 (08:12→20:47)
[2022-10-28] MEDS: ACETAMINOPHEN 325 MG TABLET PO PRN (08:16)
--- NOTE | 2022-10-28 09:18 | Physical Therapy Daily Note ---
PT Daily Note-Current Subjective Pt in Therapy Gym working with OT upon arrival. Pt agrees to PT/OT co-treat. Pain Location: No Pain Reported Section J - Health Conditions 1. Rarely or not at all 2. Occasionally 3. Frequently 4. Almost constantly 8. Unable to answer Pain Effect on Sleep: 1 Pain Interference with Therapy: 1 Pain Interference w/Day-to-Day: 1 Mental Status Patient Orientation: Person, Place, Situation Transfers SCALE: Activities may be completed with or without assistive devices. 8-Ghyuvccywc-dncdopt completes the activity by him/herself with no assistance from a helper. 5-Set-up or Clean-up Assistance-helper sets up or cleans up; patient completes activity. [place] assists only prior to or following the activity. 4-Supervision or Touching Assistance-helper provides verbal cues and/or touching/steadying and/or contact guard assistance as patient completes activity. Assistance may be provided throughout the activity or intermittently. 3-Partial/Moderate Assistance-helper does LESS THAN HALF the effort. [place] lifts, holds or supports trunk or limbs, but provides less than half the effort. 2-Substantial/Maximal Assistance-helper does MORE THAN HALF the effort. [place] lifts or holds trunk or limbs and provides more than half the effort. 1-Vmdisxooa-btxvqq does ALL the effort. Patient does none of the effort to complete the activity. Or, the assistance of 2 or more helpers is required for the patient to complete the activity. If activity was not attempted, code reason: 7-Patient Refused. 9-Not Applicable-not attempted and the patient did not perform the activity before the current illness, exacerbation or injury. 10-Not Attempted due to Environmental Limitations-(lack of equipment, weather restraints, etc.). 88-Not Attempted due to Medical Conditions or Safety Concerns. Lying to Sitting/Side of Bed(Q: 4 Sit to Stand (QC): 3 Weight Bearing Right Lower Extremity: Right Full Weight Bearing Left Lower Extremity: Left Full Weight Bearing Wheelchair Training Does the Pt Use a Wheelchair?: Yes Wheel 50 ft with 2 turns (QC): 4 Type of Wheelchair: Manual Treatments OT/PT CoTx ([id number]), skills of two clinicians required to decrease fall risk and increase functional mobility. PT focus on transfers, LE strengthening, and dynamic sitting balance. OT working on ADLs, weight bearing in B UE, PROM, and motor processing for functional tasks. PT & OT worked together on dynamic sitting balance working outside ELEANOR and incorporating WB through UE joints tania. elbow. Pt then completed 3 TF to L side (strong side) then 3 TF to R side (weak side) and 4 TF to L side again. RAIL PROJECT ENGINEER gave TC & VC as needed for sequencing and safety. Pt TF back to w/c and propels back to room to rest at end of tx. All needs met, call light in hand. Assessment Current Status: Good Progress Pt is teary and emotional during tx at progress made as well as what needs to still be made. PT Corporate Development Analyst Goals Jail Goals PT Jail Goals Time Frame: Nov 04, 2022 Roll Left & Right (QC): 4 (SBA for bed mobility ) Sit to Lying (QC): 4 (SBA for bed mobility ) Lying-Sitting on Side/Bed(QC): 4 (SBA for bed mobility ) Sit to Stand (QC): 3 (Min A for transfers ) Chair/Zyb-yj-Eclyp Xfer(QC): 3 (Min A for transfers ) Toilet Transfer (QC): 3 (Min A for transfers ) Car Transfer (QC): 3 (Min A for transfers ) Does the Patient Walk: Yes Walk 10 feet (QC): 3 (Min A for short distances ) Walk 50ft with 2 Turns (QC): 88 (Balance ) Walk 150 ft (QC): 88 (Balance ) Walking 10ft on Uneven Surface: 88 (Balance ) 1 Step (curb) (QC): 88 (Balance ) 4 Steps (QC): 88 (Balance ) 12 Steps (QC): 88 (Balance ) Picking up an Object (QC): 88 (Balance ) Does the Pt use WC or Scooter?: Yes Wheel 50 feet with 2 turns (QC: 3 (Min A for w/c mobility ) Type: Manual Wheel 150 feet: 3 (Min A for w/c mobility ) Type: Manual PT Plan Problem List Problem List: Functional Strength, Transfer Treatment/Plan Treatment Plan: Continue Plan of Care Treatment Plan: Bed Mobility, Concurrent Therapy, Education, Functional Activity Shira, Functional Strength, Group Therapy, Gait, Safety, Therapeutic Exercise, Transfers Treatment Duration: Nov 04, 2022 Frequency: At least 5 of 7 days/Wk (IRF) Estimated Hrs Per Day: 2 hours per day Patient and/or Family Agrees t: Yes Safety Risks/Education Patient Education: Transfer Techniques, Correct Positioning, Safety Issues Time Time In: 0800 Time Out: 0900 DATE: Oct 28, 2022 Total Billed Treatment Time: 60 Total Billed Treatment Co-treat w/OT for 60m (800-900) 1, FA x4 (60m) JOE RODRIGUEZ PTA Oct 28, 2022 09:18
[2022-10-28] MEDS: SENNOSIDES 8.6 MG TABLET PO SCH ×2 (09:25→19:41)
[2022-10-28] MEDS: DOCUSATE SODIUM 100 MG CAPSULE PO SCH ×2 (09:25→19:40)
--- NOTE | 2022-10-28 13:17 | Speech Therapy Daily Note ---
Speech Daily Progress Note Subjective Date Seen by Provider: Oct 28, 2022 Time Seen by Provider: 09:30 The patient was seated upright in recliner, awake and alert, upon entrance to her room by the clinician. The patient greeted the clinician appropriately (verbally) and was agreeable to participation in the skilled speech and language treatment session. Objective - Functional Phrases/Words: The patient's daughters' names were added to the patient's functional word list on this date. The patient does display increased emotions when family members are discussed. Following direct modeling, the patient was able to complete each daughter's name with vowel distortions present. The patient displayed a slight reduction in accuracy on this date with functional phrases and words however continues to demonstrate excellent progress overall. - Oral Motor Exercises: The patient displayed oral motor exercises with high accuracy, independently. Continued practice was recommended by the clinician. Assessment Assessment Current Status: Good Progress Treatment Plan Continue Plan of Care Speech Short Term Goals Short Term Goals Short Term Goals 1. The patient will complete oral motor exercises with 75% accuracy and moderate clinician verbal and visual cueing. 2. The patient will communicate yes and no response (simple) with 50% accuracy and moderate clinician verbal and visual cueing. Time Frame-STG: Ten Days. Speech Etcher Aircraft Goals Alf Goals 1. The patient will demonstrate improved functional communication for increased safety with discharge to the least restrictive environment. Time Frame: Four Weeks. Speech-Plan Treatment Plan Speech Therapy Treatment Plan: Continue Plan of Care Treatment Duration: Nov 05, 2022 Frequency: Modified Program (IRF) Estimated Hrs Per Day: .5 hour per day Rehab Potential: Fair Pt/Family Agrees to Plan: Yes Safety Risks/Education Teaching Recipient: Patient Teaching Methods: Demonstration, Handout, Discussion Response to Teaching: Return Demonstration Education Topics Provided: Oral Motor Exercises, Functional Phrases Time Speech Therapy Time In: 09:30 Speech Therapy Time Out: 10:00 DATE: Oct 28, 2022 Total Billed Time: 30 Billed Treatment Time 1NICOMARITZA Salazar Oct 28, 2022 13:17
--- NOTE | 2022-10-28 13:52 | Cardiology Progress Note ---
Subjective Date Seen by Provider: Oct 28, 2022 Time Seen by Provider: 13:51 Subjective/Events-last exam Patient was seen at bedside, sitting comfortably. No new complain Objective-Cardiology Exam Last Set of Vital Signs Vital Signs 10/28/22 10/28/22 06:00 08:16 Temp 35.7 Pulse 76 Resp 18 B/P (MAP) 145/68 (93) Pulse Ox 95 O2 Delivery Room Air I&O Intake and Output 10/28/22 00:00 Intake Total 1270 ml Output Total 2250 ml Balance -980 ml Intake Oral 1270 ml Output Urine Total 2250 ml Bladder Scan Volume Amount 9 ml 9 ml # Bowel Movements 1 General: Alert, Oriented X3, Cooperative HEENT: Atraumatic, PERRLA Neck: Supple, No JVD, No Thyromegaly Lungs: Clear to Auscultation, Normal Air Movement Heart: Regular Rate Abdomen: Normal Bowel Sounds, Soft Extremities: No Edema Skin: No Rashes, No Significant Lesion Neuro: Other (right sided weakness, expressive aphasia) Psych/Mental Status: Mental Status NL, Mood NL Results Lab Laboratory Tests 10/28/22 05:55 A/P-Cardiology Admission Diagnosis CVA Carotid artery stenosis HTN HLP Assessment/Plan Acute stroke due to left carotid occlusion, right sided weakness and aphasia. Maintained on ASA and Plavix. Continue with PT/OT Patient was deemed inoperable by [place] surgery, currently managed by primary care team Carotid artery stenosis, carotid duplex done 10/12/22 showing complete occlusion of the left carotid system including both the internal and external carotid arteries. The right carotid artery appeared to have some plaques with mild disease, nonobstructive disease. Hypertension, having episodes of elevated blood pressure Better control at this time Maintained on losartan 50 mg twice daily, amlodipine 10 mg daily Continue to monitor Hyperlipidemia, started on Lipitor 80 mg daily Continue to monitor Depression, flat affect, consider use of antidepressant. Will defer to medical services. JOSE ANGEL CLEMONS MD Oct 28, 2022 13:52
[2022-10-28] MEDS: ENOXAPARIN 40 MG/0.4 ML SYRINGE SC SCH (20:47)
[2022-10-28 20:51] VITALS: BP 134/71
--- NOTE | 2022-10-29 05:05 | PM&R Progress Note ---
Subjective HPI/CC On Admission Date Seen by Provider: Oct 29, 2022 Time Seen by Provider: 09:00 Subjective/Events-last exam 10/29/2022: Much improved No falls Voiding well No falls 10/28/2022: Patient doing a lot better Every day she is improved Voiding well No pain 10/27/2022: Patient doing really well Denies any new issues No pain No falls 10/26/2022: Patient dramatically improving Urinary retention yesterday but none today If that continues we will need to check her for a UTI 10/25/2022: Patient doing better No falls No pain Voiding well 10/24/2022: Patient doing really well Voiding now Increased Urecholine to 25 mg before meals and at bedtime 10/23/2022: Patient doing well Discontinued catheter and when we were preparing for Valencia reinsertion she voided We will increase Urecholine In and out catheter will be required instead of indwelling Valencia now 10/22/2022: No major issues Family training today DC catheter tomorrow morning to see if she retains No pain reported 10/21/2022: Much improved status Slow recovery Aphasia slow to resolve In-dwelling catheter maintained Urecholine started several days ago and may DC catheter this week to see if she retains 10/20/2022: BP elevated Flaccidity remains right sided Valencia cath in place, started Urecholine to see if we can regain emptying bladder capability BM 10/1910/19/2022: 2 person assist Stools normal Valencia cath in place Leans right No falls 10/18/2022: Doing well Able to lift her right leg Able to read out loud without much dysarthria Sister at bedside 10/17/2022: About the same No falls [place] catheter remains No pain reported 10/16/2022: Patient about the same Started Wellbutrin to help smoking cessation and depression Nicotine patch will also be placed No major problems 10/15/2022: Patient having more difficulty speaking and now almost completely aphasic Maintained on Plavix and aspirin Appreciate cardiology Tried to encourage and reassure the patient Patient becomes tearful Review of Systems General: Fatigue, Malaise Neurological: Weakness, Incoordination Objective Exam Vital Signs Vital Signs Date Time Temp Pulse Resp B/P (MAP) Pulse Ox O2 Delivery O2 Flow Rate FiO2 10/29/22 09:32 78 18 142/73 (96) 97 Room Air 10/29/22 08:00 36.4 Capillary Refill : General Appearance: No Apparent Distress, WD/WN, Anxious, Chronically ill, Thin HEENT: PERRL/EOMI, Normal ENT Inspection, Pharynx Normal Neck: Full Range of Motion, Normal Inspection, Non Tender, Supple, Carotid Bruit Respiratory: Chest Non Tender, Lungs Clear, Normal Breath Sounds, No Accessory Muscle Use, No Respiratory Distress Cardiovascular: Regular Rate, Rhythm, No Edema, No Gallop, No JVD, No Murmur, Normal Peripheral Pulses Gastrointestinal: Normal Bowel Sounds, No Organomegaly, No Pulsatile Mass, Non Tender, Soft Back: Normal Inspection, No CVA Tenderness, No Vertebral Tenderness Extremity: Normal Capillary Refill, Normal Inspection, Normal Range of Motion, Non Tender, No Calf Tenderness, No Pedal Edema Neurologic/Psychiatric: Alert, Oriented x3, Abnormal teen counselor II-XII, Abnormal Gait, Aphasia, Depressed Affect, Facial Droop (right), Motor Weakness (right sided 0/5) Skin: Normal Color, Warm/Dry Lymphatic: No Adenopathy Results/Procedures Lab Patient resulted labs reviewed. FIM Transfers Therapy Code Descriptions/Definitions Functional [place] Measure: 0=Not Assessed/NA 4=Minimal Assistance 1=Total Assistance 5=Supervision or Setup 2=Maximal Assistance 6=Modified [place] 3=Moderate Assistance 7=Complete IndependenceSCALE: Activities may be completed with or without assistive devices. 5-Zawaorexwl-dapjujr completes the activity by him/herself with no assistance from a helper. 5-Set-up or Clean-up Assistance-helper sets up or cleans up; patient completes activity. [place] assists only prior to or following the activity. 4-Supervision or Touching Assistance-helper provides verbal cues and/or touching/steadying and/or contact guard assistance as patient completes activity. Assistance may be provided throughout the activity or intermittently. 3-Partial/Moderate Assistance-helper does LESS THAN HALF the effort. [place] lifts, holds or supports trunk or limbs, but provides less than half the effort. 2-Substantial/Maximal Assistance-helper does MORE THAN HALF the effort. [place] lifts or holds trunk or limbs and provides more than half the effort. 6-Yuzmwsery-gfkgxj does ALL the effort. Patient does none of the effort to complete the activity. Or, the assistance of 2 or more helpers is required for the patient to complete the activity. If activity was not attempted, code reason: 7-Patient Refused. 9-Not Applicable-not attempted and the patient did not perform the activity before the current illness, exacerbation or injury. 10-Not Attempted due to Environmental Limitations-(lack of equipment, weather restraints, etc.). 88-Not Attempted due to Medical Conditions or Safety Concerns. Roll Left to Right (QC): 3 (Mod A) Sit to Lying (QC): 3 (Mod A) Sit to Stand (QC): 3 Chair/Lia-rv-Klnkf Xfer(QC): 3 Car Transfer (QC): 88 (balance ) Gait Training Does the Patient Walk?: Yes Distance: 5 feet x 4, 15 feet x 2 Walk 10 feet (QC): 88 Walk 50 ft with 2 Turns(QC): 88 Walk 150 ft (QC): 88 Walking 10ft/uneven surface-QC: 88 Gait Persons Needed: 3 Gait Assistive Device: [place] Platform Wheelchair Training Does the Pt Use a Wheelchair?: Yes Wheel 50 ft with 2 turns (QC): 4 Wheel 150 ft (QC): 4 Type of Wheelchair: Manual Stair Training 1 Step (curb) (QC): 88 (balance ) 4 Steps (QC): 88 (balance ) 12 Steps (QC): 88 (balance ) Balance Picking up an Object (QC): 88 (balance ) ADL-Treatment Eating (QC): 5 (Set up to open drink, pt able to open all other packaging. ) Oral Hygiene (QC): 6 (Independently twisted toothpaste cap off. Completed all oral hygiene independently sitting in w/c in front of sink. ) Bathing Location: L Arm, R Arm, L Upper Leg, R Upper Leg, L Lower Leg (including foot), R Lower Leg (including foot), Chest, Abdomen, Buttocks, Perineal Area Shower/Bathe Self (QC): 7 Upper Body Dressing (QC): 4 (Min A with donning shirt over head due to a tight fitting shirt. ) Lower Body Dressing (QC): 3 (Min A to balance when threading pants through feet then assist in stance while assistance given to hike pants over hips. ) On/Off Footwear (QC): 2 (Assist to don socks/pt doffed socks. Pt donned L shoe and asssit with R shoe.) Toileting Hygiene (QC): 2 (mod A) Toilet Transfer (QC): 3 (min A to mod A) Assessment/Plan Assessment and Plan Assess & Plan/Chief Complaint Assessment: Catastrophic CVA with right sided flaccidity-CT angiogram matches carotid ultrasound revealing left carotid internal and external complete occlusion causing catastrophic ischemic infarct of the left parietal and MCA region no surgical option available per vascular surgery at [facility] Dysarthria and expressive aphasia HTN emergency placed on Cardene drip now on Hydralazine IV Smoker Alcohol excess user placed on CIWA Urinary retention requiring replacement of valencia catheter 10/14/22 but DC 10/23 and was able to void so increasing Urecholine and adding in out cathBut now voiding without difficulty on 10/24/2022 Plan: PT OT ST for expressive aphasia CIWA Vitamin supplementation to prevent Wernicke's encephalopathy and Karsokoff's psychosis Lovenox for DVT PPx Cardiology consult ASA and Plavix 10/15/2022: Continue supportive care 10/16/2022: Monitor closely 10/17/2022: Monitor closely Losartan 10/18/2022: Monitor closely 10/19/2022: Improved Start Urecholine 10/20/2022: Trial of DC catheter this week again 10/21/2022: Monitor closely Urecholine 10/22/2022: DC catheter tomorrow 10/23/2022: Voiding is improved Increase Urecholine 10/24/2022: Successful discontinuation of catheter 10/25/2022: Supportive care Monitor voiding 10/26/2022: Monitor urinary retention May need cath for UA specimen 10/27/2022: Supportive care Monitor closely 10/28/2022: Monitor closely Voiding well 10/29/2022: Monitor closely Improved (1) CVA (cerebral vascular accident) JM CALLEJAS DO Oct 29, 2022 05:05
[2022-10-29] MEDS: BETHANECHOL 25 MG TABLET PO SCH ×4 (06:32→20:55)
[2022-10-29] MEDS: POTASSIUM CHLORIDE 10 MEQ TABLET PO SCH (06:32)
[2022-10-29] MEDS: THIAMINE 100 MG (VITAMIN B-1) TAB PO SCH (06:32)
[2022-10-29] MEDS: THERAPEUTIC MULTIVITAMIN W/MINERALS TABLET PO SCH (06:32)
[2022-10-29 08:00] VITALS: BP 160/81
--- NOTE | 2022-10-29 08:22 | Cardiology Progress Note ---
Subjective Date Seen by Provider: Oct 29, 2022 Time Seen by Provider: 08:10 Subjective/Events-last exam Patient is with PT, no new complaints. Objective-Cardiology Exam Last Set of Vital Signs Vital Signs 10/29/22 10/29/22 08:00 08:22 Temp 36.4 Pulse 87 Resp 14 B/P (MAP) 160/81 (107) Pulse Ox 95 O2 Delivery Room Air I&O Intake and Output 10/29/22 00:00 Intake Total 1440 ml Output Total 1450 ml Balance -10 ml Intake Oral 1440 ml Output Urine Total 1450 ml # Bowel Movements 1 General: Alert, Oriented X3, Cooperative HEENT: Atraumatic, PERRLA Neck: Supple, No JVD, No Thyromegaly Lungs: Clear to Auscultation, Normal Air Movement Heart: Regular Rate Abdomen: Normal Bowel Sounds, Soft Extremities: No Edema Skin: No Rashes, No Significant Lesion Neuro: Other (right sided weakness, expressive aphasia) Psych/Mental Status: Mental Status NL, Mood NL A/P-Cardiology Admission Diagnosis CVA Carotid artery stenosis HTN HLP Assessment/Plan Acute stroke due to left carotid occlusion, right sided weakness and aphasia. Maintained on ASA and Plavix. Continue with PT/OT Patient was deemed inoperable by [place] surgery, currently managed by primary care team Carotid artery stenosis, carotid duplex done 10/12/22 showing complete occlusion of the left carotid system including both the internal and external carotid arteries. The right carotid artery appeared to have some plaques with mild disease, nonobstructive disease. Hypertension, better control at this time Maintained on losartan 50 mg twice daily, amlodipine 10 mg daily Continue to monitor Hyperlipidemia, started on Lipitor 80 mg daily Continue to monitor Supervisory-Addendum Brief Supervisory Addendum Participated in pt care: history, MDM, physical Personally performed: exam, history, MDM Care discussed with: FELICE Results interpretation: Verified all documentation Notes: Patient was seen and evaluated with John, examination performed, management plan was discussed, agree with the current scribed note, I made few changes to the note using Italic font Patient was seen at bedside laying down comfortably, denied any chest pain Continue with physical therapy Monitor blood pressure and heart rate, no changes are recommended JOHN OATES Oct 29, 2022 08:21 JOSE ANGEL CLEMONS MD Oct 29, 2022 16:30
--- NOTE | 2022-10-29 09:00 | Physical Therapy Daily Note ---
PT Daily Note-Current Subjective Pt found seated in recliner upon entry. Agreed to PT. When asked if she is having LE soreness and fatigue pt replies "yeah" to both. Pain Section J - Health Conditions 1. Rarely or not at all 2. Occasionally 3. Frequently 4. Almost constantly 8. Unable to answer Pain Effect on Sleep: 1 Pain Interference with Therapy: 1 Pain Interference w/Day-to-Day: 1 Mental Status Patient Orientation: Person Transfers SCALE: Activities may be completed with or without assistive devices. 6-Fdebmjczzx-vbtidaq completes the activity by him/herself with no assistance from a helper. 5-Set-up or Clean-up Assistance-helper sets up or cleans up; patient completes activity. [place] assists only prior to or following the activity. 4-Supervision or Touching Assistance-helper provides verbal cues and/or touching/steadying and/or contact guard assistance as patient completes activity. Assistance may be provided throughout the activity or intermittently. 3-Partial/Moderate Assistance-helper does LESS THAN HALF the effort. [place] lifts, holds or supports trunk or limbs, but provides less than half the effort. 2-Substantial/Maximal Assistance-helper does MORE THAN HALF the effort. [place] lifts or holds trunk or limbs and provides more than half the effort. 8-Kwnjfsatl-fuvcna does ALL the effort. Patient does none of the effort to complete the activity. Or, the assistance of 2 or more helpers is required for the patient to complete the activity. If activity was not attempted, code reason: 7-Patient Refused. 9-Not Applicable-not attempted and the patient did not perform the activity before the current illness, exacerbation or injury. 10-Not Attempted due to Environmental Limitations-(lack of equipment, weather restraints, etc.). 88-Not Attempted due to Medical Conditions or Safety Concerns. Sit to Stand (QC): 3 Chair/Bcc-zu-Xhefp Xfer(QC): 3 Pt performs sit to stand and chair to wheelchair transfer /c MIN assistance for lifting. Performs sit to stand transfer 12x from wheelchair and 2x from chair. Weight Bearing Right Lower Extremity: Right Full Weight Bearing Left Lower Extremity: Left Full Weight Bearing Gait Training Does the Patient Walk?: Yes Distance: 15, 25 feet x 3 Walk 10 feet (QC): 1 Gait Persons Needed: 2 Gait Assistive Device: Walker Platform Pt ambulates /c use of platform walker up to 25 feet before requiring a seated rest break. Required MIN/MOD assist x 2 for safety and upright assistance. Pt demonstrates moderate push towards R side while ambulating. Displays inconsistent step lengths /c limited control of foot placement. Demonstrates slow gait cycle throughout ambulation. Pt ambulate distances of 15, 25 feet x 3. Wheelchair Training Does the Pt Use a Wheelchair?: Yes Wheel 50 ft with 2 turns (QC): 4 Type of Wheelchair: Manual Pt SBA /c wheelchair mobility up to 100 feet. Treatments Seated Therapeutic Exercises (B) x 10 ea: - Forward trunk bending - Lateral trunk bending - LAQs - Hamstring curls /c RTB - Marching /c RTB - Hip abd /c RTB - Hip add Assessment Current Status: Good Progress Pt displays decent muscle endurance /c limited strength /c therapeutic exercises. Pt is able to ambulate up to 25 feet /c use of platform walker before needing a rest break but does required two person assistance to perform. Pt displays increased muscle fatigue /c completion of therapeutic exercises. Demonstrates good muscle ROM /c all exercise. Pt becomes tearful during treatment but is unable to express why. Pt was given encouragement from helper. Continue to progress pt per POC. PT Homebound Teacher Goals Homebound Teacher Goals PT Mcfp Goals Time Frame: Nov 04, 2022 Roll Left & Right (QC): 4 (SBA for bed mobility ) Sit to Lying (QC): 4 (SBA for bed mobility ) Lying-Sitting on Side/Bed(QC): 4 (SBA for bed mobility ) Sit to Stand (QC): 3 (Min A for transfers ) Chair/Mgn-gx-Evwlj Xfer(QC): 3 (Min A for transfers ) Toilet Transfer (QC): 3 (Min A for transfers ) Car Transfer (QC): 3 (Min A for transfers ) Does the Patient Walk: Yes Walk 10 feet (QC): 3 (Min A for short distances ) Walk 50ft with 2 Turns (QC): 88 (Balance ) Walk 150 ft (QC): 88 (Balance ) Walking 10ft on Uneven Surface: 88 (Balance ) 1 Step (curb) (QC): 88 (Balance ) 4 Steps (QC): 88 (Balance ) 12 Steps (QC): 88 (Balance ) Picking up an Object (QC): 88 (Balance ) Does the Pt use WC or Scooter?: Yes Wheel 50 feet with 2 turns (QC: 3 (Min A for w/c mobility ) Type: Manual Wheel 150 feet: 3 (Min A for w/c mobility ) Type: Manual PT Plan Treatment/Plan Treatment Plan: Continue Plan of Care Treatment Plan: Bed Mobility, Concurrent Therapy, Education, Functional Activity Shira, Functional Strength, Group Therapy, Gait, Safety, Therapeutic Exercise, Transfers Treatment Duration: Nov 04, 2022 Frequency: At least 5 of 7 days/Wk (IRF) Estimated Hrs Per Day: 2 hours per day Patient and/or Family Agrees t: Yes Time Time In: 0800 Time Out: 0900 DATE: Oct 29, 2022 Total Billed Treatment Time: 60 Total Billed Treatment 1 visit GT x 2 EX x 1 FA x 1 OLMAN REZA PTA Oct 29, 2022 09:00
[2022-10-29 09:32] VITALS: BP 142/73
[2022-10-29] MEDS: amLODIPine 10 MG TABLET PO SCH (09:49)
[2022-10-29] MEDS: buPROPion SR 150 MG TABLET PO SCH ×2 (09:49→20:55)
[2022-10-29] MEDS: ASPIRIN 325 MG TABLET PO SCH (09:49)
[2022-10-29] MEDS: NICOTINE 21 MG PATCH TD SCH (09:49)
[2022-10-29] MEDS: CLOPIDOGREL 75 MG TABLET PO SCH (09:49)
[2022-10-29] MEDS: LOSARTAN 50 MG TABLET PO SCH ×2 (09:49→20:55)
[2022-10-29] MEDS: FOLIC ACID 1 MG TAB PO SCH (09:49)
[2022-10-29] MEDS: NICOTINE PATCH REMOVAL TP SCH (09:50)
[2022-10-29] MEDS: DOCUSATE SODIUM 100 MG CAPSULE PO SCH ×2 (09:50→21:00)
[2022-10-29] MEDS: SENNOSIDES 8.6 MG TABLET PO SCH ×2 (09:50→21:00)
--- NOTE | 2022-10-29 11:56 | Occupational Ther Daily Note ---
OT Current Status-Daily Note Subjective Pt alert, sitting up in recliner. Pt agrees to therapy, no c/o of pain. Pt demonstrated frustration with communication due to aphasia, pt comforted and encouraged to keep working on communication skills. Mental Status/Objective Patient Orientation: Person, Non-Verbal/Aphasic, Situation ADL-Treatment Therapy Code Descriptions/Definitions Functional [place] Measure: 0=Not Assessed/NA 4=Minimal Assistance 1=Total Assistance 5=Supervision or Setup 2=Maximal Assistance 6=Modified [place] 3=Moderate Assistance 7=Complete IndependenceSCALE: Activities may be completed with or without assistive devices. 6-Epvsetqoqn-fjuosdi completes the activity by him/herself with no assistance from a helper. 5-Set-up or Clean-up Assistance-helper sets up or cleans up; patient completes activity. [place] assists only prior to or following the activity. 4-Supervision or Touching Assistance-helper provides verbal cues and/or touc rashaad/steadying and/or contact guard assistance as patient completes activity. Assistance may be provided throughout the activity or intermittently. 3-Partial/Moderate Assistance-helper does LESS THAN HALF the effort. [place] lifts, holds or supports trunk or limbs, but provides less than half the effort. 2-Substantial/Maximal Assistance-helper does MORE THAN HALF the effort. [place] lifts or holds trunk or limbs and provides more than half the effort. 7-Ayobxrcnb-wszkvb does ALL the effort. Patient does none of the effort to complete the activity. Or, the assistance of 2 or more helpers is required for the patient to complete the activity. If activity was not attempted, code reason: 7-Patient Refused. 9-Not Applicable-not attempted and the patient did not perform the activity before the current illness, exacerbation or injury. 10-Not Attempted due to Environmental Limitations-(lack of equipment, weather restraints, etc.). 88-Not Attempted due to Medical Conditions or Safety Concerns. Oral Hygiene (QC): 6 (Independent with oral care. ) Bathing Location: L Arm, R Arm, L Upper Leg, R Upper Leg, L Lower Leg (including foot), R Lower Leg (including foot), Chest, Abdomen, Buttocks, Perineal Area Shower/Bathe Self (QC): 5 (Set up for bathing. Pt spontaneous shoulder abduction on R UE to wash under armpit. Pt able to lift L LE to wash esme area. ) Upper Body Dressing (QC): 5 (Set up for one-handed dressing technique. Pt c ompleted all other components of UB dressing.) Lower Body Dressing (QC): 3 (Pt able to thread brief and pants around feet and pull up to knees. Min A to stand and assist pt hiked pants over hips.) On/Off Footwear: 3 (Set up to don/doff socks. Min A to put on R shoe, pt donned L shoe. ) Pt independently brushed hair. Other Treatment After completing ADLs, pt worked on modified SPT in room with Min A. Skilled instruction required for proper positioning/form with transfer technique. Pt completed 8 transfers to/from w/c and chair, each transfer better than the last. Pt demonstrated satisfaction with modified version of SPT rather than typical technique. Ended session with pt sitting up in recliner with call light/phone in reach. All needs met in room. Education OT Patient Education: Correct positioning, Modified ADL techniques, Transfer techniques Teaching Recipient: Patient Teaching Methods: Demonstration, Discussion Response to Teaching: Verbalize Understanding, Return Demonstration Educated pt on proper positioning/form during modified SPT to w/c from chair. Skilled instruction required for proper technique. Pt demonstrated understanding of instructions, will reinforce techniques in future sessions for continued independence with transfers. OT Short Term Goals Short Term Goals Time Frame: Oct 28, 2022 Eatin Oral hygiene: 4 Toileting hygiene: 3 Shower/bathe self: 3 Upper body dressin Lower body dressin Putting on/taking off footwear: 3 OT Rags Laborer Goals Rags Laborer Goals Time Frame: Nov 11, 2022 Disorganized thinkin Altered level of consciousness: 0 Eating (QC): 5 (Set up) Oral Hygiene (QC): 5 (Set up) Toileting Hygiene (QC): 4 (CGA/supervision) Shower/Bathe Self (QC): 4 (CGA/supervision) Upper Body Dressing (QC): 5 (Set up) Lower Body Dressing (QC): 4 (CGA/supervision) On/Off Footwear (QC): 4 (CGA/supervision) Additional Goals: 1-Demonstrate ADL Tasks, 2-Verbalize Understanding, 3- ImproveStrength/Shira 1=Demonstrate adherence to instructed precautions during ADL tasks. 2=Patient will verbalize/demonstrate understanding of assistive devices/modifications for ADL. 3=Patient will improve strength/tolerance for activity to enable patient to perform ADL's. OT Education/Plan Problem List/Assessment Assessment: Decreased UE Strength, Dependent Transfers, Impaired Coordination, Impaired Funct Balance, Impaired Self-Care Skills Discharge Recommendations Plan/Recommendations: Continue POC Treatment Plan/Plan of Care Patient would benefit from OT for education, treatment and training to promote independence in ADL's, mobility, safety and/or upper extremity function for ADL's. Plan of Care: ADL Retraining, Caregiver Training, Functional Mobility, Group Exercise/Act as Ind, UE Funct Exercise/Act Treatment Duration: Nov 11, 2022 Frequency: At least 5 of 7 days/Wk (IRF) Estimated Hrs Per Day: 1.5 hours per day Agreement: Yes Rehab Potential: Fair Time Start Time: 10:30 Stop Time: 12:00 DATE: Oct 29, 2022 Total Time Billed (hr/min): 90 Billed Treatment Time 1 visit-FA 2 (30 min) ADL 4 (60 min) ERICA RICE Oct 29, 2022 11:56
--- NOTE | 2022-10-29 14:45 | Speech Therapy Daily Note ---
Speech Daily Progress Note Subjective Date Seen by Provider: Oct 29, 2022 Time Seen by Provider: 09:30 The patient was seated upright in the recliner, awake and alert, upon entrance to her room by the clinician. The patient greeted the clinician appropriately (verbally) and was agreeable to participation in the skilled speech pathology treatment session. Objective The Western Aphasia Battery Bedside Version was provided to the patient to assess for progress with the patient's language skills. The patient displayed a final score of 36.67 with the classification criteria fitting best with Broca's type aphasia. Spontaneous Speech: 2/10 Fluency: 4/10 Auditory/Verbal Comprehension: 7/10 Sequential Commands: 2/10 Repetition: 4/10 Object Namin/10 The patient continues to struggle with expressive speech skills however has displayed great improvement with repetition of functional single words and short phrases. The reading and writing portion of the evaluation will be completed on the subsequent treatment date. Assessment Assessment Current Status: Good Progress Treatment Plan Continue Plan of Care Speech Short Term Goals Short Term Goals Short Term Goals 1. The patient will complete oral motor exercises with 75% accuracy and moderate clinician verbal and visual cueing. 2. The patient will communicate yes and no response (simple) with 50% accuracy and moderate clinician verbal and visual cueing. Time Frame-STG: Ten Days. Speech Senior Living Goals Deportation Officer Goals 1. The patient will demonstrate improved functional communication for increased safety with discharge to the least restrictive environment. Time Frame: Four Weeks. Speech-Plan Treatment Plan Speech Therapy Treatment Plan: Continue Plan of Care Treatment Duration: Nov 05, 2022 Frequency: Modified Program (IRF) Estimated Hrs Per Day: .5 hour per day Rehab Potential: Fair Pt/Family Agrees to Plan: Yes Safety Risks/Education Teaching Recipient: Patient Teaching Methods: Demonstration, Discussion Response to Teaching: Verbalize Understanding, Return Demonstration Education Topics Provided: Functional Phrases, Word Finding Strategies Time Speech Therapy Time In: 09:30 Speech Therapy Time Out: 10:00 DATE: Oct 29, 2022 Total Billed Time: 30 Billed Treatment Time TainaNICO [facility] Oct 29, 2022 14:45
[2022-10-29] MEDS: ENOXAPARIN 40 MG/0.4 ML SYRINGE SC SCH (20:55)
[2022-10-29 21:11] VITALS: BP 128/68
[2022-10-30] MEDS: POTASSIUM CHLORIDE 10 MEQ TABLET PO SCH (06:30)
[2022-10-30] MEDS: THIAMINE 100 MG (VITAMIN B-1) TAB PO SCH (06:30)
[2022-10-30] MEDS: THERAPEUTIC MULTIVITAMIN W/MINERALS TABLET PO SCH (06:30)
[2022-10-30] MEDS: BETHANECHOL 25 MG TABLET PO SCH ×4 (06:30→20:40)
--- NOTE | 2022-10-30 07:23 | Occupational Ther Daily Note ---
OT Current Status-Daily Note Subjective Pt alert laying in bed. Pt agrees to therapy, no c/o of pain. Mental Status/Objective Patient Orientation: Person, Non-Verbal/Aphasic, Eyes Open ADL-Treatment Therapy Code Descriptions/Definitions Functional [place] Measure: 0=Not Assessed/NA 4=Minimal Assistance 1=Total Assistance 5=Supervision or Setup 2=Maximal Assistance 6=Modified [place] 3=Moderate Assistance 7=Complete IndependenceSCALE: Activities may be completed with or without assistive devices. 8-Giadijldzb-gzjlxed completes the activity by him/herself with no assistance from a helper. 5-Set-up or Clean-up Assistance-helper sets up or cleans up; patient completes activity. [place] assists only prior to or following the activity. 4-Supervision or Touching Assistance-helper provides verbal cues and/or touching/steadying and/or contact guard assistance as patient completes activity. Assistance may be provided throughout the activity or intermittently. 3-Partial/Moderate Assistance-helper does LESS THAN HALF the effort. [place] lifts, holds or supports trunk or limbs, but provides less than half the effort. 2-Substantial/Maximal Assistance-helper does MORE THAN HALF the effort. [place] lifts or holds trunk or limbs and provides more than half the effort. 9-Wiozqntkf-bimwks does ALL the effort. Patient does none of the effort to complete the activity. Or, the assistance of 2 or more helpers is required for the patient to complete the activity. If activity was not attempted, code reason: 7-Patient Refused. 9-Not Applicable-not attempted and the patient did not perform the activity before the current illness, exacerbation or injury. 10-Not Attempted due to Environmental Limitations-(lack of equipment, weather restraints, etc.). 88-Not Attempted due to Medical Conditions or Safety Concerns. Eating (QC): 5 (Set up to cut food and open difficult packages. Pt does use hands to cotton picker appropriate food if unable to cut.) Pt washed face and brushed hair, set up. Other Treatment Pt completed 10 reps of APROM with B UE (Shoulder flexion). Placed NMES on R shldr while pt eating breakfast. NMES placed to work on scapular elevation activation for 60 min on 14 vee. Education OT Patient Education: Purpose of tx/functional activities, Transfer techniques Teaching Recipient: Patient Teaching Methods: Demonstration, Discussion Response to Teaching: Return Demonstration, Reinforcement Needed OT Short Term Goals Short Term Goals Time Frame: Oct 28, 2022 Eatin Oral hygiene: 4 Toileting hygiene: 3 Shower/bathe self: 3 Upper body dressin Lower body dressin Putting on/taking off footwear: 3 OT Shelter Goals Sign Painter Helper Goals Time Frame: Nov 11, 2022 Disorganized thinkin Altered level of consciousness: 0 Eating (QC): 5 (Set up) Oral Hygiene (QC): 5 (Set up) Toileting Hygiene (QC): 4 (CGA/supervision) Shower/Bathe Self (QC): 4 (CGA/supervision) Upper Body Dressing (QC): 5 (Set up) Lower Body Dressing (QC): 4 (CGA/supervision) On/Off Footwear (QC): 4 (CGA/supervision) Additional Goals: 1-Demonstrate ADL Tasks, 2-Verbalize Understanding, 3- ImproveStrength/Shira 1=Demonstrate adherence to instructed precautions during ADL tasks. 2=Patient will verbalize/demonstrate understanding of assistive devices/modifications for ADL. 3=Patient will improve strength/tolerance for activity to enable patient to perform ADL's. OT Education/Plan Problem List/Assessment Assessment: Decreased Activ Tolerance, Decreased UE Strength, Impaired Bed Mobility, Impaired Coordination, Impaired Funct Balance, Impaired Self-Care Skills, Restricted Funct UE ROM Discharge Recommendations Plan/Recommendations: Continue POC Treatment Plan/Plan of Care Patient would benefit from OT for education, treatment and training to promote independence in ADL's, mobility, safety and/or upper extremity function for ADL's. Plan of Care: ADL Retraining, Caregiver Training, Functional Mobility, Group Exercise/Act as Ind, UE Funct Exercise/Act Treatment Duration: Nov 11, 2022 Frequency: At least 5 of 7 days/Wk (IRF) Estimated Hrs Per Day: 1.5 hours per day Agreement: Yes Rehab Potential: Fair Time Start Time: 07:00 Stop Time: 07:30 DATE: Oct 30, 2022 Total Time Billed (hr/min): 30 Billed Treatment Time 1 visit-EX 1 (8 min) ADL 1 (22 min) ERICA RICE Oct 30, 2022 07:23
[2022-10-30 08:00] VITALS: BP 145/65
[2022-10-30] MEDS: LOSARTAN 50 MG TABLET PO SCH ×2 (08:24→20:40)
[2022-10-30] MEDS: buPROPion SR 150 MG TABLET PO SCH ×2 (08:24→20:40)
[2022-10-30] MEDS: DOCUSATE SODIUM 100 MG CAPSULE PO SCH ×2 (08:24→20:45)
[2022-10-30] MEDS: FOLIC ACID 1 MG TAB PO SCH (08:24)
[2022-10-30] MEDS: CLOPIDOGREL 75 MG TABLET PO SCH (08:24)
[2022-10-30] MEDS: SENNOSIDES 8.6 MG TABLET PO SCH ×2 (08:24→20:40)
[2022-10-30] MEDS: ASPIRIN 325 MG TABLET PO SCH (08:24)
[2022-10-30] MEDS: amLODIPine 10 MG TABLET PO SCH (08:24)
[2022-10-30] MEDS: NICOTINE 21 MG PATCH TD SCH (08:24)
--- NOTE | 2022-10-30 08:28 | Cardiology Progress Note ---
Subjective Date Seen by Provider: Oct 30, 2022 Time Seen by Provider: 08:20 Subjective/Events-last exam Patient is sitting up in chair, denies any chest pain or palpitations. Objective-Cardiology Exam Last Set of Vital Signs Vital Signs 10/30/22 08:00 Temp 36.3 Pulse 88 Resp 16 B/P (MAP) 145/65 (91) Pulse Ox 93 O2 Delivery Room Air I&O Intake and Output 10/30/22 00:00 Intake Total 1570 ml Output Total 1050 ml Balance 520 ml Intake Oral 1570 ml Output Urine Total 1050 ml Bladder Scan Volume Amount 78 ml # Voids 3 # Bowel Movements 4 General: Alert, Oriented X3, Cooperative HEENT: Atraumatic, PERRLA Neck: Supple, No JVD, No Thyromegaly Lungs: Clear to Auscultation, Normal Air Movement Heart: Regular Rate Abdomen: Normal Bowel Sounds, Soft Extremities: No Edema Skin: No Rashes, No Significant Lesion Neuro: Other (right sided weakness, expressive aphasia) Psych/Mental Status: Mental Status NL, Mood NL A/P-Cardiology Admission Diagnosis CVA Carotid artery stenosis HTN HLP Assessment/Plan Acute stroke due to left carotid occlusion, right sided weakness and aphasia. Maintained on ASA and Plavix. Continue with PT/OT, continues to improve. Patient was deemed inoperable by [place] surgery, currently managed by primary care team Carotid artery stenosis, carotid duplex done 10/12/22 showing complete occlusion of the left carotid system including both the internal and external carotid arteries. The right carotid artery appeared to have some plaques with mild disease, nonobstructive disease. Hypertension, better control at this time Maintained on losartan 50 mg twice daily, amlodipine 10 mg daily Continue to monitor Hyperlipidemia, started on Lipitor 80 mg daily Continue to monitor Supervisory-Addendum Brief Supervisory Addendum Participated in pt care: history, MDM, physical Personally performed: exam, history, MDM Care discussed with: FELICE Results interpretation: Verified all documentation Notes: Patient was seen and evaluated with John, examination performed, management plan was discussed, agree with the current scribed note, I made few changes to the note using Italic font Patient was seen at bedside, sitting comfortably Blood pressure is better controlled Continue to monitor, no changes are recommended JOHN OATES Oct 30, 2022 08:28 JOSE ANGEL CLEMONS MD Oct 30, 2022 14:53
[2022-10-30] MEDS: NICOTINE PATCH REMOVAL TP SCH (08:30)
--- NOTE | 2022-10-30 10:02 | PM&R Progress Note ---
Subjective HPI/CC On Admission Date Seen by Provider: Oct 30, 2022 Time Seen by Provider: 13:00 Subjective/Events-last exam 10/30/2022: No major issues Family hesitant on taking care of her at home Family remains outside of room when she toilets Dramatic improvement in ADL's 10/29/2022: Much improved No falls Voiding well No falls 10/28/2022: Patient doing a lot better Every day she is improved Voiding well No pain 10/27/2022: Patient doing really well Denies any new issues No pain No falls 10/26/2022: Patient dramatically improving Urinary retention yesterday but none today If that continues we will need to check her for a UTI 10/25/2022: Patient doing better No falls No pain Voiding well 10/24/2022: Patient doing really well Voiding now Increased Urecholine to 25 mg before meals and at bedtime 10/23/2022: Patient doing well Discontinued catheter and when we were preparing for Valencia reinsertion she voided We will increase Urecholine In and out catheter will be required instead of indwelling Valencia now 10/22/2022: No major issues Family training today DC catheter tomorrow morning to see if she retains No pain reported 10/21/2022: Much improved status Slow recovery Aphasia slow to resolve In-dwelling catheter maintained Urecholine started several days ago and may DC catheter this week to see if she retains 10/20/2022: BP elevated Flaccidity remains right sided Valencia cath in place, started Urecholine to see if we can regain emptying bladder capability BM 10/1910/19/2022: 2 person assist Stools normal Valencia cath in place Leans right No falls 10/18/2022: Doing well Able to lift her right leg Able to read out loud without much dysarthria Sister at bedside 10/17/2022: About the same No falls Valencia catheter remains No pain reported 10/16/2022: Patient about the same Started Wellbutrin to help smoking cessation and depression Nicotine patch will also be placed No major problems 10/15/2022: Patient having more difficulty speaking and now almost completely aphasic Maintained on Plavix and aspirin Appreciate cardiology Tried to encourage and reassure the patient Patient becomes tearful Review of Systems General: Fatigue, Malaise Neurological: Weakness, Incoordination Objective Exam Vital Signs Vital Signs Date Time Temp Pulse Resp B/P (MAP) Pulse Ox O2 Delivery O2 Flow Rate FiO2 10/30/22 09:00 93 Room Air 10/30/22 08:00 36.3 88 16 145/65 (91) Capillary Refill : General Appearance: No Apparent Distress, WD/WN, Anxious, Chronically ill, Thin HEENT: PERRL/EOMI, Normal ENT Inspection, Pharynx Normal Neck: Full Range of Motion, Normal Inspection, Non Tender, Supple, Carotid Bruit Respiratory: Chest Non Tender, Lungs Clear, Normal Breath Sounds, No Accessory Muscle Use, No Respiratory Distress Cardiovascular: Regular Rate, Rhythm, No Edema, No Gallop, No JVD, No Murmur, Normal Peripheral Pulses Gastrointestinal: Normal Bowel Sounds, No Organomegaly, No Pulsatile Mass, Non Tender, Soft Back: Normal Inspection, No CVA Tenderness, No Vertebral Tenderness Extremity: Normal Capillary Refill, Normal Inspection, Normal Range of Motion, Non Tender, No Calf Tenderness, No Pedal Edema Neurologic/Psychiatric: Alert, Oriented x3, Abnormal aoc airspace control officer II-XII, Abnormal Gait, Aphasia, Depressed Affect, Facial Droop (right), Motor Weakness (right sided 0/5) Skin: Normal Color, Warm/Dry Lymphatic: No Adenopathy Results/Procedures Lab Patient resulted labs reviewed. FIM Transfers Therapy Code Descriptions/Definitions Functional [place] Measure: 0=Not Assessed/NA 4=Minimal Assistance 1=Total Assistance 5=Supervision or Setup 2=Maximal Assistance 6=Modified [place] 3=Moderate Assistance 7=Complete IndependenceSCALE: Activities may be completed with or without assistive devices. 1-Ndxadrwzti-pgjbgrz completes the activity by him/herself with no assistance from a helper. 5-Set-up or Clean-up Assistance-helper sets up or cleans up; patient completes activity. [place] assists only prior to or following the activity. 4-Supervision or Touching Assistance-helper provides verbal cues and/or touching/steadying and/or contact guard assistance as patient completes a ctivity. Assistance may be provided throughout the activity or intermittently. 3-Partial/Moderate Assistance-helper does LESS THAN HALF the effort. [place] lifts, holds or supports trunk or limbs, but provides less than half the effort. 2-Substantial/Maximal Assistance-helper does MORE THAN HALF the effort. [place] lifts or holds trunk or limbs and provides more than half the effort. 7-Mawaxudwk-rbjtxq does ALL the effort. Patient does none of the effort to complete the activity. Or, the assistance of 2 or more helpers is required for the patient to complete the activity. If activity was not attempted, code reason: 7-Patient Refused. 9-Not Applicable-not attempted and the patient did not perform the activity before the current illness, exacerbation or injury. 10-Not Attempted due to Environmental Limitations-(lack of equipment, weather restraints, etc.). 88-Not Attempted due to Medical Conditions or Safety Concerns. Roll Left to Right (QC): 3 (Mod A) Sit to Lying (QC): 3 (Mod A) Sit to Stand (QC): 3 Chair/Cgn-px-Tzmdg Xfer(QC): 3 Car Transfer (QC): 88 (balance ) Gait Training Does the Patient Walk?: Yes Distance: 15, 25 feet x 3 Walk 10 feet (QC): 1 Walk 50 ft with 2 Turns(QC): 88 Walk 150 ft (QC): 88 Walking 10ft/uneven surface-QC: 88 Gait Persons Needed: 2 Gait Assistive Device: Walker Platform Wheelchair Training Does the Pt Use a Wheelchair?: Yes Wheel 50 ft with 2 turns (QC): 4 Wheel 150 ft (QC): 4 Type of Wheelchair: Manual Stair Training 1 Step (curb) (QC): 88 (balance ) 4 Steps (QC): 88 (balance ) 12 Steps (QC): 88 (balance ) Balance Picking up an Object (QC): 88 (balance ) ADL-Treatment Eating (QC): 5 (Set up to cut food and open difficult packages. Pt does use hands to pick up man appropriate food if unable to cut.) Oral Hygiene (QC): 6 (Independent with oral care. ) Bathing Location: L Arm, R Arm, L Upper Leg, R Upper Leg, L Lower Leg (including foot), R Lower Leg (including foot), Chest, Abdomen, Buttocks, Perineal Area Shower/Bathe Self (QC): 5 (Set up for bathing. Pt spontaneous shoulder abduction on R UE to wash under armpit. Pt able to lift L LE to wash esme area. ) Upper Body Dressing (QC): 5 (Set up for one-handed dressing technique. Pt completed all other components of UB dressing.) Lower Body Dressing (QC): 3 (Pt able to thread brief and pants around feet and pull up to knees. Min A to stand and assist pt hiked pants over hips.) On/Off Footwear (QC): 3 (Set up to don/doff socks. Min A to put on R shoe, pt donned L shoe. ) Toileting Hygiene (QC): 2 (mod A) Toilet Transfer (QC): 3 (min A to mod A) Assessment/Plan Assessment and Plan Assess & Plan/Chief Complaint Assessment: Catastrophic CVA with right sided flaccidity-CT angiogram matches carotid ultrasound revealing left carotid internal and external complete occlusion causing catastrophic ischemic infarct of the left parietal and MCA region no surgical option available per vascular surgery at [facility] Dysarthria and expressive aphasia HTN emergency placed on Cardene drip now on Hydralazine IV Smoker Alcohol excess user placed on CIWA Urinary retention requiring replacement of valencia catheter 10/14/22 but DC 10/23 and was able to void so increasing Urecholine and adding in out cathBut now voiding without difficulty on 10/24/2022 Plan: PT OT ST for expressive aphasia CIWA Vitamin supplementation to prevent Wernicke's encephalopathy and Karsokoff's psychosis Lovenox for DVT PPx Cardiology consult ASA and Plavix 10/15/2022: Continue supportive care 10/16/2022: Monitor closely 10/17/2022: Monitor closely Losartan 10/18/2022: Monitor closely 10/19/2022: Improved Start Urecholine 10/20/2022: Trial of DC catheter this week again 10/21/2022: Monitor closely Urecholine 10/22/2022: DC catheter tomorrow 10/23/2022: Voiding is improved Increase Urecholine 10/24/2022: Successful discontinuation of catheter 10/25/2022: Supportive care Monitor voiding 10/26/2022: Monitor urinary retention May need cath for UA specimen 10/27/2022: Supportive care Monitor closely 10/28/2022: Monitor closely Voiding well 10/29/2022: Monitor closely Improved 10/30/2022: Dramatic improvement (1) CVA (cerebral vascular accident) JM CALLEJAS DO Oct 30, 2022 10:02
--- NOTE | 2022-10-30 10:04 | Occupational Ther Daily Note ---
OT Current Status-Daily Note Subjective Pt alert, sitting up in recliner. Pt agrees to therapy and no c/o of pain. Mental Status/Objective Patient Orientation: Person, Non-Verbal/Aphasic, Situation ADL-Treatment Therapy Code Descriptions/Definitions Functional [place] Measure: 0=Not Assessed/NA 4=Minimal Assistance 1=Total Assistance 5=Supervision or Setup 2=Maximal Assistance 6=Modified [place] 3=Moderate Assistance 7=Complete IndependenceSCALE: Activities may be completed with or without assistive devices. 8-Ubakyozahb-ivnduor completes the activity by him/herself with no assistance from a helper. 5-Set-up or Clean-up Assistance-helper sets up or cleans up; patient completes activity. [place] assists only prior to or following the activity. 4-Supervision or Touching Assistance-helper provides verbal cues and/or touch ing/steadying and/or contact guard assistance as patient completes activity. Assistance may be provided throughout the activity or intermittently. 3-Partial/Moderate Assistance-helper does LESS THAN HALF the effort. [place] lifts, holds or supports trunk or limbs, but provides less than half the effort. 2-Substantial/Maximal Assistance-helper does MORE THAN HALF the effort. [place] lifts or holds trunk or limbs and provides more than half the effort. 2-Wxewbzqlf-hcboxq does ALL the effort. Patient does none of the effort to complete the activity. Or, the assistance of 2 or more helpers is required for the patient to complete the activity. If activity was not attempted, code reason: 7-Patient Refused. 9-Not Applicable-not attempted and the patient did not perform the activity before the current illness, exacerbation or injury. 10-Not Attempted due to Environmental Limitations-(lack of equipment, weather restraints, etc.). 88-Not Attempted due to Medical Conditions or Safety Concerns. Upper Body Dressing (QC): 5 (Set up for one-handed dressing technique. ) Lower Body Dressing (QC): 3 (Pt able to thread pants around feet and pull up to knees. Min A for steadying while pt hikes pants over L hip. OTAS assisted hiking pants over R hip. ) On/Off Footwear: 3 (Mod A for R shoe, Ind for L shoe. ) Other Treatment Pt propelled w/c from room to therapy gym. Pt supine on mat while OTAS completed PROM on R UE to decrease tone for further independence with functional tasks. PROM to R UE to decrease tone and work on muscle activation. Pt demonstrated some muscle activation during shldr extension starting at 90 degrees. Pt CGA supine to EOB utilizing log roll technique. Pt working on modified SPT from w/c to mat 7 times with Min A going toward L and R side. Pt working on w/c mobility around obstacles while completing 1 step tasks for focus, memory and attention. Pt displayed R sided neglect during w/c mobility though was able to problem solve with increased time and VCs when obstacle in the way. Pt propelled w/c back to room. Ended session with pt sitting up in recliner with call light/phone in reach. All needs met in room. Education OT Patient Education: Correct positioning, Modified ADL techniques, Transfer techniques, W/C management Teaching Recipient: Patient Teaching Methods: Demonstration, Discussion Response to Teaching: Return Demonstration, Reinforcement Needed Skilled instruction for w/c mobility while avoiding obstacles and turning. Pt needed increased time to problem solve. Education on modified SPT techniques. Pt verbalized understanding but demonstrated understanding inconsistently. Reinforcement needed in future sessions. OT Short Term Goals Short Term Goals Time Frame: Oct 28, 2022 Eatin Oral hygiene: 4 Toileting hygiene: 3 Shower/bathe self: 3 Upper body dressin Lower body dressin Putting on/taking off footwear: 3 OT Chcf Goals Chcf Goals Time Frame: Nov 11, 2022 Disorganized thinkin Altered level of consciousness: 0 Eating (QC): 5 (Set up) Oral Hygiene (QC): 5 (Set up) Toileting Hygiene (QC): 4 (CGA/supervision) Shower/Bathe Self (QC): 4 (CGA/supervision) Upper Body Dressing (QC): 5 (Set up) Lower Body Dressing (QC): 4 (CGA/supervision) On/Off Footwear (QC): 4 (CGA/supervision) Additional Goals: 1-Demonstrate ADL Tasks, 2-Verbalize Understanding, 3- ImproveStrength/Shira 1=Demonstrate adherence to instructed precautions during ADL tasks. 2=Patient will verbalize/demonstrate understanding of assistive devices/modifications for ADL. 3=Patient will improve strength/tolerance for activity to enable patient to perform ADL's. OT Education/Plan Problem List/Assessment Assessment: Decreased Activ Tolerance, Decreased UE Strength, Dependent Transfers, Impaired Coordination, Impaired Funct Balance, Impaired Self-Care Skills Discharge Recommendations Plan/Recommendations: Continue POC Treatment Plan/Plan of Care Treatment,Training & Education: Yes Patient would benefit from OT for education, treatment and training to promote independence in ADL's, mobility, safety and/or upper extremity function for ADL's. Plan of Care: ADL Retraining, Caregiver Training, Functional Mobility, Group Exercise/Act as Ind, UE Funct Exercise/Act Treatment Duration: Nov 11, 2022 Frequency: At least 5 of 7 days/Wk (IRF) Estimated Hrs Per Day: 1.5 hours per day Agreement: Yes Rehab Potential: Fair Time Start Time: 08:30 Stop Time: 09:30 DATE: Oct 30, 2022 Total Time Billed (hr/min): 60 Billed Treatment Time 1 visit- ADL 2 (25 min) FA 2 (35 min) ERICA RICE Oct 30, 2022 10:03
--- NOTE | 2022-10-30 10:43 | Speech Therapy Daily Note ---
Speech Daily Progress Note Subjective Date Seen by Provider: Oct 30, 2022 Time Seen by Provider: 09:30 The patient was seated upright in her recliner, awake and alert, upon entrance to her room by the clinician. The patient greeting the clinician appropriately ("I'm fine.") and was agreeable to participation in the skilled speech and language treatment session. The patient independently stated, "I want to go home." Objective The clinician completed the Western Aphasia Battery- Revised Bedside (WAB-R) on this date. The patient completed the reading portion with a score of +5/10 and the writing portion with a score of +0/10. Severe agraphia is present which does cause vi sible frustration by the patient. 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 The patient's "Bedside Language Score" is 33.75 correlating to a severe rating (26-50 severe range). The clinician discussed the patient's home exercise regimen, specifically the importance of repetition of functional phrases and participation in conversation with familiar conversation partners. Assessment Assessment Current Status: Good Progress Treatment Plan Continue Plan of Care Speech Short Term Goals Short Term Goals Short Term Goals 1. The patient will complete oral motor exercises with 75% accuracy and moderate clinician verbal and visual cueing. 2. The patient will communicate yes and no response (simple) with 50% accuracy and moderate clinician verbal and visual cueing. Time Frame-STG: Ten Days. Speech Statue Maker Goals [facility] Goals 1. The patient will demonstrate improved functional communication for increased safety with discharge to the least restrictive environment. Time Frame: Four Weeks. Speech-Plan Treatment Plan Speech Therapy Treatment Plan: Continue Plan of Care Treatment Duration: Nov 05, 2022 Frequency: Modified Program (IRF) Estimated Hrs Per Day: .5 hour per day Rehab Potential: Fair Pt/Family Agrees to Plan: Yes Safety Risks/Education Teaching Recipient: Patient Teaching Methods: Demonstration, Discussion Response to Teaching: Verbalize Understanding, Reinforcement Needed Education Topics Provided: Plan of Care, Home Exercise Regimen, Functional Phrases Time Speech Therapy Time In: 09:30 Speech Therapy Time Out: 10:00 DATE: Oct 30, 2022 Total Billed Time: 30 Billed Treatment Time 1NICO [facility] [facility] Oct 30, 2022 10:43
--- NOTE | 2022-10-30 15:17 | Physical Therapy Daily Note ---
PT Daily Note-Current Subjective Pt found seated in recliner /c daughter present upon entry. Agreed to PT. When asked if her LEs are tired pt replies "yeah." Pain Section J - Health Conditions 1. Rarely or not at all 2. Occasionally 3. Frequently 4. Almost constantly 8. Unable to answer Pain Effect on Sleep: 1 Pain Interference with Therapy: 1 Pain Interference w/Day-to-Day: 1 Mental Status Patient Orientation: Person Transfers SCALE: Activities may be completed with or without assistive devices. 6-Ednrotlwtp-fncodjf completes the activity by him/herself with no assistance from a helper. 5-Set-up or Clean-up Assistance-helper sets up or cleans up; patient completes activity. [place] assists only prior to or following the activity. 4-Supervision or Touching Assistance-helper provides verbal cues and/or touching/steadying and/or contact guard assistance as patient completes activity. Assistance may be provided throughout the activity or intermittently. 3-Partial/Moderate Assistance-helper does LESS THAN HALF the effort. [place] lifts, holds or supports trunk or limbs, but provides less than half the effort. 2-Substantial/Maximal Assistance-helper does MORE THAN HALF the effort. [place] lifts or holds trunk or limbs and provides more than half the effort. 4-Reohwjuho-uxdeyl does ALL the effort. Patient does none of the effort to complete the activity. Or, the assistance of 2 or more helpers is required for the patient to complete the activity. If activity was not attempted, code reason: 7-Patient Refused. 9-Not Applicable-not attempted and the patient did not perform the activity before the current illness, exacerbation or injury. 10-Not Attempted due to Environmental Limitations-(lack of equipment, weather restraints, etc.). 88-Not Attempted due to Medical Conditions or Safety Concerns. Sit to Stand (QC): 3 Chair/Lta-zw-Vchni Xfer(QC): 3 Pt performs sit to stand transfer 10x from wheelchair and 2x from chair /c MIN lifting assistance. Pt performs wheelchair to chair transfer 2x and chair to wheelchair transfer 2x /c MIN lifting/pivoting assistance. Weight Bearing Right Lower Extremity: Right Full Weight Bearing Left Lower Extremity: Left Full Weight Bearing Gait Training Does the Patient Walk?: No and Walking Goal IS indicated Wheelchair Training Does the Pt Use a Wheelchair?: Yes Wheel 50 ft with 2 turns (QC): 4 Type of Wheelchair: Manual SBA /c wheelchair mobility up to 50 feet. Exercises NuStep Minutes: 10 NuStep Workload: 2 Treatments Standing Therapeutic Exercises (B): Weight shifting at // x 10 Heel/toe raises x 10 Side stepping in // x 1 trip Marches x 10 Seated Therapeutic Exercises (B) x 20 ea: Hamstring curls /c RTB Marching /c RTB Hip abd /c RTB LAQs Hip add TA sets /c malagasy ball Assessment Current Status: Good Progress Pt displays limited muscle endurance and strength /c all therapeutic activities. Frequent rest breaks required during treatment especially /c standing activities. Sit to stand transfer and chair to wheelchair transfer performed /c MIN lifting/pivoting assistance. Pt displays lean to R side while performing standing activities. Continue to progress pt per POC. PT Railroad Signal Technician Goals Fpc Goals PT Fpc Goals Time Frame: Nov 04, 2022 Roll Left & Right (QC): 4 (SBA for bed mobility ) Sit to Lying (QC): 4 (SBA for bed mobility ) Lying-Sitting on Side/Bed(QC): 4 (SBA for bed mobility ) Sit to Stand (QC): 3 (Min A for transfers ) Chair/Yhs-mc-Inwch Xfer(QC): 3 (Min A for transfers ) Toilet Transfer (QC): 3 (Min A for transfers ) Car Transfer (QC): 3 (Min A for transfers ) Does the Patient Walk: Yes Walk 10 feet (QC): 3 (Min A for short distances ) Walk 50ft with 2 Turns (QC): 88 (Balance ) Walk 150 ft (QC): 88 (Balance ) Walking 10ft on Uneven Surface: 88 (Balance ) 1 Step (curb) (QC): 88 (Balance ) 4 Steps (QC): 88 (Balance ) 12 Steps (QC): 88 (Balance ) Picking up an Object (QC): 88 (Balance ) Does the Pt use WC or Scooter?: Yes Wheel 50 feet with 2 turns (QC: 3 (Min A for w/c mobility ) Type: Manual Wheel 150 feet: 3 (Min A for w/c mobility ) Type: Manual PT Plan Treatment/Plan Treatment Plan: Continue Plan of Care Treatment Plan: Bed Mobility, Concurrent Therapy, Education, Functional Activity Shira, Functional Strength, Group Therapy, Gait, Safety, Therapeutic Ex ercise, Transfers Treatment Duration: Nov 04, 2022 Frequency: At least 5 of 7 days/Wk (IRF) Estimated Hrs Per Day: 2 hours per day Patient and/or Family Agrees t: Yes Time Time In: 1100 Time Out: 1200 DATE: Oct 30, 2022 Total Billed Treatment Time: 60 Total Billed Treatment 1 visit FA x 2 EX x 2 OLMAN REZA PAN DUMPER Oct 30, 2022 15:17
[2022-10-30 20:30] VITALS: BP 130/60
[2022-10-30] MEDS: ENOXAPARIN 40 MG/0.4 ML SYRINGE SC SCH (20:40)
[2022-10-31] MEDS: THIAMINE 100 MG (VITAMIN B-1) TAB PO SCH (07:14)
[2022-10-31] MEDS: BETHANECHOL 25 MG TABLET PO SCH ×4 (07:14→20:36)
[2022-10-31] MEDS: POTASSIUM CHLORIDE 10 MEQ TABLET PO SCH (07:14)
[2022-10-31] MEDS: THERAPEUTIC MULTIVITAMIN W/MINERALS TABLET PO SCH (07:14)
--- NOTE | 2022-10-31 07:48 | PM&R Progress Note ---
Subjective HPI/CC On Admission Date Seen by Provider: Oct 31, 2022 Time Seen by Provider: 12:00 Subjective/Events-last exam 10/31/2022: No major issues Handicapped paperwork to fill out No pain reported Doing well 10/30/2022: No major issues Family hesitant on taking care of her at home Family remains outside of room when she toilets Dramatic improvement in ADL's 10/29/2022: Much improved No falls Voiding well No falls 10/28/2022: Patient doing a lot better Every day she is improved Voiding well No pain 10/27/2022: Patient doing really well Denies any new issues No pain No falls 10/26/2022: Patient dramatically improving Urinary retention yesterday but none today If that continues we will need to check her for a UTI 10/25/2022: Patient doing better No falls No pain Voiding well 10/24/2022: Patient doing really well Voiding now Increased Urecholine to 25 mg before meals and at bedtime 10/23/2022: Patient doing well Discontinued catheter and when we were preparing for Valencia reinsertion she voided We will increase Urecholine In and out catheter will be required instead of indwelling Valencia now 10/22/2022: No major issues Family training today DC catheter tomorrow morning to see if she retains No pain reported 10/21/2022: Much improved status Slow recovery Aphasia slow to resolve In-dwelling catheter maintained Urecholine started several days ago and may DC catheter this week to see if she retains 10/20/2022: BP elevated Flaccidity remains right sided Valencia cath in place, started Urecholine to see if we can regain emptying bladder capability BM 10/1910/19/2022: 2 person assist Stools normal Valencia cath in place Leans right No falls 10/18/2022: Doing well Able to lift her right leg Able to read out loud without much dysarthria Sister at bedside 10/17/2022: About the same No falls Valencia catheter remains No pain reported 10/16/2022: Patient about the same Started Wellbutrin to help smoking cessation and depression Nicotine patch will also be placed No major problems 10/15/2022: Patient having more difficulty speaking and now almost completely aphasic Maintained on Plavix and aspirin Appreciate cardiology Tried to encourage and reassure the patient Patient becomes tearful Review of Systems Neurological: Weakness, Incoordination, Change in speech Objective Exam Vital Signs Vital Signs Date Time Temp Pulse Resp B/P (MAP) Pulse Ox O2 Delivery O2 Flow Rate FiO2 10/31/22 20:50 36.1 78 16 135/73 (93) 93 Room Air Capillary Refill : General Appearance: No Apparent Distress, WD/WN, Anxious, Chronically ill, Thin HEENT: PERRL/EOMI, Normal ENT Inspection, Pharynx Normal Neck: Full Range of Motion, Normal Inspection, Non Tender, Supple, Carotid Br uit Respiratory: Chest Non Tender, Lungs Clear, Normal Breath Sounds, No Accessory Muscle Use, No Respiratory Distress Cardiovascular: Regular Rate, Rhythm, No Edema, No Gallop, No JVD, No Murmur, Normal Peripheral Pulses Gastrointestinal: Normal Bowel Sounds, No Organomegaly, No Pulsatile Mass, Non Tender, Soft Back: Normal Inspection, No CVA Tenderness, No Vertebral Tenderness Extremity: Normal Capillary Refill, Normal Inspection, Normal Range of Motion, Non Tender, No Calf Tenderness, No Pedal Edema Neurologic/Psychiatric: Alert, Oriented x3, Abnormal analytical sciences director II-XII, Abnormal Gait, Aphasia, Depressed Affect, Facial Droop (right), Motor Weakness (right sided 0/5) Skin: Normal Color, Warm/Dry Lymphatic: No Adenopathy Results/Procedures Lab Patient resulted labs reviewed. FIM Transfers Therapy Code Descriptions/Definitions Functional [place] Measure: 0=Not Assessed/NA 4=Minimal Assistance 1=Total Assistance 5=Supervision or Setup 2=Maximal Assistance 6=Modified [place] 3=Moderate Assistance 7=Complete IndependenceSCALE: Activities may be completed with or without assistive devices. 4-Lzprpbvhvp-tlozyea completes the activity by him/herself with no assistance from a helper. 5-Set-up or Clean-up Assistance-helper sets up or cleans up; patient completes activity. [place] assists only prior to or following the activity. 4-Supervision or Touching Assistance-helper provides verbal cues and/or touching/steadying and/or contact guard assistance as patient completes activity. Assistance may be provided throughout the activity or intermittently. 3-Partial/Moderate Assistance-helper does LESS THAN HALF the effort. [place] lifts, holds or supports trunk or limbs, but provides less than half the effort. 2-Substantial/Maximal Assistance-helper does MORE THAN HALF the effort. [place] lifts or holds trunk or limbs and provides more than half the effort. 6-Psyksrmub-ybcuih does ALL the effort. Patient does none of the effort to complete the activity. Or, the assistance of 2 or more helpers is required for the patient to complete the activity. If activity was not attempted, code reason: 7-Patient Refused. 9-Not Applicable-not attempted and the patient did not perform the activity be fore the current illness, exacerbation or injury. 10-Not Attempted due to Environmental Limitations-(lack of equipment, weather restraints, etc.). 88-Not Attempted due to Medical Conditions or Safety Concerns. Roll Left to Right (QC): 3 (Mod A) Sit to Lying (QC): 3 (Mod A) Sit to Stand (QC): 3 Chair/Cli-mw-Jjvpk Xfer(QC): 3 Car Transfer (QC): 88 (balance ) Gait Training Does the Patient Walk?: No and Walking Goal IS indicated Distance: 15, 25 feet x 3 Walk 10 feet (QC): 1 Walk 50 ft with 2 Turns(QC): 88 Walk 150 ft (QC): 88 Walking 10ft/uneven surface-QC: 88 Gait Persons Needed: 2 Gait Assistive Device: Walker Platform Wheelchair Training Does the Pt Use a Wheelchair?: Yes Wheel 50 ft with 2 turns (QC): 4 Wheel 150 ft (QC): 4 Type of Wheelchair: Manual Stair Training 1 Step (curb) (QC): 88 (balance ) 4 Steps (QC): 88 (balance ) 12 Steps (QC): 88 (balance ) Balance Picking up an Object (QC): 88 (balance ) ADL-Treatment Eating (QC): 5 (Set up to cut food and open difficult packages. Pt does use hands to pick and shovel man appropriate food if unable to cut.) Oral Hygiene (QC): 6 (Independent with oral care. ) Bathing Location: L Arm, R Arm, L Upper Leg, R Upper Leg, L Lower Leg (including foot), R Lower Leg (including foot), Chest, Abdomen, Buttocks, Perineal Area Shower/Bathe Self (QC): 5 (Set up for bathing. Pt spontaneous shoulder abduction on R UE to wash under armpit. Pt able to lift L LE to wash esme area. ) Upper Body Dressing (QC): 5 (Set up for one-handed dressing technique. ) Lower Body Dressing (QC): 3 (Pt able to thread pants around feet and pull up to knees. Min A for steadying while pt hikes pants over L hip. OTAS assisted hiking pants over R hip. ) On/Off Footwear (QC): 3 (Mod A for R shoe, Ind for L shoe. ) Toileting Hygiene (QC): 2 (mod A) Toilet Transfer (QC): 3 (min A to mod A) Assessment/Plan Assessment and Plan Assess & Plan/Chief Complaint Assessment: Catastrophic CVA with right sided flaccidity-CT angiogram matches carotid ultrasound revealing left carotid internal and external complete occlusion causing catastrophic ischemic infarct of the left parietal and MCA region no surgical option available per vascular surgery at [place] Dysarthria and expressive aphasia HTN emergency placed on Cardene drip now on Hydralazine IV Smoker Alcohol excess user placed on CIWA Urinary retention requiring replacement of valencia catheter 10/14/22 but DC 10/23 and was able to void so increasing Urecholine and adding in out cathBut now voiding without difficulty on 10/24/2022 Plan: PT OT ST for expressive aphasia CIWA Vitamin supplementation to prevent Wernicke's encephalopathy and Karsokoff's psychosis Lovenox for DVT PPx Cardiology consult ASA and Plavix 10/15/2022: Continue supportive care 10/16/2022: Monitor closely 10/17/2022: Monitor closely Losartan 10/18/2022: Monitor closely 10/19/2022: Improved Start Urecholine 10/20/2022: Trial of DC catheter this week again 10/21/2022: Monitor closely Urecholine 10/22/2022: DC catheter tomorrow 10/23/2022: Voiding is improved Increase Urecholine 10/24/2022: Successful discontinuation of catheter 10/25/2022: Supportive care Monitor voiding 10/26/2022: Monitor urinary retention May need cath for UA specimen 10/27/2022: Supportive care Monitor closely 10/28/2022: Monitor closely Voiding well 10/29/2022: Monitor closely Improved 10/30/2022: Dramatic improvement 10/31/2022: Monitor closely (1) CVA (cerebral vascular accident) JM CALLEJAS DO Oct 31, 2022 07:48
[2022-10-31 08:00] VITALS: BP 156/81
--- NOTE | 2022-10-31 08:21 | Cardiology Progress Note ---
Subjective Date Seen by Provider: Oct 31, 2022 Time Seen by Provider: 08:21 Subjective/Events-last exam Patient with PT, no new complaints. Objective-Cardiology Exam Last Set of Vital Signs Vital Signs 10/30/22 10/30/22 20:30 21:30 Temp 36.5 Pulse 85 Resp 16 B/P (MAP) 130/60 (83) Pulse Ox 95 O2 Delivery Room Air I&O Intake and Output 10/31/22 00:00 Intake Total 857 ml Output Total 901 ml Balance -44 ml Intake Oral 857 ml Output Urine Total 900 ml Urine/Stool Mix 1 ml # Voids 2 # Bowel Movements 3 General: Alert, Oriented X3, Cooperative HEENT: Atraumatic, PERRLA Neck: Supple, No JVD, No Thyromegaly Lungs: Clear to Auscultation, Normal Air Movement Heart: Regular Rate Abdomen: Normal Bowel Sounds, Soft Extremities: No Edema Skin: No Rashes, No Significant Lesion Neuro: Other (right sided weakness, expressive aphasia) Psych/Mental Status: Mental Status NL, Mood NL A/P-Cardiology Admission Diagnosis CVA Carotid artery stenosis HTN HLP Assessment/Plan Acute stroke due to left carotid occlusion, right sided weakness and aphasia. Maintained on ASA and Plavix. Continue with PT/OT, continues to improve. Patient was deemed inoperable by [place] surgery, currently managed by primary care team Carotid artery stenosis, carotid duplex done 10/12/22 showing complete occlusion of the left carotid system including both the internal and external carotid arteries. The right carotid artery appeared to have some plaques with mild disease, nonobstructive disease. Hypertension, better control at this time Maintained on losartan 50 mg twice daily, amlodipine 10 mg daily Continue to monitor Hyperlipidemia, started on Lipitor 80 mg daily Continue to monitor Supervisory-Addendum Brief Supervisory Addendum Participated in pt care: history, MDM, physical Personally performed: exam, history, MDM Care discussed with: FELICE Results interpretation: Verified all documentation Notes: Patient was seen and evaluated with John, examination performed, management plan was discussed, agree with the current scribed note, I made few changes to the note using Italic font Patient was seen during physical therapy session, reporting improvement Continue to monitor, continue on current medications JOHN OATES Oct 31, 2022 08:21 JOSE ANGEL CLEMONS MD Oct 31, 2022 08:33
--- NOTE | 2022-10-31 08:44 | Occupational Ther Daily Note ---
OT Current Status-Daily Note Subjective Pt alert, sitting in recliner. Pt agrees to therapy. No c/o pain. Co-treat with PT([id number]), skills of 2 clinicians required to complete family training with pt's 2 daughters for education on functional mobility and safety during all functional tasks. PT focusing on transfers, bed mobility, w/c mobility, education on stairs while OT focusing on functional transfers for ADLs and positioning clothing/pt for ADLs. Mental Status/Objective Patient Orientation: Person, Non-Verbal/Aphasic, Situation ADL-Treatment Therapy Code Descriptions/Definitions Functional [place] Measure: 0=Not Assessed/NA 4=Minimal Assistance 1=Total Assistance 5=Supervision or Setup 2=Maximal Assistance 6=Modified [place] 3=Moderate Assistance 7=Complete IndependenceSCALE: Activities may be completed with or without assistive devices. 0-Ognymgsxmp-hljoodf completes the activity by him/herself with no assistance from a helper. 5-Set-up or Clean-up Assistance-helper sets up or cleans up; patient completes activity. [place] assists only prior to or following the activity. 4-Supervision or Touching Assistance-helper provides verbal cues and/or touching/steadying and/or contact guard assistance as patient completes activity. Assistance may be provided throughout the activity or intermittently. 3-Partial/Moderate Assistance-helper does LESS THAN HALF the effort. [place] lifts, holds or supports trunk or limbs, but provides less than half the effort. 2-Substantial/Maximal Assistance-helper does MORE THAN HALF the effort. [place] lifts or holds trunk or limbs and provides more than half the effort. 8-Gbsgbtybx-tbplcy does ALL the effort. Patient does none of the effort to complete the activity. Or, the assistance of 2 or more helpers is required for the patient to complete the activity. If activity was not attempted, code reason: 7-Patient Refused. 9-Not Applicable-not attempted and the patient did not perform the activity before the current illness, exacerbation or injury. 10-Not Attempted due to Environmental Limitations-(lack of equipment, weather restraints, etc.). 88-Not Attempted due to Medical Conditions or Safety Concerns. Oral Hygiene (QC): 6 Upper Body Dressing (QC): 5 (Set up to position arm sleeve for one-handed dressing technique. ) Lower Body Dressing (QC): 4 (Set up, pt able to thread pants around feet. CGA to stand while pt hikes pants over hips. ) On/Off Footwear: 3 (Pt able to doff loose socks then assist to place over toes and pt completed rest of task. Pt donned L shoe, needed assistance for R shoe. ) Pt independently brushed hair and teeth sitting in w/c at sink. Other Treatment Pt propelled w/c to gym from room. Family education on functional mobility and safety during all functional tasks. Daughters demonstrated understanding of squat pivot transfers and assisting pt in standing while pt hiked pants by self. Ended session with pt in PTs care. All needs met. Education OT Patient Education: Correct positioning, Instructions to caregiver, Modified ADL techniques, Transfer techniques, W/C management Teaching Recipient: Patient, Primary Caregiver, Family Teaching Methods: Demonstration, Discussion Response to Teaching: Verbalize Understanding, Return Demonstration Instructed family on functional mobility and body mechanics during transfers, pt family verbalized/demonstrated understanding of instruction. OT Short Term Goals Short Term Goals Time Frame: Oct 28, 2022 Eatin Oral hygiene: 4 Toileting hygiene: 3 Shower/bathe self: 3 Upper body dressin Lower body dressin Putting on/taking off footwear: 3 OT Jail Goals Senior Enlisted Advisor Goals Time Frame: Nov 11, 2022 Disorganized thinkin Altered level of consciousness: 0 Eating (QC): 5 (Set up) Oral Hygiene (QC): 5 (Set up) Toileting Hygiene (QC): 4 (CGA/supervision) Shower/Bathe Self (QC): 4 (CGA/supervision) Upper Body Dressing (QC): 5 (Set up) Lower Body Dressing (QC): 4 (CGA/supervision) On/Off Footwear (QC): 4 (CGA/supervision) Additional Goals: 1-Demonstrate ADL Tasks, 2-Verbalize Understanding, 3- ImproveStrength/Shira 1=Demonstrate adherence to instructed precautions during ADL tasks. 2=Patient will verbalize/demonstrate understanding of assistive devices/modifications for ADL. 3=Patient will improve strength/tolerance for activity to enable patient to perform ADL's. OT Education/Plan Problem List/Assessment Assessment: Decreased UE Strength, Impaired Funct Balance, Impaired Self-Care Skills Discharge Recommendations Plan/Recommendations: Continue POC Treatment Plan/Plan of Care Patient would benefit from OT for education, treatment and training to promote independence in ADL's, mobility, safety and/or upper extremity function for ADL's. Plan of Care: ADL Retraining, Caregiver Training, Functional Mobility, Group Exercise/Act as Ind, UE Funct Exercise/Act Treatment Duration: Nov 11, 2022 Frequency: At least 5 of 7 days/Wk (IRF) Estimated Hrs Per Day: 1.5 hours per day Agreement: Yes Rehab Potential: Fair Time Start Time: 07:30 Stop Time: 08:30 DATE: Oct 31, 2022 Total Time Billed (hr/min): 60 Billed Treatment Time 1 visit- ADL 2 (30 mins) FA 2 (30 mins) co-treat with PT [id number], individual [id number] ERICA RICE Oct 31, 2022 08:44
--- NOTE | 2022-10-31 09:06 | Physical Therapy Daily Note ---
PT Daily Note-Current Subjective Pt sitting at sink working w/OT upon arrival. Pt agrees to PT/OT co-treat for Family Training. Pain Location: No Pain Reported Section J - Health Conditions 1. Rarely or not at all 2. Occasionally 3. Frequently 4. Almost constantly 8. Unable to answer Pain Effect on Sleep: 1 Pain Interference with Therapy: 1 Pain Interference w/Day-to-Day: 1 Mental Status Patient Orientation: Person, Place, Situation Transfers SCALE: Activities may be completed with or without assistive devices. 6-Zbpczaudme-ngiujzb completes the activity by him/herself with no assistance from a helper. 5-Set-up or Clean-up Assistance-helper sets up or cleans up; patient completes activity. [place] assists only prior to or following the activity. 4-Supervision or Touching Assistance-helper provides verbal cues and/or touching/steadying and/or contact guard assistance as patient completes activity. Assistance may be provided throughout the activity or intermittently. 3-Partial/Moderate Assistance-helper does LESS THAN HALF the effort. [place] lifts, holds or supports trunk or limbs, but provides less than half the effort. 2-Substantial/Maximal Assistance-helper does MORE THAN HALF the effort. [place] lifts or holds trunk or limbs and provides more than half the effort. 1-Yplfmucdo-bsvfvi does ALL the effort. Patient does none of the effort to complete the activity. Or, the assistance of 2 or more helpers is required for the patient to complete the activity. If activity was not attempted, code reason: 7-Patient Refused. 9-Not Applicable-not attempted and the patient did not perform the activity before the current illness, exacerbation or injury. 10-Not Attempted due to Environmental Limitations-(lack of equipment, weather restraints, etc.). 88-Not Attempted due to Medical Conditions or Safety Concerns. Sit to Lying (QC): 4 Lying to Sitting/Side of Bed(Q: 4 Sit to Stand (QC): 3 Weight Bearing Right Lower Extremity: Right Full Weight Bearing Left Lower Extremity: Left Full Weight Bearing Wheelchair Training Does the Pt Use a Wheelchair?: Yes Wheel 50 ft with 2 turns (QC): 4 Wheel 150 ft (QC): 4 Type of Wheelchair: Manual Treatments Co-treat with PT([id number]), skills of 2 clinicians required to complete family training with pt's 2 daughters for education on functional mobility and safety during all functional tasks. PT focusing on transfers, bed mobility, w/c mobility, education on stairs while OT focusing on functional transfers for ADLs and positioning clothing/pt for ADLs. Pt propelled w/c to gym from room. Family education on functional mobility and safety during all functional tasks. Daughters demonstrated understanding of squat pivot transfers and assisting pt in standing while pt hiked pants by self. OT departs at this time. ([id number]) PT had pt demonstrate EOM to Supine TF then TF back to w/c. Pt propels w/c to car for Car TF then back to room and TF to recliner. All needs met, call light on lap. Assessment Current Status: Good Progress Pt is given occasional VC but TF are demonstrated w/increased ease. Family feels more confident about pt's progress. PT Integration Aide Goals [place] Goals PT Integration Aide Goals Time Frame: Nov 04, 2022 Roll Left & Right (QC): 4 (SBA for bed mobility ) Sit to Lying (QC): 4 (SBA for bed mobility ) Lying-Sitting on Side/Bed(QC): 4 (SBA for bed mobility ) Sit to Stand (QC): 3 (Min A for transfers ) Chair/Riq-ts-Hbsoo Xfer(QC): 3 (Min A for transfers ) Toilet Transfer (QC): 3 (Min A for transfers ) Car Transfer (QC): 3 (Min A for transfers ) Does the Patient Walk: Yes Walk 10 feet (QC): 3 (Min A for short distances ) Walk 50ft with 2 Turns (QC): 88 (Balance ) Walk 150 ft (QC): 88 (Balance ) Walking 10ft on Uneven Surface: 88 (Balance ) 1 Step (curb) (QC): 88 (Balance ) 4 Steps (QC): 88 (Balance ) 12 Steps (QC): 88 (Balance ) Picking up an Object (QC): 88 (Balance ) Does the Pt use WC or Scooter?: Yes Wheel 50 feet with 2 turns (QC: 3 (Min A for w/c mobility ) Type: Manual Wheel 150 feet: 3 (Min A for w/c mobility ) Type: Manual PT Plan Problem List Problem List: Activity Tolerance Treatment/Plan Treatment Plan: Continue Plan of Care Treatment Plan: Bed Mobility, Concurrent Therapy, Education, Functional Activity Shira, Functional Strength, Group Therapy, Gait, Safety, Therapeutic Exercise, Transfers Treatment Duration: Nov 04, 2022 Frequency: At least 5 of 7 days/Wk (IRF) Estimated Hrs Per Day: 2 hours per day Patient and/or Family Agrees t: Yes Safety Risks/Education Patient Education: Transfer Techniques, Correct Positioning, Instructions to Caregiver, Safety Issues Teaching Recipient: Patient, Family Teaching Methods: Demonstration, Discussion Response to Teaching: Verbalize Understanding, Return Demonstration Time Time In: 08 Time Out: 0900 DATE: Oct 31, 2022 Total Billed Treatment Time: 60 Total Billed Treatment Co-treat w/OT for 30m ([id number]) 1, FA x3 (45m) & [facility] (15m) JOE RODRIGUEZ PTA Oct 31, 2022 09:06
[2022-10-31] MEDS: amLODIPine 10 MG TABLET PO SCH (09:32)
[2022-10-31] MEDS: ASPIRIN 325 MG TABLET PO SCH (09:32)
[2022-10-31] MEDS: buPROPion SR 150 MG TABLET PO SCH ×2 (09:32→20:36)
[2022-10-31] MEDS: LOSARTAN 50 MG TABLET PO SCH ×2 (09:32→20:36)
[2022-10-31] MEDS: FOLIC ACID 1 MG TAB PO SCH (09:32)
[2022-10-31] MEDS: NICOTINE 21 MG PATCH TD SCH (09:33)
[2022-10-31] MEDS: CLOPIDOGREL 75 MG TABLET PO SCH (09:33)
[2022-10-31] MEDS: DOCUSATE SODIUM 100 MG CAPSULE PO SCH ×2 (09:33→19:55)
[2022-10-31] MEDS: NICOTINE PATCH REMOVAL TP SCH (09:53)
[2022-10-31] MEDS: SENNOSIDES 8.6 MG TABLET PO SCH ×2 (09:53→19:55)
--- NOTE | 2022-10-31 13:38 | Speech Therapy Daily Note ---
Speech Daily Progress Note Subjective Date Seen by Provider: Oct 31, 2022 Time Seen by Provider: 10:00 The patient was seated upright in her recliner, awake and alert, upon entrance to her room by the clinician. The patient greeted the clinician verbally ("Hi, I'm fine.") and was agreeable to participation in the skilled speech and language treatment session. The patient has her two daughters present who remain and participate in today's treatment. Objective The patient continues to display excellent and continued progress towards goals daily. The clinician is beginning to observe increased use of word-finding strategies, specifically the patient allowing additional time and pausing (deep breath) to reduce frustration. The clinician visited with the patient and her daughters extensively on this date regarding a home therapy regimen. The clinician encouraged continued participation in conversations, strategies for conversation partners, functional phrase practice (and adding to functional phrases), reading, and oral motor exercises. Additionally, the family was encouraged to contact the local EMS to provide information regarding their mother to place an emergency plan in place. A life alert system or consistent close proximity to the patient's cell phone was recommended as dialing 911 will be practiced on the subsequent treatment date. All members present verbalized comprehension and denied additional questions for the clinician at this time. The patient displayed continued accuracy with practiced functional phrases, displaying increased struggle with newly introduced items. A functional task of ordering from a menu was introduced on this date and will be continued through out the next session. Oral motor exercises were continued and the patient continues to display excellent accuracy. Assessment Assessment Current Status: Excellent Progress Treatment Plan Continue Plan of Care Speech Short Term Goals Short Term Goals Short Term Goals 1. The patient will complete oral motor exercises with 75% accuracy and moderate clinician verbal and visual cueing. 2. The patient will communicate yes and no response (simple) with 50% accuracy and moderate clinician verbal and visual cueing. Time Frame-STG: Ten Days. Speech Paper Stripper Goals Paper Stripper Goals 1. The patient will demonstrate improved functional communication for increased safety with discharge to the least restrictive environment. Time Frame: Four Weeks. Speech-Plan Treatment Plan Speech Therapy Treatment Plan: Continue Plan of Care Treatment Duration: Nov 05, 2022 Frequency: Modified Program (IRF) Estimated Hrs Per Day: .5 hour per day Rehab Potential: Fair Pt/Family Agrees to Plan: Yes Safety Risks/Education Teaching Recipient: Patient, Family Teaching Methods: Demonstration, Handout, Discussion Response to Teaching: Verbalize Understanding, Return Demonstration, Reinforcement Needed Education Topics Provided: Functional Phrases, Safety Precautions, Home Therapy Regimen Time Speech Therapy Time In: 10:00 Speech Therapy Time Out: 10:30 DATE: Oct 31, 2022 Total Billed Time: 30 Billed Treatment Time 1, MARITZA FORBES Oct 31, 2022 13:38
--- NOTE | 2022-10-31 13:58 | Occupational Ther Daily Note ---
OT Current Status-Daily Note Subjective Pt alert, sitting up in recliner. Pt agrees to therapy, no c/o of pain. Mental Status/Objective Patient Orientation: Person, Non-Verbal/Aphasic ADL-Treatment Therapy Code Descriptions/Definitions Functional [place] Measure: 0=Not Assessed/NA 4=Minimal Assistance 1=Total Assistance 5=Supervision or Setup 2=Maximal Assistance 6=Modified [place] 3=Moderate Assistance 7=Complete IndependenceSCALE: Activities may be completed with or without assistive devices. 8-Dklfhrcepd-ngldfnv completes the activity by him/herself with no assistance f rom a helper. 5-Set-up or Clean-up Assistance-helper sets up or cleans up; patient completes activity. [place] assists only prior to or following the activity. 4-Supervision or Touching Assistance-helper provides verbal cues and/or touching/steadying and/or contact guard assistance as patient completes activity. Assistance may be provided throughout the activity or intermittently. 3-Partial/Moderate Assistance-helper does LESS THAN HALF the effort. [place] lifts, holds or supports trunk or limbs, but provides less than half the effort. 2-Substantial/Maximal Assistance-helper does MORE THAN HALF the effort. [place] lifts or holds trunk or limbs and provides more than half the effort. 7-Ywbsszrhn-ryshtc does ALL the effort. Patient does none of the effort to complete the activity. Or, the assistance of 2 or more helpers is required for the patient to complete the activity. If activity was not attempted, code reason: 7-Patient Refused. 9-Not Applicable-not attempted and the patient did not perform the activity before the current illness, exacerbation or injury. 10-Not Attempted due to Environmental Limitations-(lack of equipment, weather restraints, etc.). 88-Not Attempted due to Medical Conditions or Safety Concerns. Other Treatment Pt sitting in recliner. Placed NMES on biceps on lvl 6 for 10 mins. Small muscle activation present but refrained from increasing lvl due to c/o of pain from pt. Moved NMES to forearm on lvl 5 for 15 mins. Muscle activation present displaying wrist and finger extension. Pt had no c/o of pain on this lvl. Encouraged pt to initiate wrist and finger extension while NMES was active. Skill of clinician required for proper pad placement to target desired muscles. Ended session with pt sitting in recliner with call light/phone in reach. All needs met in room. Education OT Patient Education: Correct positioning Teaching Recipient: Patient Teaching Methods: Discussion Response to Teaching: Verbalize Understanding OT Short Term Goals Short Term Goals Time Frame: Oct 28, 2022 Eatin Oral hygiene: 4 Toileting hygiene: 3 Shower/bathe self: 3 Upper body dressin Lower body dressin Putting on/taking off footwear: 3 OT [facility] Goals Take Away Attendant Goals Time Frame: Nov 11, 2022 Disorganized thinkin Altered level of consciousness: 0 Eating (QC): 5 (Set up) Oral Hygiene (QC): 5 (Set up) Toileting Hygiene (QC): 4 (CGA/supervision) Shower/Bathe Self (QC): 4 (CGA/supervision) Upper Body Dressing (QC): 5 (Set up) Lower Body Dressing (QC): 4 (CGA/supervision) On/Off Footwear (QC): 4 (CGA/supervision) Additional Goals: 1-Demonstrate ADL Tasks, 2-Verbalize Understanding, 3- ImproveStrength/Shira 1=Demonstrate adherence to instructed precautions during ADL tasks. 2=Patient will verbalize/demonstrate understanding of assistive devices/modifications for ADL. 3=Patient will improve strength/tolerance for activity to enable patient to perform ADL's. OT Education/Plan Problem List/Assessment Assessment: Decreased Activ Tolerance, Decreased UE Strength, Impaired Funct Balance, Impaired Self-Care Skills Discharge Recommendations Plan/Recommendations: Continue POC Treatment Plan/Plan of Care Treatment,Training & Education: Yes Patient would benefit from OT for education, treatment and training to promote independence in ADL's, mobility, safety and/or upper extremity function for ADL's. Plan of Care: ADL Retraining, Caregiver Training, Functional Mobility, Group Exercise/Act as Ind, UE Funct Exercise/Act Treatment Duration: Nov 11, 2022 Frequency: At least 5 of 7 days/Wk (IRF) Estimated Hrs Per Day: 1.5 hours per day Agreement: Yes Rehab Potential: Fair Time Start Time: 13:30 Stop Time: 14:00 DATE: Oct 31, 2022 Total Time Billed (hr/min): 30 Billed Treatment Time 1 visit- NM 2 (30 mins) ERICA RICE Oct 31, 2022 13:58
[2022-10-31] MEDS: ENOXAPARIN 40 MG/0.4 ML SYRINGE SC SCH (20:36)
[2022-10-31 20:50] VITALS: BP 135/73
[2022-11-01] MEDS: BETHANECHOL 25 MG TABLET PO SCH ×4 (06:31→20:23)
[2022-11-01] MEDS: THIAMINE 100 MG (VITAMIN B-1) TAB PO SCH (06:31)
[2022-11-01] MEDS: POTASSIUM CHLORIDE 10 MEQ TABLET PO SCH (06:31)
[2022-11-01] MEDS: THERAPEUTIC MULTIVITAMIN W/MINERALS TABLET PO SCH (06:31)
[2022-11-01 08:30] VITALS: BP 137/80
[2022-11-01] MEDS: SENNOSIDES 8.6 MG TABLET PO SCH ×2 (09:20→20:20)
[2022-11-01] MEDS: DOCUSATE SODIUM 100 MG CAPSULE PO SCH ×2 (09:21→20:30)
[2022-11-01] MEDS: NICOTINE 21 MG PATCH TD SCH (09:29)
[2022-11-01] MEDS: CLOPIDOGREL 75 MG TABLET PO SCH (09:29)
[2022-11-01] MEDS: buPROPion SR 150 MG TABLET PO SCH ×2 (09:29→20:23)
[2022-11-01] MEDS: LOSARTAN 50 MG TABLET PO SCH ×2 (09:29→20:23)
[2022-11-01] MEDS: FOLIC ACID 1 MG TAB PO SCH (09:30)
[2022-11-01] MEDS: amLODIPine 10 MG TABLET PO SCH (09:30)
[2022-11-01] MEDS: ASPIRIN 325 MG TABLET PO SCH (09:30)
[2022-11-01] MEDS: NICOTINE PATCH REMOVAL TP SCH (09:34)
--- NOTE | 2022-11-01 10:12 | Cardiology Progress Note ---
Subjective Date Seen by Provider: Nov 01, 2022 Time Seen by Provider: 10:12 Subjective/Events-last exam Patient was seen at bedside, sitting comfortably, feeling better Objective-Cardiology Exam Last Set of Vital Signs Vital Signs 11/01/22 08:30 Temp 36.0 Pulse 80 Resp 14 B/P (MAP) 137/80 (99) Pulse Ox 99 O2 Delivery Room Air I&O Intake and Output 11/01/22 00:00 Intake Total 1150 ml Output Total 1100 ml Balance 50 ml Intake Oral 1150 ml Output Urine Total 1100 ml # Voids 3 # Bowel Movements 2 General: Alert, Oriented X3, Cooperative HEENT: Atraumatic, PERRLA Neck: Supple, No JVD, No Thyromegaly Lungs: Clear to Auscultation, Normal Air Movement Heart: Regular Rate Abdomen: Normal Bowel Sounds, Soft Extremities: No Edema Skin: No Rashes, No Significant Lesion Neuro: Other (right sided weakness, expressive aphasia) Psych/Mental Status: Mental Status NL, Mood NL A/P-Cardiology Admission Diagnosis CVA Carotid artery stenosis HTN HLP Assessment/Plan Acute stroke due to left carotid occlusion, right sided weakness and aphasia. Maintained on ASA and Plavix. Continue with PT/OT, continues to improve. Patient was deemed inoperable by [facility] surgery, currently managed by primary care team Carotid artery stenosis, carotid duplex done 10/12/22 showing complete occlusion of the left carotid system including both the internal and external carotid arteries. The right carotid artery appeared to have some plaques with mild disease, nonobstructive disease. Hypertension, better control at this time Maintained on losartan 50 mg twice daily, amlodipine 10 mg daily Continue to monitor Hyperlipidemia, started on Lipitor 80 mg daily Continue to monitor JOSE ANGEL CLEMONS MD Nov 01, 2022 10:12
--- NOTE | 2022-11-01 10:43 | PM&R Progress Note ---
Subjective HPI/CC On Admission Date Seen by Provider: Nov 01, 2022 Time Seen by Provider: 10:45 Subjective/Events-last exam 11/01/2022: Patient doing really well Perform most of her shower activities We will be ready to go home on Friday10/31/2022: No major issues Handicapped paperwork to fill out No pain reported Doing well 10/30/2022: No major issues Family hesitant on taking care of her at home Family remains outside of room when she toilets Dramatic improvement in ADL's 10/29/2022: Much improved No falls Voiding well No falls 10/28/2022: Patient doing a lot better Every day she is improved Voiding well No pain 10/27/2022: Patient doing really well Denies any new issues No pain No falls 10/26/2022: Patient dramatically improving Urinary retention yesterday but none today If that continues we will need to check her for a UTI 10/25/2022: Patient doing better No falls No pain Voiding well 10/24/2022: Patient doing really well Voiding now Increased Urecholine to 25 mg before meals and at bedtime 10/23/2022: Patient doing well Discontinued catheter and when we were preparing for Valencia reinsertion she voided We will increase Urecholine In and out catheter will be required instead of indwelling Valencia now 10/22/2022: No major issues Family training today DC catheter tomorrow morning to see if she retains No pain reported 10/21/2022: Much improved status Slow recovery Aphasia slow to resolve In-dwelling catheter maintained Urecholine started several days ago and may DC catheter this week to see if she retains 10/20/2022: BP elevated Flaccidity remains right sided Valencia cath in place, started Urecholine to see if we can regain emptying bladder capability BM 10/1910/19/2022: 2 person assist Stools normal Valencia cath in place Leans right No falls 10/18/2022: Doing well Able to lift her right leg Able to read out loud without much dysarthria Sister at bedside 10/17/2022: About the same No falls Valencia catheter remains No pain reported 10/16/2022: Patient about the same Started Wellbutrin to help smoking cessation and depression Nicotine patch will also be placed No major problems 10/15/2022: Patient having more difficulty speaking and now almost completely aphasic Maintained on Plavix and aspirin Appreciate cardiology Tried to encourage and reassure the patient Patient becomes tearful Review of Systems General: Fatigue, Malaise Neurological: Weakness, Incoordination Objective Exam Vital Signs Vital Signs Date Time Temp Pulse Resp B/P (MAP) Pulse Ox O2 Delivery O2 Flow Rate FiO2 11/01/22 21:00 93 Room Air 11/01/22 20:10 36.1 77 18 151/67 (95) Capillary Refill : General Appearance: No Apparent Distress, WD/WN, Anxious, Chronically ill, Thin HEENT: PERRL/EOMI, Normal ENT Inspection, Pharynx Normal Neck: Full Range of Motion, Normal Inspection, Non Tender, Supple, Carotid Bruit Respiratory: Chest Non Tender, Lungs Clear, Normal Breath Sounds, No Accessory Muscle Use, No Respiratory Distress Cardiovascular: Regular Rate, Rhythm, No Edema, No Gallop, No JVD, No Murmur, Normal Peripheral Pulses Gastrointestinal: Normal Bowel Sounds, No Organomegaly, No Pulsatile Mass, Non Tender, Soft Back: Normal Inspection, No CVA Tenderness, No Vertebral Tenderness Extremity: Normal Capillary Refill, Normal Inspection, Normal Range of Motion, Non Tender, No Calf Tenderness, No Pedal Edema Neurologic/Psychiatric: Alert, Oriented x3, Abnormal foundation relations manager II-XII, Abnormal Gait, Aphasia, Depressed Affect, Facial Droop, Motor Weakness Skin: Normal Color, Warm/Dry Lymphatic: No Adenopathy Results/Procedures Lab Patient resulted labs reviewed. FIM Transfers Therapy Code Descriptions/Definitions Functional [place] Measure: 0=Not Assessed/NA 4=Minimal Assistance 1=Total Assistance 5=Supervision or Setup 2=Maximal Assistance 6=Modified [place] 3=Moderate Assistance 7=Complete IndependenceSCALE: Activities may be completed with or without assistive devices. 4-Cdjrgdrdyv-qypokin completes the activity by him/herself with no assistance from a helper. 5-Set-up or Clean-up Assistance-helper sets up or cleans up; patient completes activity. [place] assists only prior to or following the activity. 4-Supervision or Touching Assistance-helper provides verbal cues and/or touching/steadying and/or contact guard assistance as patient completes activity. Assistance may be provided throughout the activity or intermittently. 3-Partial/Moderate Assistance-helper does LESS THAN HALF the effort. [place] lifts, holds or supports trunk or limbs, but provides less than half the effort. 2-Substantial/Maximal Assistance-helper does MORE THAN HALF the effort. [place] lifts or holds trunk or limbs and provides more than half the effort. 7-Icnheegqd-dqkqii does ALL the effort. Patient does none of the effort to complete the activity. Or, the assistance of 2 or more helpers is required for the patient to complete the activity. If activity was not attempted, code reason: 7-Patient Refused. 9-Not Applicable-not attempted and the patient did not perform the activity before the current illness, exacerbation or injury. 10-Not Attempted due to Environmental Limitations-(lack of equipment, weather restraints, etc.). 88-Not Attempted due to Medical Conditions or Safety Concerns. Roll Left to Right (QC): 3 (Mod A) Sit to Lying (QC): 4 Sit to Stand (QC): 3 Chair/Pio-ql-Sdarg Xfer(QC): 3 Car Transfer (QC): 88 (balance ) Gait Training Does the Patient Walk?: No and Walking Goal IS indicated Distance: 15, 25 feet x 3 Walk 10 feet (QC): 1 Walk 50 ft with 2 Turns(QC): 88 Walk 150 ft (QC): 88 Walking 10ft/uneven surface-QC: 88 Gait Persons Needed: 2 Gait Assistive Device: Walker Platform Wheelchair Training Does the Pt Use a Wheelchair?: Yes Wheel 50 ft with 2 turns (QC): 4 Wheel 150 ft (QC): 4 Type of Wheelchair: Manual Stair Training 1 Step (curb) (QC): 88 (balance ) 4 Steps (QC): 88 (balance ) 12 Steps (QC): 88 (balance ) Balance Picking up an Object (QC): 88 (balance ) ADL-Treatment Eating (QC): 5 (Set up to cut food and open difficult packages. Pt does use hands to oyster picker appropriate food if unable to cut.) Oral Hygiene (QC): 6 Bathing Location: L Arm, R Arm, L Upper Leg, R Upper Leg, L Lower Leg (including foot), R Lower Leg (including foot), Chest, Abdomen, Buttocks, Perineal Area Shower/Bathe Self (QC): 5 (Set up for bathing. Pt spontaneous shoulder abduction on R UE to wash under armpit. Pt able to lift L LE to wash esme area. ) Upper Body Dressing (QC): 5 (Set up to position arm sleeve for one-handed dressing technique. ) Lower Body Dressing (QC): 4 (Set up, pt able to thread pants around feet. CGA to stand while pt hikes pants over hips. ) On/Off Footwear (QC): 3 (Pt able to doff loose socks then assist to place over toes and pt completed rest of task. Pt donned L shoe, needed assistance for R shoe. ) Toileting Hygiene (QC): 2 (mod A) Toilet Transfer (QC): 3 (min A to mod A) Assessment/Plan Assessment and Plan Assess & Plan/Chief Complaint Assessment: Catastrophic CVA with right sided flaccidity-CT angiogram matches carotid ultrasound revealing left carotid internal and external complete occlusion causing catastrophic ischemic infarct of the left parietal and MCA region no surgical option available per vascular surgery at [place] Dysarthria and expressive aphasia HTN emergency placed on Cardene drip now on Hydralazine IV Smoker Alcohol excess user placed on CIWA Urinary retention requiring replacement of valencia catheter 10/14/22 but DC 10/23 and was able to void so increasing Urecholine and adding in out cathBut now voiding without difficulty on 10/24/2022 Plan: PT OT ST for expressive aphasia CIWA Vitamin supplementation to prevent Wernicke's encephalopathy and Karsokoff's psychosis Lovenox for DVT PPx Cardiology consult ASA and Plavix 10/15/2022: Continue supportive care 10/16/2022: Monitor closely 10/17/2022: Monitor closely Losartan 10/18/2022: Monitor closely 10/19/2022: Improved Start Urecholine 10/20/2022: Trial of DC catheter this week again 10/21/2022: Monitor closely Urecholine 10/22/2022: DC catheter tomorrow 10/23/2022: Voiding is improved Increase Urecholine 10/24/2022: Successful discontinuation of catheter 10/25/2022: Supportive care Monitor voiding 10/26/2022: Monitor urinary retention May need cath for UA specimen 10/27/2022: Supportive care Monitor closely 10/28/2022: Monitor closely Voiding well 10/29/2022: Monitor closely Improved 10/30/2022: Dramatic improvement 10/31/2022: Monitor closely 11/01/2022: Supportive care (1) CVA (cerebral vascular accident) JM CALLEJAS DO Nov 01, 2022 10:43
--- NOTE | 2022-11-01 12:02 | Speech Therapy Daily Note ---
Speech Daily Progress Note Subjective Date Seen by Provider: Nov 01, 2022 Time Seen by Provider: 10:00 The patient was seated upright in her recliner, awake and alert, visiting with the HEATER INSTALLER upon entrance to her room by the clinician. The patient greeted the clinician appropriately (verbally) and was agreeable to participation in skilled speech and language therapy. At the time of the visit, the patient was attempting to communicate a message to the HEATER INSTALLER with difficulty. Regardless of verbal cues provided by the clinician, the message was not received. Objective The patient displayed increased word-finding and apraxia of speech on this date, displaying more effortful articulation attempts, oral groping, and verbal frustration when specific words were difficult or not produced. Word finding strategies of taking a break and taking a deep breath to aid in relaxation and reduce frustration were implemented. The patient and clinician practiced dialing a telephone for 911 in case of an emergency. The patient has an Android phone, therefore, an Android phone rodriguez pad was presented. Initially, the patient was unable to identify the number 9. With verbal prompting, the patient accurately identified the number. Following, the patient was able to consistently locate the numbers 9, 1 and 1. Again, the clinician encouraged the patient to keep her phone with her or look into the process of obtaining a life alert system. The patient practiced the functional task of ordering from a menu. The patient required moderate verbal and visual cueing to complete the task. Assessment Assessment Current Status: Fair Progress Treatment Plan Continue Plan of Care Speech Short Term Goals Short Term Goals Short Term Goals 1. The patient will complete oral motor exercises with 75% accuracy and moderate clinician verbal and visual cueing. 2. The patient will communicate yes and no response (simple) with 50% accuracy and moderate clinician verbal and visual cueing. Time Frame-STG: Ten Days. Speech Credit Interviewer Goals Credit Interviewer Goals 1. The patient will demonstrate improved functional communication for increased safety with discharge to the least restrictive environment. Time Frame: Four Weeks. Speech-Plan Treatment Plan Speech Therapy Treatment Plan: Continue Plan of Care Treatment Duration: Nov 05, 2022 Frequency: Modified Program (IRF) Estimated Hrs Per Day: .5 hour per day Rehab Potential: Fair Pt/Family Agrees to Plan: Yes Safety Risks/Education Teaching Recipient: Patient Teaching Methods: Demonstration, Discussion Response to Teaching: Return Demonstration, Reinforcement Needed Education Topics Provided: Safety Precautions, Word-Finding Strategies Time Speech Therapy Time In: 10:00 Speech Therapy Time Out: 10:30 DATE: Nov 01, 2022 Total Billed Time: 30 Billed Treatment Time 1, MARITZA FORBES Nov 01, 2022 12:02
--- NOTE | 2022-11-01 12:43 | Podiatry Progress Note ---
Standard Progress Note Progress Notes/Assess & Plan Date Seen by a Provider: Nov 01, 2022 Time Seen by a Provider: 12:40 Progress/Assessment & Plan Foot care given. Consultation dictated. Final Diagnosis Onychomycosis, Peripheral Neuropathy, Foot Drop right JUAN PINTO DPM Nov 01, 2022 12:43
--- NOTE | 2022-11-01 12:48 | Occupational Ther Daily Note ---
OT Current Status-Daily Note Subjective Pt alert, sitting in recliner. Pt agrees to therapy. No c/o of pain. Mental Status/Objective Patient Orientation: Person, Non-Verbal/Aphasic ADL-Treatment MIn A for transfer to toilet using grabbars, BSC and w/c. Pt completed hygiene by self sitting on toilet then min A for standing while pt hiked pants over hips. Sitting on BSC in shower, pt completed shower with SBA for safety. Min A for UBD due to just getting out of shower (damp skin). Pt threaded feet into pants by self then min A during standing while pt hiked pants over hips. Set up for L footwear and mod A for R footwear. Therapy Code Descriptions/Definitions Functional [place] Measure: 0=Not Assessed/NA 4=Minimal Assistance 1=Total Assistance 5=Supervision or Setup 2=Maximal Assistance 6=Modified [place] 3=Moderate Assistance 7=Complete IndependenceSCALE: Activities may be completed with or without assistive devices. 6-Brcqlfbzjl-woaddqc completes the activity by him/herself with no assistance from a helper. 5-Set-up or Clean-up Assistance-helper sets up or cleans up; patient completes activity. [place] assists only prior to or following the activity. 4-Supervision or Touching Assistance-helper provides verbal cues and/or touching/steadying and/or contact guard assistance as patient completes activity. Assistance may be provided throughout the activity or intermittently. 3-Partial/Moderate Assistance-helper does LESS THAN HALF the effort. [place] lifts, holds or supports trunk or limbs, but provides less than half the effort. 2-Substantial/Maximal Assistance-helper does MORE THAN HALF the effort. [place] lifts or holds trunk or limbs and provides more than half the effort. 1-Kzxlpgdzd-wfeops does ALL the effort. Patient does none of the effort to complete the activity. Or, the assistance of 2 or more helpers is required for the patient to complete the activity. If activity was not attempted, code reason: 7-Patient Refused. 9-Not Applicable-not attempted and the patient did not perform the activity before the current illness, exacerbation or injury. 10-Not Attempted due to Environmental Limitations-(lack of equipment, weather restraints, etc.). 88-Not Attempted due to Medical Conditions or Safety Concerns. Oral Hygiene (QC): 6 (Independent sitting in w/c at sink.) Shower/Bathe Self (QC): 4 Upper Body Dressing (QC): 3 Lower Body Dressing (QC): 3 On/Off Footwear: 3 (mod A) Toileting Hygiene (QC): 3 Toilet Transfer (QC): 3 Pt needed VC to find hairbrush on her R side of the counter displaying some right sided neglect. Other Treatment Pt propelled w/c from room to therapy gym. Pt in //bars working on weight bearing on R UE and B LEs, dynamic standing balance, crossing midline, visual scanning to the R side, and postural control for daily functional tasks. Tx f ocus on reducing R sided neglect by utilizing scanning techniques. Pt then ambulated in //bars with COLLAZO stabilizing R UE and OTAS steadying using gait belt. Ambulated across 5x with sitting rest break in-between. Pt improvement in postural control in standing position. Pt then worked on w/c mobility by propelling back to room while utilizing visual scanning techniques to find and grab cones on R and L side of the visual field. Pt continues to need verbal cues to scan to R when working on w/c mobility due to R neglect. Ended session sitting in recliner with call light/phone in reach. All needs met in room. Education OT Patient Education: Correct positioning, Modified ADL techniques, W/C management Teaching Recipient: Patient Teaching Methods: Demonstration, Discussion Response to Teaching: Verbalize Understanding, Return Demonstration OT Short Term Goals Short Term Goals Time Frame: Oct 28, 2022 Eatin Oral hygiene: 4 Toileting hygiene: 3 Shower/bathe self: 3 Upper body dressin Lower body dressin Putting on/taking off footwear: 3 OT Intermediate Goals Program Attendant Goals Time Frame: Nov 11, 2022 Disorganized thinkin Altered level of consciousness: 0 Eating (QC): 5 (Set up) Oral Hygiene (QC): 5 (Set up) Toileting Hygiene (QC): 4 (CGA/supervision) Shower/Bathe Self (QC): 4 (CGA/supervision) Upper Body Dressing (QC): 5 (Set up) Lower Body Dressing (QC): 4 (CGA/supervision) On/Off Footwear (QC): 4 (CGA/supervision) Additional Goals: 1-Demonstrate ADL Tasks, 2-Verbalize Understanding, 3- ImproveStrength/Shira 1=Demonstrate adherence to instructed precautions during ADL tasks. 2=Patient will verbalize/demonstrate understanding of assistive devices/modifications for ADL. 3=Patient will improve strength/tolerance for activity to enable patient to perform ADL's. OT Education/Plan Problem List/Assessment Assessment: Decreased UE Strength, Impaired Funct Balance, Impaired Self-Care Skills Discharge Recommendations Plan/Recommendations: Continue POC Treatment Plan/Plan of Care Treatment,Training & Education: Yes Patient would benefit from OT for education, treatment and training to promote independence in ADL's, mobility, safety and/or upper extremity function for ADL's. Plan of Care: ADL Retraining, Caregiver Training, Functional Mobility, Group Exercise/Act as Ind, UE Funct Exercise/Act Treatment Duration: Nov 11, 2022 Frequency: At least 5 of 7 days/Wk (IRF) Estimated Hrs Per Day: 1.5 hours per day Agreement: Yes Rehab Potential: Fair Time Start Time: 10:30 Stop Time: 12:00 DATE: Nov 01, 2022 Total Time Billed (hr/min): 90 Billed Treatment Time 1 visit- ADL 3 (40 mins) FA 3 (50 mins) ERICA RICE Nov 01, 2022 12:48
--- NOTE | 2022-11-01 13:57 | CONSULTATION REPORT ---
DATE OF SERVICE: 11/01/2022 REASON FOR CONSULT: The patient is complaining of difficulty reaching for and caring for her feet, long painful toenails are symptomatic for her at this point. 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 She has a history of tobacco use and alcohol use. She was admitted for rehabilitation after her cerebrovascular accident. She also has a history of hypertension. CURRENT MEDICATIONS: Listed on the patient's chart. ALLERGIES: She has no known drug allergies. PHYSICAL EXAMINATION: EXTREMITIES: On lower extremity examination, the patient has 2/4 dorsalis pedis pulse bilaterally and 2/4 posterior tibial pulse bilaterally. Cap refill time is less than 3 seconds to the great toe bilaterally. The patient also has telangiectasia noted bilaterally. NEUROLOGIC: The patient has diminished protective sensation with 10 gram monofilament wire examination bilaterally. There is also diminished deep tendon reflexes to the Achilles tendon, right worse than left. Also, she has diminished vibratory sensation to the forefoot bilaterally. INTEGUMENT: The patient has thick yellow dystrophic toenails with subungual debris, R 1, 2, 4, 5; L 1, 2, 3, 4 and 5 digits. MUSCULOSKELETAL FINDINGS: The patient has 4/5 muscle strength to the four major quadrants of the foot on the left; on the right, she has 3/5 muscle strength for dorsiflexion, 4/5 muscle strength for inversion and plantar flexion on the right. ASSESSMENT : 1. Idiopathic peripheral neuropathy. 2. Onychomycosis. 3. Foot drop on the right and muscle weakness, right. PLAN: Various treatment options were discussed with the patient and daughter today. Her toenails were debrided R 1, 2, 4, 5; L 1, 2, 3, 4 and 5 digits manually and mechanically and Betadine applied. This is a service, we anticipate having a need for going forward in her care. She is welcome to follow up in the office upon discharge. We also talked about continuation of her strengthening and rehabilitation process. She was cautioned in regards to heel pressure issues such as pressure ulcers if she is in one particular spot and encouraged her to exercise and move around as much as possible. Job ID: [id number] DocumentID: [id number] Dictated Date: 11/01/2022 12:50:10 Environmental Coordinator Date: 11/01/2022 13:43:00 Dictated By: MAGGY OSORIO
--- NOTE | 2022-11-01 14:46 | Physical Therapy Daily Note ---
PT Daily Note-Current Subjective Pt sitting in recliner upon arrival. Pt agrees to PT. Pain Location: No Pain Reported Section J - Health Conditions 1. Rarely or not at all 2. Occasionally 3. Frequently 4. Almost constantly 8. Unable to answer Pain Effect on Sleep: 1 Pain Interference with Therapy: 1 Pain Interference w/Day-to-Day: 1 Mental Status Patient Orientation: Person, Place Transfers SCALE: Activities may be completed with or without assistive devices. 5-Lpmikmmavt-konuxif completes the activity by him/herself with no assistance from a helper. 5-Set-up or Clean-up Assistance-helper sets up or cleans up; patient completes activity. [place] assists only prior to or following the activity. 4-Supervision or Touching Assistance-helper provides verbal cues and/or touching/steadying and/or contact guard assistance as patient completes activity. Assistance may be provided throughout the activity or intermittently. 3-Partial/Moderate Assistance-helper does LESS THAN HALF the effort. [place] lifts, holds or supports trunk or limbs, but provides less than half the effort. 2-Substantial/Maximal Assistance-helper does MORE THAN HALF the effort. [place] lifts or holds trunk or limbs and provides more than half the effort. 8-Yhennnwzt-yakquh does ALL the effort. Patient does none of the effort to complete the activity. Or, the assistance of 2 or more helpers is required for the patient to complete the activity. If activity was not attempted, code reason: 7-Patient Refused. 9-Not Applicable-not attempted and the patient did not perform the activity before the current illness, exacerbation or injury. 10-Not Attempted due to Environmental Limitations-(lack of equipment, weather restraints, etc.). 88-Not Attempted due to Medical Conditions or Safety Concerns. Sit to Stand (QC): 4 Weight Bearing Right Lower Extremity: Right Full Weight Bearing Left Lower Extremity: Left Full Weight Bearing Exercises Seated Therapy Exercises: Ankle pumps, Long arc quads, Hip flexion, Hip abd/add, Glut set Seated Reps: 15 (2 sets) Treatments Pt completes Seated Ex at recliner. Pt also practices sit to stands for TF. Pt demonstrates difficulty trying to communicate needs during tx, continues to try w/o success. Pt tries until SCRAP SORTER departs when ST arrives. All needs met. Assessment Current Status: Good Progress ROM and strength have improved. Pt shows frustration w/difficulty comm unicating. PT Carnival Worker Goals Carnival Worker Goals PT Carnival Worker Goals Time Frame: Nov 04, 2022 Roll Left & Right (QC): 4 (SBA for bed mobility ) Sit to Lying (QC): 4 (SBA for bed mobility ) Lying-Sitting on Side/Bed(QC): 4 (SBA for bed mobility ) Sit to Stand (QC): 3 (Min A for transfers ) Chair/Mph-eg-Yttwr Xfer(QC): 3 (Min A for transfers ) Toilet Transfer (QC): 3 (Min A for transfers ) Car Transfer (QC): 3 (Min A for transfers ) Does the Patient Walk: Yes Walk 10 feet (QC): 3 (Min A for short distances ) Walk 50ft with 2 Turns (QC): 88 (Balance ) Walk 150 ft (QC): 88 (Balance ) Walking 10ft on Uneven Surface: 88 (Balance ) 1 Step (curb) (QC): 88 (Balance ) 4 Steps (QC): 88 (Balance ) 12 Steps (QC): 88 (Balance ) Picking up an Object (QC): 88 (Balance ) Does the Pt use WC or Scooter?: Yes Wheel 50 feet with 2 turns (QC: 3 (Min A for w/c mobility ) Type: Manual Wheel 150 feet: 3 (Min A for w/c mobility ) Type: Manual PT Plan Problem List Problem List: Activity Tolerance Treatment/Plan Treatment Plan: Continue Plan of Care Treatment Plan: Bed Mobility, Concurrent Therapy, Education, Functional Activity Shira, Functional Strength, Group Therapy, Gait, Safety, Therapeutic Exercise, Transfers Treatment Duration: Nov 04, 2022 Frequency: At least 5 of 7 days/Wk (IRF) Estimated Hrs Per Day: 2 hours per day Patient and/or Family Agrees t: Yes Safety Risks/Education Patient Education: Transfer Techniques, Correct Positioning Teaching Recipient: Patient Teaching Methods: Demonstration, Discussion Response to Teaching: Verbalize Understanding, Return Demonstration Time Time In: 0900 Time Out: 1000 DATE: Nov 01, 2022 Total Billed Treatment Time: 60 Total Billed Treatment 1, FA x2 (30m) & EX x2 (30m) JOE RODRIGUEZ SCRAP SORTER Nov 01, 2022 14:46
[2022-11-01 20:10] VITALS: BP 151/67
[2022-11-01] MEDS: ENOXAPARIN 40 MG/0.4 ML SYRINGE SC SCH (20:27)
--- NOTE | 2022-11-02 06:16 | PM&R Progress Note ---
Subjective HPI/CC On Admission Date Seen by Provider: Nov 02, 2022 Time Seen by Provider: 09:00 Subjective/Events-last exam 11/02/2022: Patient doing really well No falls No pain Getting stronger and stronger 11/01/2022: Patient doing really well Perform most of her shower activities We will be ready to go home on Friday10/31/2022: No major issues Handicapped paperwork to fill out No pain reported Doing well 10/30/2022: No major issues Family hesitant on taking care of her at home Family remains outside of room when she toilets Dramatic improvement in ADL's 10/29/2022: Much improved No falls Voiding well No falls 10/28/2022: Patient doing a lot better Every day she is improved Voiding well No pain 10/27/2022: Patient doing really well Denies any new issues No pain No falls 10/26/2022: Patient dramatically improving Urinary retention yesterday but none today If that continues we will need to check her for a UTI 10/25/2022: Patient doing better No falls No pain Voiding well 10/24/2022: Patient doing really well Voiding now Increased Urecholine to 25 mg before meals and at bedtime 10/23/2022: Patient doing well Discontinued catheter and when we were preparing for Valencia reinsertion she voided We will increase Urecholine In and out catheter will be required instead of indwelling Valencia now 10/22/2022: No major issues Family training today DC catheter tomorrow morning to see if she retains No pain reported 10/21/2022: Much improved status Slow recovery Aphasia slow to resolve In-dwelling catheter maintained Urecholine started several days ago and may DC catheter this week to see if she retains 10/20/2022: BP elevated Flaccidity remains right sided Valencia cath in place, started Urecholine to see if we can regain emptying bladder capability BM 10/1910/19/2022: 2 person assist Stools normal Valencia cath in place Leans right No falls 10/18/2022: Doing well Able to lift her right leg Able to read out loud without much dysarthria Sister at bedside 10/17/2022: About the same No falls Valencia catheter remains No pain reported 10/16/2022: Patient about the same Started Wellbutrin to help smoking cessation and depression Nicotine patch will also be placed No major problems 10/15/2022: Patient having more difficulty speaking and now almost completely aphasic Maintained on Plavix and aspirin Appreciate cardiology Tried to encourage and reassure the patient Patient becomes tearful Review of Systems General: Fatigue, Malaise Objective Exam Vital Signs Vital Signs Date Time Temp Pulse Resp B/P (MAP) Pulse Ox O2 Delivery O2 Flow Rate FiO2 11/02/22 20:00 36.8 87 18 156/70 (98) 95 Room Air 0.00 0.00 Capillary Refill : General Appearance: No Apparent Distress, WD/WN, Anxious, Chronically ill, Thin HEENT: PERRL/EOMI, Normal ENT Inspection, Pharynx Normal Neck: Full Range of Motion, Normal Inspection, Non Tender, Supple, Carotid Bruit Respiratory: Chest Non Tender, Lungs Clear, Normal Breath Sounds, No Accessory Muscle Use, No Respiratory Distress Cardiovascular: Regular Rate, Rhythm, No Edema, No Gallop, No JVD, No Murmur, Normal Peripheral Pulses Gastrointestinal: Normal Bowel Sounds, No Organomegaly, No Pulsatile Mass, Non Tender, Soft Back: Normal Inspection, No CVA Tenderness, No Vertebral Tenderness Extremity: Normal Capillary Refill, Normal Inspection, Normal Range of Motion, Non Tender, No Calf Tenderness, No Pedal Edema Neurologic/Psychiatric: Alert, Oriented x3, Abnormal intramural director II-XII, Abnormal Gait, Aphasia, Depressed Affect, Facial Droop, Motor Weakness Skin: Normal Color, Warm/Dry Lymphatic: No Adenopathy Results/Procedures Lab Patient resulted labs reviewed. FIM Transfers Therapy Code Descriptions/Definitions Functional [place] Measure: 0=Not Assessed/NA 4=Minimal Assistance 1=Total Assistance 5=Supervision or Setup 2=Maximal Assistance 6=Modified [place] 3=Moderate Assistance 7=Complete IndependenceSCALE: Activities may be completed with or without assistive devices. 6-Cjefenanrm-cetqxze completes the activity by him/herself with no assistance from a helper. 5-Set-up or Clean-up Assistance-helper sets up or cleans up; patient completes activity. [place] assists only prior to or following the activity. 4-Supervision or Touching Assistance-helper provides verbal cues and/or touch ing/steadying and/or contact guard assistance as patient completes activity. Assistance may be provided throughout the activity or intermittently. 3-Partial/Moderate Assistance-helper does LESS THAN HALF the effort. [place] lifts, holds or supports trunk or limbs, but provides less than half the effort. 2-Substantial/Maximal Assistance-helper does MORE THAN HALF the effort. [place] lifts or holds trunk or limbs and provides more than half the effort. 7-Cpuieplor-hocqfx does ALL the effort. Patient does none of the effort to complete the activity. Or, the assistance of 2 or more helpers is required for the patient to complete the activity. If activity was not attempted, code reason: 7-Patient Refused. 9-Not Applicable-not attempted and the patient did not perform the activity before the current illness, exacerbation or injury. 10-Not Attempted due to Environmental Limitations-(lack of equipment, weather restraints, etc.). 88-Not Attempted due to Medical Conditions or Safety Concerns. Roll Left to Right (QC): 3 (Mod A) Sit to Lying (QC): 4 Sit to Stand (QC): 4 Chair/Nco-ps-Umomi Xfer(QC): 3 Car Transfer (QC): 88 (balance ) Gait Training Does the Patient Walk?: No and Walking Goal IS indicated Distance: 15, 25 feet x 3 Walk 10 feet (QC): 1 Walk 50 ft with 2 Turns(QC): 88 Walk 150 ft (QC): 88 Walking 10ft/uneven surface-QC: 88 Gait Persons Needed: 2 Gait Assistive Device: Walker Platform Wheelchair Training Does the Pt Use a Wheelchair?: Yes Wheel 50 ft with 2 turns (QC): 4 Wheel 150 ft (QC): 4 Type of Wheelchair: Manual Stair Training 1 Step (curb) (QC): 88 (balance ) 4 Steps (QC): 88 (balance ) 12 Steps (QC): 88 (balance ) Balance Picking up an Object (QC): 88 (balance ) ADL-Treatment Eating (QC): 5 (Set up to cut food and open difficult packages. Pt does use hands to medicinal plant picker appropriate food if unable to cut.) Oral Hygiene (QC): 6 (Independent sitting in w/c at sink.) Bathing Location: L Arm, R Arm, L Upper Leg, R Upper Leg, L Lower Leg (including foot), R Lower Leg (including foot), Chest, Abdomen, Buttocks, Perineal Area Shower/Bathe Self (QC): 4 Upper Body Dressing (QC): 3 Lower Body Dressing (QC): 3 On/Off Footwear (QC): 3 (mod A) Toileting Hygiene (QC): 3 Toilet Transfer (QC): 3 Assessment/Plan Assessment and Plan Assess & Plan/Chief Complaint Assessment: Catastrophic CVA with right sided flaccidity-CT angiogram matches carotid ultrasound revealing left carotid internal and external complete occlusion causing catastrophic ischemic infarct of the left parietal and MCA region no surgical option available per vascular surgery at [facility] Dysarthria and expressive aphasia HTN emergency placed on Cardene drip now on Hydralazine IV Smoker Alcohol excess user placed on CIWA Urinary retention requiring replacement of valencia catheter 10/14/22 but DC 10/23 and was able to void so increasing Urecholine and adding in out cathBut now voiding without difficulty on 10/24/2022 Plan: PT OT ST for expressive aphasia CIWA Vitamin supplementation to prevent Wernicke's encephalopathy and Karsokoff's psychosis Lovenox for DVT PPx Cardiology consult ASA and Plavix 10/15/2022: Continue supportive care 10/16/2022: Monitor closely 10/17/2022: Monitor closely Losartan 10/18/2022: Monitor closely 10/19/2022: Improved Start Urecholine 10/20/2022: Trial of DC catheter this week again 10/21/2022: Monitor closely Urecholine 10/22/2022: DC catheter tomorrow 10/23/2022: Voiding is improved Increase Urecholine 10/24/2022: Successful discontinuation of catheter 10/25/2022: Supportive care Monitor voiding 10/26/2022: Monitor urinary retention May need cath for UA specimen 10/27/2022: Supportive care Monitor closely 10/28/2022: Monitor closely Voiding well 10/29/2022: Monitor closely Improved 10/30/2022: Dramatic improvement 10/31/2022: Monitor closely 11/01/2022: Supportive care 11/02/2022: Dramatic improvement (1) CVA (cerebral vascular accident) JM CALLEJAS DO Nov 02, 2022 06:16
[2022-11-02] MEDS: THERAPEUTIC MULTIVITAMIN W/MINERALS TABLET PO SCH (06:41)
[2022-11-02] MEDS: POTASSIUM CHLORIDE 10 MEQ TABLET PO SCH (06:41)
[2022-11-02] MEDS: BETHANECHOL 25 MG TABLET PO SCH ×4 (06:41→20:28)
[2022-11-02] MEDS: THIAMINE 100 MG (VITAMIN B-1) TAB PO SCH (06:41)
[2022-11-02 07:16] VITALS: BP 154/66
[2022-11-02] MEDS: FOLIC ACID 1 MG TAB PO SCH (08:01)
[2022-11-02] MEDS: CLOPIDOGREL 75 MG TABLET PO SCH (08:01)
[2022-11-02] MEDS: NICOTINE 21 MG PATCH TD SCH (08:01)
[2022-11-02] MEDS: ASPIRIN 325 MG TABLET PO SCH (08:01)
[2022-11-02] MEDS: amLODIPine 10 MG TABLET PO SCH (08:01)
[2022-11-02] MEDS: buPROPion SR 150 MG TABLET PO SCH ×2 (08:01→20:28)
[2022-11-02] MEDS: NICOTINE PATCH REMOVAL TP SCH (08:02)
[2022-11-02] MEDS: DOCUSATE SODIUM 100 MG CAPSULE PO SCH ×2 (08:02→20:28)
[2022-11-02] MEDS: LOSARTAN 50 MG TABLET PO SCH ×2 (08:02→20:28)
[2022-11-02] MEDS: SENNOSIDES 8.6 MG TABLET PO SCH ×2 (08:02→20:28)
[2022-11-02 20:00] VITALS: BP 156/70
[2022-11-02] MEDS: ENOXAPARIN 40 MG/0.4 ML SYRINGE SC SCH (20:28)
[2022-11-03] MEDS: THIAMINE 100 MG (VITAMIN B-1) TAB PO SCH (06:19)
[2022-11-03] MEDS: BETHANECHOL 25 MG TABLET PO SCH ×4 (06:19→20:00)
[2022-11-03] MEDS: THERAPEUTIC MULTIVITAMIN W/MINERALS TABLET PO SCH (06:19)
[2022-11-03] MEDS: POTASSIUM CHLORIDE 10 MEQ TABLET PO SCH (06:19)
--- NOTE | 2022-11-03 07:18 | PM&R Progress Note ---
Subjective HPI/CC On Admission Date Seen by Provider: Nov 03, 2022 Time Seen by Provider: 12:00 Subjective/Events-last exam 11/03/2022: Patient doing well Daughter at bedside Moving around well Right leg edema discussed with patient since she is completely flaccid she will continue to need compression to decrease swelling 11/02/2022: Patient doing really well No falls No pain Getting stronger and stronger 11/01/2022: Patient doing really well Perform most of her shower activities We will be ready to go home on Friday10/31/2022: No major issues Handicapped paperwork to fill out No pain reported Doing well 10/30/2022: No major issues Family hesitant on taking care of her at home Family remains outside of room when she toilets Dramatic improvement in ADL's 10/29/2022: Much improved No falls Voiding well No falls 10/28/2022: Patient doing a lot better Every day she is improved Voiding well No pain 10/27/2022: Patient doing really well Denies any new issues No pain No falls 10/26/2022: Patient dramatically improving Urinary retention yesterday but none today If that continues we will need to check her for a UTI 10/25/2022: Patient doing better No falls No pain Voiding well 10/24/2022: Patient doing really well Voiding now Increased Urecholine to 25 mg before meals and at bedtime 10/23/2022: Patient doing well Discontinued catheter and when we were preparing for Valencia reinsertion she voided We will increase Urecholine In and out catheter will be required instead of indwelling Valencia now 10/22/2022: No major issues Family training today DC catheter tomorrow morning to see if she retains No pain reported 10/21/2022: Much improved status Slow recovery Aphasia slow to resolve In-dwelling catheter maintained Urecholine started several days ago and may DC catheter this week to see if she retains 10/20/2022: BP elevated Flaccidity remains right sided Valencia cath in place, started Urecholine to see if we can regain emptying bladder capability BM 10/1910/19/2022: 2 person assist Stools normal Valencia cath in place Leans right No falls 10/18/2022: Doing well Able to lift her right leg Able to read out loud without much dysarthria Sister at bedside 10/17/2022: About the same No falls Valencia catheter remains No pain reported 10/16/2022: Patient about the same Started Wellbutrin to help smoking cessation and depression Nicotine patch will also be placed No major problems 10/15/2022: Patient having more difficulty speaking and now almost completely aphasic Maintained on Plavix and aspirin Appreciate cardiology Tried to encourage and reassure the patient Patient becomes tearful Review of Systems General: Fatigue, Malaise Objective Exam Vital Signs Vital Signs Date Time Temp Pulse Resp B/P (MAP) Pulse Ox O2 Delivery O2 Flow Rate FiO2 11/03/22 09:20 Room Air 11/03/22 08:20 36.0 99 16 122/59 (80) 97 11/02/22 20:00 0.00 0.00 Capillary Refill : General Appearance: No Apparent Distress, WD/WN, Anxious, Chronically ill, Thin HEENT: PERRL/EOMI, Normal ENT Inspection, Pharynx Normal Neck: Full Range of Motion, Normal Inspection, Non Tender, Supple, Carotid Bruit Respiratory: Chest Non Tender, Lungs Clear, Normal Breath Sounds, No Accessory Muscle Use, No Respiratory Distress Cardiovascular: Regular Rate, Rhythm, No Edema, No Gallop, No JVD, No Murmur, Normal Peripheral Pulses Gastrointestinal: Normal Bowel Sounds, No Organomegaly, No Pulsatile Mass, Non Tender, Soft Back: Normal Inspection, No CVA Tenderness, No Vertebral Tenderness Extremity: Normal Capillary Refill, Normal Inspection, Normal Range of Motion, Non Tender, No Calf Tenderness, No Pedal Edema Neurologic/Psychiatric: Alert, Oriented x3, Abnormal fashion patternmaker II-XII, Abnormal Gait, Aphasia, Depressed Affect, Facial Droop, Motor Weakness Skin: Normal Color, Warm/Dry Lymphatic: No Adenopathy Results/Procedures Lab Patient resulted labs reviewed. FIM Transfers Therapy Code Descriptions/Definitions Functional [place] Measure: 0=Not Assessed/NA 4=Minimal Assistance 1=Total Assistance 5=Supervision or Setup 2=Maximal Assistance 6=Modified [place] 3=Moderate Assistance 7=Complete IndependenceSCALE: Activities may be completed with or without assistive devices. 8-Tuxmqoungb-iccpzgy completes the activity by him/herself with no assistance from a helper. 5-Set-up or Clean-up Assistance-helper sets up or cleans up; patient completes activity. [place] assists only prior to or following the activity. 4-Supervision or Touching Assistance-helper provides verbal cues and/or touching/steadying and/or contact guard assistance as patient completes activity. Assistance may be provided throughout the activity or intermittently. 3-Partial/Moderate Assistance-helper does LESS THAN HALF the effort. [place] lifts, holds or supports trunk or limbs, but provides less than half the effort. 2-Substantial/Maximal Assistance-helper does MORE THAN HALF the effort. [place] lifts or holds trunk or limbs and provides more than half the effort. 6-Hrlmebiiz-goxhlz does ALL the effort. Patient does none of the effort to complete the activity. Or, the assistance of 2 or more helpers is required for the patient to complete the activity. If activity was not attempted, code reason: 7-Patient Refused. 9-Not Applicable-not attempted and the patient did not perform the activity before the current illness, exacerbation or injury. 10-Not Attempted due to Environmental Limitations-(lack of equipment, weather restraints, etc.). 88-Not Attempted due to Medical Conditions or Safety Concerns. Roll Left to Right (QC): 3 (Mod A) Sit to Lying (QC): 4 Sit to Stand (QC): 4 Chair/Lkj-rb-Orlst Xfer(QC): 3 Car Transfer (QC): 88 (balance ) Gait Training Does the Patient Walk?: No and Walking Goal IS indicated Distance: 15, 25 feet x 3 Walk 10 feet (QC): 1 Walk 50 ft with 2 Turns(QC): 88 Walk 150 ft (QC): 88 Walking 10ft/uneven surface-QC: 88 Gait Persons Needed: 2 Gait Assistive Device: Walker Platform Wheelchair Training Does the Pt Use a Wheelchair?: Yes Wheel 50 ft with 2 turns (QC): 4 Wheel 150 ft (QC): 4 Type of Wheelchair: Manual Stair Training 1 Step (curb) (QC): 88 (balance ) 4 Steps (QC): 88 (balance ) 12 Steps (QC): 88 (balance ) Balance Picking up an Object (QC): 88 (balance ) ADL-Treatment Eating (QC): 5 (Set up to cut food and open difficult packages. Pt does use hands to picking crew supervisor appropriate food if unable to cut.) Oral Hygiene (QC): 6 (Independent sitting in w/c at sink.) Bathing Location: L Arm, R Arm, L Upper Leg, R Upper Leg, L Lower Leg (including foot), R Lower Leg (including foot), Chest, Abdomen, Buttocks, Perineal Area Shower/Bathe Self (QC): 4 Upper Body Dressing (QC): 3 Lower Body Dressing (QC): 3 On/Off Footwear (QC): 3 (mod A) Toileting Hygiene (QC): 3 Toilet Transfer (QC): 3 Assessment/Plan Assessment and Plan Assess & Plan/Chief Complaint Assessment: Catastrophic CVA with right sided flaccidity-CT angiogram matches carotid ultrasound revealing left carotid internal and external complete occlusion causing catastrophic ischemic infarct of the left parietal and MCA region no surgical option available per vascular surgery at [place] Dysarthria and expressive aphasia HTN emergency placed on Cardene drip now on Hydralazine IV Smoker Alcohol excess user placed on CIWA Urinary retention requiring replacement of valencia catheter 10/14/22 but DC 10/23 and was able to void so increasing Urecholine and adding in out cathBut now voiding without difficulty on 10/24/2022 Plan: PT OT ST for expressive aphasia CIWA Vitamin supplementation to prevent Wernicke's encephalopathy and Karsokoff's psychosis Lovenox for DVT PPx Cardiology consult ASA and Plavix 10/15/2022: Continue supportive care 10/16/2022: Monitor closely 10/17/2022: Monitor closely Losartan 10/18/2022: Monitor closely 10/19/2022: Improved Start Urecholine 10/20/2022: Trial of DC catheter this week again 10/21/2022: Monitor closely Urecholine 10/22/2022: DC catheter tomorrow 10/23/2022: Voiding is improved Increase Urecholine 10/24/2022: Successful discontinuation of catheter 10/25/2022: Supportive care Monitor voiding 10/26/2022: Monitor urinary retention May need cath for UA specimen 10/27/2022: Supportive care Monitor closely 10/28/2022: Monitor closely Voiding well 10/29/2022: Monitor closely Improved 10/30/2022: Dramatic improvement 10/31/2022: Monitor closely 11/01/2022: Supportive care 11/02/2022: Dramatic improvement 11/03/2022: Compression stockings to the right leg (1) CVA (cerebral vascular accident) JM CALLEJAS DO Nov 03, 2022 07:17
[2022-11-03] MEDS: DOCUSATE SODIUM 100 MG CAPSULE PO SCH ×2 (07:44→18:59)
[2022-11-03] MEDS: SENNOSIDES 8.6 MG TABLET PO SCH ×2 (07:44→18:59)
[2022-11-03] MEDS: NICOTINE 21 MG PATCH TD SCH (07:54)
[2022-11-03] MEDS: NICOTINE PATCH REMOVAL TP SCH (07:54)
[2022-11-03] MEDS: ASPIRIN 325 MG TABLET PO SCH (07:55)
[2022-11-03] MEDS: amLODIPine 10 MG TABLET PO SCH (07:55)
[2022-11-03] MEDS: CLOPIDOGREL 75 MG TABLET PO SCH (07:55)
[2022-11-03] MEDS: buPROPion SR 150 MG TABLET PO SCH ×2 (07:55→20:00)
[2022-11-03] MEDS: FOLIC ACID 1 MG TAB PO SCH (07:55)
[2022-11-03] MEDS: LOSARTAN 50 MG TABLET PO SCH ×2 (07:56→20:00)
[2022-11-03 08:20] VITALS: BP 122/59
[2022-11-03 19:59] VITALS: BP 148/67
[2022-11-03] MEDS: ENOXAPARIN 40 MG/0.4 ML SYRINGE SC SCH (20:00)
[2022-11-04] MEDS: POTASSIUM CHLORIDE 10 MEQ TABLET PO SCH (05:41)
[2022-11-04] MEDS: BETHANECHOL 25 MG TABLET PO SCH ×4 (05:41→20:22)
[2022-11-04] MEDS: THERAPEUTIC MULTIVITAMIN W/MINERALS TABLET PO SCH (05:41)
[2022-11-04] MEDS: THIAMINE 100 MG (VITAMIN B-1) TAB PO SCH (05:41)
[2022-11-04 06:19] LABS: BASOPHILS # (AUTO) 0.1 10^3/uL (0.0-0.1); BASOPHILS % (AUTO) 1 % (0-10); EOSINOPHILS # (AUTO) 0.3 10^3/uL (0.0-0.3); EOSINOPHILS % (AUTO) 3 % (0-10); HEMATOCRIT 37 % (35-52); HEMOGLOBIN 12.6 g/dL (11.5-16.0); LYMPHOCYTES % (AUTO) 26 % (12-44); MEAN CORPUSCULAR HEMOGLOBIN 31 pg (25-34); MEAN CORPUSCULAR HGB CONC 34 g/dL (32-36); MEAN CORPUSCULAR VOLUME 90 fL (80-99); MEAN PLATELET VOLUME 9.1 fL (9.0-12.2); MONOCYTES # (AUTO) 0.6 10^3/uL (0.0-1.0); MONOCYTES % (AUTO) 8 % (0-12); NEUTROPHILS # (AUTO) 4.9 10^3/uL (1.8-7.8); NEUTROPHILS % (AUTO) 62 % (42-75); PLATELET COUNT 378 10^3/uL (130-400); WHITE BLOOD COUNT 7.8 10^3/uL (4.3-11.0)
[2022-11-04 06:33] LABS: BILIRUBIN,TOTAL 0.5 MG/DL (0.1-1.0); CALCIUM 9.3 MG/DL (8.5-10.1); CREATININE SERUM 0.75 MG/DL (0.60-1.30); POTASSIUM 4.2 MMOL/L (3.6-5.0); TOTAL PROTEIN 6.9 GM/DL (6.4-8.2)
--- NOTE | 2022-11-04 07:16 | PM&R Progress Note ---
Subjective HPI/CC On Admission Date Seen by Provider: Nov 04, 2022 Time Seen by Provider: 10:00 Subjective/Events-last exam 11/04/2022: Ready for DC tomorrow Daughter at bedside Family never really involved in toileting the patient so unsure if they are prepared to help her at home 11/03/2022: Patient doing well Daughter at bedside Moving around well Right leg edema discussed with patient since she is completely flaccid she will continue to need compression to decrease swelling 11/02/2022: Patient doing really well No falls No pain Getting stronger and stronger 11/01/2022: Patient doing really well Perform most of her shower activities We will be ready to go home on Friday10/31/2022: No major issues Handicapped paperwork to fill out No pain reported Doing well 10/30/2022: No major issues Family hesitant on taking care of her at home Family remains outside of room when she toilets Dramatic improvement in ADL's 10/29/2022: Much improved No falls Voiding well No falls 10/28/2022: Patient doing a lot better Every day she is improved Voiding well No pain 10/27/2022: Patient doing really well Denies any new issues No pain No falls 10/26/2022: Patient dramatically improving Urinary retention yesterday but none today If that continues we will need to check her for a UTI 10/25/2022: Patient doing better No falls No pain Voiding well 10/24/2022: Patient doing really well Voiding now Increased Urecholine to 25 mg before meals and at bedtime 10/23/2022: Patient doing well Discontinued catheter and when we were preparing for Valencia reinsertion she voided We will increase Urecholine In and out catheter will be required instead of indwelling Valencia now 10/22/2022: No major issues Family training today DC catheter tomorrow morning to see if she retains No pain reported 10/21/2022: Much improved status Slow recovery Aphasia slow to resolve In-dwelling catheter maintained Urecholine started several days ago and may DC catheter this week to see if she retains 10/20/2022: BP elevated Flaccidity remains right sided Valencia cath in place, started Urecholine to see if we can regain emptying bladder capability BM 10/1910/19/2022: 2 person assist Stools normal Valencia cath in place Leans right No falls 10/18/2022: Doing well Able to lift her right leg Able to read out loud without much dysarthria Sister at bedside 10/17/2022: About the same No falls Valencia catheter remains No pain reported 10/16/2022: Patient about the same Started Wellbutrin to help smoking cessation and depression Nicotine patch will also be placed No major problems 10/15/2022: Patient having more difficulty speaking and now almost completely aphasic Maintained on Plavix and aspirin Appreciate cardiology Tried to encourage and reassure the patient Patient becomes tearful Review of Systems General: Fatigue, Malaise Objective Exam Vital Signs Vital Signs Date Time Temp Pulse Resp B/P (MAP) Pulse Ox O2 Delivery O2 Flow Rate FiO2 11/04/22 08:50 Room Air 11/04/22 08:00 36.0 87 14 147/80 (102) 96 11/02/22 20:00 0.00 0.00 Capillary Refill : General Appearance: No Apparent Distress, WD/WN, Anxious, Chronically ill, Thin HEENT: PERRL/EOMI, Normal ENT Inspection, Pharynx Normal Neck: Full Range of Motion, Normal Inspection, Non Tender, Supple, Carotid Bruit Respiratory: Chest Non Tender, Lungs Clear, Normal Breath Sounds, No Accessory Muscle Use, No Respiratory Distress Cardiovascular: Regular Rate, Rhythm, No Edema, No Gallop, No JVD, No Murmur, Normal Peripheral Pulses Gastrointestinal: Normal Bowel Sounds, No Organomegaly, No Pulsatile Mass, Non Tender, Soft Back: Normal Inspection, No CVA Tenderness, No Vertebral Tenderness Extremity: Normal Capillary Refill, Normal Inspection, Normal Range of Motion, Non Tender, No Calf Tenderness, No Pedal Edema Neurologic/Psychiatric: Alert, Oriented x3, Abnormal liquid flavor compounder II-XII, Abnormal Gait, Aphasia, Depressed Affect, Facial Droop, Motor Weakness Skin: Normal Color, Warm/Dry Lymphatic: No Adenopathy Results/Procedures Lab Laboratory Tests 11/04/22 06:00 Patient resulted labs reviewed. FIM Transfers Therapy Code Descriptions/Definitions Functional [place] Measure: 0=Not Assessed/NA 4=Minimal Assistance 1=Total Assistance 5=Supervision or Setup 2=Maximal Assistance 6=Modified [place] 3=Moderate Assistance 7=Complete IndependenceSCALE: Activities may be completed with or without assistive devices. 6-Tdhulrfwky-hoozdvq completes the activity by him/herself with no assistance from a helper. 5-Set-up or Clean-up Assistance-helper sets up or cleans up; patient completes activity. [place] assists only prior to or following the activity. 4-Supervision or Touching Assistance-helper provides verbal cues and/or touching/steadying and/or contact guard assistance as patient completes activity. Assistance may be provided throughout the activity or intermittently. 3-Partial/Moderate Assistance-helper does LESS THAN HALF the effort. [place] lifts, holds or supports trunk or limbs, but provides less than half the effort. 2-Substantial/Maximal Assistance-helper does MORE THAN HALF the effort. [place] lifts or holds trunk or limbs and provides more than half the effort. 5-Efsalcqjs-uupgum does ALL the effort. Patient does none of the effort to complete the activity. Or, the assistance of 2 or more helpers is required for the patient to complete the activity. If activity was not attempted, code reason: 7-Patient Refused. 9-Not Applicable-not attempted and the patient did not perform the activity before the current illness, exacerbation or injury. 10-Not Attempted due to Environmental Limitations-(lack of equipment, weather restraints, etc.). 88-Not Attempted due to Medical Conditions or Safety Concerns. Roll Left to Right (QC): 3 (Mod A) Sit to Lying (QC): 4 Sit to Stand (QC): 4 Chair/Paw-se-[place]qhee Xfer(QC): 3 Car Transfer (QC): 88 (balance ) Gait Training Does the Patient Walk?: No and Walking Goal IS indicated Distance: 15, 25 feet x 3 Walk 10 feet (QC): 1 Walk 50 ft with 2 Turns(QC): 88 Walk 150 ft (QC): 88 Walking 10ft/uneven surface-QC: 88 Gait Persons Needed: 2 Gait Assistive Device: Walker Platform Wheelchair Training Does the Pt Use a Wheelchair?: Yes Wheel 50 ft with 2 turns (QC): 4 Wheel 150 ft (QC): 4 Type of Wheelchair: Manual Stair Training 1 Step (curb) (QC): 88 (balance ) 4 Steps (QC): 88 (balance ) 12 Steps (QC): 88 (balance ) Balance Picking up an Object (QC): 88 (balance ) ADL-Treatment Eating (QC): 5 (Set up to cut food and open difficult packages. Pt does use hands to sweet pickle maker appropriate food if unable to cut.) Oral Hygiene (QC): 6 (Independent sitting in w/c at sink.) Bathing Location: L Arm, R Arm, L Upper Leg, R Upper Leg, L Lower Leg (including foot), R Lower Leg (including foot), Chest, Abdomen, Buttocks, Perineal Area Shower/Bathe Self (QC): 4 Upper Body Dressing (QC): 3 Lower Body Dressing (QC): 3 On/Off Footwear (QC): 3 (mod A) Toileting Hygiene (QC): 3 Toilet Transfer (QC): 3 Assessment/Plan Assessment and Plan Assess & Plan/Chief Complaint Assessment: Catastrophic CVA with right sided flaccidity-CT angiogram matches carotid ultrasound revealing left carotid internal and external complete occlusion causing catastrophic ischemic infarct of the left parietal and MCA region no surgical option available per vascular surgery at [place] Dysarthria and expressive aphasia HTN emergency placed on Cardene drip now on Hydralazine IV Smoker Alcohol excess user placed on CIWA Urinary retention requiring replacement of valencia catheter 10/14/22 but DC 10/23 and was able to void so increasing Urecholine and adding in out cathBut now voiding without difficulty on 10/24/2022 Plan: PT OT ST for expressive aphasia CIWA Vitamin supplementation to prevent Wernicke's encephalopathy and Karsokoff's psychosis Lovenox for DVT PPx Cardiology consult ASA and Plavix 10/15/2022: Continue supportive care 10/16/2022: Monitor closely 10/17/2022: Monitor closely Losartan 10/18/2022: Monitor closely 10/19/2022: Improved Start Urecholine 10/20/2022: Trial of DC catheter this week again 10/21/2022: Monitor closely Urecholine 10/22/2022: DC catheter tomorrow 10/23/2022: Voiding is improved Increase Urecholine 10/24/2022: Successful discontinuation of catheter 10/25/2022: Supportive care Monitor voiding 10/26/2022: Monitor urinary retention May need cath for UA specimen 10/27/2022: Supportive care Monitor closely 10/28/2022: Monitor closely Voiding well 10/29/2022: Monitor closely Improved 10/30/2022: Dramatic improvement 10/31/2022: Monitor closely 11/01/2022: Supportive care 11/02/2022: Dramatic improvement 11/03/2022: Compression stockings to the right leg 11/04/2022: MALCOLM Shereen (1) CVA (cerebral vascular accident) JM CALLEJAS DO Nov 04, 2022 07:16
[2022-11-04] MEDS: LOSARTAN 50 MG TABLET PO SCH ×2 (07:38→20:22)
[2022-11-04] MEDS: amLODIPine 10 MG TABLET PO SCH (07:38)
[2022-11-04] MEDS: FOLIC ACID 1 MG TAB PO SCH (07:38)
[2022-11-04] MEDS: DOCUSATE SODIUM 100 MG CAPSULE PO SCH ×2 (07:38→19:27)
[2022-11-04] MEDS: CLOPIDOGREL 75 MG TABLET PO SCH (07:38)
[2022-11-04] MEDS: buPROPion SR 150 MG TABLET PO SCH ×2 (07:38→20:22)
[2022-11-04] MEDS: ASPIRIN 325 MG TABLET PO SCH (07:38)
[2022-11-04] MEDS: NICOTINE 21 MG PATCH TD SCH (07:39)
[2022-11-04] MEDS: SENNOSIDES 8.6 MG TABLET PO SCH ×2 (07:39→19:27)
[2022-11-04] MEDS: NICOTINE PATCH REMOVAL TP SCH (07:43)
[2022-11-04 08:00] VITALS: BP 147/80
--- NOTE | 2022-11-04 10:00 | Occupational Ther Daily Note ---
OT Current Status-Daily Note Subjective Pt alert, sitting in recliner. Pt agrees to therapy. No c/o pain. QC's gathered this date. Mental Status/Objective Patient Orientation: Person, Place, Non-Verbal/Aphasic, Time, Situation ADL-Treatment Pt agrees to shower. Increased tone noted in R UE/LE, self-ROM completed to decrease tone. Min A for SPT from surface to surface, verbal cues for positioning initially. Pt able to cleanse self after voiding/BM while in sitting then min A for standing balance while pt hikes own clothing. Set up for shower while sitting on SBA using grabbars and hand held shower. Set up and SBA for UBD. Pt able to thread clothing over feet by self then min A in standing while pt hikes pants over hips. Technique when standing, stand at R side of pt and allow room for pt to move L UE to hike pants over hips. Pt able to doff socks by self then dons L sock/shoe by self, assist to don R sock/shoe. Independent with oral care and grooming sitting at sink. Therapy Code Descriptions/Definitions Functional [place] Measure: 0=Not Assessed/NA 4=Minimal Assistance 1=Total Assistance 5=Supervision or Setup 2=Maximal Assistance 6=Modified [place] 3=Moderate Assistance 7=Complete IndependenceSCALE: Activities may be completed with or without assistive devices. 5-Pkfhcqamlp-vsoigky completes the activity by him/herself with no assistance from a helper. 5-Set-up or Clean-up Assistance-helper sets up or cleans up; patient completes activity. [place] assists only prior to or following the activity. 4-Supervision or Touching Assistance-helper provides verbal cues and/or touching/steadying and/or contact guard assistance as patient completes activity. Assistance may be provided throughout the activity or intermittently. 3-Partial/Moderate Assistance-helper does LESS THAN HALF the effort. [place] lift s, holds or supports trunk or limbs, but provides less than half the effort. 2-Substantial/Maximal Assistance-helper does MORE THAN HALF the effort. [place] lifts or holds trunk or limbs and provides more than half the effort. 8-Azjqhnmvb-tusbfy does ALL the effort. Patient does none of the effort to complete the activity. Or, the assistance of 2 or more helpers is required for the patient to complete the activity. If activity was not attempted, code reason: 7-Patient Refused. 9-Not Applicable-not attempted and the patient did not perform the activity before the current illness, exacerbation or injury. 10-Not Attempted due to Environmental Limitations-(lack of equipment, weather restraints, etc.). 88-Not Attempted due to Medical Conditions or Safety Concerns. Eating (QC): 5 (Pt opens most of containers though opening bottles requires assist. Uses regular utensils to eat.) Oral Hygiene (QC): 6 Shower/Bathe Self (QC): 5 Upper Body Dressing (QC): 5 Lower Body Dressing (QC): 3 On/Off Footwear: 3 (min A) Toileting Hygiene (QC): 3 (min A) Toilet Transfer (QC): 3 (min A) Other Treatment Pt educated and completed self ROM to R UE/LE to decrease tone, will need cues to initiate and complete with correct technique. Pt requires cues to complete squat pivot transfer initially then as practice occurs transfers become easier and decrease in cues needed. Cue to stand with nose over toes. After session, pt sitting in recliner with call light/phone in reach. All needs met in room. BIMS CAM BIMS Expression of Ideas and Wants: Difficulty (expressive aphasia) Understanding Verbal Content: Understands Brief Interview/Mental Status: Yes IRF TANA BIMS: IRF TANA BIMS Response (Comments) Value Repitition of Three Words Three 3 Recalls Socks Yes, No Cue Required (with visual choice of 3 due to expressive aphasia) 2 Recalls Blue Yes, No Cue Required (with visual choice of 3 due to expressive aphasia) 2 Recalls Bed Yes, No Cue Required (with visual choice of 3 due to expressive aphasia) 2 Year Correct (with visual choice of 3 due to expressive aphasia) 3 Month Accurate Within 5 Days 2 Day Correct 1 Total 15 Patient Normally Able to Recal: Current Session, Location of own room, Staff Names and faces, That he/she in a hsp Should Staff Asses. Mental St.: No CAM Mental Status Change/Baseline: 0 Inattention: 0 Disorganized thinkin Altered level of consciousness: 0 OT Short Term Goals Short Term Goals Time Frame: Oct 28, 2022 Eatin Oral hygiene: 4 Toileting hygiene: 3 Shower/bathe self: 3 Upper body dressin Lower body dressin Putting on/taking off footwear: 3 OT Assistant In Nursing Goals Assistant In Nursing Goals Time Frame: Nov 11, 2022 Disorganized thinkin Altered level of consciousness: 0 Eating (QC): 5 (Set up-met) Oral Hygiene (QC): 5 (Set up-met) Toileting Hygiene (QC): 4 (CGA/supervision-not met) Shower/Bathe Self (QC): 4 (CGA/supervision-met) Upper Body Dressing (QC): 5 (Set up-met) Lower Body Dressing (QC): 4 (CGA/supervision-not met) On/Off Footwear (QC): 4 (CGA/supervision-not met) Additional Goals: 1-Demonstrate ADL Tasks, 2-Verbalize Understanding, 3- ImproveStrength/Shira 1=Demonstrate adherence to instructed precautions during ADL tasks. 2=Patient will verbalize/demonstrate understanding of assistive devices/modifications for ADL. 3=Patient will improve strength/tolerance for activity to enable patient to perform ADL's. OT Education/Plan Problem List/Assessment Assessment: Decreased Activ Tolerance, Decreased Safety Aware (R side neglect), Decreased UE Strength, Impaired Funct Balance, Impaired Self-Care Skills, Restricted Funct UE ROM Discharge Recommendations Plan/Recommendations: Continue POC Treatment Plan/Plan of Care Patient would benefit from OT for education, treatment and training to promote independence in ADL's, mobility, safety and/or upper extremity function for ADL's. Plan of Care: ADL Retraining, Caregiver Training, Functional Mobility, Group Exercise/Act as Ind, UE Funct Exercise/Act Treatment Duration: Nov 11, 2022 Frequency: At least 5 of 7 days/Wk (IRF) Estimated Hrs Per Day: 1.5 hours per day Agreement: Yes Rehab Potential: Fair Time Start Time: 08:30 Stop Time: 10:00 DATE: Nov 04, 2022 Total Time Billed (hr/min): 90 Billed Treatment Time 1 visit-ADL 4 (60 min) FA 2 (30 min) ERICA RICE Nov 04, 2022 10:00
--- NOTE | 2022-11-04 11:09 | Speech Therapy Daily Note ---
Speech Daily Progress Note Subjective Date Seen by Provider: Nov 04, 2022 Time Seen by Provider: 10:00 Pt sitting up in recliner. Pt had just finished with occupational and physical therapy. Pt pleasant and cooperative throughout session. Pain Location: No Pain Reported Objective Pt demonstrates significant oral groping throughout session in attempt to correctly produce words. Pt often benefits from RESPIRATORY PHYSICIAN making initial sound of word, she is then usually able to complete the word. On occasional pt does require the RESPIRATORY PHYSICIAN to produce the full word. Pt completes rote naming tasks (counting, days of week, months of year, alphabet) with 70% accuracy with min verbal cues. When pt would perseverate on a month she was encouraged to use that month to help get her started again. For example if pt was trying to say "December" but kept saying "October"; she would start at "October" and continue on to December. This strategy appeared to help the pt with moving on from perseverations on a word. Pt also shown pictures of objects and give 2 describing words with 50% accuracy with mod cues. Pt is able to complete opposite phrases with 70% accuracy with min verbal cues. Pt does phrase completion with 40% accuracy with min verbal cues. Pt is able to read/say commonly used words on notecards with 90% accuracy with min cues. Assessment Assessment Current Status: Fair Progress Treatment Plan Continue Plan of Care Speech Short Term Goals Short Term Goals Short Term Goals 1. The patient will complete oral motor exercises with 75% accuracy and moderate clinician verbal and visual cueing. 2. The patient will communicate yes and no response (simple) with 50% accuracy and moderate clinician verbal and visual cueing. Time Frame-STG: Ten Days. Speech Manufacturing Coordinator Goals [facility] Goals 1. The patient will demonstrate improved functional communication for increased safety with discharge to the least restrictive environment. Time Frame: Four Weeks. Speech-Plan Patient/Family Goals Patient/Family Goals: Pt's goal is to return home. Treatment Plan Speech Therapy Treatment Plan: Continue Plan of Care Treatment Duration: Nov 05, 2022 Frequency: Modified Program (IRF) Estimated Hrs Per Day: .5 hour per day Rehab Potential: Fair Safety Risks/Education Teaching Recipient: Patient Teaching Methods: Discussion Response to Teaching: Verbalize Understanding Education Topics Provided: Pt educated on purpose of therapy tasks. Pt receptive and verbalized understanding. Time Speech Therapy Time In: 10:00 Speech Therapy Time Out: 11:00 DATE: Nov 04, 2022 Total Billed Time: 60 Billed Treatment Time SL Zachariah Levi Speech Therapy Nov 04, 2022 11:09
[2022-11-04] MEDS ORDERED: CLOP75TA28 PO (12:49)
[2022-11-04] MEDS ORDERED: BETH25TA2 PO (12:49)
[2022-11-04] MEDS ORDERED: ATOR80TA76 PO (12:49)
[2022-11-04] MEDS ORDERED: THIA100T80 PO (12:49)
[2022-11-04] MEDS ORDERED: FOLI1TAB33 PO (12:49)
[2022-11-04] MEDS ORDERED: BUPR-105 PO (12:49)
[2022-11-04] MEDS ORDERED: AMLO-251 PO (12:49)
[2022-11-04] MEDS ORDERED: LOSA50TA63 PO (12:49)
[2022-11-04] MEDS ORDERED: MULT-1137 PO (12:49)
[2022-11-04] MEDS ORDERED: NICO1PAT34 TD (12:49)
[2022-11-04] MEDS ORDERED: ASPI-1238 PO (12:49)
--- NOTE | 2022-11-04 12:50 | D/C HH Face to Face Order ---
D/C Face to Face Orders Reconcile Patient Problems Problems Reviewed?: Yes Instructions for Patient Via [facility], Patient Instructions/FollowUp: Dr Rubin as scheduled Physician to follow Patient: Caryn Discharge Diet for Home: No Restrictions Patient Problems: CVA Patient Data-Allergies,Ht & Wt Patient Allergies: Coded Allergies: No Known Drug Allergies (Unverified , 10/14/22) Home Health Need/Face to Face Date of Face to Face: Nov 04, 2022 Clinical Findings: Generalized weakness and fatigue, Instability, Muscle weakness, Unsteady gait I have seen Pt [id number]: Yes Discharged To: Home Diagnosis/Conditions: CVA Patient is Homebound due to: Alecia fall risk due to instabilty, Muscle weakness Homebound Status Due to the above stated illness, injury or surgical procedure (medical condition or diagnosis) and associated clinical findings, the patient is h omebound because of his/her inability to leave home except with aid of a supportive device and/or person AND leaving the home requires a considerable and taxing effort or is medically contraindicated. Pt req the following assistanc: Walker [facility] Nursing Orders Home Health Services Order: Nursing Services, Physician Relations Manager-Evaluate & Treat, Physical Therapy-Evaluate & Treat Certify Stmt I certify that this patient is under my care and that I, a nurse practitioner or a physician; a post production assistant working with me, had a face to face encounter that - meets the physician face to face encounter requirements with this patient as dated. JM RUBIN DO Nov 04, 2022 12:50
--- NOTE | 2022-11-04 16:12 | Physical Therapy Daily Note ---
PT Daily Note-Current Subjective Pt sitting in recliner upon arrival. Pt agrees to PT. Pain Location: No Pain Reported Section J - Health Conditions 1. Rarely or not at all 2. Occasionally 3. Frequently 4. Almost constantly 8. Unable to answer Pain Effect on Sleep: 1 Pain Interference with Therapy: 1 Pain Interference w/Day-to-Day: 1 Mental Status Patient Orientation: Person, Place, Situation Transfers SCALE: Activities may be completed with or without assistive devices. 0-Vgstatjvsq-hyweztc completes the activity by him/herself with no assistance from a helper. 5-Set-up or Clean-up Assistance-helper sets up or cleans up; patient completes activity. Wilton assists only prior to or following the activity. 4-Supervision or Touching Assistance-helper provides verbal cues and/or touching/steadying and/or contact guard assistance as patient completes activity. Assistance may be provided throughout the activity or intermittently. 3-Partial/Moderate Assistance-helper does LESS THAN HALF the effort. Wilton lifts, holds or supports trunk or limbs, but provides less than half the effort. 2-Substantial/Maximal Assistance-helper does MORE THAN HALF the effort. Wilton lifts or holds trunk or limbs and provides more than half the effort. 7-Nezjtfnts-spwtqd does ALL the effort. Patient does none of the effort to complete the activity. Or, the assistance of 2 or more helpers is required for the patient to complete the activity. If activity was not attempted, code reason: 7-Patient Refused. 9-Not Applicable-not attempted and the patient did not perform the activity before the current illness, exacerbation or injury. 10-Not Attempted due to Environmental Limitations-(lack of equipment, weather restraints, etc.). 88-Not Attempted due to Medical Conditions or Safety Concerns. Roll Left & Right (QC): 4 Sit to Lying (QC): 4 Lying to Sitting/Side of Bed(Q: 4 Sit to Stand (QC): 3 Chair/Lmd-qg-Eisxs Xfer(QC): 3 Toilet Transfer (QC): 3 Car Transfer (QC): 3 Weight Bearing Right Lower Extremity: Right Full Weight Bearing Left Lower Extremity: Left Full Weight Bearing Gait Training Does the Patient Walk?: No and Walking Goal IS indicated Walk 10 feet (QC): 88 Walk 50 ft with 2 Turns(QC): 88 Walk 150 ft (QC): 88 Walking 10ft/uneven surface-QC: 88 Walking is not feasible at this time due to the fact that it requires two people to safely ambulate household distances but this will not be available regularly. W/c is a more independent mode of transportation at this time. Wheelchair Training Does the Pt Use a Wheelchair?: Yes Wheel 50 ft with 2 turns (QC): 3 Wheel 150 ft (QC): 3 Type of Wheelchair: Manual Stair Training 1 Step (curb) (QC): 88 4 Steps (QC): 88 12 Steps (QC): 88 Balance Picking up an Object (QC): 88 Treatments Pt completes QC scoring items listed above before resting in recliner at end of tx. All needs met, call light next to pt. Assessment Current Status: Good Progress Pt has made good progress with independence of transfers and mobility. PT Certified Genetic Counselor Goals Certified Genetic Counselor Goals [facility] Goals Time Frame: Nov 04, 2022 Roll Left & Right (QC): 4 (SBA for bed mobility ) Sit to Lying (QC): 4 (SBA for bed mobility ) Lying-Sitting on Side/Bed(QC): 4 (SBA for bed mobility ) Sit to Stand (QC): 3 (Min A for transfers ) Chair/Qgg-ar-Jytgs Xfer(QC): 3 (Min A for transfers ) Toilet Transfer (QC): 3 (Min A for transfers ) Car Transfer (QC): 3 (Min A for transfers ) Does the Patient Walk: Yes Walk 10 feet (QC): 3 (Min A for short distances ) Walk 50ft with 2 Turns (QC): 88 (Balance ) Walk 150 ft (QC): 88 (Balance ) Walking 10ft on Uneven Surface: 88 (Balance ) 1 Step (curb) (QC): 88 (Balance ) 4 Steps (QC): 88 (Balance ) 12 Steps (QC): 88 (Balance ) Picking up an Object (QC): 88 (Balance ) Does the Pt use WC or Scooter?: Yes Wheel 50 feet with 2 turns (QC: 3 (Min A for w/c mobility ) Type: Manual Wheel 150 feet: 3 (Min A for w/c mobility ) Type: Manual PT Plan Problem List Problem List: Activity Tolerance Treatment/Plan Treatment Plan: Continue Plan of Care Treatment Plan: Bed Mobility, Concurrent Therapy, Education, Functional Activity Shira, Functional Strength, Group Therapy, Gait, Safety, Therapeutic Exercise, Transfers Treatment Duration: Nov 04, 2022 Frequency: At least 5 of 7 days/Wk (IRF) Estimated Hrs Per Day: 2 hours per day Patient and/or Family Agrees t: Yes Time Time In: 1330 Time Out: 1400 DATE: Nov 04, 2022 Total Billed Treatment Time: 30 Total Billed Treatment 1, EX x2 (30m) JOE RODRIGUEZ PLANT TOUR GUIDE Nov 04, 2022 16:12
[2022-11-04] MEDS: ENOXAPARIN 40 MG/0.4 ML SYRINGE SC SCH (20:21)
[2022-11-04 20:52] VITALS: BP 139/67
--- NOTE | 2022-11-05 05:07 | Discharge Summary ---
Diagnosis/Chief Complaint Date of Admission Oct 14, 2022 at 13:30 Date of Discharge Discharge Date: Nov 05, 2022 Discharge Diagnosis Assessment: Catastrophic CVA with right sided flaccidity-CT angiogram matches carotid ultrasound revealing left carotid internal and external complete occlusion causing catastrophic ischemic infarct of the left parietal and MCA region no surgical option available per vascular surgery at [place] Dysarthria and expressive aphasia HTN emergency placed on Cardene drip now on Hydralazine IV Smoker Alcohol excess user placed on CIWA Urinary retention requiring replacement of valencia catheter 10/14/22 but DC 10/23 and was able to void so increasing Urecholine and adding in out cathBut now voiding without difficulty on 10/24/2022 Plan: PT OT ST for expressive aphasia CIWA Vitamin supplementation to prevent Wernicke's encephalopathy and Karsokoff's psychosis Lovenox for DVT PPx Cardiology consult ASA and Plavix 10/15/2022: Continue supportive care 10/16/2022: Monitor closely 10/17/2022: Monitor closely Losartan 10/18/2022: Monitor closely 10/19/2022: Improved Start Urecholine 10/20/2022: Trial of DC catheter this week again 10/21/2022: Monitor closely Urecholine 10/22/2022: DC catheter tomorrow 10/23/2022: Voiding is improved Increase Urecholine 10/24/2022: Successful discontinuation of catheter 10/25/2022: Supportive care Monitor voiding 10/26/2022: Monitor urinary retention May need cath for UA specimen 10/27/2022: Supportive care Monitor closely 10/28/2022: Monitor closely Voiding well 10/29/2022: Monitor closely Improved 10/30/2022: Dramatic improvement 10/31/2022: Monitor closely 11/01/2022: Supportive care 11/02/2022: Dramatic improvement 11/03/2022: Compression stockings to the right leg 11/04/2022: DC Friday (1) CVA (cerebral vascular accident) Discharge Summary Discharge Physical Examination Allergies: Coded Allergies: No Known Drug Allergies (Unverified , 10/14/22) Vitals & I&Os Vital Signs Date Time Temp Pulse Resp B/P (MAP) Pulse Ox O2 Delivery O2 Flow Rate FiO2 11/05/22 09:35 36.6 94 18 148/70 93 Room Air 11/02/22 20:00 0.00 0.00 General Appearance: Alert, Oriented X3, Cooperative Respiratory: Clear to Auscultation Cardiovascular: Regular Rate Psych/Mental Status: Mental Status NL Hospital Course Was the Problem List Reviewed?: Yes Patient had a lengthy hospital course after a catastrophic stroke resulted in right-sided placidity and expressive aphasia with dysarthria. She did have urinary retention requiring Valencia catheter but Urecholine started catheterizations occurred and she regained function of her bladder. Bowels returned back to normal vital signs remained stable. Cardiology monitored her. Blood pressure much improved. Patient was deemed stable for discharge. Labs (last 24 hrs) Laboratory Tests 10/15/22 05:10: White Blood Count 7.8, Red Blood Count 4.00, Hemoglobin 12.4, Hematocrit 35, Mean Corpuscular Volume 88, Mean Corpuscular Hemoglobin 31, Mean Corpuscular Hemoglobin Concent 35, Red Cell Distribution Width 12.5, Platelet Count 278, Mean Platelet Volume 9.5, Immature Granulocyte % (Auto) 0, Neutrophils (%) (Auto) 61, Lymphocytes (%) (Auto) 30, Monocytes (%) (Auto) 8, Eosinophils (%) (Auto) 1, Basophils (%) (Auto) 0, Neutrophils # (Auto) 4.8, Lymphocytes # (Auto) 2.4, Monocytes # (Auto) 0.6, Eosinophils # (Auto) 0.0, Basophils # (Auto) 0.0, Immature Granulocyte # (Auto) 0.0, Sodium Level 132L, Potassium Level 3.4L, Chlo ride Level 102, Carbon Dioxide Level 19L, Anion Gap 11, Blood Urea Nitrogen 15, Creatinine 0.70, Estimat Glomerular Filtration Rate 92, BUN/Creatinine Ratio 21, Glucose Level 106H, Calcium Level 8.8, Corrected Calcium 9.1, Total Bilirubin 0.9, Aspartate Amino Transf (AST/SGOT) 21, Alanine Aminotransferase (ALT/SGPT) 16, Alkaline Phosphatase 55, Total Protein 6.2L, Albumin 3.6 10/21/22 05:52: White Blood Count 7.3, Red Blood Count 4.00, Hemoglobin 12.4, Hematocrit 36, Mean Corpuscular Volume 90, Mean Corpuscular Hemoglobin 31, Mean Corpuscular Hemoglobin Concent 35, Red Cell Distribution Width 12.2, Platelet Count 413H, Mean Platelet Volume 9.9, Immature Granulocyte % (Auto) 0, Neutrophils (%) (Auto) 67, Lymphocytes (%) (Auto) 20, Monocytes (%) (Auto) 10, Eosinophils (%) (Auto) 2, Basophils (%) (Auto) 0, Neutrophils # (Auto) 4.9, Lymphocytes # (Auto) 1.5, Monocytes # (Auto) 0.7, Eosinophils # (Auto) 0.2, Basophils # (Auto) 0.0, Immature Granulocyte # (Auto) 0.0, Sodium Level 132L, Potassium Level 4.2, Chloride Level 101, Carbon Dioxide Level 23, Anion Gap 8, Blood Urea Nitrogen 12, Creatinine 0.72, Estimat Glomerular Filtration Rate 89, BUN/Creatinine Ratio 17, Glucose Level 107H, Calcium Level 8.8, Corrected Calcium 9.0, Total Bilirubin 0.5, Aspartate Amino Transf (AST/SGOT) 46H, Alanine Aminotransferase (ALT/SGPT) 72H, Alkaline Phosphatase 74, Total Protein 6.4, Albumin 3.7 10/28/22 05:55: White Blood Count 7.7, Red Blood Count 3.96, Hemoglobin 12.3, Hematocrit 35, Mean Corpuscular Volume 89, Mean Corpuscular Hemoglobin 31, Mean Corpuscular Hemoglobin Concent 35, Red Cell Distribution Width 12.0, Platelet Count 502H, Mean Platelet Volume 9.2, Immature Granulocyte % (Auto) 0, Neutrophils (%) (Auto) 59, Lymphocytes (%) (Auto) 27, Monocytes (%) (Auto) 7, Eosinophils (%) (Auto) 5, Basophils (%) (Auto) 1, Neutrophils # (Auto) 4.6, Lymphocytes # (Auto) 2.1, Monocytes # (Auto) 0.6, Eosinophils # (Auto) 0.4H, Basophils # (Auto) 0.1, Immature Granulocyte # (Auto) 0.0, Sodium Level 132L, Potassium Level 4.3, Chloride Level 102, Carbon Dioxide Level 22, Anion Gap 8, Blood Urea Nitrogen 18, Creatinine 0.71, Estimat Glomerular Filtration Rate 91, BUN/Creatinine Ratio 25, Glucose Level 95, Calcium Level 9.1, Corrected Calcium 9.3, Total Bilirubin 0.4, Aspartate Amino Transf (AST/SGOT) 34, Alanine Aminotransferase (ALT/SGPT) 67H, Alkaline Phosphatase 71, Total Protein 6.4, Albumin 3.7 11/04/22 06:00: White Blood Count 7.8, Red Blood Count 4.06, Hemoglobin 12.6, Hematocrit 37, Mean Corpuscular Volume 90, Mean Corpuscular Hemoglobin 31, Mean Corpuscular Hemoglobin Concent 34, Red Cell Distribution Width 11.9, Platelet Count 378, Mean Platelet Volume 9.1, Immature Granulocyte % (Auto) 0, Neutrophils (%) (Auto) 62, Lymphocytes (%) (Auto) 26, Monocytes (%) (Auto) 8, Eosinophils (%) (Auto) 3, Basophils (%) (Auto) 1, Neutrophils # (Auto) 4.9, Lymphocytes # (Auto) 2.0, Monocytes # (Auto) 0.6, Eosinophils # (Auto) 0.3, Basophils # (Auto) 0.1, Immature Granulocyte # (Auto) 0.0, Sodium Level 133L, Potassium Level 4.2, Chloride Level 99, Carbon Dioxide Level 22, Anion Gap 12, Blood Urea Nitrogen 18, Creatinine 0.75, Estimat Glomerular Filtration Rate 85, BUN/Creatinine Ratio 24, Glucose Level 91, Calcium Level 9.3, Corrected Calcium 9.3, Total Bilirubin 0.5, Aspartate Amino Transf (AST/SGOT) 24, Alanine Aminotransferase (ALT/SGPT) 63H, Alkaline Phosphatase 84, Total Protein 6.9, Albumin 4.0 Pending Labs Laboratory Tests 10/15/22 05:10: White Blood Count 7.8, Red Blood Count 4.00, Hemoglobin 12.4, Hematocrit 35, Mean Corpuscular Volume 88, Mean Corpuscular Hemoglobin 31, Mean Corpuscular Hemoglobin Concent 35, Red Cell Distribution Width 12.5, Platelet Count 278, Mean Platelet Volume 9.5, Immature Granulocyte % (Auto) 0, Neutrophils (%) (Auto) 61, Lymphocytes (%) (Auto) 30, Monocytes (%) (Auto) 8, Eosinophils (%) (Auto) 1, Basophils (%) (Auto) 0, Neutrophils # (Auto) 4.8, Lymphocytes # (Auto) 2.4, Monocytes # (Auto) 0.6, Eosinophils # (Auto) 0.0, Basophils # (Auto) 0.0, Immature Granulocyte # (Auto) 0.0, Sodium Level 132, Potassium Level 3.4, Chloride Level 102, Carbon Dioxide Level 19, Anion Gap 11, Blood Urea Nitrogen 15, Creatinine 0.70, Estimat Glomerular Filtration Rate 92, BUN/Creatinine Ratio 21, Glucose Level 106, Calcium Level 8.8, Corrected Calcium 9.1, Total Bilirubin 0.9, Aspartate Amino Transf (AST/SGOT) 21, Alanine Aminotransferase (ALT/SGPT) 16, Alkaline Phosphatase 55, Total Protein 6.2, Albumin 3.6 10/21/22 05:52: White Blood Count 7.3, Red Blood Count 4.00, Hemoglobin 12.4, Hematocrit 36, Mean Corpuscular Volume 90, Mean Corpuscular Hemoglobin 31, Mean Corpuscular Hemoglobin Concent 35, Red Cell Distribution Width 12.2, Platelet Count 413, Mean Platelet Volume 9.9, Immature Granulocyte % (Auto) 0, Neutrophils (%) (Auto) 67, Lymphocytes (%) (Auto) 20, Monocytes (%) (Auto) 10, Eosinophils (%) (Auto) 2, Basophils (%) (Auto) 0, Neutrophils # (Auto) 4.9, Lymphocytes # (Auto) 1.5, Monocytes # (Auto) 0.7, Eosinophils # (Auto) 0.2, Basophils # (Auto) 0.0, Immature Granulocyte # (Auto) 0.0, Sodium Level 132, Potassium Level 4.2, Chloride Level 101, Carbon Dioxide Level 23, Anion Gap 8, Blood Urea Nitrogen 12, Creatinine 0.72, Estimat Glomerular Filtration Rate 89, BUN/Creatinine Ratio 17, Glucose Level 107, Calcium Level 8.8, Corrected Calcium 9.0, Total Bilirubin 0.5, Aspartate Amino Transf (AST/SGOT) 46, Alanine Aminotransferase (ALT/SGPT) 72, Alkaline Phosphatase 74, Total Protein 6.4, Albumin 3.7 10/28/22 05:55: White Blood Count 7.7, Red Blood Count 3.96, Hemoglobin 12.3, Hematocrit 35, Mean Corpuscular Volume 89, Mean Corpuscular Hemoglobin 31, Mean Corpuscular Hemoglobin Concent 35, Red Cell Distribution Width 12.0, Platelet Count 502, Mean Platelet Volume 9.2, Immature Granulocyte % (Auto) 0, Neutrophils (%) (Auto) 59, Lymphocytes (%) (Auto) 27, Monocytes (%) (Auto) 7, Eosinophils (%) (Auto) 5, Basophils (%) (Auto) 1, Neutrophils # (Auto) 4.6, Lymphocytes # (Auto) 2.1, Monocytes # (Auto) 0.6, Eosinophils # (Auto) 0.4, Basophils # (Auto) 0.1, Immature Granulocyte # (Auto) 0.0, Sodium Level 132, Potassium Level 4.3, Chloride Level 102, Carbon Dioxide Level 22, Anion Gap 8, Blood Urea Nitrogen 18, Creatinine 0.71, Estimat Glomerular Filtration Rate 91, BUN/Creatinine Ratio 25, Glucose Level 95, Calcium Level 9.1, Corrected Calcium 9.3, Total Bilirubin 0.4, Aspartate Amino Transf (AST/SGOT) 34, Alanine Aminotransferase (ALT/SGPT) 67, Alkaline Phosphatase 71, Total Protein 6.4, Albumin 3.7 11/04/22 06:00: White Blood Count 7.8, Red Blood Count 4.06, Hemoglobin 12.6, Hematocrit 37, Mean Corpuscular Volume 90, Mean Corpuscular Hemoglobin 31, Mean Corpuscular Hemoglobin Concent 34, Red Cell Distribution Width 11.9, Platelet Count 378, Mean Platelet Volume 9.1, Immature Granulocyte % (Auto) 0, Neutrophils (%) (Auto) 62, Lymphocytes (%) (Auto) 26, Monocytes (%) (Auto) 8, Eosinophils (%) (Auto) 3, Basophils (%) (Auto) 1, Neutrophils # (Auto) 4.9, Lymphocytes # (Auto) 2.0, Monocytes # (Auto) 0.6, Eosinophils # (Auto) 0.3, Basophils # (Auto) 0.1, Immature Granulocyte # (Auto) 0.0, Sodium Level 133, Potassium Level 4.2, Chloride Level 99, Carbon Dioxide Level 22, Anion Gap 12, Blood Urea Nitrogen 18, Creatinine 0.75, Estimat Glomerular Filtration Rate 85, BUN/Creatinine Ratio 24, Glucose Level 91, Calcium Level 9.3, Corrected Calcium 9.3, Total Bilirubin 0.5, Aspartate Amino Transf (AST/SGOT) 24, Alanine Aminotransferase (ALT/SGPT) 63, Alkaline Phosphatase 84, Total Protein 6.9, Albumin 4.0 Discharge Home Medications: Active Scripts Active Bupropion HCl Sr (Bupropion HCl) 150 Mg Tablet.er 150 Mg PO BID Losartan Potassium 50 Mg Tablet 50 Mg PO BID Amlodipine Besylate 10 Mg Tablet 10 Mg PO DAILY Bethanechol Chloride 25 Mg Tablet 25 Mg PO ACHS Nicoderm Cq (Nicotine) 21 Mg/24 Hour Patch.td24 21 Mg TD DAILY@0900 Aspirin EC (Aspirin) 81 Mg Tablet.dr 81 Mg PO DAILY Tab-A-Gilles Multivit with Iron (Multivitamin/Iron/Folic Acid) 18 Mg Iron-400 Mcg Tablet 1 Ea PO DAILY@0700 Vitamin B-1 (Thiamine HCl) 100 Mg Tablet 100 Mg PO DAILY@0700 Folic Acid 1 Mg Tablet 1 Mg PO DAILY Atorvastatin Calcium 80 Mg Tablet 80 Mg PO DAILY Clopidogrel (Clopidogrel Bisulfate) 75 Mg Tablet 75 Mg PO DAILY Instructions to patient/family Please see electronic discharge instructions given to patient. Diagnosis/Problems Diagnosis/Problems (1) CVA (cerebral vascular accident) JM CALLEJAS DO Nov 05, 2022 05:07
[2022-11-05] MEDS: POTASSIUM CHLORIDE 10 MEQ TABLET PO SCH (06:25)
[2022-11-05] MEDS: BETHANECHOL 25 MG TABLET PO SCH (06:25)
[2022-11-05] MEDS: THIAMINE 100 MG (VITAMIN B-1) TAB PO SCH (06:25)
[2022-11-05] MEDS: THERAPEUTIC MULTIVITAMIN W/MINERALS TABLET PO SCH (06:25)
[2022-11-05 07:25] VITALS: BP 148/70
[2022-11-05] MEDS: amLODIPine 10 MG TABLET PO SCH (07:27)
[2022-11-05] MEDS: buPROPion SR 150 MG TABLET PO SCH (07:27)
[2022-11-05] MEDS: FOLIC ACID 1 MG TAB PO SCH (07:27)
[2022-11-05] MEDS: NICOTINE PATCH REMOVAL TP SCH (07:27)
[2022-11-05] MEDS: LOSARTAN 50 MG TABLET PO SCH (07:27)
[2022-11-05] MEDS: CLOPIDOGREL 75 MG TABLET PO SCH (07:27)
[2022-11-05] MEDS: NICOTINE 21 MG PATCH TD SCH (07:27)
[2022-11-05] MEDS: ASPIRIN 325 MG TABLET PO SCH (07:27)
[2022-11-05] MEDS: SENNOSIDES 8.6 MG TABLET PO SCH (07:29)
[2022-11-05] MEDS: DOCUSATE SODIUM 100 MG CAPSULE PO SCH (07:29)
--- NOTE | 2022-11-05 08:47 | Cardiology Progress Note ---
Subjective Date Seen by Provider: Nov 05, 2022 Time Seen by Provider: 08:47 Subjective/Events-last exam Patient with PT, no new complaints. Objective-Cardiology Exam Last Set of Vital Signs Vital Signs 11/02/22 11/05/22 11/05/22 20:00 07:25 08:50 Temp 36.6 Pulse 94 Resp 18 B/P (MAP) 148/70 (96) Pulse Ox 93 O2 Delivery Room Air O2 Flow Rate 0.00 0.00 I&O Intake and Output 11/05/22 00:00 Intake Total 1640 ml Balance 1640 ml Intake Oral 1640 ml # Voids 6 # Bowel Movements 3 General: Alert, Oriented X3, Cooperative HEENT: Atraumatic, PERRLA Neck: Supple, No JVD, No Thyromegaly Lungs: Clear to Auscultation, Normal Air Movement Heart: Regular Rate Abdomen: Normal Bowel Sounds, Soft Extremities: No Edema Skin: No Rashes, No Significant Lesion Neuro: Other (right sided weakness, expressive aphasia) Psych/Mental Status: Mental Status NL, Mood NL A/P-Cardiology Admission Diagnosis CVA Carotid artery stenosis HTN HLP Assessment/Plan Acute stroke due to left carotid occlusion, right sided weakness and aphasia. M aintained on ASA and Plavix. Continue with PT/OT, continues to improve. Patient was deemed inoperable by [place] surgery, currently managed by primary care team Carotid artery stenosis, carotid duplex done 10/12/22 showing complete occlusion of the left carotid system including both the internal and external carotid arteries. The right carotid artery appeared to have some plaques with mild disease, nonobstructive disease. Hypertension, better control at this time Maintained on losartan 50 mg twice daily, amlodipine 10 mg daily Continue to monitor Hyperlipidemia, started on Lipitor 80 mg daily Continue to monitor Supervisory-Addendum Brief Supervisory Addendum Participated in pt care: history, MDM, physical Personally performed: exam, history, MDM Care discussed with: FELICE Results interpretation: Verified all documentation Notes: Patient was seen and evaluated with John, examination performed, management plan was discussed, agree with the current scribed note, I made few changes to the note using Italic font Patient was seen at bedside, sitting comfortably, feeling better Improving slowly Possible discharge today We will arrange for follow-up as an outpatient JOHN OATES Nov 05, 2022 08:47 JOSE ANGEL CLEMONS MD Nov 05, 2022 08:56
[2022-11-05 09:35] VITALS: BP 148/70
--- NOTE | 2022-11-05 16:13 | Therapy Team Discharge Summary ---
Therapy Discharge Summary Discharge Recommendations Date of Discharge Nov 05, 2022 at 09:35 Therapy D/C Recommendations: Home w/ Family Support, Physical Therapy Home Care Physical Therapy Pt is a 72 y/o female who suffered a CVA on 10/11/22 with R sided weakness; Admitted to ARU on 10/14/22. At [facility], pt was Ind with no AD and driving. Upon PT eval, pt was Mod/Max A for bed mobility and transfers, and unable to ambulate. Pt was Dep for w/c mobility. PT focused on B LE strength, bed mobility, transfers, w/c mobility, standing, balance, walking, and safety/Ind. Pt progressed well with PT and met most set goals. Pt d/c from ARU to home with family assistance and C on 11/05/22; D/C from PT at this time. Roll Left to Right (QC): 4 Sit to Lying (QC): 4 Lying to Sitting/Side of Bed(Q: 4 Sit to Stand (QC): 3 Chair/Kxe-ad-Zdeno Xfer(QC): 3 Toilet Transfer (QC): 3 Car Transfer (QC): 3 Does the Patient Walk: No and Walking Goal IS indicated Mode of Locomotion: Both Anticipated Mode of Locomotion: Wheelchair Walk 10 feet (QC): 1 (Min/Mod A x 2 upto 25ft ) Walk 50 ft with 2 Turns(QC): 88 Walk 150 ft (QC): 88 Walking 10ft on uneven surface: 88 Gait Assistive Device: Walker Platform Does the Pt Use a Wheelchair: Yes Wheel 50 ft with 2 turns (QC): 4 Wheel 150 ft (QC): 4 Type of Wheelchair: Manual 1 Step (curb) (QC): 88 4 Steps (QC): 88 12 Steps (QC): 88 Balance Sitting Static: Fair Balance Sitting Dynamic: Poor Balance-Standing Static: Poor Picking up an Object (QC): 88 Occupational Therapy Decreased Activ Tolerance, Decreased Safety Aware (R side neglect), Decreased UE Strength, Impaired Funct Balance, Impaired Self-Care Skills, Restricted Funct UE ROM Eating (QC): 5 (Pt opens most of containers though opening bottles requires assist. Uses regular utensils to eat.) Oral Hygiene (QC): 6 Shower/Bathe Self (QC): 5 Upper Body Dressing (QC): 5 Lower Body Dressing (QC): 3 On/Off Footwear (QC): 3 (min A) Toileting Hygiene (QC): 3 (min A) PT [facility] Goals Rolled [employer] Mill Operator Goals PT Rolled [employer] Operator Goals Time Frame: Nov 04, 2022 Roll Left to Right (QC): 4 (SBA for bed mobility ) Sit to Lying (QC): 4 (SBA for bed mobility ) Lying-Sitting on Side/Bed(QC): 4 (SBA for bed mobility ) Sit to Stand (QC): 3 (Min A for transfers ) Chair/Zlc-py-Gyerc Xfer(QC): 3 (Min A for transfers ) Toilet/Commode Transfer (QC): 3 (Min A for transfers ) Car Transfer (QC): 3 (Min A for transfers ) Does the Patient Walk: Yes Walk 10 feet (QC): 3 (Min A for short distances ) Walk 10ft-Uneven Surface(QC): 88 (Balance ) Walk 50ft with 2 Turns (QC): 88 (Balance ) Walk 150 ft (QC): 88 (Balance ) Does the Pt use WC or Scooter?: Yes Wheel 50 feet with 2 turns (QC: 3 (Min A for w/c mobility ) Type: Manual Wheel 150 feet: 3 (Min A for w/c mobility ) Type: Manual 1 Step (curb) (QC): 88 (Balance ) 4 Steps (QC): 88 (Balance ) 12 Steps (QC): 88 (Balance ) Picking up an Object (QC): 88 (Balance ) OT Rolled [employer] Operator Goals Rolled [employer] Operator Goals Time Frame: Nov 11, 2022 Acute change in mental status: 0 Inattention: 0 Disorganized thinkin Altered level of consciousness: 0 Eating (QC): 5 (Set up-met) Oral Hygiene (QC): 5 (Set up-met) Toileting Hygiene (QC): 4 (CGA/supervision-not met) Shower/Bathe Self (QC): 4 (CGA/supervision-met) Upper Body Dressing (QC): 5 (Set up-met) Lower Body Dressing (QC): 4 (CGA/supervision-not met) On/Off Footwear (QC): 4 (CGA/supervision-not met) Additional Goals: 1-Demonstrate ADL Tasks, 2-Verbalize Understanding, 3- ImproveStrength/Shria 1=Demonstrate adherence to instructed precautions during ADL tasks. 2=Patient will verbalize/demonstrate understanding of assistive devices/modifications for ADL. 3=Patient will improve strength/tolerance for activity to enable patient to perform ADL's. Speech [facility] Goals Rolled [employer] Operator Goals 1. The patient will demonstrate improved functional communication for increased safety with discharge to the least restrictive environment. Time Frame: Four Weeks. KANDI PRADO PT Nov 05, 2022 16:13
--- NOTE | 2022-11-06 14:40 | Therapy Team Discharge Summary ---
Therapy Discharge Summary Discharge Recommendations Date of Discharge Nov 05, 2022 at 09:35 Therapy D/C Recommendations: Home w/ Family Support, Physical Therapy Home Care Physical Therapy Roll Left to Right (QC): 4 Sit to Lying (QC): 4 Lying to Sitting/Side of Bed(Q: 4 Sit to Stand (QC): 3 Chair/Jfs-jz-Gvwri Xfer(QC): 3 Toilet Transfer (QC): 3 Car Transfer (QC): 3 Does the Patient Walk: No and Walking Goal IS indicated Mode of Locomotion: Both Anticipated Mode of Locomotion: Wheelchair Walk 10 feet (QC): 1 (Min/Mod A x 2 upto 25ft ) Walk 50 ft with 2 Turns(QC): 88 Walk 150 ft (QC): 88 Walking 10ft on uneven surface: 88 Gait Assistive Device: Walker Platform Does the Pt Use a Wheelchair: Yes Wheel 50 ft with 2 turns (QC): 4 Wheel 150 ft (QC): 4 Type of Wheelchair: Manual 1 Step (curb) (QC): 88 4 Steps (QC): 88 12 Steps (QC): 88 Balance Sitting Static: Fair Balance Sitting Dynamic: Poor Balance-Standing Static: Poor Picking up an Object (QC): 88 Occupational Therapy Pt admitted to IDU s/p CVA. At [facility], pt was independent with ADLS and functional mobility. Upon initial evaluation, pt required partial/moderate assist with eating, oral care and UE dressing, max A footwear and total assist with showering, LE dressing and toileting. OT Tx focused on increasing safety and independence with ADLS and functional mobility, neuromuscular reeducation, and increasing BUE Strength and activity tolerance. Pt made good progress towards goals, but did not attain LTGs for toileting, LE dressing and footwear. Pt discharged from facility, d/c from OT. Decreased Activ Tolerance, Decreased Safety Aware (R side neglect), Decreased UE Strength, Impaired Funct Balance, Impaired Self-Care Skills, Restricted Funct UE ROM Eating (QC): 5 (Pt opens most of containers though opening bottles requires assist. Uses regular utensils to eat.) Oral Hygiene (QC): 6 Shower/Bathe Self (QC): 5 Upper Body Dressing (QC): 5 Lower Body Dressing (QC): 3 On/Off Footwear (QC): 3 (min A) Toileting Hygiene (QC): 3 (min A) PT Senior Living Goals Toe Puller Goals PT Toe Puller Goals Time Frame: Nov 04, 2022 Roll Left to Right (QC): 4 (SBA for bed mobility ) Sit to Lying (QC): 4 (SBA for bed mobility ) Lying-Sitting on Side/Bed(QC): 4 (SBA for bed mobility ) Sit to Stand (QC): 3 (Min A for transfers ) Chair/Lqd-vp-Pqxxu Xfer(QC): 3 (Min A for transfers ) Toilet/Commode Transfer (QC): 3 (Min A for transfers ) Car Transfer (QC): 3 (Min A for transfers ) Does the Patient Walk: Yes Walk 10 feet (QC): 3 (Min A for short distances ) Walk 10ft-Uneven Surface(QC): 88 (Balance ) Walk 50ft with 2 Turns (QC): 88 (Balance ) Walk 150 ft (QC): 88 (Balance ) Does the Pt use WC or Scooter?: Yes Wheel 50 feet with 2 turns (QC: 3 (Min A for w/c mobility ) Type: Manual Wheel 150 feet: 3 (Min A for w/c mobility ) Type: Manual 1 Step (curb) (QC): 88 (Balance ) 4 Steps (QC): 88 (Balance ) 12 Steps (QC): 88 (Balance ) Picking up an Object (QC): 88 (Balance ) OT Toe Puller Goals Senior Living Goals Time Frame: Nov 11, 2022 Acute change in mental status: 0 Inattention: 0 Disorganized thinkin Altered level of consciousness: 0 Eating (QC): 5 (Set up-met) Oral Hygiene (QC): 5 (Set up-met) Toileting Hygiene (QC): 4 (CGA/supervision-not met) Shower/Bathe Self (QC): 4 (CGA/supervision-met) Upper Body Dressing (QC): 5 (Set up-met) Lower Body Dressing (QC): 4 (CGA/supervision-not met) On/Off Footwear (QC): 4 (CGA/supervision-not met) Additional Goals: 1-Demonstrate ADL Tasks, 2-Verbalize Understanding, 3-I mproveStrength/Shira 1=Demonstrate adherence to instructed precautions during ADL tasks. 2=Patient will verbalize/demonstrate understanding of assistive devices/modifications for ADL. 3=Patient will improve strength/tolerance for activity to enable patient to perform ADL's. Speech Senior Living Goals Toe Puller Goals 1. The patient will demonstrate improved functional communication for increased safety with discharge to the least restrictive environment. Time Frame: Four Weeks. ASHLIE MAYFIELD OT Nov 06, 2022 14:40
--- NOTE | 2022-11-07 07:38 | Therapy Team Discharge Summary ---
Therapy Discharge Summary Discharge Recommendations Date of Discharge Nov 05, 2022 at 09:35 Therapy D/C Recommendations: Home w/ Family Support, Physical Therapy Home Care Physical Therapy Roll Left to Right (QC): 4 Sit to Lying (QC): 4 Lying to Sitting/Side of Bed(Q: 4 Sit to Stand (QC): 3 Chair/Wfp-jl-Tqvup Xfer(QC): 3 Toilet Transfer (QC): 3 Car Transfer (QC): 3 Does the Patient Walk: No and Walking Goal IS indicated Mode of Locomotion: Both Anticipated Mode of Locomotion: Wheelchair Walk 10 feet (QC): 1 (Min/Mod A x 2 upto 25ft ) Walk 50 ft with 2 Turns(QC): 88 Walk 150 ft (QC): 88 Walking 10ft on uneven surface: 88 Gait Assistive Device: Walker Platform Does the Pt Use a Wheelchair: Yes Wheel 50 ft with 2 turns (QC): 4 Wheel 150 ft (QC): 4 Type of Wheelchair: Manual 1 Step (curb) (QC): 88 4 Steps (QC): 88 12 Steps (QC): 88 Balance Sitting Static: Fair Balance Sitting Dynamic: Poor Balance-Standing Static: Poor Picking up an Object (QC): 88 Occupational Therapy Decreased Activ Tolerance, Decreased Safety Aware (R side neglect), Decreased UE Strength, Impaired Funct Balance, Impaired Self-Care Skills, Restricted Funct UE ROM Eating (QC): 5 (Pt opens most of containers though opening bottles requires assist. Uses regular utensils to eat.) Oral Hygiene (QC): 6 Shower/Bathe Self (QC): 5 Upper Body Dressing (QC): 5 Lower Body Dressing (QC): 3 On/Off Footwear (QC): 3 (min A) Toileting Hygiene (QC): 3 (min A) Speech-Language Pathology The patient displayed excellent progress throughout her stay on the acute rehabilitation unit, demonstrating improvements in expressive and receptive language. The patient continues to display moderate to severe expressive language deficits however does use gestures, facial expressions and nonverbal communication to meet her daily wants and needs. The clinician highly recommends outpatient speech pathology services following discharge. PT Residential Goals Residential Goals PT Communications Professor Goals Time Frame: Nov 04, 2022 Roll Left to Right (QC): 4 (SBA for bed mobility ) Sit to Lying (QC): 4 (SBA for bed mobility ) Lying-Sitting on Side/Bed(QC): 4 (SBA for bed mobility ) Sit to Stand (QC): 3 (Min A for transfers ) Chair/Rec-ap-Kiaoo Xfer(QC): 3 (Min A for transfers ) Toilet/Commode Transfer (QC): 3 (Min A for transfers ) Car Transfer (QC): 3 (Min A for transfers ) Does the Patient Walk: Yes Walk 10 feet (QC): 3 (Min A for short distances ) Walk 10ft-Uneven Surface(QC): 88 (Balance ) Walk 50ft with 2 Turns (QC): 88 (Balance ) Walk 150 ft (QC): 88 (Balance ) Does the Pt use WC or Scooter?: Yes Wheel 50 feet with 2 turns (QC: 3 (Min A for w/c mobility ) Type: Manual Wheel 150 feet: 3 (Min A for w/c mobility ) Type: Manual 1 Step (curb) (QC): 88 (Balance ) 4 Steps (QC): 88 (Balance ) 12 Steps (QC): 88 (Balance ) Picking up an Object (QC): 88 (Balance ) OT Residential Goals Residential Goals Time Frame: Nov 11, 2022 Acute change in mental status: 0 Inattention: 0 Disorganized thinkin Altered level of consciousness: 0 Eating (QC): 5 (Set up-met) Oral Hygiene (QC): 5 (Set up-met) Toileting Hygiene (QC): 4 (CGA/supervision-not met) Shower/Bathe Self (QC): 4 (CGA/supervision-met) Upper Body Dressing (QC): 5 (Set up-met) Lower Body Dressing (QC): 4 (CGA/supervision-not met) On/Off Footwear (QC): 4 (CGA/supervision-not met) Additional Goals: 1-Demonstrate ADL Tasks, 2-Verbalize Understanding, 3- ImproveStrength/Shira 1=Demonstrate adherence to instructed precautions during ADL tasks. 2=Patient will verbalize/demonstrate understanding of assistive devices/modifications for ADL. 3=Patient will improve strength/tolerance for activity to enable patient to perform ADL's. Speech Residential Goals Communications Professor Goals 1. The patient will demonstrate improved functional communication for increased safety with discharge to the least restrictive environment. MET (Continuing to improve). Time Frame: Four Weeks. MARITZA MELVIN Nov 07, 2022 07:38
== END 2022-11-05 09:35 | disposition home health service (06) | DRG 57 ==
PROVIDERS: ADMIT Internal Medicine; ATTEND Internal Medicine
DX: I69.351 Hemiplegia and hemiparesis following cerebral infarction affecting right dominant side (principal); I16.1 Hypertensive emergency; I69.320 Aphasia following cerebral infarction; I69.322 Dysarthria following cerebral infarction; I10 Essential (primary) hypertension; F17.200 Nicotine dependence, unspecified, uncomplicated; F10.90 Alcohol use, unspecified, uncomplicated; E78.5 Hyperlipidemia, unspecified; R33.9 Retention of urine, unspecified; F32.A Depression, unspecified; I77.9 Disorder of arteries and arterioles, unspecified; B35.1 Tinea unguium; G60.9 Hereditary and idiopathic neuropathy, unspecified; M21.371 Foot drop, right foot; Z79.899 Other long term (current) drug therapy; Z79.82 Long term (current) use of aspirin
CPT/HCPCS: 36415; 80053; 85025; 94760

== ENCOUNTER 2023-01-23 17:45 | Inpatient (IN) | payer MEDICARE, OTHER ==
[~2023-01-23] VITALS: Ht 162 cm; Wt 50.4 kg
[~2023-01-23 17:45] MED LIST changes: +AMLO-251 PO; +BETH25TA2 PO; +BUPR-105 PO; +LOSA50TA63 PO; +NICO1PAT34 TD
[2023-01-23] MEDS ORDERED: NS IV 500 ML 500 ML IV SCH (18:30)
--- NOTE | 2023-01-23 18:33 | ED GI ---
General Chief Complaint: Abdominal/GI Problems Stated Complaint: N/V Nursing Triage Note: PT TO RM [facility] BY [facility] WITH CC OF [facility] FOR A COUPLE DAYS, 4 MG ZOFRAN GIVEN AT 0715 BY THE FACILITY, PT IS LETHARGIC, Source of Information: Patient, Family Exam Limitations: No Limitations, Physical Impairments History of Present Illness Date Seen by Provider: Jan 23, 2023 Time Seen by Provider: 18:05 Initial Comments 72-year-old female presents emergency department today from [facility] and rehab. Family is here who sees her every day and states that on Friday she started vomiting. She has vomited some each day and they feel that now she is having decreased responsiveness and that her eyes are sunken. They requested her to be evaluated in the emergency department. Notably the patient had a stroke a couple of months ago and has residual right-sided deficits and some difficulty speaking and answering questions. These appear to be at their baseline per her daughter. They deny any recent fevers to their knowledge. No changes in bowel or bladder habits. The patient is not complaining of intermittent abdominal pain however it is unclear if she is actually understanding the questions at this time. All other systems reviewed and negative except documented per HPI. Voice recognition software was used to help create this chart Allergies and Home Medications Allergies Coded Allergies: No Known Drug Allergies (Unverified , 10/14/22) Patient Home Medication List Home Medication List Reviewed: Yes Amlodipine Besylate (Amlodipine Besylate) 10 Mg Tablet, 10 MG PO DAILY Prescribed by: JM CALLEJAS on 11/04/22 1249 Aspirin (Aspirin EC) 81 Mg Tablet.dr, 81 MG PO DAILY Prescribed by: JM CALLEJAS on 11/04/22 1249 Atorvastatin Calcium (Atorvastatin Calcium) 80 Mg Tablet, 80 MG PO DAILY Prescribed by: JM CALLEJAS on 11/04/22 1249 Bethanechol Chloride (Bethanechol Chloride) 25 Mg Tablet, 25 MG PO ACHS Prescribed by: JM CALLEJAS on 11/04/22 1249 Bupropion HCl (Bupropion HCl Sr) 150 Mg Tablet.er, 150 MG PO BID Prescribed by: JM CALLEJAS on 11/04/22 1249 Clopidogrel Bisulfate (Clopidogrel) 75 Mg Tablet, 75 MG PO DAILY Prescribed by: JM CALLEJAS on 11/04/22 1249 Folic Acid (Folic Acid) 1 Mg Tablet, 1 MG PO DAILY Prescribed by: JM CALLEJAS on 11/04/22 124 Losartan Potassium (Losartan Potassium) 50 Mg Tablet, 50 MG PO BID Prescribed by: JM CALLEJAS on 11/04/22 124 Multivitamin/Iron/Folic Acid (Tab-A-Gilles Multivit with Iron) 18 Mg Iron-400 Mcg Tablet, 1 EA PO DAILY@0700 Prescribed by: JM CALLEJAS on 11/04/22 124 Nicotine (Nicoderm Cq) 21 Mg/24 Hour Patch.td24, 21 MG TD DAILY@0900 Prescribed by: JM CALLEJAS on 11/04/22 124 Thiamine HCl (Vitamin B-1) 100 Mg Tablet, 100 MG PO DAILY@0700 Prescribed by: JM CALLEJAS on 11/04/22 124 Review of Systems Review of Systems Constitutional: see HPI Past Lnxljbg-Ynhgfu-Xgsgok Hx Patient Social History Tobacco Use?: Yes Tobacco type used: Cigarettes Smokeless Tobacco Frequency: Former User Substance use?: No Alcohol Use?: No Past Medical History Surgery/Hospitalization HX: STROKE IN 10/2022 RT SIDE WEAKNESS, Hypertension Stroke Physical Exam Vital Signs Vital Signs - First Documented 01/23/23 17:48 Temp 36.9 Pulse 110 Resp 18 B/P (MAP) 100/68 (79) O2 Delivery Room Air Capillary Refill : Height/Weight/BMI Height: '" Weight: lbs. oz. kg; 19.00 BMI Method: General Appearance: WD/WN, no apparent distress, other (The patient frequently answers rapidly no to each question and then will turn around and say yes immediately thereafter.) HEENT: PERRL/EOMI, normal ENT inspection, pharynx normal Neck: non-tender, supple Respiratory: chest non-tender, lungs clear, normal breath sounds, no respiratory distress, no accessory muscle use Cardiovascular: no edema, no murmur, tachycardia Gastrointestinal: normal bowel sounds, non tender, soft, no organomegaly Extremities: non-tender, normal inspection, normal capillary refill Back: normal inspection, no vertebral tenderness Neurologic/Psychiatric: alert, normal mood/affect, other (Right upper extremity contracture. No other focal neurologic deficits.) Skin: normal color, warm/dry Focused Exam Lactate Level 01/23/23 18:40: Lactic Acid Level 3.33*H Lactic Acid Level Laboratory Tests Test 01/23/23 18:40 Lactic Acid Level 3.33 MMOL/L (0.50-2.00) *H Progress/Results/Core Measures Results/Orders Lab Results Laboratory Tests Test 01/23/23 17:52 01/23/23 18:35 01/23/23 18:40 01/23/23 18:46 Range/Units White Blood Count 11.2 H 4.3-11.0 10^3/uL Red Blood Count 5.43 H 3.80-5.11 10^6/uL Hemoglobin 15.8 11.5-16.0 g/dL Hematocrit 47 35-52 % Mean Corpuscular Volume 86 80-99 fL Mean Corpuscular Hemoglobin 29 25-34 pg Mean Corpuscular Hemoglobin Concent 34 32-36 g/dL Red Cell Distribution Width 12.8 10.0-14.5 % Platelet Count 633 H 130-400 10^3/uL Mean Platelet Volume 9.4 9.0-12.2 fL Immature Granulocyte % (Auto) 0 % Neutrophils (%) (Auto) 74 42-75 % Lymphocytes (%) (Auto) 16 12-44 % Monocytes (%) (Auto) 9 0-12 % Eosinophils (%) (Auto) 0 0-10 % Basophils (%) (Auto) 0 0-10 % Neutrophils # (Auto) 8.4 H 1.8-7.8 10^3/uL Lymphocytes # (Auto) 1.8 1.0-4.0 10^3/uL Monocytes # (Auto) 1.0 0.0-1.0 10^3/uL Eosinophils # (Auto) 0.0 0.0-0.3 10^3/uL Basophils # (Auto) 0.0 0.0-0.1 10^3/uL Immature Granulocyte # (Auto) 0.0 0.0-0.1 10^3/uL Sodium Level 142 135-145 MMOL/L Potassium Level 3.8 3.6-5.0 MMOL/L Chloride Level 91 L 98-107 MMOL/L Carbon Dioxide Level 31 21-32 MMOL/L Anion Gap 20 H 5-14 MMOL/L Blood Urea Nitrogen 39 H 7-18 MG/DL Creatinine 2.46 H 0.60-1.30 MG/DL Estimat Glomerular Filtration Rate 20 BUN/Creatinine Ratio 16 Glucose Level 185 H 70-105 MG/DL Calcium Level 11.4 H 8.5-10.1 MG/DL Corrected Calcium 8.5-10.1 MG/DL Total Bilirubin 1.1 H 0.1-1.0 MG/DL Aspartate Amino Transf (AST/SGOT) 21 5-34 U/L Alanine Aminotransferase (ALT/SGPT) 34 0-55 U/L Alkaline Phosphatase 115 40-136 U/L Total Protein 10.0 H 6.4-8.2 GM/DL Albumin 5.2 H 3.2-4.5 GM/DL Urine Color YELLOW Urine Clarity CLEAR Urine pH 6.0 5-9 Urine Specific [place] 1.020 1.016-1.022 Urine Protein 1+ H NEGATIVE Urine Glucose (UA) NEGATIVE NEGATIVE Urine Ketones NEGATIVE NEGATIVE Urine Nitrite NEGATIVE NEGATIVE Urine Bilirubin NEGATIVE NEGATIVE Urine Urobilinogen 0.2 < = 1.0 MG/DL Urine Leukocyte Esterase 2+ H NEGATIVE Urine RBC (Auto) NEGATIVE NEGATIVE Urine RBC NONE /HPF Urine WBC 50-100 H /HPF Urine Squamous Epithelial Cells NONE /HPF Urine Crystals NONE /LPF Urine Bacteria LARGE H /HPF Urine Casts NONE /LPF Urine Mucus NEGATIVE /LPF Urine Culture Indicated YES Lactic Acid Level 3.33 *H 0.50-2.00 MMOL/L Arterial Blood pH 7.57 H 7.37-7.43 Arterial Blood Partial Pressure CO2 35 35-45 MMHG Arterial Blood Partial Pressure O2 96 H 79-93 MMHG Arterial Blood HCO3 32 H 23-27 MMOL/L Arterial Blood Total CO2 33.2 H 21.0-31.0 MMOL/L Arterial Blood Oxygen Saturation 98 94-100 % Arterial Blood Base Excess 9.6 H -2.5-2.5 MMOL/L Blood Gas Ventilator Setting NO Blood Gas Inspired Oxygen UNK My Orders Orders - DILSHAD ISRAEL DO Comprehensive Metabolic Panel (01/23/23 18:22) Ua Culture If Indicated (01/23/23 18:22) Cbc And Automated Diff (01/23/23 18:22) Blood Culture (01/23/23 18:22) Ed Iv/Invasive Line Start (01/23/23 18:22) Lactic Acid Analyzer (01/23/23 18:22) Ns Iv 500 Ml (Ns Iv 500 Ml) (01/23/23 18:30) Chest 1 View, Ap/Pa Only (01/23/23 18:24) Arterial Blood Gas (01/23/23 18:24) Urine Culture (01/23/23 18:35) Ceftriaxone Iv/Im (Ceftriaxone Iv/Im) (01/23/23 19:15) Ed Admission (Communication) (01/23/23 19:19) Vital Signs/I&O 01/23/23 17:48 Temp 36.9 Pulse 110 Resp 18 B/P (MAP) 100/68 (79) O2 Delivery Room Air Blood Pressure Mean: 79 Departure Communication (Admissions) Patient is tachycardic but otherwise hemodynamically stable. She has chronic deficits associate with her stroke which appear to be at her baseline though she is clammy on exam. She was given 1 L of IV fluids in route via EMS and I gave her another 500 cc of IV fluids. She did have some improvement in her heart rate, overall heart rate about 10 5-1 08 at this time. She is been normotensive during her emergency department stay. White blood cell count is elevated with a left shift and lactic acid is elevated at 3.3. She does have a urinary tract infection on catheterized specimen which is clean. Went and ordered some Rocephin. Also has MARLI, likely from dehydration. I spoke with Dr. Callejas who accepts the patient in admission at this time. She has cued inpatient orders. Impression Primary Impression: Sepsis Qualified Codes: A41.9 - Sepsis, unspecified organism Additional Impression: UTI (urinary tract infection) Qualified Codes: N30.01 - Acute cystitis with hematuria Disposition: ADMITTED INPATIENT Condition: Critical Admissions Decision to Admit Reason: Admit from ER (General) Departure-Patient Inst. Referrals: NO,LOCAL PHYSICIAN (PCP/Family) Primary Care Physician DILSHAD ISRAEL DO Jan 23, 2023 18:33
[2023-01-23 18:41] LABS: BASOPHILS % (AUTO) 0 % (0-10); EOSINOPHILS % (AUTO) 0 % (0-10); HEMATOCRIT 47 % (35-52); HEMOGLOBIN 15.8 g/dL (11.5-16.0); LYMPHOCYTES # (AUTO) 1.8 10^3/uL (1.0-4.0); LYMPHOCYTES % (AUTO) 16 % (12-44); MEAN CORPUSCULAR HEMOGLOBIN 29 pg (25-34); MEAN CORPUSCULAR HGB CONC 34 g/dL (32-36); MEAN CORPUSCULAR VOLUME 86 fL (80-99); MEAN PLATELET VOLUME 9.4 fL (9.0-12.2); MONOCYTES % (AUTO) 9 % (0-12); NEUTROPHILS # (AUTO) 8.4 10^3/uL (1.8-7.8); NEUTROPHILS % (AUTO) 74 % (42-75); PLATELET COUNT 633 10^3/uL (130-400); WHITE BLOOD COUNT 11.2 10^3/uL (4.3-11.0)
[2023-01-23 18:50] LABS: ALBUMIN 5.2 GM/DL (3.2-4.5); CHLORIDE 91 MMOL/L (98-107); POTASSIUM 3.8 MMOL/L (3.6-5.0); SODIUM 142 MMOL/L (135-145)
[2023-01-23 18:51] LABS: CALCIUM 11.4 MG/DL (8.5-10.1)
[2023-01-23 18:52] LABS: GLUCOSE 185 MG/DL (70-105)
[2023-01-23 18:52] LABS: ABG BASE EXCESS 9.6 MMOL/L (-2.5-2.5); ABG OXYGEN SATURATION 98 % (94-100); ABG PCO2 35 MMHG (35-45); ABG PH 7.57 (7.37-7.43); ABG PO2 96 MMHG (79-93); ABG TCO2 33.2 MMOL/L (21.0-31.0)
[2023-01-23 18:53] LABS: VENTILATOR NO
[2023-01-23 18:53] LABS: CARBON DIOXIDE 31 MMOL/L (21-32)
[2023-01-23 18:54] LABS: BILIRUBIN,TOTAL 1.1 MG/DL (0.1-1.0)
[2023-01-23 18:56] LABS: CLARITY,URINE CLEAR; COLOR,URINE YELLOW; GLUCOSE, URINE (UA) NEGATIVE (NEGATIVE); PROTEIN,URINE 1+ (NEGATIVE)
[2023-01-23 18:56] LABS: ALKALINE PHOSPHATASE 115 U/L (40-136); CREATININE SERUM 2.46 MG/DL (0.60-1.30); GFR ESTIMATED 20
[2023-01-23 18:57] LABS: BUN/CREATININE RATIO 16
[2023-01-23 18:57] LABS: BACTERIA,URINE LARGE /HPF; BILIRUBIN,URINE NEGATIVE (NEGATIVE); KETONES,URINE NEGATIVE (NEGATIVE); LEUKOCYTE ESTERASE ,URINE 2+ (NEGATIVE); NITRITE,URINE NEGATIVE (NEGATIVE); WBC,URINE 50-100 /HPF
[2023-01-23 18:59] LABS: ALANINE AMINOTRANSFERASE 34 U/L (0-55)
--- NOTE | 2023-01-23 19:07 | Diagnostic Imaging Report ---
INDICATION: Several day history of nausea, vomiting and shortness of breath. COMPARISON: 10/14/2022. FINDINGS: Single view chest shows a senescent chest with emphysematous changes and chronic parenchymal changes. Although there are no confluent consolidations, there is ill-defined density in the left lower chest. This is associated with some surrounding atelectasis. There is no effusion or pneumothorax. Soft tissues and bony thorax are unremarkable. IMPRESSION: 1. Senescent chest with COPD and chronic parenchymal changes. No confluent consolidation is seen. 2. There is focal ill-defined density in the left lower chest surrounded by some local atelectatic type infiltrates. Departmental PA and lateral films of the chest and/or nonemergent CT chest would be of further value to assess this finding. Dictated by: Dictated on workstation # [id number]
[2023-01-23] MEDS ORDERED: cefTRIAXone IV/IM 1,000 MG in NS (IVPB) 50 ML 50 ML IV ONE (19:15)
[2023-01-23 20:30] VITALS: BP 86/66
[2023-01-23 20:45] VITALS: BP 93/57
[2023-01-23 21:00] VITALS: BP 82/64
[2023-01-23 21:15] VITALS: BP 77/31
[2023-01-23] MEDS ORDERED: NS IV 1000 ML 1,000 ML ONE (21:22)
[2023-01-23 21:30] VITALS: BP 96/67
[2023-01-23] MEDS ORDERED: HYDROmorphone INJECTION 2 MG/ML VIAL IV PRN (21:30)
[2023-01-23] MEDS ORDERED: CALCIUM CARBONATE 500 MG CHEW TABLET PO PRN (21:30)
[2023-01-23] MEDS ORDERED: diphenhydrAMINE 25 MG TABLET PO PRN (21:30)
[2023-01-23] MEDS ORDERED: BISACODYL 10 MG SUPPOSITORY PR PRN (21:30)
[2023-01-23] MEDS ORDERED: ANTACID SUSPENSION 30 ML UDC PO PRN (21:30)
[2023-01-23] MEDS ORDERED: ONDANSETRON 4 MG ORAL DISSOLVE TABLET PO PRN (21:30)
[2023-01-23] MEDS ORDERED: MELATONIN 3 MG TABLET PO PRN (21:30)
[2023-01-23] MEDS ORDERED: NOREPINEPHRINE 8 MG/250 ML 250 ML IV SCH (21:30)
[2023-01-23] MEDS ORDERED: ONDANSETRON INJECTION 4 MG/2 ML (SDV) IV PRN (21:30)
[2023-01-23] MEDS ORDERED: ACETAMINOPHEN 325 MG TABLET PO PRN (21:30)
[2023-01-23] MEDS ORDERED: cefTRIAXone IV/IM 1,000 MG in NS (IVPB) 50 ML 50 ML IV SCH (21:30)
[2023-01-23] MEDS ORDERED: diphenhydrAMINE INJ 50 MG/ML VIAL IVP PRN (21:30)
[2023-01-23] MEDS ORDERED: MILK OF MAGNESIA 400 MG/5 ML 30 ML UDC PO PRN (21:30)
[2023-01-23] MEDS ORDERED: oxyCODONE IMMEDIATE RELEASE 5 MG TABLET PO PRN (21:30)
[2023-01-23] MEDS ORDERED: NS IV 1000 ML 1,000 ML IV SCH ×3 (21:30→22:45)
[2023-01-23] MEDS ORDERED: NS IV 500 ML 500 ML IV PRN (21:30)
[2023-01-23] MEDS ORDERED: LACTULOSE SYRUP 10GM/15ML 30ML UDC PO PRN (21:30)
[2023-01-23] MEDS ORDERED: hydrALAZINE INJECTION 20 MG/ML VIAL IV PRN (21:30)
[2023-01-23] MEDS ORDERED: CEFEPIME INJECTION 1,000 MG in NS (IVPB) 50 ML 50 ML IV SCH (22:30)
[2023-01-23 22:56] VITALS: BP 116/77
[2023-01-23] MEDS ORDERED: RT-Ipratropium/Albuterol NEB 3 ML VIAL INH PRN (23:15)
--- NOTE | 2023-01-23 23:28 | Tele-ICU Progress Note ---
Progress Note 72 yo woman admitted through ED from rehab center - with history of persistent vomitting and lethargy. Has a history of CVA and has residual right sided deficits- neuro status is at baseline acc. to daughter. In ED initial lactic acid 3.3 and urine grossly infected wbcs 50-100 large bacteria Additional labs: Na 142 K 3.8 Cl 91 Bicarb 31 BUN 39 Cr 2.46 Ca 11.4 Total protein 10 alb 5.2 Total Bili 1.1 ABGs 7.57/36/96/32 Received a total of 1.5 L between EMS and ED - started on Ceftriaxone. On arrival to ICU the patient was identified as awake but nauseated, peripherally cold , - repeat lactic acid sent 1 liter NS ordered. NGT placement also ordered. 2nd Lactic acid 6.28- NGT placement revealed 1100 mls of gastric content fluids. 1st KUB shows NG is in stomach and presence of small bowel gas- A/P-- 1) 2) Urosepsis, septic shock and dehydration - continue fluid resuscitation,additional 1 liter NS now- change maintenance then to LR 125 mls/hr 2) Small bowel ileus vxs obstruction--Obtain 2 views abdomen now, pt still requires fluid loading --for septic shock- restricted in further workup at present. Will add consults pending results. D/W nursing Focused Exam Lactate Level 01/23/23 18:40: Lactic Acid Level 3.33*H 01/23/23 21:18: Lactic Acid Level 6.28*H Height, Weight, BMI Height: '" Weight: lbs. oz. kg; 19.00 BMI Method: Lactic Acid Level Laboratory Tests Test 01/23/23 21:18 Lactic Acid Level 6.28 MMOL/L (0.50-2.00) *H YINA ELMORE DO Jan 23, 2023 23:27
[2023-01-23 23:41] LABS: ABG PCO2 31 MMHG (35-45); ABG PH 7.51 (7.37-7.43); ABG PO2 48 MMHG (79-93)
[2023-01-23 23:42] LABS: ABG BASE EXCESS 2.4 MMOL/L (-2.5-2.5); ABG OXYGEN SATURATION 80 % (94-100); ABG TCO2 25.7 MMOL/L (21.0-31.0); INSPIRED O2 2L; VENTILATOR NO
[2023-01-24] MEDS: PANTOPRAZOLE INJECTION 40 MG VIAL IV SCH ×2 (00:02→08:45)
[2023-01-24] MEDS ORDERED: PHENYLEPHRINE INJ 10 MG/ML (FOR PYXIS KITS ONLY) ONE (01:06)
[2023-01-24] MEDS ORDERED: DexMEDEtomidine 1,000mcg/250ml 250 ML IV ONE (01:25)
[2023-01-24] MEDS ORDERED: DexMEDEtomidine 1,000mcg/250ml 250 ML IV SCH (01:30)
[2023-01-24] MEDS ORDERED: MIDAZOLAM DRIP PRE-MIX 100 ML IV SCH ×2 (01:45→02:00)
[2023-01-24] MEDS: LACTATED RINGERS 1,000 ML 1,000 ML IV SCH ×2 (01:46→08:45)
[2023-01-24] MEDS: RT-Ipratropium/Albuterol NEB 3 ML VIAL INH SCH ×3 (01:58→10:43)
--- NOTE | 2023-01-24 01:58 | History & Physical ---
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 She appeared to be dehydrated so she was brought in and found to have a UTI with MARLI creat 2.4 and elevated LA c/w urosepsis after UA was assessed. Placed on Cefepime empirically. Patient was subsequently admitted to ICU for close monitoring. Elevated lactic acid noted and IVF given but she became more tachypneic and hypoxic requiring intervention from EICU. Patient was assessed to have an ileus versus SBO. OGT placed with 1800 cc return and placed on LIS. Aspiration was noted and patient ultimately required intubation after I updated nurse and conferred with EICU and I arrived after patient was succesfully intubated. I have updated family in family room of the critical nature of her illness and catastrophic nature of her status. Source: family, RN/MD, old records Exam Limitations: clinical condition (intubation) Date Seen 01/24/23 Time Seen by a Provider: 01:40 Attending Physician Ariana Rubin DO PCP Admitting Physician: Ariana Rubin DO Attending Physician: Ariana Rubin DO Referring Physician Date of Admission Jan 23, 2023 at 20:32 Home Medications & Allergies Home Medications Reviewed patient Home Medication Reconciliation performed by pharmacy medication reconciliations validation technician and/or nursing. Patients Allergies have been reviewed. Allergies Allergies Coded Allergies No Known Drug Allergies (Unverified10/14/22) Past Pzhyhlu-Lqosyy-Gcudqo Hx Past Med/Social Hx: Reviewed Nursing Past Med/Soc Hx, Reviewed and Corrections made Patient Social History Marrital Status: single Employed/Student: retired Alcohol Use: Past History Smoking Status: Former Smoker Past Medical History Cardiac: Hypertension Neurological: Stroke Review of Systems ROS-Unable to Obtain: intubated Constitutional: see HPI Physical Exam Physical Exam Vital Signs Vital Signs - First Documented 01/23/23 01/23/23 17:48 20:14 Temp 36.9 Pulse 110 Resp 18 B/P (MAP) 100/68 (79) Pulse Ox 97 O2 Delivery Room Air Capillary Refill : Height, Weight, BMI Height: '" Weight: lbs. oz. kg; 19.00 BMI Method: General Appearance: Other (sedated and intubated) Respiratory: Crackles, Decreased Breath Sounds, Rales, Wheezing Cardiovascular: Regular Rate, Rhythm, Tachycardia Gastrointestinal: Distended Extremity: Normal Capillary Refill, Normal Inspection Results Results/Procedures Labs Laboratory Tests 01/23/23 17:52 Patient resulted labs reviewed. 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
[2023-01-24] MEDS ORDERED: fentaNYL DRIP PRE-MIX 250 ML IV SCH (02:00)
[2023-01-24] MEDS ORDERED: PIPERACILLIN/Tazobactam 4.5 GM in NS (IVPB) 100 ML 100 ML IV SCH ×2 (02:15→08:00)
[2023-01-24 05:33] LABS: BASOPHILS % (AUTO) 0 % (0-10); EOSINOPHILS % (AUTO) 0 % (0-10); HEMATOCRIT 37 % (35-52); LYMPHOCYTES # (AUTO) 1.1 10^3/uL (1.0-4.0); LYMPHOCYTES % (AUTO) 18 % (12-44); MEAN CORPUSCULAR HEMOGLOBIN 29 pg (25-34); MEAN CORPUSCULAR HGB CONC 33 g/dL (32-36); MEAN CORPUSCULAR VOLUME 89 fL (80-99); MEAN PLATELET VOLUME 9.6 fL (9.0-12.2); MONOCYTES # (AUTO) 0.7 10^3/uL (0.0-1.0); MONOCYTES % (AUTO) 12 % (0-12); NEUTROPHILS # (AUTO) 4.3 10^3/uL (1.8-7.8); NEUTROPHILS % (AUTO) 70 % (42-75); WHITE BLOOD COUNT 6.1 10^3/uL (4.3-11.0)
[2023-01-24 05:57] LABS: ABG BASE EXCESS 1.8 MMOL/L (-2.5-2.5); ABG OXYGEN SATURATION 100 % (94-100); ABG PCO2 51 MMHG (35-45); ABG PH 7.35 (7.37-7.43); ABG PO2 155 MMHG (79-93); ABG TCO2 29.8 MMOL/L (21.0-31.0); INSPIRED O2 100%; VENTILATOR NO
[2023-01-24] MEDS ORDERED: POTASSIUM CL 10MEQ/50ML IVPB 50 ML IV SCH (06:00)
[2023-01-24] MEDS ORDERED: MAGNESIUM 1 GM/100 ML IVPB 100 ML IV SCH (06:00)
[2023-01-24] MEDS ORDERED: POTASSIUM CHLORIDE 20 MEQ TABLET PO SCH (06:00)
[2023-01-24 06:04] LABS: PLATELET COUNT 453 10^3/uL (130-400)
--- NOTE | 2023-01-24 06:45 | Progress Note ---
Subjective Date Seen by a Provider: Jan 24, 2023 Time Seen by a Provider: 11:00 Subjective/Events-last exam Patient has declined Creatinine 3.[address] scan shows suspicion for bowel per Dr. eRmy Remains intubated Family at the bedside Multisystem organ failure Updated family in meeting room and decision was made to terminally extubate and placed on comfort care and expect process Palliative care nurse Milvia involved in process Focused Exam Lactate Level 01/24/23 00:15: Lactic Acid Level 7.49*H 01/24/23 03:15: Lactic Acid Level 4.07*H 01/24/23 05:10: Lactic Acid Level 3.32*H Lactic Acid Level Laboratory Tests Test 01/24/23 03:15 01/24/23 05:10 Lactic Acid Level 4.07 MMOL/L (0.50-2.00) *H 3.32 MMOL/L (0.50-2.00) *H Objective Exam Last Set of Vital Signs Vital Signs Date Time Temp Pulse Resp B/P (MAP) Pulse Ox O2 Delivery O2 Flow Rate FiO2 01/24/23 06:00 100 16 94/77 (83) 100 Mechanical Ventilator 100.00 01/24/23 04:00 70 01/23/23 22:56 35.5 Capillary Refill : I&O Intake and Output 01/24/23 00:00 Intake Total 1750 ml Output Total 0 ml Balance 1750 ml Intake Oral 0 ml IV Total 1750 ml Output Urine Total 0 ml General: Other (Sedated and intubated) Lungs: Other ( coarseness) Results Lab Laboratory Tests 01/23/23 17:52: White Blood Count 11.2H, Red Blood Count 5.43H, Hemoglobin 15.8, Hematocrit 47, Mean Corpuscular Volume 86, Mean Corpuscular Hemoglobin 29, Mean Corpuscular Hemoglobin Concent 34, Red Cell Distribution Width 12.8, Platelet Count 633H, Mean Platelet Volume 9.4, Immature Granulocyte % (Auto) 0, Neutrophils (%) (Auto) 74, Lymphocytes (%) (Auto) 16, Monocytes (%) (Auto) 9, Eosinophils (%) (Auto) 0, Basophils (%) (Auto) 0, Neutrophils # (Auto) 8.4H, Lymphocytes # (Auto ) 1.8, Monocytes # (Auto) 1.0, Eosinophils # (Auto) 0.0, Basophils # (Auto) 0.0, Immature Granulocyte # (Auto) 0.0, Sodium Level 142, Potassium Level 3.8, Chloride Level 91L, Carbon Dioxide Level 31, Anion Gap 20H, Blood Urea Nitrogen 39H, Creatinine 2.46H, Estimat Glomerular Filtration Rate 20, BUN/Creatinine Ratio 16, Glucose Level 185H, Calcium Level 11.4H, Corrected Calcium , Magnesium Level 2.9H, Total Bilirubin 1.1H, Aspartate Amino Transf (AST/SGOT) 21, Alanine Aminotransferase (ALT/SGPT) 34, Alkaline Phosphatase 115, Total Protein 10.0H, Albumin 5.2H 01/23/23 18:35: Urine Color YELLOW, Urine Clarity CLEAR, Urine pH 6.0, Urine Specific [place] 1.020, Urine Protein 1+H, Urine Glucose (UA) NEGATIVE, Urine Ketones NEGATIVE, Urine Nitrite NEGATIVE, Urine Bilirubin NEGATIVE, Urine Urobilinogen 0.2, Urine Leukocyte Esterase 2+H, Urine RBC (Auto) NEGATIVE, Urine RBC NONE, Urine WBC 50- 100H, Urine Squamous Epithelial Cells NONE, Urine Crystals NONE, Urine Bacteria LARGEH, Urine Casts NONE, Urine Mucus NEGATIVE, Urine Culture Indicated YES 01/23/23 18:40: Lactic Acid Level 3.33*H 01/23/23 18:46: Arterial Blood pH 7.57H, Arterial Blood Partial Pressure CO2 35, Arterial Blood Partial Pressure O2 96H, Arterial Blood HCO3 32H, Arterial Blood Total CO2 33.2H , Arterial Blood Oxygen Saturation 98, Arterial Blood Base Excess 9.6H, Blood Gas Ventilator Setting NO, Blood Gas Inspired Oxygen UNK 01/23/23 21:18: Lactic Acid Level 6.28*H 01/23/23 23:30: Arterial Blood pH 7.51H, Arterial Blood Partial Pressure CO2 31L, Arterial Blood Partial Pressure O2 48L, Arterial Blood HCO3 25, Arterial Blood Total CO2 25.7, Arterial Blood Oxygen Saturation 80L, Arterial Blood Base Excess 2.4, Blood Gas Ventilator Setting NO, Blood Gas Inspired Oxygen 2L 01/24/23 00:15: Lactic Acid Level 7.49*H 01/24/23 03:15: Lactic Acid Level 4.07*H 01/24/23 04:40: Arterial Blood pH 7.35L, Arterial Blood Partial Pressure CO2 51H, Arterial Blood Partial Pressure O2 155H, Arterial Blood HCO3 28H, Arterial Blood Total CO2 29.8, Arterial Blood Oxygen Saturation 100, Arterial Blood Base Excess 1.8, Blood Gas Ventilator Setting NO, Blood Gas Inspired Oxygen 100% 01/24/23 05:00: White Blood Count 6.1, Red Blood Count 4.13, Hemoglobin 12.0#, Hematocrit 37, Mean Corpuscular Volume 89, Mean Corpuscular Hemoglobin 29, Mean Corpuscular Hemoglobin Concent 33, Red Cell Distribution Width 13.0, Platelet Count 453H, Mean Platelet Volume 9.6, Immature Granulocyte % (Auto) 0, Neutrophils (%) (Auto) 70, Lymphocytes (%) (Auto) 18, Monocytes (%) (Auto) 12, Eosinophils (%) (Auto) 0, Basophils (%) (Auto) 0, Neutrophils # (Auto) 4.3, Lymphocytes # (Auto) 1.1, Monocytes # (Auto) 0.7, Eosinophils # (Auto) 0.0, Basophils # (Auto) 0.0, Immature Granulocyte # (Auto) 0.0 01/24/23 05:10: Lactic Acid Level 3.32*H Assessment/Plan Assessment/Plan Assess & Plan/Chief Complaint Assessment: Acute hypoxic respiratory failure due to aspiration PNA requiring intubation now in multisystem organ failure and decision was made to terminally extubate and placed on comfort care SBO versus ileus Septic shock requiring Levophed CT scan suspicious for bowel MARLI with oliguria UTI h/o 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
[2023-01-24 07:14] VITALS: BP 158/63
--- NOTE | 2023-01-24 07:44 | Consultation - Surgery ---
LEVI WATSON 01/24/23 0744: History of Present Illness History of Present Illness Patient Consulted On(alec/time) 01/24/23 07:37 Date Seen by Provider: Jan 24, 2023 Time Seen by Provider: 07:00 History of Present Illness This is a 72 yo female with recent h/o stroke that presented from [facility] of [facility] re[facility] with nausea and vomiting for two days. Patient's family stated that they noticed she was becoming less responsive as well. Pt was diagnosed with UTI and sepsis in the ED. Abdominal XR shows dilated loops of small bowel concerning for SBO or Ileus. Today, pt was intubated and sedated and no family was present at bedside. Minimal urine output overnight per RN (50-80mL). PSH of appendectomy. Allergies and Home Medications Allergies Coded Allergies: No Known Drug Allergies (Unverified , 10/14/22) Patient Home Medication List Amlodipine Besylate (Amlodipine Besylate) 10 Mg Tablet, 10 MG PO DAILY Prescribed by: JM CALLEJAS on 11/04/22 1249 Aspirin (Aspirin EC) 81 Mg Tablet.dr, 81 MG PO DAILY Prescribed by: JM CALLEJAS on 11/04/22 1249 Atorvastatin Calcium (Atorvastatin Calcium) 80 Mg Tablet, 80 MG PO DAILY Prescribed by: JM CALLEJAS on 11/04/22 1249 Bethanechol Chloride (Bethanechol Chloride) 25 Mg Tablet, 25 MG PO ACHS Prescribed by: JM CALLEJAS on 11/04/22 1249 Bupropion HCl (Bupropion HCl Sr) 150 Mg Tablet.er, 150 MG PO BID Prescribed by: JM CALLEJAS on 11/04/22 1249 Clopidogrel Bisulfate (Clopidogrel) 75 Mg Tablet, 75 MG PO DAILY Prescribed by: JM CALLEJAS on 11/04/22 1249 Folic Acid (Folic Acid) 1 Mg Tablet, 1 MG PO DAILY Prescribed by: JM CALLEJAS on 11/04/22 1249 Losartan Potassium (Losartan Potassium) 50 Mg Tablet, 50 MG PO BID Prescribed by: JM CALLEJAS on 11/04/22 1249 Multivitamin/Iron/Folic Acid (Tab-A-Gilles Multivit with Iron) 18 Mg Iron-400 Mcg Tablet, 1 EA PO DAILY@0700 Prescribed by: JM CALLEJAS on 11/04/22 1249 Nicotine (Nicoderm Cq) 21 Mg/24 Hour Patch.td24, 21 MG TD DAILY@0900 Prescribed by: JM CALLEJAS on 11/04/22 124 Thiamine HCl (Vitamin B-1) 100 Mg Tablet, 100 MG PO DAILY@0700 Prescribed by: JM CALLEJAS on 11/04/22 1249 Past Iluzkqn-Fejrjw-Tqwetz Hx Patient Social History Smoking Status: Former Smoker Alcohol Use?: No Cardiovascular Cardiac Disorders: Hypertension Neurological Neurological Disorders: Stroke Review of Systems-General ROS-Unable to Obtain: Unable to obtain due to patient status Physical Exam-General Problems Physical Exam Vital Signs Vital Signs - First Documented 01/23/23 01/23/23 01/24/23 17:48 20:14 02:02 Temp 36.9 Pulse 110 Resp 18 B/P (MAP) 100/68 (79) Pulse Ox 97 O2 Delivery Room Air FiO2 100 Capillary Refill : General Appearance: other (intubated and sedated) HEENT: normal ENT inspection Neck: non-tender, supple Respiratory: normal breath sounds, other (on mechanical ventilator) Cardiovascular: no edema, no murmur, tachycardia (sinus tachycardia) Peripheral Pulses: 2+ Dorsalis Pedis (R), 2+ Left Dors-Pedis (L), 2+ Radial Pulses (R), 2+ Radial Pulses (L) Gastrointestinal: soft, no organomegaly, abnormal bowel sounds (hypoactive), distended Extremities: no pedal edema, normal capillary refill Neurologic/Psychiatric: other (sedated and intubated) Skin: normal color, warm/dry Lymphatic: no adenopathy Data Review Labs Laboratory Tests 01/23/23 17:52: White Blood Count 11.2H, Red Blood Count 5.43H, Hemoglobin 15.8, Hematocrit 47, Mean Corpuscular Volume 86, Mean Corpuscular Hemoglobin 29, Mean Corpuscular Hemoglobin Concent 34, Red Cell Distribution Width 12.8, Platelet Count 633H, Mean Platelet Volume 9.4, Immature Granulocyte % (Auto) 0, Neutrophils (%) (Auto) 74, Lymphocytes (%) (Auto) 16, Monocytes (%) (Auto) 9, Eosinophils (%) (Auto) 0, Basophils (%) (Auto) 0, Neutrophils # (Auto) 8.4H, Lymphocytes # (Auto) 1.8, Monocytes # (Auto) 1.0, Eosinophils # (Auto) 0.0, Basophils # (Auto) 0.0, Immature Granulocyte # (Auto) 0.0, Sodium Level 142, Potassium Level 3.8, Chloride Level 91L, Carbon Dioxide Level 31, Anion Gap 20H, Blood Urea Nitrogen 39H, Creatinine 2.46H, Estimat Glomerular Filtration Rate 20, BUN/Creatinine Ratio 16, Glucose Level 185H, Calcium Level 11.4H, Corrected Calcium , Magnesium Level 2.9H, Total Bilirubin 1.1H, Aspartate Amino Transf (AST/SGOT) 21, Alanine Aminotransferase (ALT/SGPT) 34, Alkaline Phosphatase 115, Total Protein 10.0H, Albumin 5.2H 01/23/23 18:35: Urine Color YELLOW, Urine Clarity CLEAR, Urine pH 6.0, Urine Specific [employer] 1.020, Urine Protein 1+H, Urine Glucose (UA) NEGATIVE, Urine Ketones NEGATIVE, Urine Nitrite NEGATIVE, Urine Bilirubin NEGATIVE, Urine Urobilinogen 0.2, Urine Leukocyte Esterase 2+H, Urine RBC (Auto) NEGATIVE, Urine RBC NONE, Urine WBC 50- 100H, Urine Squamous Epithelial Cells NONE, Urine Crystals NONE, Urine Bacteria LARGEH, Urine Casts NONE, Urine Mucus NEGATIVE, Urine Culture Indicated YES 01/23/23 18:40: Lactic Acid Level 3.33*H 01/23/23 18:46: Arterial Blood pH 7.57H, Arterial Blood Partial Pressure CO2 35, Arterial Blood Partial Pressure O2 96H, Arterial Blood HCO3 32H, Arterial Blood Total CO2 33.2H , Arterial Blood Oxygen Saturation 98, Arterial Blood Base Excess 9.6H, Blood Gas Ventilator Setting NO, Blood Gas Inspired Oxygen UNK 01/23/23 21:18: Lactic Acid Level 6.28*H 01/23/23 23:30: Arterial Blood pH 7.51H, Arterial Blood Partial Pressure CO2 31L, Arterial Blood Partial Pressure O2 48L, Arterial Blood HCO3 25, Arterial Blood Total CO2 25.7, Arterial Blood Oxygen Saturation 80L, Arterial Blood Base Excess 2.4, Blood Gas Ventilator Setting NO, Blood Gas Inspired Oxygen 2L 01/24/23 00:15: Lactic Acid Level 7.49*H 01/24/23 03:15: Lactic Acid Level 4.07*H 01/24/23 04:40: Arterial Blood pH 7.35L, Arterial Blood Partial Pressure CO2 51H, Arterial Blood Partial Pressure O2 155H, Arterial Blood HCO3 28H, Arterial Blood Total CO2 29.8, Arterial Blood Oxygen Saturation 100, Arterial Blood Base Excess 1.8, Blood Gas Ventilator Setting NO, Blood Gas Inspired Oxygen 100% 01/24/23 05:00: White Blood Count 6.1, Red Blood Count 4.13, Hemoglobin 12.0#, Hematocrit 37, Mean Corpuscular Volume 89, Mean Corpuscular Hemoglobin 29, Mean Corpuscular Hemoglobin Concent 33, Red Cell Distribution Width 13.0, Platelet Count 453H, Mean Platelet Volume 9.6, Immature Granulocyte % (Auto) 0, Neutrophils (%) (Auto) 70, Lymphocytes (%) (Auto) 18, Monocytes (%) (Auto) 12, Eosinophils (%) (Auto) 0, Basophils (%) (Auto) 0, Neutrophils # (Auto) 4.3, Lymphocytes # (Auto) 1.1, Monocytes # (Auto) 0.7, Eosinophils # (Auto) 0.0, Basophils # (Auto) 0.0, Immature Granulocyte # (Auto) 0.0 01/24/23 05:10: Lactic Acid Level 3.32*H 01/24/23 07:10: Assessment/Plan Assessment/Plan Assessment/Plan Assessment: UTI Sepsis Possible SBO Plan: Abdominal CT with contrast Continue OGT use IV Fluids ISATU REMY DO 01/24/23 1058: History of Present Illness History of Present Illness History of Present Illness 72 year old female intubated and sedated. Had some previous nausea and vomiting. UTI with sepsis. Continued to decline and required intubation. On pressors. No urine output. No family at bedside. Ng tube with output. Has history of stroke affecting left side of body. Had abdominal x ray with dilated loops of small bowel concern of SBO. Lactic acid was 7.49 but has decreased to 4.02. Allergies and Home Medications Allergies Coded Allergies: No Known Drug Allergies (Unverified , 10/14/22) Patient Home Medication List Home Medication List Reviewed: Yes Amlodipine Besylate (Amlodipine Besylate) 10 Mg Tablet, 10 MG PO DAILY Prescribed by: JM CALLEJAS on 11/04/22 1249 Aspirin (Aspirin EC) 81 Mg Tablet.dr, 81 MG PO DAILY Prescribed by: JM ACLLEJAS on 11/04/22 1249 Atorvastatin Calcium (Atorvastatin Calcium) 80 Mg Tablet, 80 MG PO DAILY Prescribed by: JM CALLEJAS on 11/04/22 124 Bethanechol Chloride (Bethanechol Chloride) 25 Mg Tablet, 25 MG PO ACHS Prescribed by: JM CALLEJAS on 11/04/22 124 Bupropion HCl (Bupropion HCl Sr) 150 Mg Tablet.er, 150 MG PO BID Prescribed by: JM CALLEJAS on 11/04/22 124 Clopidogrel Bisulfate (Clopidogrel) 75 Mg Tablet, 75 MG PO DAILY Prescribed by: JM CALLEJAS on 11/04/22 124 Folic Acid (Folic Acid) 1 Mg Tablet, 1 MG PO DAILY Prescribed by: JM CALLEJAS on 11/04/22 124 Losartan Potassium (Losartan Potassium) 50 Mg Tablet, 50 MG PO BID Prescribed by: JM CALLEJAS on 11/04/22 124 Multivitamin/Iron/Folic Acid (Tab-A-Gilles Multivit with Iron) 18 Mg Iron-400 Mcg Tablet, 1 EA PO DAILY@0700 Prescribed by: JM CALLEJAS on 11/04/22 124 Nicotine (Nicoderm Cq) 21 Mg/24 Hour Patch.td24, 21 MG TD DAILY@0900 Prescribed by: JM CALLEJAS on 11/04/22 124 Thiamine HCl (Vitamin B-1) 100 Mg Tablet, 100 MG PO DAILY@0700 Prescribed by: JM CALLEJAS on 11/04/22 124 Past Yljckbo-Ykaxgw-Qlsuys Hx Surgeries Surgeries: Appendectomy Reviewed Nursing Assessment Reviewed/Agree w Nursing PMH: Yes Family Medical History Significant Family History: No Pertinent Family Hx Review of Systems-General ROS-Unable to Obtain: Intubated/sedated Physical Exam-General Problems Physical Exam General Appearance: thin, other (intubated and sedated) HEENT: PERRL/EOMI, normal ENT inspection Neck: non-tender, supple, normal inspection Respiratory: other (on mechanical ventilator, equal chest rise) Cardiovascular: no edema, tachycardia (sinus tachycardia) Gastrointestinal: distended, other (patient is sedated, but has grimace with palpation of abdomen diffusely) Rectal: deferred Back: normal inspection, no CVA tenderness Extremities: non-tender, no pedal edema Neurologic/Psychiatric: other (sedated lightly and intubated) Skin: normal color, warm/dry Lymphatic: no adenopathy Assessment/Plan Assessment/Plan Assessment/Plan UTI Sepsis Possible SBO or slight concern for ischemic bowel Respiratory failure-intubated 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 If needs surgery, may need platelets. Supervisory-Addendum Brief Verification & Attestation Participated in pt care: history, MDM, physical Personally performed: exam, history, MDM, supervision of care Care discussed with: Medical Student Procedures: n/a Results interpretation: Verified all documentation Verification and Attestation of Medical Student E/M Service A medical student performed and documented this service in my presence. I reviewed and verified all information documented by the medical student and made modifications to such information, when appropriate. I personally performed the physical exam and medical decision making. Isatu Remy, Jan 24, 2023,11:02 LEVI WATSON Jan 24, 2023 07:44 ISATU REMY DO Jan 24, 2023 10:58
[2023-01-24 07:48] LABS: ALBUMIN 3.5 GM/DL (3.2-4.5)
[2023-01-24 07:49] LABS: POTASSIUM 3.3 MMOL/L (3.6-5.0)
[2023-01-24 07:50] LABS: CALCIUM 8.4 MG/DL (8.5-10.1)
[2023-01-24 07:51] LABS: TOTAL PROTEIN 6.8 GM/DL (6.4-8.2)
[2023-01-24 07:53] LABS: BILIRUBIN,TOTAL 1.1 MG/DL (0.1-1.0)
[2023-01-24 07:54] LABS: PHOSPHORUS 6.7 MG/DL (2.3-4.7)
[2023-01-24 07:55] LABS: CREATININE SERUM 3.3 MG/DL (0.60-1.30)
[2023-01-24 07:57] LABS: MAGNESIUM 2.3 MG/DL (1.6-2.4)
[2023-01-24] MEDS ORDERED: ROCURONIUM 50 MG/5 ML VIAL IV ONE (08:12)
[2023-01-24] MEDS ORDERED: ETOMIDATE INJ SOLN 20 MG/10 ML VIAL IV ONE (08:12)
--- NOTE | 2023-01-24 08:21 | Diagnostic Imaging Report ---
EXAMINATION: Chest radiograph, portable AP view. DATE: 01/24/2023 1:46 AM INDICATION: 72-year-old female, intubation. Shortness of breath. COMPARISON: January 23, 2023. FINDINGS: The endotracheal tube is approximately 3.4 cm above the adam. The nasogastric tube is in the stomach. Heart size and mediastinal contours are unchanged. There is no identified pneumothorax. There is no large pleural effusion. There is no identified focal airspace consolidation. IMPRESSION: 1. No identified acute cardiopulmonary abnormality. 2. Support lines and tubes as above without identified complication. Dictated by: Dictated on workstation # [id number]
--- NOTE | 2023-01-24 08:38 | Diagnostic Imaging Report ---
EXAMINATION: Abdominal radiographs, single view. DATE: January 23, 2023. CLINICAL INDICATION: 72-year-old female, nasogastric tube placement. COMPARISON: None. COMMENTS: The nasogastric tube is in the stomach. There are gas-distended segments of small bowel measuring up to approximately 4.4 cm in diameter. There is a left-sided femoral line with tip at the level of L5 near midline. There is no identified pneumatosis, portal venous gas, or free intraperitoneal air. IMPRESSION: 1. The nasogastric tube is in the stomach. 2. Abnormally distended gas-filled segments of small bowel concerning for distal small bowel obstruction. Dictated by: Dictated on workstation # [id number]
--- NOTE | 2023-01-24 08:50 | Diagnostic Imaging Report ---
EXAMINATION: Chest radiograph, portable AP view. DATE: 01/23/2023 11:56 PM INDICATION: 72-year-old female, nasogastric tube placement. COMPARISON: January 23, 2023 at 1842 hours. FINDINGS: The nasogastric tube is in the stomach. Heart size and mediastinal contours are unchanged. There is no identified pneumothorax. There is no large pleural effusion. There is no identified focal airspace consolidation. There are gas distended segments of small bowel. IMPRESSION: 1. The nasogastric tube is in the stomach. 2. Gas distended segments of small bowel. 3. No identified acute cardiopulmonary abnormality. Dictated by: Dictated on workstation # [id number]
--- NOTE | 2023-01-24 08:54 | Diagnostic Imaging Report ---
EXAMINATION: Abdominal radiographs, upright and left lateral decubitus views. DATE: January 23, 2023. CLINICAL INDICATION: 72-year-old female, small bowel obstruction. Abdominal pain. COMPARISON: Abdominal radiographs January 20, 2023 at 2217 hours. COMMENTS: The nasogastric tube is in the stomach. There are abnormally dilated gas-filled segments of small bowel. There is no identified free intraperitoneal air. There is no identified pneumatosis or portal venous gas. IMPRESSION: 1. Abnormally dilated gas-filled segments of small bowel concerning for small bowel obstruction. 2. No free intraperitoneal air. 3. The nasogastric tube is in the stomach. Dictated by: Dictated on workstation # [id number]
[2023-01-24] MEDS ORDERED: PANTOPRAZOLE INJECTION 40 MG VIAL IV SCH (09:00)
[2023-01-24] MEDS ORDERED: DOCUSATE SODIUM 100 MG CAPSULE PO SCH (09:00)
[2023-01-24] MEDS ORDERED: SENNOSIDES 8.6 MG TABLET PO SCH (09:00)
[2023-01-24] MEDS ORDERED: LACTATED RINGERS 1,000 ML 1,000 ML IV SCH ×2 (09:30→09:45)
--- NOTE | 2023-01-24 09:42 | Tele-ICU Progress Note ---
Subjective Date Seen by a Provider: Jan 24, 2023 Time Seen by a Provider: 09:41 Subjective/Events-last exam (Tele-ICU Physician , Progress Note ) Service provided via interactive audio and video [employer] [employer] system to a patient admitted to ICU bed in [facility]. Patient is seen today due to persistent need of ICU care Available chart/ vitals / labs / Images reviewed Video assessment done using teleICU camera, rest of exam as per RN Discussed with RN Events overnight : Afebrile hemodynamically stable Respiratory - I/O = Drips: NS 150 Pressors- levo 0.3 VENT SETTINGS and ABG reviewed NOT CANDIDATE for SBTreviewed possible contraindications including Car diovascular Stability /Sedation Score / FI02/PEEP / ABG / CXR/ secretions Sedation, discussed with RN, RASS - 2 on fent 50 verced 2 Hospital course: (01/23) 72F Admitted from rehab facility ([facility] in Nov) for septic shock, UTI, new ARF, COPD, ??atypical focal densities LLL, Hypotensive (01/24) Worsening lactic acidosis. NGT inserted with 1800ml output/possible SBO. INTUBATED. Hypotensive. Worsening renals. A/P Acute hypoxic resp failure -INtubated 01/24 - AC 16 400 70 % + 5 ( will rr to 20 ) - full support tody Sepsis , shock - received > 3l IVF - on levo now ( ECHO 10/2022 - EF 55% , nl rvsp ) - will try additional IVF chalange and follow closely UTI - zosyn cefepime , cx pending MARLI - anuric - will do fluid chalange - await CT - ? hydro SBO , suspected - NGT inserted with 1800ml output - sx consulted - CT abd / pelvis Elev lactate - improving - presumed due to sepsis - abd soft , ? 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 Discussed with RN to reach out if any questions or concerns Case and care daily discussed on multidisciplinary rounds ( RN, PharmD, Credit Risk Analyst , Respiratory Therapy, fishing worker ) A total of 35 minutes of critical care time was devoted to this patient today, required to treat and/or prevent further deterioration of critical care c ondition ( as above ) . I am remotely monitoring this patient from another state. I am unable to do the bedside exam, and history/physical and pertinent information is taken from other notes in the computer and bedside staff. Sepsis Event Evaluation Height, Weight, BMI Height: '" Weight: lbs. oz. kg; 19.20 BMI Method: Focused Exam Lactate Level 01/24/23 05:10: Lactic Acid Level 3.32*H 01/24/23 07:10: Lactic Acid Level 3.44*H 01/24/23 09:12: Lactic Acid Level 4.02*H Lactic Acid Level Laboratory Tests Test 01/24/23 07:10 01/24/23 09:12 Lactic Acid Level 3.44 MMOL/L (0.50-2.00) *H 4.02 MMOL/L (0.50-2.00) *H Exam Exam Patient acknowledged, consented, and participated in this virtual visit which was conducted using real time audio/video Vital Signs Date Time Temp Pulse Resp B/P (MAP) Pulse Ox O2 Delivery O2 Flow Rate FiO2 01/24/23 09:36 115 107/53 01/24/23 09:14 113 93/56 01/24/23 09:00 113 33 93 Mechanical Ventilator 70.00 01/24/23 08:59 113 78/49 01/24/23 08:00 112 23 91/45 (60) 97 Mechanical Ventilator 70.00 01/24/23 07:43 36.5 01/24/23 07:14 111 16 100 100 01/24/23 07:00 108 28 86/69 (75) 100 Mechanical Ventilator 100.00 01/24/23 07:00 110 01/24/23 06:55 110 153/65 01/24/23 06:00 100 16 94/77 (83) 100 Mechanical Ventilator 100.00 01/24/23 05:00 102 16 83/60 (68) 100 Mechanical Ventilator 100.00 01/24/23 04:45 102 16 75/51 (59) 100 Mechanical Ventilator 100.00 01/24/23 04:30 104 16 75/62 (66) 100 Mechanical Ventilator 100.00 01/24/23 04:15 106 16 63/44 (50) 100 Mechanical Ventilator 100.00 01/24/23 04:00 Mechanical Ventilator 70 01/24/23 04:00 109 16 82/48 (59) 100 Mechanical Ventilator 100.00 01/24/23 03:45 112 16 86/54 (65) 100 Mechanical Ventilator 100.00 01/24/23 03:30 113 16 94/78 (83) 100 Mechanical Ventilator 100.00 01/24/23 03:15 114 16 93/69 (77) 100 Mechanical Ventilator 100.00 01/24/23 03:00 112 16 101/75 (84) 100 Mechanical Ventilator 100.00 01/24/23 02:55 109 143/66 01/24/23 02:55 110 16 136/64 01/24/23 02:45 109 16 114/79 (91) 100 Mechanical Ventilator 100.00 01/24/23 02:30 112 16 125/74 (91) 100 Mechanical Ventilator 100.00 01/24/23 02:15 113 16 113/79 (90) 100 Mechanical Ventilator 100.00 01/24/23 02:13 118 16 95 100 01/24/23 02:02 118 16 95 100 01/24/23 02:00 116 16 101/69 (80) 97 Mechanical Ventilator 100.00 01/24/23 01:50 117 48 103/81 (88) 96 Mechanical Ventilator 100.00 01/24/23 01:47 117 112/85 01/24/23 01:40 117 16 112/85 (94) 99 Mechanical Ventilator 100.00 01/24/23 01:00 112 25 76/46 (56) 88 Vapotherm 40.00 100.00 01/24/23 00:57 89 Vapotherm 40.00 100.00 01/24/23 00:50 112 53 103/54 (70) 78 High Flow N/C 8.00 01/24/23 00:48 112 89/43 01/24/23 00:45 112 01/24/23 00:40 112 45 87/56 (66) 86 High Flow N/C 8.00 01/24/23 00:30 111 45 89/43 (58) 70 High Flow N/C 8.00 01/24/23 00:15 110 24 89/64 (72) 70 High Flow N/C 8.00 01/24/23 00:00 108 33 91/71 (78) 90 High Flow N/C 8.00 01/24/23 00:00 Nasal Cannula 7.00 01/23/23 23:59 High Flow N/C 8.00 01/23/23 23:55 High Flow N/C 8.00 01/23/23 23:45 109 33 111/86 (94) 76 Nasal Cannula 2.00 01/23/23 23:38 Nasal Cannula 2.00 01/23/23 23:00 113 22 110/72 (85) 90 Nasal Cannula 2.00 01/23/23 22:56 35.5 105 01/23/23 22:15 104 19 116/77 (90) Nasal Cannula 2.00 01/23/23 22:00 104 23 102/70 (81) Nasal Cannula 2.00 01/23/23 21:45 105 23 Nasal Cannula 2.00 01/23/23 21:30 105 27 96/67 (77) Nasal Cannula 2.00 01/23/23 21:30 105 27 96/67 (77) Nasal Cannula 2.00 01/23/23 21:15 103 47 77/31 (46) Nasal Cannula 2.00 01/23/23 21:15 103 47 77/31 (46) Nasal Cannula 2.00 01/23/23 21:00 105 23 82/64 (70) Nasal Cannula 2.00 01/23/23 21:00 105 23 82/64 (70) Nasal Cannula 2.00 01/23/23 20:45 108 19 93/57 (69) Nasal Cannula 2.00 01/23/23 20:45 108 19 93/57 (69) Nasal Cannula 2.00 01/23/23 20:42 108 01/23/23 20:30 109 86/66 (73) Nasal Cannula 2.00 01/23/23 20:30 109 86/66 (73) Nasal Cannula 2.00 01/23/23 20:14 36.9 106 18 96/69 97 Room Air 01/23/23 17:48 36.9 110 18 100/68 (79) Room Air I & O 01/24/23 06:59 Intake Total 3050 ml Output Total 1800 ml Balance 1250 ml Height & Weight Height: '" Weight: lbs. oz. kg; 19.20 BMI Method: General Appearance: Other (sedated and intubated) Respiratory: Crackles, Decreased Breath Sounds, Rales, Wheezing Cardiovascular: Regular Rate, Rhythm, Tachycardia Peripheral Pulses: 2+ Dorsalis Pedis (R), 2+ Left Dors-Pedis (L), 2+ Radial Pulses (R), 2+ Radial Pulses (L) Gastrointestinal: soft, no organomegaly, abnormal bowel sounds (hypoactive), distended Extremity: Normal Capillary Refill, Normal Inspection Results Lab Laboratory Tests 01/23/23 17:52 01/24/23 05:00 01/24/23 07:10 Assessment/Plan Assessment/Plan 1 TAVO HDEZ MD Jan 24, 2023 09:42
--- NOTE | 2023-01-24 09:50 | Occ Therapy Progress Note ---
Therapy Progress Note OT order received, Patient intubated w/ mechanical Vent. OT will monitor for progress to initiate evaluation YOUNG JIN OT Jan 24, 2023 09:50
--- NOTE | 2023-01-24 10:34 | Physical Therapy Progress Note ---
Therapy Progress Note Pt is currently intubated. We will evaluate for PT once she is off the vent. ARDEN CANTU PT Jan 24, 2023 10:34
[2023-01-24 10:46] VITALS: BP 139/63
--- NOTE | 2023-01-24 11:38 | Diagnostic Imaging Report ---
PROCEDURE: CT abdomen and pelvis without contrast. TECHNIQUE: Multiple contiguous axial images were obtained through the abdomen and pelvis without the use of intravenous contrast. Auto Exposure Controls were utilized during the CT exam to meet ALARA standards for radiation dose reduction. INDICATION: Small bowel obstruction, renal failure and possible bowel ischemia There is airspace disease with air bronchograms in the posterior right lower lobe likely representing area of pneumonia. Nasogastric tube passes into the stomach which is mildly distended with fluid. There is moderate diffuse small bowel dilatation with gas and fluid present. This extends to the level of distal ileum. The terminal ileum appears to be generally decompressed with moderate amount of right colonic stool present. Unenhanced images of liver, gallbladder, pancreas, adrenal glands and spleen are unremarkable. Unenhanced kidneys also reveal no abnormality. There is no evidence of free fluid in the abdomen. There is extensive aortoiliac atherosclerotic calcification. At the level of the pelvis there is a small amount of free fluid with moderate amount of rectal stool. Orozco catheter appears be coiled in the bladder lumen IMPRESSION: Diffuse dilatation of small bowel to the level of the distal ileum has appearance suggestive of obstruction although no obstructing lesion is identified on the noncontrast study. There is evidence of right lower lobe pneumonia with small amount of pelvic ascites. Dictated by: Dictated on workstation # [id number]
[2023-01-24] MEDS ORDERED: ACETAMINOPHEN 650 MG SUPPOSITORY PR PRN (12:30)
[2023-01-24] MEDS ORDERED: ONDANSETRON INJECTION 4 MG/2 ML (SDV) IVP PRN (12:30)
[2023-01-24] MEDS ORDERED: RT-Ipratropium/Albuterol NEB 3 ML VIAL INH PRN (12:30)
[2023-01-24] MEDS ORDERED: BISACODYL 10 MG SUPPOSITORY PR PRN (12:30)
[2023-01-24] MEDS ORDERED: PROMETHAZINE INJ 25 MG/ML VIAL IVP PRN (12:30)
[2023-01-24] MEDS ORDERED: ARTIFICIAL TEARS Ophth solution 0.4 ML UNIT DOSE OU PRN (12:30)
[2023-01-24] MEDS ORDERED: LORazepam 1 MG TABLET SL PRN (12:30)
[2023-01-24] MEDS ORDERED: GLYCOPYRROLATE INJ 0.2 MG/ML 2 ML VIAL IV PRN (12:30)
[2023-01-24] MEDS ORDERED: morphine INJ 4 MG/ML 1 ML (VIAL/SYRINGE) IV PRN ×2 (12:30→13:15)
[2023-01-24] MEDS ORDERED: SALIVA SUBSTITUTE 236 ML SPRAY MM PRN (12:45)
--- NOTE | 2023-01-24 13:14 | Discharge Summary ---
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 Remy Remains intubated Family at the bedside Multisystem organ failure Updated family in meeting room and decision was made to terminally extubate and placed on comfort care and expect process Palliative care nurse Milvia involved in process Labs (last 24 hrs) Laboratory Tests 01/23/23 17:52: White Blood Count 11.2H, Red Blood Count 5.43H, Hemoglobin 15.8, Hematocrit 47, Mean Corpuscular Volume 86, Mean Corpuscular Hemoglobin 29, Mean Corpuscular Hemoglobin Concent 34, Red Cell Distribution Width 12.8, Platelet Count 633H, Mean Platelet Volume 9.4, Immature Granulocyte % (Auto) 0, Neutrophils (%) (Auto) 74, Lymphocytes (%) (Auto) 16, Monocytes (%) (Auto) 9, Eosinophils (%) (Auto) 0, Basophils (%) (Auto) 0, Neutrophils # (Auto) 8.4H, Lymphocytes # (Auto) 1.8, Monocytes # (Auto) 1.0, Eosinophils # (Auto) 0.0, Basophils # (Auto) 0.0, Immature Granulocyte # (Auto) 0.0, Sodium Level 142, Potassium Level 3.8, Chloride Level 91L, Carbon Dioxide Level 31, Anion Gap 20H, Blood Urea Nitrogen 39H, Creatinine 2.46H, Estimat Glomerular Filtration Rate 20, BUN/Creatinine Ratio 16, Glucose Level 185H, Calcium Level 11.4H, Corrected Calcium , Magnesium Level 2.9H, Total Bilirubin 1.1H, Aspartate Amino Transf (AST/SGOT) 21, Alanine Aminotransferase (ALT/SGPT) 34, Alkaline Phosphatase 115, Total Protein 10.0H, Albumin 5.2H 01/23/23 18:35: Urine Color YELLOW, Urine Clarity CLEAR, Urine pH 6.0, Urine Specific [place] 1.020, Urine Protein 1+H, Urine Glucose (UA) NEGATIVE, Urine Ketones NEGATIVE, Urine Nitrite NEGATIVE, Urine Bilirubin NEGATIVE, Urine Urobilinogen 0.2, Urine Leukocyte Esterase 2+H, Urine RBC (Auto) NEGATIVE, Urine RBC NONE, Urine WBC 50- 100H, Urine Squamous Epithelial Cells NONE, Urine Crystals NONE, Urine Bacteria LARGEH, Urine Casts NONE, Urine Mucus NEGATIVE, Urine Culture Indicated YES 01/23/23 18:40: Lactic Acid Level 3.33*H 01/23/23 18:46: Arterial Blood pH 7.57H, Arterial Blood Partial Pressure CO2 35, Arterial Blood Partial Pressure O2 96H, Arterial Blood HCO3 32H, Arterial Blood Total CO2 33.2H , Arterial Blood Oxygen Saturation 98, Arterial Blood Base Excess 9.6H, Blood Gas Ventilator Setting NO, Blood Gas Inspired Oxygen UNK 01/23/23 21:18: Lactic Acid Level 6.28*H 01/23/23 23:30: Arterial Blood pH 7.51H, Arterial Blood Partial Pressure CO2 31L, Arterial Blood Partial Pressure O2 48L, Arterial Blood HCO3 25, Arterial Blood Total CO2 25.7, Arterial Blood Oxygen Saturation 80L, Arterial Blood Base Excess 2.4, Blood Gas Ventilator Setting NO, Blood Gas Inspired Oxygen 2L 01/24/23 00:15: Lactic Acid Level 7.49*H 01/24/23 03:15: Lactic Acid Level 4.07*H 01/24/23 04:40: Arterial Blood pH 7.35L, Arterial Blood Partial Pressure CO2 51H, Arterial Blood Partial Pressure O2 155H, Arterial Blood HCO3 28H, Arterial Blood Total CO2 29.8, Arterial Blood Oxygen Saturation 100, Arterial Blood Base Excess 1.8, Blood Gas Ventilator Setting NO, Blood Gas Inspired Oxygen 100% 01/24/23 05:00: White Blood Count 6.1, Red Blood Count 4.13, Hemoglobin 12.0#, Hematocrit 37, Mean Corpuscular Volume 89, Mean Corpuscular Hemoglobin 29, Mean Corpuscular Hemoglobin Concent 33, Red Cell Distribution Width 13.0, Platelet Count 453H, Mean Platelet Volume 9.6, Immature Granulocyte % (Auto) 0, Neutrophils (%) (Auto) 70, Lymphocytes (%) (Auto) 18, Monocytes (%) (Auto) 12, Eosinophils (%) (Auto) 0, Basophils (%) (Auto) 0, Neutrophils # (Auto) 4.3, Lymphocytes # (Auto) 1.1, Monocytes # (Auto) 0.7, Eosinophils # (Auto) 0.0, Basophils # (Auto) 0.0, Immature Granulocyte # (Auto) 0.0 01/24/23 05:10: Lactic Acid Level 3.32*H 01/24/23 07:10: Lactic Acid Level 3.44*H, Sodium Level 150H, Potassium Level 3.3L, Chloride Level 106, Carbon Dioxide Level 27, Anion Gap 17H, Blood Urea Nitrogen 51H, Creatinine 3.30#H, Estimat Glomerular Filtration Rate 14, BUN/Creatinine Ratio 15, Glucose Level 115H, Calcium Level 8.4L, Corrected Calcium 8.8, Phosphorus Level 6.7H, Magnesium Level 2.3, Total Bilirubin 1.1H, Aspartate Amino Transf (AST/SGOT) 31, Alanine Aminotransferase (ALT/SGPT) 26, Alkaline Phosphatase 95, Total Protein 6.8, Albumin 3.5 01/24/23 09:12: Lactic Acid Level 4.02*H 01/24/23 11:20: Lactic Acid Level 4.18*H 01/24/23 11:39: Glucometer 70 Microbiology 01/23/23 Blood Culture - Preliminary, Resulted Pending Labs Microbiology Date/Time Source Procedure Growth Status 01/23/23 19:17 Peripheral Lt Ac Blood Culture - Preliminary Resulted 01/23/23 18:40 Peripheral Lt Ac Blood Culture - Preliminary Resulted Laboratory Tests 01/23/23 17:52: White Blood Count 11.2, Red Blood Count 5.43, Hemoglobin 15.8, Hematocrit 47, Mean Corpuscular Volume 86, Mean Corpuscular Hemoglobin 29, Mean Corpuscular Hemoglobin Concent 34, Red Cell Distribution Width 12.8, Platelet Count 633, Mean Platelet Volume 9.4, Immature Granulocyte % (Auto) 0, Neutrophils (%) (Auto) 74, Lymphocytes (%) (Auto) 16, Monocytes (%) (Auto) 9, Eosinophils (%) (Auto) 0, Basophils (%) (Auto) 0, Neutrophils # (Auto) 8.4, Lymphocytes # (Auto) 1.8, Monocytes # (Auto) 1.0, Eosinophils # (Auto) 0.0, Basophils # (Auto) 0.0, Immature Granulocyte # (Auto) 0.0, Sodium Level 142, Potassium Level 3.8, Chloride Level 91, Carbon Dioxide Level 31, Anion Gap 20, Blood Urea Nitrogen 39, Creatinine 2.46, Estimat Glomerular Filtration Rate 20, BUN/Creatinine Ratio 16, Glucose Level 185, Calcium Level 11.4, Corrected Calcium , Magnesium Level 2.9, Total Bilirubin 1.1, Aspartate Amino Transf (AST/SGOT) 21, Alanine Aminotransferase (ALT/SGPT) 34, Alkaline Phosphatase 115, Total Protein 10.0, Albumin 5.2 01/23/23 18:35: Urine Color YELLOW, Urine Clarity CLEAR, Urine pH 6.0, Urine Specific [place] 1.020, Urine Protein 1+, Urine Glucose (UA) NEGATIVE, Urine Ketones NEGATIVE, Urine Nitrite NEGATIVE, Urine Bilirubin NEGATIVE, Urine Urobilinogen 0.2, Urine Leukocyte Esterase 2+, Urine RBC (Auto) NEGATIVE, Urine RBC NONE, Urine WBC 50- 100, Urine Squamous Epithelial Cells NONE, Urine Crystals NONE, Urine Bacteria LARGE, Urine Casts NONE, Urine Mucus NEGATIVE, Urine Culture Indicated YES 01/23/23 18:40: Lactic Acid Level 3.33 01/23/23 18:46: Arterial Blood pH 7.57, Arterial Blood Partial Pressure CO2 35, Arterial Blood Partial Pressure O2 96, Arterial Blood HCO3 32, Arterial Blood Total CO2 33.2, Arterial Blood Oxygen Saturation 98, Arterial Blood Base Excess 9.6, Blood Gas Ventilator Setting NO, Blood Gas Inspired Oxygen UNK 01/23/23 21:18: Lactic Acid Level 6.28 01/23/23 23:30: Arterial Blood pH 7.51, Arterial Blood Partial Pressure CO2 31, Arterial Blood Partial Pressure O2 48, Arterial Blood HCO3 25, Arterial Blood Total CO2 25.7, Arterial Blood Oxygen Saturation 80, Arterial Blood Base Excess 2.4, Blood Gas Ventilator Setting NO, Blood Gas Inspired Oxygen 2L 01/24/23 00:15: Lactic Acid Level 7.49 01/24/23 03:15: Lactic Acid Level 4.07 01/24/23 04:40: Arterial Blood pH 7.35, Arterial Blood Partial Pressure CO2 51, Arterial Blood Partial Pressure O2 155, Arterial Blood HCO3 28, Arterial Blood Total CO2 29.8, Arterial Blood Oxygen Saturation 100, Arterial Blood Base Excess 1.8, Blood Gas Ventilator Setting NO, Blood Gas Inspired Oxygen 100% 01/24/23 05:00: White Blood Count 6.1, Red Blood Count 4.13, Hemoglobin 12.0, Hematocrit 37, Mean Corpuscular Volume 89, Mean Corpuscular Hemoglobin 29, Mean Corpuscular Hemoglobin Concent 33, Red Cell Distribution Width 13.0, Platelet Count 453, Mean Platelet Volume 9.6, Immature Granulocyte % (Auto) 0, Neutrophils (%) ( Auto) 70, Lymphocytes (%) (Auto) 18, Monocytes (%) (Auto) 12, Eosinophils (%) (Auto) 0, Basophils (%) (Auto) 0, Neutrophils # (Auto) 4.3, Lymphocytes # (Auto) 1.1, Monocytes # (Auto) 0.7, Eosinophils # (Auto) 0.0, Basophils # (Auto) 0.0, Immature Granulocyte # (Auto) 0.0 01/24/23 05:10: Lactic Acid Level 3.32 01/24/23 07:10: Lactic Acid Level 3.44, Sodium Level 150, Potassium Level 3.3, Chloride Level 106, Carbon Dioxide Level 27, Anion Gap 17, Blood Urea Nitrogen 51, Creatinine 3.30, Estimat Glomerular Filtration Rate 14, BUN/Creatinine Ratio 15, Glucose Level 115, Calcium Level 8.4, Corrected Calcium 8.8, Phosphorus Level 6.7, Magnesium Level 2.3, Total Bilirubin 1.1, Aspartate Amino Transf (AST/SGOT) 31, Alanine Aminotransferase (ALT/SGPT) 26, Alkaline Phosphatase 95, Total Protein 6.8, Albumin 3.5 01/24/23 09:12: Lactic Acid Level 4.02 01/24/23 11:20: Lactic Acid Level 4.18 01/24/23 11:39: Glucometer 70 Discharge Home Medications: Active Scripts Active Bupropion HCl Sr (Bupropion HCl) 150 Mg Tablet.er 150 Mg PO BID Losartan Potassium 50 Mg Tablet 50 Mg PO BID Amlodipine Besylate 10 Mg Tablet 10 Mg PO DAILY Bethanechol Chloride 25 Mg Tablet 25 Mg PO ACHS Nicoderm Cq (Nicotine) 21 Mg/24 Hour Patch.td24 21 Mg TD DAILY@0900 Aspirin EC (Aspirin) 81 Mg Tablet.dr 81 Mg PO DAILY Tab-A-Gilles Multivit with Iron (Multivitamin/Iron/Folic Acid) 18 Mg Iron-400 Mcg Tablet 1 Ea PO DAILY@0700 Vitamin B-1 (Thiamine HCl) 100 Mg Tablet 100 Mg PO DAILY@0700 Folic Acid 1 Mg Tablet 1 Mg PO DAILY Atorvastatin Calcium 80 Mg Tablet 80 Mg PO DAILY Clopidogrel (Clopidogrel Bisulfate) 75 Mg Tablet 75 Mg PO DAILY Instructions to patient/family Please see electronic discharge instructions given to patient. JM CALLEJAS DO Jan 24, 2023 13:14
== END 2023-01-24 15:30 | disposition expired | DRG 871 ==
LOC: ER 17:45 → EDUNIT# 17:45 → ICU 20:15 → OBSVTOIN 20:32
PROVIDERS: ADMIT Internal Medicine; ATTEND Internal Medicine
PROC: 5A1935Z Respiratory Ventilation, Less than 24 Consecutive Hours (ICD-10-PCS; principal; 2023-01-24)
PROC: 0BH18EZ Insertion of Endotracheal Airway into Trachea, Via Natural or Artificial Opening Endoscopic (ICD-10-PCS; 2023-01-24)
PROC: 0D9670Z Drainage of Stomach with Drainage Device, Via Natural or Artificial Opening (ICD-10-PCS; 2023-01-24)
DX: A41.9 Sepsis, unspecified organism (principal); J69.0 Pneumonitis due to inhalation of food and vomit; R65.21 Severe sepsis with septic shock; J96.01 Acute respiratory failure with hypoxia; N39.0 Urinary tract infection, site not specified; N17.9 Acute kidney failure, unspecified; I69.351 Hemiplegia and hemiparesis following cerebral infarction affecting right dominant side; Z66 Do not resuscitate; Z51.5 Encounter for palliative care; K55.9 Vascular disorder of intestine, unspecified; K56.609 Unspecified intestinal obstruction, unspecified as to partial versus complete obstruction; K56.7 Ileus, unspecified; E86.0 Dehydration; I69.322 Dysarthria following cerebral infarction; I69.320 Aphasia following cerebral infarction; R34 Anuria and oliguria; I10 Essential (primary) hypertension; Z87.891 Personal history of nicotine dependence; Z79.82 Long term (current) use of aspirin; Z79.899 Other long term (current) drug therapy
CPT/HCPCS: 36415; 36600; 71045; 74018; 74019; 74176; 80053; 81000; 82805; 82947; 83605; 83735; 84100; 85025; 87040; 87077; 87088; 87186; 94002; 94640